=== PATIENT | female | born 1940 | race Caucasian/White ===

== ENCOUNTER → 2017-12-24 12:14 | Outpatient (CLI) | payer MEDICARE, SELFPAY | PROVIDERS: PCP Family Medicine; Visit Provider Orthopaedic Surgery Orthopaedic Surgery of the Spine | DX: Z01.818 Encounter for other preprocedural examination (principal) | CPT/HCPCS: 93005 ==

== ENCOUNTER 2018-01-05 06:31 | Inpatient (IN) | payer MEDICARE, SELFPAY ==
[2017-12-15 09:44] VITALS: BMI 20.1
[2018-01-05] VITALS (15 sets, daily range): BP systolic 108–156; BP diastolic 48–91; PULSE 13–106; RESP 7–94; TEMP 36.2–36.8; O2SAT 92–100; BMI 20.5
--- NOTE | 2018-01-05 | DI.RAD.S_ITS ---
PROCEDURE: XR LUMBAR SPINE 2-3V INDICATIONS: L3-4, L5-S1 TLIF TECHNIQUE: 2 views of the lumbar spine were acquired. COMPARISON: [facility], CT, L-SPINE WITHOUT CONTRAST, 01/04/2015, 13:42. [facility], CT, CT CHEST ABDOMEN PELVIS WITHOUT CONTRAST, 03/03/2017, 12:58. [facility], CR, L-SPINE 2-3 VIEWS, 09/06/2014, 13:51. FINDINGS: Intraoperative fluoroscopy was provided for the referring service and demonstrates posterior spinal fusion of the L3, L4, L5, and S1 by transpedicular screws, stabilizing rods, and intervertebral body spacer devices. IMPRESSION: Intraoperative fluoroscopy demonstrating posterior lumbosacral spinal fusion; please refer to the operative report for further details. Dictated by: Tyrel Cantu M.D. on 01/05/2018 at 12:25 Approved by: Tyrel Cantu M.D. on 01/05/2018 at 12:29
[2018-01-05] MEDS: LACTATED RINGERS 1,000 ML 42 ML IV (07:40)
--- NOTE | 2018-01-05 07:56 | PM.PREOP ---
Pre-operative Note Interval Note Pre-op Check: Yes History & Physical Reviewed by Physician, Yes Exam Performed and Yes History & Physical exam performed today by Physician Changes: No
[2018-01-05] MEDS: MIDAZOLAM 2 MG/2 ML VIAL IV (07:57)
--- NOTE | 2018-01-05 07:59 | SUR.PREOP ---
Dr. Reese declined glucose check
[2018-01-05] MEDS: CEFAZOLIN 1 GM/50 ML FROZ.PIGGY IV (08:00)
--- NOTE | 2018-01-05 08:45 | SUR.OPER ---
Prone on spine table, head in foam head support, padded chest and pelvic supports, gel pad at knees, lower legs supported by pillows; nipples, genitalia and toes free of pressure, arms secured on foam padded arm boards at <90 degrees abduction. Tape over blanket at thigh secured to table.
[2018-01-05] MEDS: BUPIVACAINE 0.25% W/ EPI VIAL 50 ML INJ (09:47)
[2018-01-05] MEDS: BUPIVACAINE LIPOSOME 266 MG/20 ML VIAL INJ (09:50)
[2018-01-05] MEDS: ACETAMINOPHEN IV 1,000 MG/100 ML VIAL 400 MG IV (11:00)
--- NOTE | 2018-01-05 11:44 | P.OP_ITS ---
Operative Date/Time/Diagnoses Date of procedure: 01/05/18 Time of procedure: 08:19 Pre-op diagnosis: 1. 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 L3-4, L4-5, l5-S1 spinal stenosis. 3. L3-4, L4-5, L5-S1 spondylosis with radiculopathy Post-op diagnosis: same Procedure & Clinicians Procedure: 1. L3-4, L5-S1 Postero-lateral and posterior interbody fusion 2. L3-4, L5-S1 interbody cage placement. 3. L3-4, L5-S1 decompressive laminectomy with bilateral facetecomies 4. L4-5 posterolateral fusion 5. L4-5 posterior non-segmental instrumentation removal 6. L4-5 hemilaminectomy with exploration of fusion 7. L3-4, L5-S1 Posterior segmental instrumentation 8. [place] of bone marrow from iliac crest 9. Utilization of microsurgical technique and operating microscope Same procedure as scheduled: Yes Indications: Patient has been having chronic back pain and worsening lumbar radiculopathy. Patient had history of L4-5 fusion. Patient was doing well for 6 months before start to have worsening back pain. Her x-ray showed worsening spondylolisthesis and possible loss of fixation. Patient failed multiple conservative management with worsening pain weakness and numbness in her lower extremity. Patient has been having difficulty performing activity of daily living. After discussing risks benefits of treatment options, patient elected proceed with surgery. Surgeon: Danyell Reese Non Profit Financial Controller: Sophie Pfeiffer Click Yes if Unassisted: No Anesthesia Type: General Operative Notes Closure Type: primary Specimen(s): none sent Implants & Drains: Globus revolve screws and Rise cages Applied: catheter Estimated Blood Loss (mL): 100 Blood products transfused: none Procedure in detail: Patient was seen in the preoperative area. Risks and benefits of the surgery was discussed with the patient. Informed consent was obtained from the patient and placed in the chart. Surgical site was marked. Patient was taken to the operative room. General anesthesia was administered. Prophylactic antibiotic was given to the patient less than 30 min before the incision was made. Patient was placed into a prone position on the Brendon table. Patient's back was then prepped and draped in the sterile fashion. Time- out was performed at this time. Using patient's previous scar incision was made over the L3-S1 interval on the left side. Fascia was incised in line with skin incision. Patient's previously placed hardware over the L4-5 level was identified by dissecting down to the level the hardware using a Bovie and a Frey. The locking caps which was removed using globus screwdriver. The locking epi was then removed from the tulips of the pedicle screws using a Micki. The pedicle screws were then removed using the screwdriver. The screws were found to have poor purchase. The Globus and MARS retractors was then placed into the wound and docked onto the L3 and L5 lamina using C-arm guidance. Using microsurgical technique and operating microscope a laminectomy facetectomy was performed by removing the L3 and L5 lamina and the L3-4 L5-S1 facet. The disc space at L3-4 to L5-S1 level was identified next. And a total diskectomy was performed at L3-4 L5-S1 level. The endplates were decorticated using a rasp and shaver. The total diskectomy and decortication was performed at L3-4 L5-S1 level in order to to accomplish a L3-4 L5-S1 fusion. The local bone from the laminectomy and facetectomy was saved for local bone grafting. After the total diskectomy and decortication was completed, Globus viacell bone graft material was combined with local bone that was harvested earlier. At this time, a separate skin is incision was made over the iliac crest. A Jamshidi needle was inserted into the iliac crest through a separate skin incision. 5 cc of bone marrow aspiration was obtained through the separate skin incision using a Jamshidi needle from the iliac crest. The bone marrow aspiration was combined with local bone and the via cell bone grafting material. The bone grafting material was placed into the L3- 4, L5-S1 interbody space along with a expandable cage. The cage was expanded to its maximum height using the torque limiting screwdriver. At this time a mirror image incision was made on the right side. The fascia was incised in line with the skin incision. Patient's previously placed hardware on the right side was then removed in the same fashion as it was on the right side. The hardware was also found to have good purchase. The fusion mass on the left side was exposed by performing a right-sided hemilaminectomy at L4-5 level. The hemilaminectomy was performed using the Kerrison rongeur to undercut the lamina as well removing additional epidural scar tissue for purpose of decompressing the epidural space. The fusion mass was explored and was found have visible motion indicating pseudoarthrosis. Globus MARS retractor was inserted and docked onto the L3-4 L4-5 L5-S1 posterolateral gutter. Using the power drill, posterior-lateral decortication was performed at L3-4 L4-5 L5-S1 level until bleeding cortical bone was identified. The remaining bone grafting material was placed into the L3-4 L4-5 L5-S1 posterior lateral gutter he order to accomplish posterolateral fusion at the L3-4 L4-5 L5-S1 level. Using the double C-arm technique, pedicle screws were placed into the L3, L4 L5 and S1 pedicles bilaterally. This was done by placing the Jamshidi needle into the pedicles, then placing the guidewires over the Jamshidi needle, and finally placing the cannulated screws over the guidewires bilaterally. After the pedicle screws were placed, 2 titanium rods was locked into the heads of the pedicle screws using locking caps and torque limiting screwdriver. After all the hardware was placed, and confirmed with AP and lateral C-arm imaging, the wound was then irrigated with sterile normal saline and packed with Ray-Hector gauze for 3 min to accomplish hemostasis. After the gauze was removed the deep fascia was closed with #1 Vicryl suture. The subcutaneous layer was closed with 2-0 Vicryl. The skin was closed with skin anais. Patient tolerated the procedure well. There were no complications. Complications: none Condition: stable Disposition: PACU Plan for aftercare: Admit to inpatient hospital
[2018-01-05] MEDS: HYDROMORPHONE 2 MG INJ 0.5 MG IV ×3 (12:13→12:39)
[2018-01-05] MEDS: ONDANSETRON 4 MG/2 ML INJ IV ×2 (12:16→18:03)
[2018-01-05] MEDS: METOCLOPRAMIDE 10 MG/2 ML INJ IV (12:30)
--- NOTE | 2018-01-05 12:36 | SUR.PHASEI ---
Report called to SONIA Howell
--- NOTE | 2018-01-05 13:11 | SUR.PHASEI ---
Pt tansferred to the floor. Report to SONIA Wilcox. Josy checked with RN. Rodriguez secured. IV saline locked. Pt on her rt side. VS stable. Mild weakness to lt leg. Bbelongings bag x2 and cane to pt's room. Pt's spouse notified regarding transfer.
[2018-01-05] MEDS: SODIUM CHLORIDE 0.9% 1,000 ML 100 ML IV ×2 (13:45→23:03)
[2018-01-05] MEDS: OXYCODONE IR 5 MG TABLET 10 MG PO ×3 (13:45→19:51)
--- NOTE | 2018-01-05 15:00 | CM.DANOTE ---
DCP: Case received and reviewed EMR. Met with patient, and introduced self and role of discharge planning. Provided name on board, and number to contact. Patient is a 77 year old female who was admitted to the hospitalist team early this morning. PCP: Dr. Stearns. Payer confirmed is Medicare/[employer] Patient came in early this morning for surgery, L4-5 fusion, has history of pseudoarthritis. Lives at home in [place] with her . Has a daughter that lives on [address] as well. Has been independent, before having surgery. Uses a cane at home, but has several stairs. Discussed senior living after discharge, and patient is requesting this. Gave her Medicare Choice list to review, patient is leaning toward [facility]. P: DCP to continue to plan and assess, arrange [facility] when closer to discharge. Angela Cabrera RN/Molding Utility Worker
--- NOTE | 2018-01-05 15:09 | PT.IPTN ---
Current Diagnoses Other spondylosis with radiculopathy, lumbar region (01/05/18) Spinal stenosis, lumbar region without neurogenic claudication (01/05/18) Arthrodesis status (01/05/18) Surgery Performed Operation Date: 01/05/18 07:45 Actual Procedures p L3-4,L5-S1 TLIF; L4-5 HWR w/Exploration Fusion, L3-4,L4-5,L5-S1 PSF w/Instru.(Not Applicable) - Danyell Reese MD Physical Therapy Treatment Note M3 PT-IP Subjective Start: 01/05/18 15:11 Freq: NEEDED Status: Active Protocol: Document 01/05/18 15:09 MDD (Rec: 01/05/18 15:14 MDD [id number]) Subjective Physical Therapy Visit Type Type Patient Refusal Notes PT attempted to see pt at the above time. Pt requested to wait for tomorrow. In addtion , paper script for chairback lumbar brace was found in her chart. No mention of wear schedule, donning/doffing instructions provided in EHR. Spoke to a PA at [facility] who is sending a message to Dr. Reese for clarification.
[2018-01-05] MEDS: GABAPENTIN 100 MG CAPSULE 200 MG PO ×2 (17:08→20:46)
[2018-01-05] MEDS: HYDROMORPHONE 1 MG INJ 0.5 MG IV (17:55)
[2018-01-05] MEDS: hydrOXYzine pamoate 25 MG CAPSULE PO (18:14)
--- NOTE | 2018-01-05 18:45 | PC.NURSE ---
Pt in bed awake and tremulous. Denies h/o tremors or feeling chilled. Rates incisional pain 7-8/10 s/p oxycodone administration. Pt admits to nausea. Pt was repositioned onto left side with ice to back. 02 2l nc sats 96% per continuous monitor. Pt admits to h/o sleep apnea without cpap. Spouse is present @ pt's bedside. Administered 0.5 mg iv dilaudid and zofran. Pt states having difficulty relaxing and discussed action of vistaril with pt. Pt desires this and med was given. Reassured pt will monitor carefully as pt expressed concern re use of iv dilaudid. Pt admits to baseline numbness RLE. Equally warm and pink extremities. Foot pumps BL removed until pt's pain is managed.
[2018-01-05] MEDS: ACETAMINOPHEN 325 MG TABLET 650 MG PO (19:51)
[2018-01-05] MEDS: DOCUSATE 100 MG CAPSULE PO (20:48)
[2018-01-05] MEDS: SENNOSIDES 8.6 MG TABLET 17.2 MG PO (20:48)
[2018-01-05] MEDS: diphenhydrAMINE 50 MG/ML VIAL 25 MG IV (20:55)
[2018-01-05] MEDS: HYDROMORPHONE 0.5 MG INJ IV (20:57)
[2018-01-06] MEDS: CEFAZOLIN 1 GM/50 ML FROZ.PIGGY IV (00:58)
[2018-01-06 01:00] VITALS: BP 113/64; PULSE 69; RESP 16; TEMP 36.6; O2SAT 100
[2018-01-06] MEDS: OXYCODONE IR 5 MG TABLET 10 MG PO ×7 (01:05→22:31)
[2018-01-06] MEDS: hydrOXYzine pamoate 25 MG CAPSULE PO ×3 (01:06→20:04)
[2018-01-06] MEDS: ALBUTEROL HFA 60 PUFF/8 GM INH INH (01:22)
[2018-01-06] MEDS: HYDROMORPHONE 0.5 MG INJ IV ×3 (01:45→16:56)
[2018-01-06 03:20] VITALS: BP 104/48; PULSE 100; RESP 16; TEMP 36.5; O2SAT 100
[2018-01-06] MEDS: diphenhydrAMINE 50 MG/ML VIAL 25 MG IV ×2 (03:20→22:31)
[2018-01-06 05:48] LABS: Hematocrit 27.5 % (36-46); Hemoglobin 9.2 g/dL (12.0-16.0)
[2018-01-06] MEDS: LEVOTHYROXINE 75 MCG TABLET 37.5 MCG PO (05:58)
[2018-01-06 08:00] VITALS: BP 116/58; PULSE 72; RESP 16; TEMP 37.6; O2SAT 100
--- NOTE | 2018-01-06 08:51 | PM.PNPO.1 ---
Subjective Date Patient Seen: 01/06/18 Time Patient Seen: 08:51 Interval history: Patient is laying in bed comfortably. Patient is well developed and in no acute distress. Patient denies any fever, chills or chest pain. Patient reports pain to be 4/10 and tolerable. She reports that PT came by yesterday however she declined as she was not in the best mood; she is doing much better today. Patient expressed that upon discharge she would like to go to rehab due to her not being able to assist at home. Exam Vital Signs (past 8 hours): - 01/06/18 01:00 01/06/18 03:20 Temperature 97.9 F 97.7 F Pulse Rate 69 100 H Respiratory Rate 16 16 Blood Pressure 113/64 104/48 L Pulse Oximetry 100 100 Oxygen Delivery Method Nasal Cannula Oxygen Flow Rate 2 Narrative Exam Narrative: Patient is AOx3. There is slight tenderness to palpation of the lumbar spine. Lumbar dressing clean, dry and intact. No swelling noted. Sensory intact to light touch. Muscle strength 5/5 throughout. Objective Labs Result Diagrams: 01/06/18 05:22 Labs: Laboratory Results - last 24 hr 01/06/18 05:22 Hgb 9.2 L Hct 27.5 L Assessment & Plan Post-op Postoperative Procedures Operation Date: 01/05/18 07:45 Actual Procedures Side Surgeon p L3-4,L5-S1 TLIF; L4-5 HWR w/Exploration Fusion, L3-4,L4-5,L5-S1 PSF w/Instru. Not Applicable Danyell Reese MD Weight bearing as tolerated mobilize with PT. Limit twisting, bending and lifting. Likely need SNF. Postoperative day: 1 Postoperative status: doing well Postoperative plan: routine post-op care Time Spent With Patient less than 15 minutes Quality VTE Deep Vein Thrombosis/Pulmonary Embolism Present on Admission: No
[2018-01-06] MEDS: GABAPENTIN 100 MG CAPSULE 200 MG PO ×4 (09:16→20:40)
[2018-01-06] MEDS: DOCUSATE 100 MG CAPSULE PO ×2 (09:19→20:05)
[2018-01-06] MEDS: ACETAMINOPHEN 325 MG TABLET 650 MG PO (10:55)
--- NOTE | 2018-01-06 11:38 | PT.IIE ---
Current Diagnoses Other spondylosis with radiculopathy, lumbar region (01/05/18) Spinal stenosis, lumbar region without neurogenic claudication (01/05/18) Arthrodesis status (01/05/18) Surgery Performed Operation Date: 01/05/18 07:45 Actual Procedures p L3-4,L5-S1 TLIF; L4-5 HWR w/Exploration Fusion, L3-4,L4-5,L5-S1 PSF w/Instru.(Not Applicable) - Danyell Reese MD Surgical History (Last Updated 12/15/17 @ 10:20 by Rosa Pacheco RN) History of arthroplasty of right knee (Acute) History of bladder surgery (Acute) History of lumbar fusion (Acute) History of lumpectomy of left breast (Acute) History of total hysterectomy with bilateral salpingo-oophorectomy (BSO) (Acute) Hx of appendectomy (Acute) Hx of arthroscopy of right knee (Acute) Status post Mohs surgery for squamous cell carcinoma of skin (Acute) Medical History (Last Updated 12/15/17 @ 10:17 by Rosa Pacheco RN) Anxiety (Acute) Asthma (Acute) Breast cancer (Acute) C. difficile enteritis (Acute) Chronic constipation (Acute) Cystocele (Acute) Depression (Acute) Femur fracture, right (Acute) HTN (hypertension) (Acute) Hyperlipidemia (Acute) Hypothyroidism (Acute) Incontinence (Acute) Insomnia (Acute) Macular degeneration (Acute) Osteoarthritis (Acute) Osteopenia (Acute) Sleep apnea (Acute) Physical Therapy Inpatient Evaluation/Re-Eval M1 PT/OT-IP Prior Functional Status Start: 01/05/18 15:11 Freq: NEEDED Status: Active Protocol: Document 01/06/18 11:38 MDD (Rec: 01/06/18 13:04 MDD [id number]) Medical Review Prior Functional Status Medical History Reviewed Yes Communication normal Mobility and Gait independent without AD in the house. Uses a SPC occasionally when in a new environment or unsteady surface. Uses SPC for stairs at home. Activities of Daily Living and IADL's independent Social History Household Members spouse Living Arrangements House Number of Floors (Floors) Two Floors Number of Stairs To Enter/Railing? House is two floors, but she does not need to access the second floor. Does have a flight of stairs down from where they park the car (about 14 steps) with R railing on the way down and another 3 steps with no railings to enter the house. Home Environment Standard Height Toilet Home Equipment Front Wheel Walker Straight Cane Grab Bars Near Toilet Employment Status Retired Additional Social History Comment Lives with her on [address] [facility] [address] [facility]. Has a daughter that resides nearby that may be ill. Pt tears up when speaking about her. Plans to borrow a commode from the [facility] for use over the toilet and in the shower. M2 PT-IP Current Condition Start: 01/05/18 15:11 Freq: NEEDED Status: Active Protocol: Document 01/06/18 11:38 MDD (Rec: 01/06/18 13:04 MDD [id number]) Physical Therapy Current Condition Current Condition Evaluation Date 01/06/18 Treatment Diagnosis s/p lumbar fusion Onset Date 01/05/18 Precautions Lumbar Precautions Log Roll No Twisting Limit Bending Lifting Restriction of 10 lbs Gait Belt above Incisional Area Brace Chair back lumbar brace dispensed today. Have not yet received Other Precautions monaco catheter Weight Bearing Status Weight Bearing Status Weight Bear as Tolerated M3 PT-IP Subjective Start: 01/05/18 15:11 Freq: NEEDED Status: Active Protocol: Document 01/06/18 11:38 MDD (Rec: 01/06/18 13:49 MDD [id number]) Subjective Physical Therapy Visit Type Type Initial Evaluation Visit Start Time 10:35 Visit Stop Time 11:38 Total Visit Minutes 63 Notes BP at rest 144/70 mmHg, sitting EOB 158/75 mmHg, after transfer to recliner 147/69 mmHg Number of DIRECTOR FAMILY Visits 0 Physical Therapy Visit Comments Patient Comments Pt is in a lot of pain, but feels that if she gets up and moves a bit she may feel better Short Term Goals Transfer to recliner chair Therapy Pain Assessment Pain When Pain Assessed During Mobility Pain Present Pain Present Pain Reported Location Back Intensity 8 Scale Used Numeric (1 - 10) Description Burning Sharp Pain Management Techniques Timing of Activity with Medications M4 PT-IP Mobility and Gait Start: 01/05/18 15:11 Freq: NEEDED Status: Active Protocol: Document 01/06/18 11:38 MDD (Rec: 01/06/18 13:49 MDD [id number]) PT-Bed Mobility Assessment Rolling Type of Rolling Log Rolling Roll to Left Level of Assist Minimal Assistance Supine to Sit Supine to Sit Minimal Assistance Scooting Scooting to Edge of Bed Minimal Assistance PT-Transfer Assessment Sit to and From Stand Sit to and from Stand Contact Guard Assistance Equipment Transfer Assistive Device Gait Belt Front Wheeled Walker Orthotic/Prosthetic Devices or Brace: Yes Transfers Transfer Destination Chair Transfer Technique Stand Step Pivot Transfer Ability Level of Assist Contact Guard Assistance Comments Mobility Comments Pt very guarded and slow with movements. Pt very shaky in sitting EOB and with transfer so did not perform additional gait training. M5 PT-IP Objective Assessments Start: 01/05/18 15:11 Freq: NEEDED Status: Active Protocol: Document 01/06/18 11:38 MDD (Rec: 01/06/18 13:49 [facility] [id number]) Orientation Orientation/Cognition Level of Alertness Alert Orientation Name Age Birthday Month Date Year Day of Week Place Situation Language Function Ability No Deficits Noted Safety Awareness Understands Safety Issues Memory Description No Deficits Noted Gross Range of Motion Lower Extremity ROM Assessment Within Functional Limits Strength Lower Extremity Strength Assessment Within Functional Limits Sensation Assessment Sensation Gross Sensation Right LE Impaired Comments Sensation Comments L4,5 dermatomes R mildly impaired to light touch M6 PT-IP Treatment Start: 01/05/18 15:11 Freq: NEEDED Status: Active Protocol: Document 01/06/18 11:38 MDD (Rec: 01/06/18 13:49 [facility] [id number]) Physical Therapy Treatment Education Education Provided Precautions Weight Bearing Status Post-Op Packet Safety Brace Education Donning Patient M7 PT-IP Assessment and Plan Start: 01/05/18 15:11 Freq: NEEDED Status: Active Protocol: Document 01/06/18 11:38 MDD (Rec: 01/06/18 13:49 [facility] [id number]) PT Summary Assessment and Plan Potential Rehabilitation Potential Good Status of Condition at Evaluation Stable Summary Impairments Pain ROM Bed Mobility Transfers Gait Activity Tolerance Progress Towards Goals Progressing Toward Goals Assessment Summary Pt demonstrates good ability to perform log roll and sit to supine with cueing and min A. She was very shaky throughout session, reporting it was due to anxiety for the first time out of bed. Pt has many stairs to enter her home and may benefit from a short stay at a rehab facility upon d/c. Goals Bed Mobility Goal Independent Transfer Goal Independent Gait Goal Independent Front Wheel Walker Gait Distance 100 feet Other Goals Ascend/descend 3 steps with no handrail using single point cane Days to Meet Goals 3 Frequency of Treatment Frequency Of Treatment Twice a Day Treatment Plan Physical Therapy Treatment Plan Bed Mobility Training Transfer Training Gait Training Therapeutic Exercise Post Op Education Discharge Planning Other Recommendations and Next Treatment Continue with gait training Focus progression, bed mobility Recommendations To Nursing Amount of Assist Needed 1 Person Assist Discharge Recommendations PT Discharge Recommendations SNF Rehab Equipment Needed for Home Before Pt's working on Discharge getting a bedside commode
[2018-01-06 12:00] VITALS: BP 111/57; PULSE 71; RESP 18; TEMP 37.8; O2SAT 95
--- NOTE | 2018-01-06 12:01 | CM.DPC ---
DCP Cont: Met w/pt and her today. Reviewed DC options. Pt explains she has been at [facility] a few times and she felt it was very loud, she could not sleep. Other than this concern, pt would like to DC to [facility]. Notified Mago re: above and requested a private rm on pt's behalf. If no private rm, pt would be okay with a roommate that is A+O and quiet. Following closely, will f/u on [facility] room options Wednesday. PASSR completed for expected DC Wednesday. ARNEL Rascon
[2018-01-06 13:05] VITALS: BMI 20.7
--- NOTE | 2018-01-06 14:31 | PC.NURSE ---
Pt give q3h percolone with pain tolerated. Pt reports she feels best when she is standing up. Wearing a brace around her waist. PT is waiting to hear more specifics about how often she should wear the brace - whether in bed or not. Pt alert and oriented.
--- NOTE | 2018-01-06 14:40 | PT.IPTN ---
Current Diagnoses Other spondylosis with radiculopathy, lumbar region (01/05/18) Spinal stenosis, lumbar region without neurogenic claudication (01/05/18) Arthrodesis status (01/05/18) Surgery Performed Operation Date: 01/05/18 07:45 Actual Procedures p L3-4,L5-S1 TLIF; L4-5 HWR w/Exploration Fusion, L3-4,L4-5,L5-S1 PSF w/Instru.(Not Applicable) - Danyell Reese MD Physical Therapy Treatment Note M2 PT-IP Current Condition Start: 01/05/18 15:11 Freq: NEEDED Status: Active Protocol: Document 01/06/18 11:38 MDD (Rec: 01/06/18 13:04 MDD [id number]) Physical Therapy Current Condition Current Condition Evaluation Date 01/06/18 Treatment Diagnosis s/p lumbar fusion Onset Date 01/05/18 Precautions Lumbar Precautions Log Roll No Twisting Limit Bending Lifting Restriction of 10 lbs Gait Belt above Incisional Area Brace Chair back lumbar brace dispensed today. Have not yet received Other Precautions monaco catheter Weight Bearing Status Weight Bearing Status Weight Bear as Tolerated M3 PT-IP Subjective Start: 01/05/18 15:11 Freq: NEEDED Status: Active Protocol: Document 01/06/18 13:56 MDD (Rec: 01/06/18 15:43 MDD [email or web address]) Subjective Physical Therapy Visit Type Type Treatment Note Visit Start Time 13:56 Visit Stop Time 14:40 Total Visit Minutes 44 Notes [facility] orthopedics called and clarified orders for brace. Pt is to wear brace only when out of bed. Nursing notified. Number of INSPECTION CLERK Visits 0 Physical Therapy Visit Comments Patient Comments Pt is motivated to get up and move around, feels she has been sitting too long. Therapy Pain Assessment Pain When Pain Assessed At Rest Pain Present Pain Present Pain Reported Location Back Intensity 4 Scale Used Numeric (1 - 10) Description Burning Pain Management Techniques Timing of Activity with Medications M4 PT-IP Mobility and Gait Start: 01/05/18 15:11 Freq: NEEDED Status: Active Protocol: Document 01/06/18 11:38 MDD (Rec: 01/06/18 13:49 MDD [id number]) PT-Bed Mobility Assessment Rolling Type of Rolling Log Rolling Roll to Left Level of Assist Minimal Assistance Supine to Sit Supine to Sit Minimal Assistance Scooting Scooting to Edge of Bed Minimal Assistance PT-Transfer Assessment Sit to and From Stand Sit to and from Stand Contact Guard Assistance Equipment Transfer Assistive Device Gait Belt Front Wheeled Walker Orthotic/Prosthetic Devices or Brace: Yes Transfers Transfer Destination Chair Transfer Technique Stand Step Pivot Transfer Ability Level of Assist Contact Guard Assistance Comments Mobility Comments Pt very guarded and slow with movements. Pt very shaky in sitting EOB and with transfer so did not perform additional gait training. M5 PT-IP Objective Assessments Start: 01/05/18 15:11 Freq: NEEDED Status: Active Protocol: Document 01/06/18 11:38 MDD (Rec: 01/06/18 13:49 MDD [id number]) Orientation Orientation/Cognition Level of Alertness Alert Orientation Name Age Birthday Month Date Year Day of Week Place Situation Language Function Ability No Deficits Noted Safety Awareness Understands Safety Issues Memory Description No Deficits Noted Gross Range of Motion Lower Extremity ROM Assessment Within Functional Limits Strength Lower Extremity Strength Assessment Within Functional Limits Sensation Assessment Sensation Gross Sensation Right LE Impaired Comments Sensation Comments L4,5 dermatomes R mildly impaired to light touch M6 PT-IP Treatment Start: 01/05/18 15:11 Freq: NEEDED Status: Active Protocol: Document 01/06/18 13:56 MDD (Rec: 01/06/18 15:43 MDD [email or web address]) Physical Therapy Treatment Education Education Provided Precautions Safety Other Treatments Other Treatment Performed Practice scooting to edge of chair. Pt ambulated 3 loops in the room with CGA using FWW (50 feet) and an additional loop in the hallway (212 feet ). Cues for scapular retraction and posture. Continued education on precautions with turning. Pt reports less pain with ambulating today. Practiced sit to supine with min A at lower extremities. Bed mobility for repositioning in bed with bridge. M7 PT-IP Assessment and Plan Start: 01/05/18 15:11 Freq: NEEDED Status: Active Protocol: Document 01/06/18 13:56 MDD (Rec: 01/06/18 15:43 MDD [email or web address]) PT Summary Assessment and Plan Potential Rehabilitation Potential Excellent Status of Condition at Evaluation Stable Summary Impairments Pain Bed Mobility Transfers Gait Activity Tolerance Progress Towards Goals Progressing Toward Goals Assessment Summary Pt demonstrating much improved mobility this afternoon. She appeared less shaky and was able to ambulate with SBA the entire loop of the hallway. She will continue to require skilled therapy services to maximize function while in the hospital. Goals Bed Mobility Goal Independent Transfer Goal Independent Gait Goal Independent Front Wheel Walker Gait Distance 100 feet Other Goals Ascend/descend 3 steps with no handrail using single point cane Days to Meet Goals 3 Frequency of Treatment Frequency Of Treatment Twice a Day Treatment Plan Physical Therapy Treatment Plan Bed Mobility Training Transfer Training Gait Training Therapeutic Exercise Post Op Education Discharge Planning Other Recommendations and Next Treatment Continue with gait training Focus progression, bed mobility Recommendations To Nursing Amount of Assist Needed 1 Person Assist Discharge Recommendations PT Discharge Recommendations SNF Rehab Equipment Needed for Home Before Pt's working on Discharge getting a bedside commode
[2018-01-06 15:24] VITALS: BP 107/50; PULSE 68; RESP 18; TEMP 37.1; O2SAT 95
--- NOTE | 2018-01-06 18:05 | PC.NURSE ---
This RN has checked over documentation by orientee nurse and agrees with her assessments. patient is resting in bed at this time, call light in reach, ba active. will continue to monitor.
[2018-01-06 19:31] VITALS: BP 109/55; PULSE 76; RESP 18; TEMP 37.4; O2SAT 100
[2018-01-06] MEDS: ONDANSETRON 4 MG/2 ML INJ IV (19:51)
[2018-01-06] MEDS: SENNOSIDES 8.6 MG TABLET 17.2 MG PO (20:40)
[2018-01-06] MEDS: SODIUM CHLORIDE 0.9% FLUSH 10 ML IV (20:42)
[2018-01-07] VITALS (11 sets, daily range): BP systolic 101–133; BP diastolic 56–68; PULSE 67–87; RESP 14–18; TEMP 36.3–38.3; O2SAT 92–100
--- NOTE | 2018-01-07 01:05 | PC.NURSE ---
Addendum entered by Estrellita Murillo R.N. 01/07/18 05:53: Catheter d'cd as per MD order. Instructed in sx/prevention of UTI. States she is always incontinent of urine so pull-up put on. Original Note: Addendum entered by Estrellita Murillo R.N. 01/07/18 05:24: Patient noted to desat down to 84% for brief period of time; repositioned head and sat back up to 98%. Temp now down to 98.2 and pain is 3/10. Original Note: Addendum entered by Estrellita Murillo R.N. 01/07/18 04:41: Medicated with Oxycodone for 6/10 back pain. Also repositioned and ice pack applied to back. SCD's off for next hour as per protocol. Original Note: Addendum entered by Estrellita Murillo R.N. 01/07/18 04:24: Temp 101 both temporal and po so medicated with Tylenol and extra blanket removed from bed. Patient states she has slept well tonight. Continues on pulse oximetry monitoring and has not been noted to desat at all this shift. Original Note: Patient is alert and oriented but very soft spoken. Breath sounds CTA with RA sat of 93% when asleep and now 99% after being repositioned. HRR. Denies nausea. BT present and states she has been passing flatus. Indwelling catheter is patent; discussed plan to remove in morning and patient agreeable. Assisted to reposition q2h. Dressing to back is CDI. Does state pain is currently 4/10 and is due for pain medication at 0130 and states it is tolerable at this point; ice pack applied for additional comfort. Pain is in back and radiates into right buttock and down leg. CMS is intact. Does have Raynaud's. Upper body tremoring noted as reported by evening RN. Wearing bilateral footie SCD's. Fall risk score is high and bed alarm is activated.
[2018-01-07] MEDS: OXYCODONE IR 5 MG TABLET 10 MG PO ×7 (01:35→20:52)
[2018-01-07] MEDS: ACETAMINOPHEN 325 MG TABLET 650 MG PO (04:17)
[2018-01-07] MEDS: LEVOTHYROXINE 75 MCG TABLET 37.5 MCG PO (05:40)
--- NOTE | 2018-01-07 08:17 | PM.PNPO.1 ---
Subjective Date Patient Seen: 01/07/18 Time Patient Seen: 08:17 Interval history: Pt is s/p L3-S1 TLIF by Dr. Reese. PD 2. States pain better today. Still some numbness on right side from low back to front of salter. Plan is to go to SNF for further therapy/rehab. Pt has been up walking but has not attempted any stairs yet. She has 17 steps to get into her house in [facility]. Pt's feels is not able to assist in taking care of her. After his back surgery, he fell on the steps at their home and broke his hip. Needs one more hospital stay until able to d/c to SNF. Exam Vital Signs (past 8 hours): - 01/07/18 00:45 01/07/18 04:17 01/07/18 04:19 Temperature 98.9 F 101 F H 101 F H Pulse Rate 84 84 Respiratory Rate 16 14 Blood Pressure 133/68 H 117/58 L Pulse Oximetry 97 95 01/07/18 05:15 Temperature 98.2 F Pulse Rate Respiratory Rate Blood Pressure Pulse Oximetry Oxygen Delivery Method Room Air Oxygen Flow Rate 0 Narrative Exam Narrative: Pt in chair. Back brace on. A&O x3. Having breakfast. Back dressing CDI. 5/5 BLE. Paxton calves soft and nontender. Numbness on right hip to front of salter. Objective Labs Result Diagrams: 01/06/18 05:22 Assessment & Plan Post-op (1) Postoperative anemia: Problem details: Vt C and Iron ordered. Current Visit: Yes Status: Acute Postoperative Procedures Operation Date: 01/05/18 07:45 Actual Procedures Side Surgeon p L3-4,L5-S1 TLIF; L4-5 HWR w/Exploration Fusion, L3-4,L4-5,L5-S1 PSF w/Instru. Not Applicable Danyell Reese MD PD 2. Continue pain med as needed. Continue DVT prophylaxis with SCDs. Back brace when out of bed. Continue PT. Plan for D/C to SNF tomorrow if medically stable. Time Spent With Patient less than 15 minutes Quality VTE Deep Vein Thrombosis/Pulmonary Embolism Present on Admission: No
[2018-01-07] MEDS: GABAPENTIN 100 MG CAPSULE 200 MG PO ×4 (10:02→20:53)
[2018-01-07] MEDS: ASCORBIC ACID 500 MG TABLET PO (10:02)
[2018-01-07] MEDS: FERROUS SULFATE 325 MG TABLET PO (10:02)
[2018-01-07] MEDS: DOCUSATE 100 MG CAPSULE PO ×2 (10:02→20:53)
--- NOTE | 2018-01-07 12:12 | OT.IP.EVAL ---
Current Diagnoses Anemia, unspecified (01/05/18) Other spondylosis with radiculopathy, lumbar region (01/05/18) Spinal stenosis, lumbar region without neurogenic claudication (01/05/18) Arthrodesis status (01/05/18) Surgery Performed Operation Date: 01/05/18 07:45 Actual Procedures p L3-4,L5-S1 TLIF; L4-5 HWR w/Exploration Fusion, L3-4,L4-5,L5-S1 PSF w/Instru.(Not Applicable) - Danyell Reese MD Past Medical History (Last Updated 01/07/18 @ 08:24 by Delaney Greer PA-C) Postoperative anemia (Acute) Anxiety (Acute) Asthma (Acute) Breast cancer (Acute) C. difficile enteritis (Acute) Chronic constipation (Acute) Cystocele (Acute) Depression (Acute) Femur fracture, right (Acute) HTN (hypertension) (Acute) Hyperlipidemia (Acute) Hypothyroidism (Acute) Incontinence (Acute) Insomnia (Acute) Macular degeneration (Acute) Osteoarthritis (Acute) Osteopenia (Acute) Sleep apnea (Acute) Surgical History (Last Updated 12/15/17 @ 10:20 by Rosa Pacheco RN) History of arthroplasty of right knee (Acute) History of bladder surgery (Acute) History of lumbar fusion (Acute) History of lumpectomy of left breast (Acute) History of total hysterectomy with bilateral salpingo-oophorectomy (BSO) (Acute) Hx of appendectomy (Acute) Hx of arthroscopy of right knee (Acute) Status post Mohs surgery for squamous cell carcinoma of skin (Acute) Occupational Therapy Inpatient Evaluation/Re-Eval M1 PT/OT-IP Prior Functional Status Start: 01/05/18 15:11 Freq: NEEDED Status: Active Protocol: Document 01/06/18 11:38 MDD (Rec: 01/06/18 13:04 MDD [id number]) Medical Review Prior Functional Status Medical History Reviewed Yes Communication normal Mobility and Gait independent without AD in the house. Uses a SPC occasionally when in a new environment or unsteady surface. Uses SPC for stairs at home. Activities of Daily Living and IADL's independent Social History Household Members spouse Living Arrangements House Number of Floors (Floors) Two Floors Number of Stairs To Enter/Railing? House is two floors, but she does not need to access the second floor. Does have a flight of stairs down from where they park the car (about 14 steps) with R railing on the way down and another 3 steps with no railings to enter the house. Home Environment Standard Height Toilet Home Equipment Front Wheel Walker Straight Cane Grab Bars Near Toilet Employment Status Retired Additional Social History Comment Lives with her on [facility]. Has a daughter that resides nearby that may be ill. Pt tears up when speaking about her. Plans to borrow a commode from the [facility] for use over the toilet and in the shower. M1 PT/OT-IP Prior Functional Status Start: 01/07/18 11:50 Freq: NEEDED Status: Active Protocol: Document 01/07/18 09:00 [facility] (Rec: 01/07/18 12:12 [facility] [id number]) Medical Review Prior Functional Status Medical History Reviewed Yes Communication normal Mobility and Gait independent without AD in the house. Uses a SPC occasionally when in a new environment or unsteady surface. Uses SPC for stairs at home. Activities of Daily Living and IADL's independent Social History Household Members spouse Living Arrangements House Number of Floors (Floors) Two Floors Number of Stairs To Enter/Railing? House is two floors, but she does not need to access the second floor. Does have a flight of stairs down from where they park the car (about 14 steps) with R railing on the way down and another 3 steps with no railings to enter the house. Home Environment Standard Height Toilet Home Equipment Front Wheel Walker Straight Cane Grab Bars Near Toilet Employment Status Retired Additional Social History Comment Lives with her on [facility]. Has a daughter that resides nearby that may be ill. Pt tears up when speaking about her. Plans to borrow a commode from the [facility] for use over the toilet and in the shower. M2 OT-IP Current Condition Start: 01/07/18 11:50 Freq: Status: Active Protocol: Document 01/07/18 09:00 [facility] (Rec: 01/07/18 12:12 [facility] [id number]) Occupational Therapy Current Condition Current Condition Evaluation Date 01/07/18 Treatment Diagnosis L3-S1 fusion with revision Post Operative Precautions Lumbar Precautions Log Roll No Twisting Limit Bending Lifting Restriction of 10 lbs Gait Belt above Incisional Area Other Precautions monaco catheter Weight Bearing Status Weight Bearing Status Weight Bear as Tolerated M3 OT- IP Subjective and Pain Start: 01/07/18 11:50 Freq: Status: Active Protocol: Document 01/07/18 09:00 [facility] (Rec: 01/07/18 12:12 [facility] [email or web address]) OT- Subjective Occupational Therapy Visit Type Type Initial Evaluation Visit Start Time 09:00 Visit Stop Time 09:35 Total Visit Minutes 35 Occupational Therapy Visit Comments Patient Comments Pt requesting to get up and use the bathroom. OT Pain Assessment Pain When Pain Assessed At Rest Pain Present Pain Present Denied Pain M4 OT- IP ADL's Start: 01/07/18 11:50 Freq: Status: Active Protocol: Document 01/07/18 09:00 [facility] (Rec: 01/07/18 12:12 [facility] [email or web address]) OT ADL-Dressing General Eval Upper Body Dressing Ability Moderate Assistance Lower Body Dressing Ability Maximum Assistance Areas Needing Assistance Underpants/Brief Socks Assistive Devices Dressing Assistive Devices Home Care Liaison Sock Aid Comments OT Dressing Comments Able to educate pt on use of oracle consultant/sock aid to stephanie/doff brief. Pt needing assist for repositioning brace on. OT ADL-Toileting General Evaluation Toileting Ability Contact Guard Assistance Areas Needing Assistance Manage Clothing Devices Toileting Assistive Devices Grab Bars Comments OT Toileting Comments Pt needing assist for clothing while pt able to do own pericare needs. M6 OT- IP Functional Cognition Start: 01/07/18 11:50 Freq: Status: Active Protocol: Document 01/07/18 09:00 [facility] (Rec: 01/07/18 12:12 [facility] [email or web address]) Cognitive Factors Limiting Selfcare Function Cognitive Ability Level of Alertness Alert Patient Orientation Name Place Situation Attention Span Ability Capable of Focused Attention Capable of Sustained Attention Ability to Follow Commands Able to Follow One Step Commands Memory Description Short Term Impaired Safety Awareness Decreased Recall of Precautions Decreased Ability to Apply Precautions Problem Solving Ability Needs Assist to Identify Solutions Cognitive Comments Cognitive Assessment Comments Pt not able to recall back precautions 1/3, and after education 2/3. Pt needing vc to incorporate back precautions during ADL needs. OT- Vision and Hearing OT- Hearing Assessment OT- Hearing Assessment WFL OT- Vision Assessment Vision History Low Vision Visual Acuity Glasses All The Time Vision Assessment Comments Pt states has low vision. M7 OT- IP Mobility and Balance Start: 01/07/18 11:50 Freq: Status: Active Protocol: Document 01/07/18 09:00 [facility] (Rec: 01/07/18 12:12 [facility] [email or web address]) OT-Transfer Assessment Sit to and From Stand Sit to and from Stand Contact Guard Assistance Transfers Transfer Ability Contact Guard Assistance Technique Transfer Destination Chair Toilet Transfer Technique Stand Step Pivot Devices Transfer Assistive Devices Gait Belt Front Wheeled Walker OT- Balance Assessment Sitting Balance and Reactions Static Sitting Balance Ability Normal Dynamic Sitting Balance Ability Normal Standing Balance and Reactions Static Standing Balance Ability Fair M8 OT- IP Objective Assessments Start: 01/07/18 11:50 Freq: Status: Active Protocol: Document 01/07/18 09:00 [facility] (Rec: 01/07/18 12:12 [facility] [email or web address]) OT Strength Upper Extremity Strength Assessment Within Functional Limits OT-Muscle Tone Assessment Muscle Tone WNL Yes M9 OT- IP Assessment and Plan Start: 01/07/18 11:50 Freq: Status: Active Protocol: Document 01/07/18 09:00 [facility] (Rec: 01/07/18 12:12 [facility] [email or web address]) OT Summary Assessment and Plan Potential Rehabilitation Potential Good Analytic Complexity at Evaluation Low Summary OT Impairments Pain Balance Coordination Functional Cognition Functional Mobility Grooming Dressing Toileting Bathing Toilet Transfers Shower Transfers Progress Towards Goals Slow Progress due to Cognition Goals Grooming Goal Independent Dressing Goal Standby Assistance Toileting Goal Standby Assistance Bathing Goal Minimal Assistance Toilet Transfer Goal Standby Assistance Shower Transfer Goal Contact Guard Assistance Patient/Caregiver Education Goal Demonstrate Post-Op Precautions Caregiver Independent Assisting Patient Days to Meet Goals 5 Frequency of Treatment Frequency Of Treatment Once a Day Treatment Plan OT Treatment Plan ADL Training Functional Cognition Training Functional Mobility Patient/Family Education Discharge Planning Other Treatment Recommendations and Next Showering and AED for dressing Treatment Focus . Discharge Recommendations OT Discharge Recommendations SNF Rehab Home Equipment Needs shower chair,BSC
--- NOTE | 2018-01-07 14:40 | PT.IPTN ---
Current Diagnoses Anemia, unspecified (01/05/18) Other spondylosis with radiculopathy, lumbar region (01/05/18) Spinal stenosis, lumbar region without neurogenic claudication (01/05/18) Arthrodesis status (01/05/18) Surgery Performed Operation Date: 01/05/18 07:45 Actual Procedures p L3-4,L5-S1 TLIF; L4-5 HWR w/Exploration Fusion, L3-4,L4-5,L5-S1 PSF w/Instru.(Not Applicable) - Danyell Reese MD Physical Therapy Treatment Note M2 PT-IP Current Condition Start: 01/05/18 15:11 Freq: NEEDED Status: Active Protocol: Document 01/06/18 11:38 MDD (Rec: 01/06/18 13:04 MDD [id number]) Physical Therapy Current Condition Current Condition Evaluation Date 01/06/18 Treatment Diagnosis s/p lumbar fusion Onset Date 01/05/18 Precautions Lumbar Precautions Log Roll No Twisting Limit Bending Lifting Restriction of 10 lbs Gait Belt above Incisional Area Brace Chair back lumbar brace dispensed today. Have not yet received Other Precautions monaco catheter Weight Bearing Status Weight Bearing Status Weight Bear as Tolerated M3 PT-IP Subjective Start: 01/05/18 15:11 Freq: NEEDED Status: Active Protocol: Document 01/07/18 14:40 MDD (Rec: 01/07/18 14:49 MDD [id number]) Subjective Physical Therapy Visit Type Type Treatment Note Visit Start Time 14:00 Visit Stop Time 14:40 Total Visit Minutes 40 Number of JUNIOR MARKETING ASSOCIATE Visits 0 Physical Therapy Visit Comments Patient Comments Pt reports she just received a pain pill and is ready to work with therapy. Therapy Pain Assessment Pain When Pain Assessed At Rest Pain Present Pain Present Pain Reported Location Back Intensity 4 Scale Used Numeric (1 - 10) Description Aching Pain Management Techniques Timing of Activity with Medications M4 PT-IP Mobility and Gait Start: 01/05/18 15:11 Freq: NEEDED Status: Active Protocol: Document 01/06/18 11:38 MDD (Rec: 01/06/18 13:49 MDD [id number]) PT-Bed Mobility Assessment Rolling Type of Rolling Log Rolling Roll to Left Level of Assist Minimal Assistance Supine to Sit Supine to Sit Minimal Assistance Scooting Scooting to Edge of Bed Minimal Assistance PT-Transfer Assessment Sit to and From Stand Sit to and from Stand Contact Guard Assistance Equipment Transfer Assistive Device Gait Belt Front Wheeled Walker Orthotic/Prosthetic Devices or Brace: Yes Transfers Transfer Destination Chair Transfer Technique Stand Step Pivot Transfer Ability Level of Assist Contact Guard Assistance Comments Mobility Comments Pt very guarded and slow with movements. Pt very shaky in sitting EOB and with transfer so did not perform additional gait training. M5 PT-IP Objective Assessments Start: 01/05/18 15:11 Freq: NEEDED Status: Active Protocol: Document 01/06/18 11:38 MDD (Rec: 01/06/18 13:49 MDD [id number]) Orientation Orientation/Cognition Level of Alertness Alert Orientation Name Age Birthday Month Date Year Day of Week Place Situation Language Function Ability No Deficits Noted Safety Awareness Understands Safety Issues Memory Description No Deficits Noted Gross Range of Motion Lower Extremity ROM Assessment Within Functional Limits Strength Lower Extremity Strength Assessment Within Functional Limits Sensation Assessment Sensation Gross Sensation Right LE Impaired Comments Sensation Comments L4,5 dermatomes R mildly impaired to light touch M6 PT-IP Treatment Start: 01/05/18 15:11 Freq: NEEDED Status: Active Protocol: Document 01/07/18 14:40 MDD (Rec: 01/07/18 14:49 [facility] [id number]) Physical Therapy Treatment Education Education Provided Precautions Safety Other Treatments Other Treatment Performed Bed mobility: review log rolling, pt able to perform roll to L and supine <> sit with SBA and use of bedrails. Ambulated to/from BR for toileting and sink. Standing balance at sink while handwashing - pt able to balance without UE support for up to one minute today. Gait training x 220 feet w/ FWW and SBA, continued need for cues to avoid shrugging shoulders and maintain normal breathing. Stair training on curb step using FWW: 2 step ups/down on curb step, up with R and down with L (arthritic knee) with CGA and VC's. M7 PT-IP Assessment and Plan Start: 01/05/18 15:11 Freq: NEEDED Status: Active Protocol: Document 01/07/18 14:40 MDD (Rec: 01/07/18 14:49 [facility] [id number]) PT Summary Assessment and Plan Potential Rehabilitation Potential Excellent Status of Condition at Evaluation Stable Summary Impairments Pain Strength Gait Activity Tolerance Progress Towards Goals Progressing Toward Goals Assessment Summary Pt reports slight increase in pain to 5/10 at end of session today. Demonstrates improved bed mobility, still requires handrails for independence. Gait endurance and activity tolerance is improving and she was able to ascend/descend 2 curb steps. Will benefit from continued rehab in a [facility]p facility to allow her to safely navigate her 17 steps to get into her home. Goals Bed Mobility Goal Independent Transfer Goal Independent Gait Goal Independent Front Wheel Walker Gait Distance 100 feet Other Goals Ascend/descend 3 steps with no handrail using single point cane Days to Meet Goals 3 Frequency of Treatment Frequency Of Treatment Twice a Day Treatment Plan Physical Therapy Treatment Plan Bed Mobility Training Transfer Training Gait Training Therapeutic Exercise Post Op Education Discharge Planning Other Recommendations and Next Treatment Continue with gait training Focus progression, bed mobility Recommendations To Nursing Amount of Assist Needed 1 Person Assist Discharge Recommendations PT Discharge Recommendations SNF Rehab Equipment Needed for Home Before Pt's working on Discharge getting a bedside commode
--- NOTE | 2018-01-07 16:03 | CM.DPC ---
DCP Cont: Mago from [facility] met w/pt today. Mago attempting to secure a private rm for pt. If none available, Mago trying to secure the best roommate available for pt per pt's request for quiet, during the night especially. According to SONIA Funes, pt teary today. Shantel was attempting to adjust pt's abd brace and felt pt's breast was hard as a rock and chaffed. Shantel applied some barrier cream and dressing and discussed this finding w/pt. Pt explained to RN that spouse has dementia and is self involved, not very capable of caring for pt and incapable of insight into pt's needs. Spouse able to drive still and care for himself independently. Pt has h/o breast cancer and had scheduled an appt to f/u re current lumps but since she missed one ferry over on the day of her appt, they could not get her in. SONIA Funes has assisted pt w/scheduling follow appts today because, per RN, pt seems emotionally paralyzed, very tearful, emotionally labile. This MILK BOTTLER intended to support pt at bedside today but was unable d/t caseload demands. It would be helpful if someone could address above concerns w/pt before her DC if there is someone available. DCP: [facility] via w/c when medically cleared, likely Wednesday. ARNEL Rascon
--- NOTE | 2018-01-07 18:24 | RT ---
Spoke with pt. today and CANDE Baltazar who is over seeing the pt. while she is in the hospital. We discussed the possiblity of the pt. still having obstructive sleep apnea. We are going to set the pt. up with an overnight pulse oximeter to see if there are desaturation events that may require the pt. to follow up with a sleep study. If the pt. is positive for multiple desaturations please have the pt. follow up with the sleep center or have her speak to the Respiratory Therapy dept prior to discharge so that we may assist her with a home sleep study. If you have any questions please contact Ayad or Francisca in the RT dept.
[2018-01-07] MEDS: SENNOSIDES 8.6 MG TABLET 17.2 MG PO (20:52)
[2018-01-07] MEDS: SODIUM CHLORIDE 0.9% FLUSH 10 ML IV (20:53)
[2018-01-08] VITALS (14 sets, daily range): BP systolic 77–125; BP diastolic 41–70; PULSE 61–86; RESP 14–19; TEMP 36.7–37.6; O2SAT 94–98
[2018-01-08] MEDS: OXYCODONE IR 5 MG TABLET 10 MG PO ×5 (01:20→23:34)
--- NOTE | 2018-01-08 01:33 | PC.NURSE ---
Addendum entered by Estrellita Murillo R.N. 01/08/18 06:31: Awake and currently states pain is tolerable at 3/10. Expecting to DC to [facility] later today. Original Note: Addendum entered by Estrellita Murillo R.N. 01/08/18 04:43: Up to bathroom and voided 125cc + incontinent during transfer to [facility]. States pain is now at 7/10 so medicated with Oxycodone. Original Note: Addendum entered by Estrellita Murillo R.N. 01/08/18 01:39: Correction to previous documentation. Dressing is to left breast Original Note: Patient is alert and oriented but very soft spoken. Slightly febrile at 99.7. Breath sounds with inspiratory crackles in right mid/lower lobes. RA sat 96% but had 2 episodes within a few minutes of each where the oximeter was alarming; when checked sat was down to 83% but rebounded quickly. HRR. Denies nausea. BT present and abdomen is soft; has not had BM since 01/04 and requests to wait until morning to take MOM. Wearing pull up as states she floods upon standing due to failed bladder sling surgery. Denies any dysuria since catheter removed yesterday morning. Has dressing to right breast; states she has non healing lesion from hx of lumpectomy but denies drainage. Dressing to back is CDI. Pain currently 6/10 and increases to 8/10 with movement; repositioned, medicated with Oxycodone and ice applied. CMS intact. Fall risk score is high and bed alarm is activated.
[2018-01-08] MEDS: LEVOTHYROXINE 75 MCG TABLET 37.5 MCG PO (06:26)
[2018-01-08] MEDS: MAGNESIUM HYDROXIDE 30 ML UDC PO (06:48)
--- NOTE | 2018-01-08 07:48 | P.DS_ITS ---
History of Present Illness Date Patient Seen: 01/08/18 Time Patient Seen: 07:43 Chief complaint: L3-4 L5-S1 TLIF L4-5 fusion l3-s1 psf codes/notes Narrative: Patient is seen bedside status post TLIF postop day 3. She well her pain is well controlled and she is ready to be discharged to a SNF. She will follow up in the office in 2 weeks time. 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 Spinal stenosis of lumbar region multiple levels. Hospital Course: Patient was admitted to the hospital status post L3-4 L5-S1 TLIF with L4-5 HW are with exploration of fusion L3-S1 PSF with instrumentation on 01/05/[address] Reese. Patient tolerated procedure well with no major complications and was transferred to the acute care floor. She had some mild anemia while she was in the hospital which we prescribed ferrous sulfate for otherwise her hospital stay has been uneventful. She was seen by Physical therapy who recommended discharge to a short-term nursing facility. Patient was stable and ready for discharge on 01/08/18 Status at Discharge Cognitive/behavioral status at discharge: Alert and oriented x3 Functional status at discharge: uses cane/walker Overall status at discharge: patient is progressing back to baseline Time Spent with Patient Less than 30 minutes Exam Vital Signs (past 8 hours): - 01/08/18 01:05 01/08/18 04:10 Temperature 99.7 F H 99.6 F Pulse Rate 86 82 Respiratory Rate 17 18 Blood Pressure 125/57 H 105/59 L Pulse Oximetry 96 94 Oxygen Delivery Method Room Air Oxygen Flow Rate 0 Narrative Exam Narrative: Patient is well-developed well-nourished in no acute distress. Patient alert oriented x3. Exam patient has full range of motion of the lower extremity she is nontender to palpation over her lumbar spine and surgical dressing is clean dry and intact. Calves are soft and compressible. She is neurovascularly intact in bilateral lower extremities. Objective Labs Result Diagrams: 01/06/18 05:22 Discharge Plan Discharge Plan Patient Disposition: SNF Transfer to: [facility] I certify the postop hospital assisted care is medically necessary on a continuing basis for any conditions for which he/ she received care during this hospitalization.: Yes The receiving facility has agreed to accept transfer and provide medical treatment.: Yes Discharge Med Rec/Prescriptions Prescriptions: New acetaminophen 325 mg Tablet 650 mg PO Q6HR PRN (Reason: Pain, Mild (1-3)) Qty: 0 RF: 0 ferrous sulfate 325 mg (65 mg iron) Tablet 325 mg PO DAILY Qty: 0 RF: 0 docusate sodium 100 mg Capsule 100 mg PO BID Qty: 0 RF: 0 hydroxyzine pamoate 25 mg Capsule 25 mg PO Q4HR PRN (Reason: Nausea And Vomiting) Qty: 0 RF: 0 Continue methocarbamol [Robaxin] 500 mg Tablet 500 mg PO BID PRN (Reason: Pain) RF: 0 gabapentin 100 mg Capsule 2 cap PO QID RF: 0 carboxymethylcellulose sodium [Refresh Liquigel] 1 % Drops, Liquid Gel 1 drp EYE-BOTH BID RF: 0 levothyroxine 75 mcg Capsule 37.5 mcg PO DAILY RF: 0 mirabegron [Myrbetriq] 25 mg Tablet Extended Release 24 Hr 25 mg PO QAM RF: 0 conjugated estrogens [Premarin] 0.625 MG/GM cream 0.625 mg VG DIRECTED RF: 0 albuterol sulfate 90 mcg/actuation Hfa Aerosol Inhaler 2 puff INHALATION Q4-6H PRN (Reason: Dyspnea) RF: 0 tramadol 50 mg Tablet 50 mg PO TID PRN (Reason: Pain (Scale Score 1-3)) Qty: 15 RF: 0 Follow up/Referrals: [facility] [Provider Group] - 01/19/18 11:00 am (Follow up with Marline Tavarez PA-C in the [address] office) Discharge Health Status Precautions: [place] Provider Discharge Instructions Diet: Diet as Tolerated Activity: WBAT, use walker to ambulate, no bending/twisting, lifting greater than 5 lbs, wear brace when out of bed Cold/Heat Therapy: Apply ice to operative area 20 minutes at a time as needed for pain/swelling. Skin/Wound/Dressing Care Report to your healthcare provider any signs of infection, such as:: chills, fever, night sweats, increased pain and unusual drainage Dressing: Keep dressing clean, dry, and intact. Special Rehabilitation Services Reason for rehabilitation: Post-operative therapy Rehab type: Physical therapy Visit Report/Discharge Packet Instructions: DI for Transforaminal Lumbar Interbody Fusion Discharge Data Primary Care Provider: Luiz Stearns Attending Provider: Danyell Reese Admit Date/Time: 01/05/18 06:31 Quality VTE Deep Vein Thrombosis/Pulmonary Embolism Present on Admission: No
[2018-01-08] MEDS: SODIUM CHLORIDE 0.9% FLUSH 10 ML IV ×4 (09:06→23:37)
[2018-01-08] MEDS: ONDANSETRON 4 MG/2 ML INJ IV (09:06)
[2018-01-08] MEDS: GABAPENTIN 100 MG CAPSULE 200 MG PO ×4 (09:27→20:11)
[2018-01-08] MEDS: FERROUS SULFATE 325 MG TABLET PO (09:27)
[2018-01-08] MEDS: ASCORBIC ACID 500 MG TABLET PO (09:27)
[2018-01-08] MEDS: DOCUSATE 100 MG CAPSULE PO ×2 (09:27→20:11)
--- NOTE | 2018-01-08 10:28 | CM.DPC ---
Addendum entered by Eva Rubin LPN 01/08/18 12:54: Notified by SONIA Mcguire that pt now is having ongoing difficulties with low BP. She has discussed same with Dr. Vázquez/[facility] and the d/c for today is cancelled. [facility] is update. P: remains: [facility] when stable for same...will check in again tomorrow. Original Note: Addendum entered by Eva Rubin LPN 01/08/18 10:34: all orders and PASRR were faxed with assist of [employer] Original Note: DCP: continued: case received and d/c to snf orders noted. EMR reviewed. Contacted [facility] who confirmed they could accept pt today. Met then with pt. She noted that she felt a bit anxious and nauseous after a dose of MOM early this morning. She had not yet had a BM. Conferred with SONIA Mcguire and decision make that it would be best to keep pt until afternoon to allow this to stabilize. Pt was updated and agrees best. [facility] now set for 1330 via w/c. [facility] says that a pvt room may be available on Wednesday, pt is on the list for this and in meantime a compatible quiet roommate has been assigned to her. Pt is updated and expresses her appreciation for same.
--- NOTE | 2018-01-08 10:50 | PT.IPTN ---
Current Diagnoses Anemia, unspecified (01/05/18) Other spondylosis with radiculopathy, lumbar region (01/05/18) Spinal stenosis, lumbar region without neurogenic claudication (01/05/18) Arthrodesis status (01/05/18) Surgery Performed Operation Date: 01/05/18 07:45 Actual Procedures p L3-4,L5-S1 TLIF; L4-5 HWR w/Exploration Fusion, L3-4,L4-5,L5-S1 PSF w/Instru.(Not Applicable) - Danyell Reese MD Physical Therapy Treatment Note M2 PT-IP Current Condition Start: 01/05/18 15:11 Freq: NEEDED Status: Active Protocol: Document 01/06/18 11:38 MDD (Rec: 01/06/18 13:04 MDD [id number]) Physical Therapy Current Condition Current Condition Evaluation Date 01/06/18 Treatment Diagnosis s/p lumbar fusion Onset Date 01/05/18 Precautions Lumbar Precautions Log Roll No Twisting Limit Bending Lifting Restriction of 10 lbs Gait Belt above Incisional Area Brace Chair back lumbar brace dispensed today. Have not yet received Other Precautions monaco catheter Weight Bearing Status Weight Bearing Status Weight Bear as Tolerated M3 PT-IP Subjective Start: 01/05/18 15:11 Freq: NEEDED Status: Active Protocol: Document 01/08/18 10:50 GGD (Rec: 01/08/18 12:27 GGD [id number]) Subjective Physical Therapy Visit Type Type Treatment Note Visit Start Time 10:40 Visit Stop Time 10:50 Total Visit Minutes 30 Number of AFFILIATE MARKETING MANAGER Visits 1 Physical Therapy Visit Comments Patient Comments Pt states she would like to walk. Therapy Pain Assessment Pain When Pain Assessed At Rest Pain Present Pain Present Pain Reported Location Back Intensity 3 Scale Used Numeric (1 - 10) Pain Management Techniques Re-positioning Timing of Activity with Medications M4 PT-IP Mobility and Gait Start: 01/05/18 15:11 Freq: NEEDED Status: Active Protocol: Document 01/08/18 10:50 GGD (Rec: 01/08/18 12:27 GGD [id number]) PT-Bed Mobility Assessment Rolling Type of Rolling Log Rolling Roll to Right Level of Assist Contact Guard Assistance Supine to Sit Supine to Sit Contact Guard Assistance 1 Person Assistance Bedrails Scooting Scooting to Edge of Bed Standby Assistance PT-Transfer Assessment Sit to and From Stand Sit to and from Stand Contact Guard Assistance Use of Upper Extremities Equipment Transfer Assistive Device Gait Belt Front Wheeled Walker Orthotic/Prosthetic Devices or Brace: Yes Transfers Transfer Destination Chair Gait Assessment Gait Gait Assistance Required: Contact Guard Assist Distance (Feet) (feet) 500 Able to Maintain Weight Bearing Status Yes During Gait Assistive Devices Assistive Device Gait Belt Front Wheeled Walker Orthotic/Prosthetic Devices or Brace: Yes Gait Deviations General Gait Pattern Flexed Trunk Factors Limiting Gait Function Factors Limiting Gait Function Decreased Strength Pain M5 PT-IP Objective Assessments Start: 01/05/18 15:11 Freq: NEEDED Status: Active Protocol: Document 01/06/18 11:38 MDD (Rec: 01/06/18 13:49 MDD [id number]) Orientation Orientation/Cognition Level of Alertness Alert Orientation Name Age Birthday Month Date Year Day of Week Place Situation Language Function Ability No Deficits Noted Safety Awareness Understands Safety Issues Memory Description No Deficits Noted Gross Range of Motion Lower Extremity ROM Assessment Within Functional Limits Strength Lower Extremity Strength Assessment Within Functional Limits Sensation Assessment Sensation Gross Sensation Right LE Impaired Comments Sensation Comments L4,5 dermatomes R mildly impaired to light touch M6 PT-IP Treatment Start: 01/05/18 15:11 Freq: NEEDED Status: Active Protocol: Document 01/08/18 10:50 GGD (Rec: 01/08/18 12:27 GGD [id number]) Physical Therapy Treatment Education Education Provided Precautions Safety M7 PT-IP Assessment and Plan Start: 01/05/18 15:11 Freq: NEEDED Status: Active Protocol: Document 01/08/18 10:50 GGD (Rec: 01/08/18 12:27 GGD [id number]) PT Summary Assessment and Plan Summary Assessment Summary Pt improving slowly with mobility. She need cues for posture with gait and full log roll. She needed min a for donning brace. Treatment Plan Other Recommendations and Next Treatment Continue with gait training Focus progression, bed mobility Recommendations To Nursing Amount of Assist Needed 1 Person Assist Discharge Recommendations PT Discharge Recommendations SNF Rehab
--- NOTE | 2018-01-08 11:42 | PC.NURSE ---
Addendum entered by Shayla Jimenez R.N. 01/08/18 14:04: BP: Checked patient's BP after helping her back to bed. BP 77/41, HR 71. Patient without dizziness or lightheadedness all along but states she just feels off. Communicated this to Dr Khan and received order to initiate 500 ml NS bolus and cancel discharge with re-evaluation tomorrow. Bolus started approx 1300, BP now up to 99/49. Given Tylenol for her back pain (08/07). She knows she can request Oxycodone at any time. Original Note: Blood pressure: BUSINESS AGENT reported patient's BP was 78/46. Patient denies dizziness or lightheadedness with ambulation. States she feels maybe a little confused and is not used to taking narcotics. Walked in [place] with OT earlier this morning without complaints. This chief writer spoke with Dr Khan (ortho MD occupational therapy director) and informed of the same. She had me re-check BP (82/44) and HR (77) and said that she was still okay with patient d/c to SNF this afternoon as long as systolic BP >80, HR<100 and patient does not have dizziness, lightheadeness or SOB with ambulation. Discussed this with patient and she seemed agreeable. This chief writer suggested possibly trying 5 mg Oxycodone next time and adding in some Tylenol (to help reduce any side effects from narcotics). Patient was medicated with IV Zofran this morning for complaints of nausea. Nausea resolved, she has been able to take PO's and has not had any emesis. Sitting up in chair now working on lunch. Able to make needs known and calls appropriately. Light in reach, alarm on.
[2018-01-08] MEDS: SODIUM CHLORIDE 0.9% 500 ML 250 ML IV (12:56)
[2018-01-08] MEDS: ACETAMINOPHEN 325 MG TABLET 650 MG PO ×2 (13:01→20:11)
[2018-01-08 17:22] LABS: Hemoglobin 9.9 g/dL (12.0-16.0)
[2018-01-08] MEDS: LACTATED RINGERS 1,000 ML 75 ML IV (18:37)
--- NOTE | 2018-01-08 18:57 | PC.NURSE ---
Addendum entered by Maria Eugenia Treadwell R.N. 01/08/18 20:02: patient bp is now 108/59. patient states she feels better, is sitting in the chair with brace on at this time after spending some time in bed resting. call light is in reach. Original Note: patient states she feels dizzy and a little nauseous while sitting up in chair during shift assessment. bp was 86/44, pulse 61. H&H was ordered stat per Dr. Khan, results were 9.9 and 29.0, which is several points up from the last time it was taken. Dr. Khan also ordered LR at 75 to infuse continuously. saturation is 97% on ra. patient has not had a bowel movement since (she states) the , gave patient a mix of prune juice, butter and jovita karlos with dinner. if no results by HS, will offer appropriate ordered bowel medication. patient resting in bed without brace at this time, call light in reach, ba active. will continue to monitor.
[2018-01-08] MEDS: SENNOSIDES 8.6 MG TABLET 17.2 MG PO (20:11)
[2018-01-08] MEDS: diphenhydrAMINE 50 MG/ML VIAL 25 MG IV (23:34)
[2018-01-09 03:15] VITALS: BP 131/69; PULSE 74; RESP 18; TEMP 36.9; O2SAT 99
[2018-01-09] MEDS: OXYCODONE IR 5 MG TABLET 10 MG PO (03:20)
[2018-01-09] MEDS: ACETAMINOPHEN 325 MG TABLET 650 MG PO ×2 (03:20→09:12)
--- NOTE | 2018-01-09 04:09 | PC.NURSE ---
Assumed care of pt from outgoing shift at 2300 8-11. Pt awake at this time, getting ready for bed with TELEVISION PRODUCER help. Pt complains of pain, given pain med per MAR. Pt reports feels uneasy in tummy. Pt encouraged and assisted with lying on her left side, ice pack applied. bed alarm on. side rails upx3. belongings and call light within reach. will continue to monitor pt for sfaety. 0300- Pt awake had large bm. given pain med per MAR. belongings and call light within reach. will continue to monitor.
[2018-01-09] MEDS: LACTATED RINGERS 1,000 ML 75 ML IV (06:12)
[2018-01-09] MEDS: LEVOTHYROXINE 75 MCG TABLET 37.5 MCG PO (06:12)
[2018-01-09 08:00] VITALS: BP 100/49; PULSE 66; RESP 20; TEMP 37; O2SAT 96
[2018-01-09] MEDS: GABAPENTIN 100 MG CAPSULE 200 MG PO ×2 (09:12→12:06)
[2018-01-09] MEDS: ASCORBIC ACID 500 MG TABLET PO (09:12)
[2018-01-09] MEDS: DOCUSATE 100 MG CAPSULE PO (09:12)
[2018-01-09] MEDS: FERROUS SULFATE 325 MG TABLET PO (09:12)
[2018-01-09 09:52] VITALS: PULSE 64; RESP 16; O2SAT 95
--- NOTE | 2018-01-09 11:00 | CM.DPC ---
DCP: continued: Dr. Vázquez is here now and has ok'd pt for d/c to [facility]. DC Summary with addendum is added to snf packed as well as the updated Medication list. [place]/[facility] confirms 1330 time and [facility] staff will be here with a w/c for transport. Pt notes she feels much better today than she did yesterday.
--- NOTE | 2018-01-09 12:09 | PC.NURSE ---
Pt has showered and had her back dressing changed. Resting now and visiting her family. Pt IV has been removed. Pt states pain is 2-3/10 and states she is comfortable. Back brace is on and checked by P.T. Pt was able to walk in the halls with FWW and Clara corona.
--- NOTE | 2018-01-09 12:17 | PT.IPTN ---
Current Diagnoses Anemia, unspecified (01/05/18) Other spondylosis with radiculopathy, lumbar region (01/05/18) Spinal stenosis, lumbar region without neurogenic claudication (01/05/18) Arthrodesis status (01/05/18) Surgery Performed Operation Date: 01/05/18 07:45 Actual Procedures p L3-4,L5-S1 TLIF; L4-5 HWR w/Exploration Fusion, L3-4,L4-5,L5-S1 PSF w/Instru.(Not Applicable) - Danyell eRese MD Physical Therapy Treatment Note M2 PT-IP Current Condition Start: 01/05/18 15:11 Freq: NEEDED Status: Active Protocol: Document 01/06/18 11:38 MDD (Rec: 01/06/18 13:04 MDD [id number]) Physical Therapy Current Condition Current Condition Evaluation Date 01/06/18 Treatment Diagnosis s/p lumbar fusion Onset Date 01/05/18 Precautions Lumbar Precautions Log Roll No Twisting Limit Bending Lifting Restriction of 10 lbs Gait Belt above Incisional Area Brace Chair back lumbar brace dispensed today. Have not yet received Other Precautions monaco catheter Weight Bearing Status Weight Bearing Status Weight Bear as Tolerated M3 PT-IP Subjective Start: 01/05/18 15:11 Freq: NEEDED Status: Active Protocol: Document 01/09/18 11:30 CLB (Rec: 01/09/18 12:16 CLB [id number]) Subjective Physical Therapy Visit Type Type Treatment Note Visit Start Time 11:30 Visit Stop Time 11:45 Total Visit Minutes 15 Number of MATERIAL SPREADER Visits 2 Physical Therapy Visit Comments Patient Comments Pt states she would like to walk. Therapy Pain Assessment Pain When Pain Assessed At Rest Pain Present Pain Present Pain Reported Location Back Intensity 3 Scale Used Numeric (1 - 10) Pain Management Techniques Re-positioning Timing of Activity with Medications M4 PT-IP Mobility and Gait Start: 01/05/18 15:11 Freq: NEEDED Status: Active Protocol: Document 01/09/18 11:30 CLB (Rec: 01/09/18 12:16 CLB [id number]) PT-Transfer Assessment Sit to and From Stand Sit to and from Stand Contact Guard Assistance Use of Upper Extremities Equipment Transfer Assistive Device Gait Belt Front Wheeled Walker Orthotic/Prosthetic Devices or Brace: Yes Transfers Transfer Destination Chair Gait Assessment Gait Gait Assistance Required: Contact Guard Assist Distance (Feet) (feet) 250 Able to Maintain Weight Bearing Status Yes During Gait Assistive Devices Assistive Device Gait Belt Front Wheeled Walker Orthotic/Prosthetic Devices or Brace: Yes Factors Limiting Gait Function Factors Limiting Gait Function Decreased Strength Pain Comments Gait Comments Pt ambulated ~250ft CGA with FWW. Pt able to maintain good posture ambulating with slow step-through gait pattern. M5 PT-IP Objective Assessments Start: 01/05/18 15:11 Freq: NEEDED Status: Active Protocol: Document 01/06/18 11:38 MDD (Rec: 01/06/18 13:49 MDD [id number]) Orientation Orientation/Cognition Level of Alertness Alert Orientation Name Age Birthday Month Date Year Day of Week Place Situation Language Function Ability No Deficits Noted Safety Awareness Understands Safety Issues Memory Description No Deficits Noted Gross Range of Motion Lower Extremity ROM Assessment Within Functional Limits Strength Lower Extremity Strength Assessment Within Functional Limits Sensation Assessment Sensation Gross Sensation Right LE Impaired Comments Sensation Comments L4,5 dermatomes R mildly impaired to light touch M6 PT-IP Treatment Start: 01/05/18 15:11 Freq: NEEDED Status: Active Protocol: Document 01/08/18 10:50 GGD (Rec: 01/08/18 12:27 GGD [id number]) Physical Therapy Treatment Education Education Provided Precautions Safety M7 PT-IP Assessment and Plan Start: 01/05/18 15:11 Freq: NEEDED Status: Active Protocol: Document 01/09/18 11:30 CLB (Rec: 01/09/18 12:16 CLB [id number]) PT Summary Assessment and Plan Potential Rehabilitation Potential Excellent Status of Condition at Evaluation Stable Summary Impairments Pain Strength Gait Activity Tolerance Progress Towards Goals Progressing Toward Goals Assessment Summary Pt ambulating safely w/FWW/CGA , pt has improved posture. Pt seems able to d/c when medically stable. Goals Bed Mobility Goal Independent Transfer Goal Independent Gait Goal Independent Front Wheel Walker Gait Distance 100 feet Other Goals Ascend/descend 3 steps with no handrail using single point cane Days to Meet Goals 3 Treatment Plan Other Recommendations and Next Treatment Pt to d/c to [facility] this Focus afternoon at 1330. Recommendations To Nursing Amount of Assist Needed 1 Person Assist Discharge Recommendations PT Discharge Recommendations SNF Rehab
--- NOTE | 2018-01-09 12:26 | PC.NURSE ---
Called report to Rizwana SCOTT at [facility]. Gave full report. No further questions.
== END 2018-01-09 13:54 | DRG 454 ==
PROVIDERS: Orthopaedic Surgery Foot and Ankle Surgery; Admitting Provider Orthopaedic Surgery Orthopaedic Surgery of the Spine; Family Provider Family Medicine; PCP Family Medicine; Visit Provider Orthopaedic Surgery Orthopaedic Surgery of the Spine
PROC: 0SG00AJ Fusion of Lumbar Vertebral Joint with Interbody Fusion Device, Posterior Approach, Anterior Column, Open Approach (ICD-10-PCS; principal; 2018-01-05 07:45)
DX: T84.498A Other mechanical complication of other internal orthopedic devices, implants and grafts, initial encounter (principal); M96.0 Pseudarthrosis after fusion or arthrodesis; M47.26 Other spondylosis with radiculopathy, lumbar region; M48.061 Spinal stenosis, lumbar region without neurogenic claudication; G47.33 Obstructive sleep apnea (adult) (pediatric); I10 Essential (primary) hypertension; J45.909 Unspecified asthma, uncomplicated; E03.9 Hypothyroidism, unspecified; E78.5 Hyperlipidemia, unspecified; F32.9 Major depressive disorder, single episode, unspecified; Z87.891 Personal history of nicotine dependence; M48.07 Spinal stenosis, lumbosacral region; M47.27 Other spondylosis with radiculopathy, lumbosacral region; I95.9 Hypotension, unspecified; D64.9 Anemia, unspecified
CPT/HCPCS: 36415; 72100; 76001; 85014; 85018; 94760; 94762; 97116; 97161; 97165; 97530; 97535; C1776; C9290; J0131; J0330; J1100; J1170; J1200; J2250; J2405; J2704; J2765; J3010

== ENCOUNTER → 2018-02-16 12:08 | Outpatient (CLI) | payer MEDICARE, SELFPAY ==
[2018-01-05 13:23] VITALS: BMI 20.5
[2018-01-07 10:33] VITALS: BMI 20.5
--- NOTE | 2018-02-16 | DI.US.S_ITS ---
ULTRASOUND OF LEFT BREAST: 02/16/2018 CLINICAL: Patient returns for additional imaging over a suspected mass in the left breast. Comparison is made to exams dated: 02/16/2018 mammogram - [facility], 02/10/2017 mammogram, and 11/13/2015 mammogram - [facility]. Real-time and Doppler ultrasound of the left breast were performed. Pagan scale images of the real-time examination were reviewed. Targeted ultrasound was performed of the medial left breast in the region of the patient's reported palpable abnormality. There is dense fatty tissue with some suggestion of edema and scarring without a focal mass identified. IMPRESSION: BENIGN 1) Dense tissue and scarring of the medial left breast appear to correlate with the patient's palpable abnormality in this patient with left breast postsurgical changes. Recommend clinical follow-up for further evaluation and management of the patient's reported symptoms. A breast MRI can be considered if there is continued clinical concern. 2) There is no convincing sonographic evidence of malignancy in the imaged left breast. Return to annual screening mammography is recommended. This exam was interpreted at Station ID: [id number]. Electronically Signed By: Tyrel Cantu M.D. ecl/:02/17/2018 04:17:05 letter sent: Clinical Evaluation Ultrasound BI-RADS: 2 Benign
--- NOTE | 2018-02-16 | DI.MG.S_ITS ---
BILATERAL DIGITAL DIAGNOSTIC MAMMOGRAM 3D/2D POST LUMPECTOMY: 02/16/2018 CLINICAL: Left Breast Lump. Comparison is made to exams dated: 02/10/2017 mammogram, 11/13/2015 mammogram - [facility], and 11/05/2014 mammogram - [facility]. There are scattered fibroglandular elements in both breasts. There is a triangular marker overlying the skin of the medial left breast at the site of the patient's reported palpable abnormality. There are postsurgical changes of the left breast with the left breast being markedly decreased in size from prior comparison exams. There are surgical clips in the posterior inferior left breast with assdociated hazy increased dense tissue in the region suggestive of scarring with overlying linear scar marker. This increased dense tissue underlies the triangular marker. There is no convincing mammographically identified mass underlying the triangular marker. There are additional circular mole markers overlying the left breast. There are vascular calcifications of the right breast. No other significant masses, calcifications, or other findings are seen in either breast. IMPRESSION: INCOMPLETE: NEEDS ADDITIONAL IMAGING EVALUATION Dense tissue and scarring of the medial left breast at the site of the patient's reported focal palpable abnormality. Targeted diagnostic ultrasound recommended for further evaluation, which will be performed immediately following this exam. This exam was interpreted at Station ID: [id number]. NOTE: For mammograms, a report in lay terms will be sent to the patient. Approximately 15% of breast malignancies will not be visualized mammographically. In the management of a palpable breast mass, a negative mammogram must not discourage biopsy of a clinically suspicious lesion. Electronically Signed By: Tyrle Cantu M.D. ecl/:02/17/2018 04:13:22 letter sent: Additional Imaging Needed ACR BI-RADS Category 0: Incomplete [id number]
== END ==
PROVIDERS: Family Provider Family Medicine; PCP Family Medicine; Visit Provider Physician Assistant
DX: R92.2 Inconclusive mammogram (principal); L90.5 Scar conditions and fibrosis of skin
CPT/HCPCS: 76642; 77066; G0279

== ENCOUNTER → 2019-03-07 09:54 | Outpatient (CLI) | payer MEDICARE, SELFPAY ==
[2018-09-27 10:26] VITALS: BMI 20.5
[2019-03-07 10:31] LABS: Add Manual Diff / Slide Review NO; Basophils Absolute Auto 100 /uL (0-100); Basophils Percent Auto 0.7 % (0-2); Eosinophils Absolute Auto 0 /uL (0-450); Eosinophils Percent Auto 0.5 % (2-4); Hematocrit 38.7 % (36-46); Hemoglobin 13.1 g/dL (12.0-16.0); Lymphocytes Absolute Auto 1200 /uL (1100-4500); Lymphocytes Percent Auto 15.4 % (25-40); Mean Corpuscular HGB Conc 33.9 % (30-36); Mean Corpuscular Hemoglobin 34.9 PG (26-34); Mean Corpuscular Volume 102.8 fL (80-100); Monocytes Absolute Auto 700 /uL (0-900); Monocytes Percent Auto 9.2 % (3-14); Neutrophils Absolute Auto 5700 /uL (1500-7000); Neutrophils Percent Auto 74.2 % (50-75); Platelet Count 338 X10^3/uL (150-400); Red Blood Cell Count 3.76 X10^6/uL (4.0-5.2); Red Cell Distribution Width 12.4 % (11.6-14.8); White Blood Cell Count 7.7 X10^3/uL (4.5-11.0)
[2019-03-07 10:46] LABS: Erythrocyte Sedimentation Rate 24 MM/HR (0-20)
[2019-03-07 10:53] LABS: Alanine Aminotransferase 30 IU/L (9-52); Albumin Globulin Ratio 1.4 (1.0-2.8); Alkaline Phosphatase 89 U/L (38-126); Aspartate Aminotransferase 34 IU/L (14-36); Bilirubin Total 0.3 mg/dL (0.2-1.3); Blood Urea Nitrogen 16 mg/dL (7-17); Calcium 9.7 mg/dL (8.4-10.2); Carbon Dioxide 32 mmol/L (22-32); Chloride 94 mmol/L (98-107); Estimated Glomerular Filt Rate > 60.0 mL/min (>60); Globulin 2.8 g/dL (1.7-4.1); Glucose 102 mg/dL (80-110); HEMOLYSIS < 15 (0-50); Potassium 4.5 mmol/L (3.4-5.1); Sodium 134 mmol/L (137-145); Total Protein 6.8 g/dL (6.3-8.2)
[2019-03-07 11:04] LABS: C-Reactive Protein Quant < 0.5 mg/dL (<1.0)
[2019-03-07 11:31] LABS: Hepatitis B Surface Antigen NEGATIVE s/c (NEGATIVE)
[2019-03-07 11:43] LABS: Hep C Virus Ab w/Reflex Quant NEGATIVE s/c (NEGATIVE)
[2019-03-10 13:37] LABS: Mitogen-NIL 0.04 IU/mL; NIL 0.01 IU/mL; QuantiFERON TB INDETERMINATE (Negative); TB1-NIL < 0.01 IU/mL; TB2-NIL < 0.01 IU/mL
[2019-03-10 18:52] LABS: Hepatitis A Antibody Total Nonreactive (Nonreactive); Hepatitis B Surf AB Imm QUANT 35 mIU/mL (> 9)
== END ==
PROVIDERS: PCP Family Medicine; Visit Provider Internal Medicine Gastroenterology
DX: R19.7 Diarrhea, unspecified (principal)
CPT/HCPCS: 36415; 80053; 85025; 85651; 86140; 86317; 86480; 86708; 86803; 87340

== ENCOUNTER 2019-03-14 14:48 | Inpatient (IN) | payer MEDICARE, SELFPAY ==
[2018-09-27 10:26] VITALS: BMI 20.5
[2019-03-09 10:03] VITALS: BMI 18.2
[2019-03-13] VITALS (13 sets, daily range): BP systolic 94–123; BP diastolic 44–91; PULSE 61–93; RESP 12–18; TEMP 36.2–37.1; O2SAT 93–100; BMI 17.9
--- NOTE | 2019-03-13 | DI.RAD.S_ITS ---
PROCEDURE: XR KNEE LT 1TO2V INDICATIONS: POST OPERATIVE LEFT KNEE TECHNIQUE: 2 view(s) of the knee acquired. COMPARISON: None. FINDINGS: Bones: Patient is status post knee joint arthroplasty. Hardware components are in expected positions. Visualized bony structures are intact. Soft tissues: Overlying postoperative changes are noted. IMPRESSION: Normal postoperative alignment, expected postsurgical change. Dictated by: Anthony Bowen M.D. on 03/14/2019 at 8:31 Approved by: Anthony Bowen M.D. on 03/14/2019 at 8:31
[2019-03-13] MEDS: ACETAMINOPHEN 325 MG TABLET 975 MG PO (13:49)
[2019-03-13] MEDS: MELOXICAM 7.5 MG TABLET 15 MG PO (13:50)
[2019-03-13] MEDS: LACTATED RINGERS 1,000 ML 42 ML IV (13:51)
--- NOTE | 2019-03-13 14:42 | P.OP.PRE_ITS ---
Pre-operative Note Interval Note History & Physical reviewed/Exam performed by Physician: Yes Changes to H&P: Yes H&P completed within 30 days and has changed as indicated here:: A stress dose of steroids was recommended for this surgery by her supervisor counseling and guidance.
[2019-03-13] MEDS: CEFAZOLIN 1 GM VIAL IV (15:40)
--- NOTE | 2019-03-13 16:08 | SUR.OPER ---
Supine on padded OR bed. Pillow under head, arms secured on padded armboards <90 degree abduction. Safety belt across torso. Non-operative leg secured with tape over blanket over lower leg. Operative leg secured in DeMayo/Arash positioner.
[2019-03-13] MEDS: BUPIVACAINE 0.25% W/ EPI 30 ML VIAL 60 ML INJ (16:17)
[2019-03-13] MEDS: BUPIVACAINE LIPOSOME 266 MG/20 ML VIAL INJ (16:17)
[2019-03-13] MEDS: MORPHINE 4 MG/ML INJ INJ (16:18)
[2019-03-13] MEDS: TRANEXAMIC ACID 1,000 MG VIAL 1000 MG INJ ×2 (16:19→16:57)
--- NOTE | 2019-03-13 17:23 | P.OP_ITS ---
Operative Date/Time/Diagnoses Date of procedure: 03/13/19 Time of procedure: 17:10 Pre-op diagnosis: Left knee osteoarthritis Post-op diagnosis: same Procedure & Clinicians Procedure: Left total knee replacement Same procedure as scheduled: Yes Indications: The patient has had progressively worsening left knee pain with radiographic changes consistent with arthritis. Non-operative management has failed and the patient has requested total knee replacement. The risks, benefits and alternatives to surgery were discussed with the patient prior to proceeding. Risks discussed included, but were not limited to, failure to relieve pain, stiffness, infection, nerve damage, deep venous thrombosis, pulmonary embolism, stroke, coma, heart attack, permanent paralysis and , as well as the potential need for eventual revision of the prosthetic. Surgeon: Jay Jay Linton Artificial Insemination Technician: Mechelle Dyer Click Yes if Unassisted: No Anesthesia Type: General, Spinal and Local Operative Notes Findings: Severe tricompartmental arthritic change with valgus deformity and significant pseudo laxity of the lateral collateral ligament. Closure Type: primary Specimen(s): none sent Prosthetic devices, grafts, tissues, transplants, or devices: Implants used in this procedure were manufactured by the [employer] and [id number] and included the BCS II Journey total knee replacement with a size 4 left cobalt chromium femoral component, a size 3 left non porous tibial base plate, a 12 mm cross-linked polyethylene tibial insert and a 32 mm oval Bre II patella. Applied: implant(s) Estimated Blood Loss (mL): 25 Blood products transfused: none Tourniquet time (min): 51 Procedure in detail: The patient was seen in the pre-operative area, where the left knee was identified as the operative site and this was marked with my initials. The patient received pre-operative antibiotics, and was taken to the operating room and placed on the operative table in the supine position. After satisfactory anesthesia, a multimedia developer out was performed. The left leg was encircled with a tourniquet about the proximal thigh, and the leg was prepared from the toes to the tourniquet with ChloroPrep in the usual fashion and draped through sterile drapes. The leg was elevated and exsanguinated with Eschmark bandage and the tourniquet inflated to 250 mmHg pressure. The knee was approached through an approximately 18 cm incision centered over the patella and carried into the knee through a medial parapatellar arthrotomy. The anterior osteophytes and soft tissues were removed. The rotational landmarks of Shelly's line and the transepicondylar axis were marked on the femur with electrocautery, and intramedullary guide holes for the femur and tibia were created. The distal femoral cut was made in 6 degrees of valgus using the intramedullary guide at the primary cut setting. The proximal tibial cut was then made using the intramedullary guide, taking 7 mm of bone off the less involved medial side. The extension gap was checked and the rotation of the femoral component confirmed with the gap balancing blocks. Given the significant pseudo laxity of the ligaments, despite making a 7 mm cut a 12 mm insert was necessary. The anterior, posterior and chamfer cuts were then made. The posterior osteophytes and soft tissues were then removed. The posterior capsule was injected with part of a mixture of 45 ml 0.25% Marcaine mixed with 20 ml Exparel and 4 mg of morphine for post-operative pain control. The remainder of this mixture was injected into the capsule and subcutaneous tissues during cement curing. The tibia was prepared with the rotation set by an extra medullary guide. Trial tibial and femoral components were then placed and the intercondylar notch cut through the femoral trial. Range of motion was 0-140 degrees, with good stability throughout the range. The patella was then cut to accommodate the patellar prosthetic. There was no need for a lateral release. The trials were then removed, and the femoral hole plugged with a bone plug. The bone was prepared with pulsatile lavage, and dried with a sponge. Cement was navjot lied and the final prosthetics placed. Excess cement was removed during and after cement curing. After confirming there was no extruded cement posteriorly, the final tibial insert was placed. The knee was copiously irrigated and the tourniquet deflated. Hemostasis was obtained. The capsule was closed with interrupted # 2 polyester sutures. The subcutaneous layer was closed with 3-0 Vicryl, and the skin with a running 3-0 V-Lock suture and SteriStrips. An Aquacel Ag dressing was applied and the patient was taken to recovery having tolerated the procedure well. Complications: none Post-operative Condition: stable Disposition: PACU Plan for aftercare: The patient will be maintained on a standard total knee replacement protocol with weight bearing as tolerated. The patient will receive aspirin and sequential compression devices for DVT prophylaxis. The patient will be discharged either home or to a long-term facility likely in about 3 days. She is quite debilitated and discharge home is questionable unless she makes excellent progress with physical therapy.
--- NOTE | 2019-03-13 18:17 | SUR.PHASEI ---
pt was transferred to room 222. report was given to Emily SCOTT. dressing was dry upon arrival and vital signs stable. pt denied any pain upon arrival.
[2019-03-13] MEDS: LACTATED RINGERS 1,000 ML 125 ML IV (18:40)
[2019-03-13] MEDS: GABAPENTIN 100 MG CAPSULE 200 MG PO (21:08)
[2019-03-13] MEDS: COLESTIPOL 1 GM TABLET PO (21:08)
[2019-03-13] MEDS: ASPIRIN EC 81 MG TABLET PO (21:10)
[2019-03-14] MEDS: OXYCODONE/ACETAMINOPHEN 5/325 TABLET 1 TAB PO (01:10)
[2019-03-14] MEDS: LACTATED RINGERS 1,000 ML 125 ML IV (02:51)
[2019-03-14] MEDS: ONDANSETRON 4 MG/2 ML INJ IV (04:14)
[2019-03-14 04:15] VITALS: BP 124/64; PULSE 57; RESP 18; TEMP 36.3; O2SAT 96
[2019-03-14] MEDS: LEVOTHYROXINE 125 MCG TABLET PO (05:59)
[2019-03-14] MEDS: ACETAMINOPHEN 325 MG TABLET 650 MG PO (06:02)
[2019-03-14 07:19] LABS: Hematocrit 30.8 % (36-46); Hemoglobin 10.6 g/dL (12.0-16.0)
--- NOTE | 2019-03-14 07:25 | PM.PNPO.1 ---
Subjective Subjective Date Patient Seen: 03/14/19 Time Patient Seen: 07:26 Interval history: The patient reports satisfactory pain control with respect to her left knee. She is having right shoulder pain which is chronic. She complains of insomnia last night and ongoing problems with her GI tract for which she is requesting both Imodium and simethicone. Exam Vital Signs (past 8 hours): - 03/13/19 23:30 03/14/19 04:15 Temperature 97.2 F L 97.3 F L Pulse Rate 61 57 L Respiratory Rate 18 18 Blood Pressure 115/56 L 124/64 Pulse Oximetry 93 96 Oxygen Delivery Method Room Air,CPAP Oxygen Flow Rate 0 Narrative Exam Narrative: Left knee wound is dressed with no drainage on the bandage. Calf is soft. Light touch and motion are intact in the left lower extremity. She can actively raise her leg from the mattress. Objective Labs Result Diagrams: 03/14/19 06:45 Labs: Laboratory Results - last 24 hr 03/14/19 06:45 Hgb 10.6 L Hct 30.8 L Assessment & Plan Post-op Postoperative Procedures: Procedures Operation Date: 03/13/19 15:15 Actual Procedures Side Surgeon p Total Knee Arthroplasty Left Jay Jay Linton MD Postoperative day: 1 Postoperative status: doing well, anemia and other (Ongoing issues with GI tract which were present preoperatively.) Postoperative status narrative: The patient is medically stable. She has an ongoing issue with her GI tract with chronic diarrhea. She has a mild post hemorrhagic anemia. Postoperative plan: routine post-op care, ambulate and advance diet Postoperative plan narrative: I will give her Immodium and simethicone as requested. We will also prescribe low-dose Ambien as needed for insomnia. She will initiate physical therapy today. Given her frail medical condition in general it is likely she will require 3 days postoperatively prior to discharge home or to a penitentiary facility. Time Spent With Patient Time with patient: less than 15 minutes
[2019-03-14 08:00] VITALS: BP 103/60; PULSE 60; RESP 15; TEMP 36.3; O2SAT 94
[2019-03-14] MEDS: BUDESONIDE 3 MG CAP 9 MG PO (08:47)
[2019-03-14] MEDS: ASPIRIN EC 81 MG TABLET PO ×2 (08:47→20:08)
[2019-03-14] MEDS: OXYCODONE IR 5 MG TABLET PO ×3 (08:47→20:09)
[2019-03-14] MEDS: COLESTIPOL 1 GM TABLET PO ×2 (08:48→20:08)
[2019-03-14] MEDS: GABAPENTIN 100 MG CAPSULE 200 MG PO ×4 (08:48→20:10)
[2019-03-14] MEDS: FLUoxetine 10 MG CAPSULE PO (08:58)
[2019-03-14] MEDS: MELOXICAM 7.5 MG TABLET 15 MG PO (08:59)
[2019-03-14] MEDS: ONDANSETRON 4 MG ODT PO (10:28)
--- NOTE | 2019-03-14 11:07 | PT.IIE ---
Current Diagnoses Unilateral primary osteoarthritis, left knee (03/13/19) Surgery Performed Operation Date: 03/13/19 15:15 Actual Procedures p Total Knee Arthroplasty(Left) - Jay Jay Linton MD Surgical History (Last Updated 03/09/19 @ 10:42 by Rosa Pacheco RN) History of arthroplasty of right knee (Acute) History of bladder surgery (Acute) History of lumbar fusion (Acute) History of lumpectomy of left breast (Acute) History of total hysterectomy with bilateral salpingo-oophorectomy (BSO) (Acute) Hx of appendectomy (Acute) Hx of arthroscopy of right knee (Acute) S/P lumbar fusion (Acute 01/05/18) Status post Mohs surgery for squamous cell carcinoma of skin (Acute) Medical History (Last Updated 03/09/19 @ 10:43 by Rosa Pacheco RN) Anxiety (Acute) Asthma (Acute) Breast cancer (Acute) C. difficile enteritis (Acute) Chronic constipation (Acute) Chronic diarrhea (Acute) Cystocele (Acute) Depression (Acute) Femur fracture, right (Acute) HTN (hypertension) (Acute) Hyperlipidemia (Acute) Hypothyroidism (Acute) Incontinence (Acute) Insomnia (Acute) Macular degeneration (Acute) Osteoarthritis (Acute) Osteopenia (Acute) Postoperative anemia (Acute) Right shoulder pain (Acute) Sleep apnea (Acute) Physical Therapy Inpatient Evaluation/Re-Eval M1 PT/OT-IP Prior Functional Status Start: 03/14/19 12:35 Freq: NEEDED Status: Active Protocol: Document 03/14/19 11:07 AB (Rec: 03/14/19 12:50 AB [id number]) Medical Review Prior Functional Status Medical History Reviewed Yes Communication able to make needs known Mobility and Gait pt stated that she is independent with all mobilities using a hurrycane for outdoor mobility; occasionally uses a hurrycane inside the house and at times without AD, uses a FWW for ambulation at night to go to the toilet. Social History Household Members spouse Living Arrangements House Number of Floors (Floors) Two Floors Number of Stairs To Enter/Railing? pt stays on main level of the house has 17 steps wtih L rail ascending Home Environment Standard Height Toilet,Walk in Shower Home Equipment Front Wheel Walker,Straight Cane,Bedside Commode,Shower Seat without Backrest,Grab Bars In Shower Employment Status Retired Additional Social History Comment pt puts bedside commode on top of the toilet pt stated that she has a very high bed: pt leans against it and pushes herself up by using her LE away form side rail/ frame of the bed. M2 PT-IP Current Condition Start: 03/14/19 12:35 Freq: NEEDED Status: Active Protocol: Document 03/14/19 11:07 AB (Rec: 03/14/19 12:50 AB [id number]) Physical Therapy Current Condition Current Condition Evaluation Date 03/14/19 Treatment Diagnosis s/p L TKA; difficulty in walking Onset Date 03/13/19 Weight Bearing Status Weight Bearing Status Weight Bear as Tolerated M3 PT-IP Subjective Start: 03/14/19 12:35 Freq: NEEDED Status: Active Protocol: Document 03/14/19 11:07 AB (Rec: 03/14/19 12:50 AB [id number]) Subjective Physical Therapy Visit Type Type Initial Evaluation Visit Start Time 11:07 Visit Stop Time 11:40 Total Visit Minutes 33 Number of PHYSICS PROFESSOR Visits 0 Physical Therapy Visit Comments Patient Comments pt agreeable to do PT Therapy Pain Assessment Pain When Pain Assessed At Rest Pain Present Pain Present Pain Reported Location Left Knee Intensity 3 Scale Used Numeric (1 - 10) Pain Management Techniques Apply Cold,Re-positioning, Timing of Activity with Medications M4 PT-IP Mobility and Gait Start: 03/14/19 12:35 Freq: NEEDED Status: Active Protocol: Document 03/14/19 11:07 AB (Rec: 03/14/19 12:50 AB [id number]) PT-Bed Mobility Assessment Supine to Sit Supine to Sit Standby Assistance Sit to Supine Sit to Supine Standby Assistance Scooting Scooting to Edge of Bed Standby Assistance Scooting Up and Down in Bed Standby Assistance PT-Transfer Assessment Sit to and From Stand Sit to and from Stand Contact Guard Assistance,1 Person Assistance,Use of Upper Extremities Equipment Transfer Assistive Device Gait Belt,Front Wheeled Walker Orthotic/Prosthetic Devices or Brace: No Transfers Transfer Destination Bed,Chair Transfer Technique Stand Step Pivot Transfer Ability Level of Assist Contact Guard Assistance,1 Person Assistance,Use of Upper Extremities Gait Assessment Gait Gait Assistance Required: Contact Guard Assist Distance (Feet) 50 Able to Maintain Weight Bearing Status Yes During Gait Assistive Devices Assistive Device Gait Belt,Front Wheeled Walker Orthotic/Prosthetic Devices or Brace: No Gait Deviations General Gait Pattern Antalgic Factors Limiting Gait Function Factors Limiting Gait Function Decreased Activity Tolerance, Decreased Strength,Difficulty Following Directions,Limited Range of Motion,Pain,Poor Balance,Poor Safety Awareness PT-Balance Assessment Sitting Balance and Reactions Static Sitting Balance Ability Good Dynamic Sitting Balance Ability Good Standing Balance and Reactions Static Standing Balance Ability Fair Dynamic Standing Balance Ability Fair Device Used FWW M5 PT-IP Objective Assessments Start: 03/14/19 12:35 Freq: NEEDED Status: Active Protocol: Document 03/14/19 11:07 AB (Rec: 03/14/19 12:50 AB [id number]) Orientation Orientation/Cognition Level of Alertness Alert Orientation Name,Age,Situation Language Function Ability Expressive Aphasia Safety Awareness Understands Safety Issues Memory Description No Deficits Noted Gross Range of Motion Lower Extremity ROM Assessment Within Functional Limits Impairments R knee flexion: ~ 100 deg R knee extension: -5 deg Strength Lower Extremity Strength Assessment Right Impaired Hip 4-/5 Knee 3+/5 Coordination Assessment Gross Coordination Gross Coordination WNL Sensation Assessment Sensation Gross Sensation WNL Muscle Tone Muscle Tone WNL Yes M6 PT-IP Treatment Start: 03/14/19 12:35 Freq: NEEDED Status: Active Protocol: Document 03/14/19 11:07 AB (Rec: 03/14/19 12:50 AB [id number]) Physical Therapy Treatment Exercises Exercises Quad Sets,Heel Slides Education Education Provided Precautions,Weight Bearing Status,Post-Op Packet,Safety M7 PT-IP Assessment and Plan Start: 03/14/19 12:35 Freq: NEEDED Status: Active Protocol: Document 03/14/19 11:07 AB (Rec: 03/14/19 12:50 AB [id number]) PT Summary Assessment and Plan Potential Rehabilitation Potential Good Status of Condition at Evaluation Stable Summary Impairments Pain,ROM,Strength,Balance,Bed Mobility,Transfers,Gait, Activity Tolerance Assessment Summary pt requiring CGA with mobility . pt stated that her spouse will not be able to assist her and she plans to go to SNF for rehab. D/C plan depending on progress but at this time needs to be more independent to be able to safely go home since spouse will not be able to assist pt. pt also has 17 steps to get into the house and at thist hector will be be safety to do stairs. will continue to assess progress. Goals Bed Mobility Goal Independent Transfer Goal Independent,Front Wheeled Walker Gait Goal Independent,Front Wheel Walker Gait Distance 250 Other Goals up/down 17 steps using L rail ascending. Days to Meet Goals 5 Frequency of Treatment Frequency Of Treatment Twice a Day Treatment Plan Physical Therapy Treatment Plan Bed Mobility Training,Transfer Training,Gait Training, Therapeutic Exercise,Balance Retraining,Post Op Education, Discharge Planning,Hot or Cold Pack,Neuromuscular Re-ed, Coordination Retraining,Manual Therapy Other Recommendations and Next Treatment ambulation, stair climbing Focus Recommendations To Nursing Amount of Assist Needed 1 Person Assist Discharge Recommendations PT Discharge Recommendations SNF Rehab
--- NOTE | 2019-03-14 11:31 | PC.NURSE ---
Assess- Pt is A&Ox3. Dressing to l.knee cdi with aquacel in place. Pt up ambulating with physical therapy and tolerating well. She does have shakes that are not new for her. Pt already had a shower with the help of the metallurgy laboratory technician. She will be going to a care center for rehab when released.
[2019-03-14 12:00] VITALS: BP 106/60; PULSE 57; RESP 16; TEMP 36.8; O2SAT 93
[2019-03-14] MEDS: SIMETHICONE 80 MG TABLET PO (14:57)
--- NOTE | 2019-03-14 15:40 | PT.IPTN ---
Current Diagnoses Unilateral primary osteoarthritis, left knee (03/13/19) Surgery Performed Operation Date: 03/13/19 15:15 Actual Procedures p Total Knee Arthroplasty(Left) - Jay Jay Linton MD Physical Therapy Treatment Note M2 PT-IP Current Condition Start: 03/14/19 12:35 Freq: NEEDED Status: Active Protocol: Document 03/14/19 11:07 AB (Rec: 03/14/19 12:50 AB [id number]) Physical Therapy Current Condition Current Condition Evaluation Date 03/14/19 Treatment Diagnosis s/p L TKA; difficulty in walking Onset Date 03/13/19 Weight Bearing Status Weight Bearing Status Weight Bear as Tolerated M3 PT-IP Subjective Start: 03/14/19 12:35 Freq: NEEDED Status: Active Protocol: Document 03/14/19 15:40 AB (Rec: 03/14/19 17:55 AB [id number]) Subjective Physical Therapy Visit Type Type Treatment Note Visit Start Time 15:40 Visit Stop Time 16:10 Total Visit Minutes 30 Number of SPANISH PROFESSOR Visits 0 Physical Therapy Visit Comments Patient Comments pt agreeable to do PT Therapy Pain Assessment Pain When Pain Assessed At Rest Pain Present Pain Present Pain Reported Location Left Knee Intensity 1 Scale Used Numeric (1 - 10) Pain Management Techniques Apply Cold,Re-positioning, Timing of Activity with Medications M4 PT-IP Mobility and Gait Start: 03/14/19 12:35 Freq: NEEDED Status: Active Protocol: Document 03/14/19 15:40 AB (Rec: 03/14/19 17:55 AB [id number]) PT-Bed Mobility Assessment Supine to Sit Supine to Sit Standby Assistance PT-Transfer Assessment Sit to and From Stand Sit to and from Stand Contact Guard Assistance Equipment Transfer Assistive Device Gait Belt,Front Wheeled Walker Orthotic/Prosthetic Devices or Brace: No Transfers Transfer Destination Chair Transfer Technique pt ambulated using FWW Transfer Ability Level of Assist Contact Guard Assistance,1 Person Assistance,Use of Upper Extremities Gait Assessment Gait Gait Assistance Required: Contact Guard Assist Distance (Feet) 150 Able to Maintain Weight Bearing Status Yes During Gait Assistive Devices Assistive Device Gait Belt,Front Wheeled Walker Orthotic/Prosthetic Devices or Brace: No Gait Deviations General Gait Pattern Antalgic,Decreased Stride Length,Decreased Feet Clearance Factors Limiting Gait Function Factors Limiting Gait Function Decreased Strength,Pain,Poor Balance M5 PT-IP Objective Assessments Start: 03/14/19 12:35 Freq: NEEDED Status: Active Protocol: Document 03/14/19 11:07 AB (Rec: 03/14/19 12:50 AB [id number]) Orientation Orientation/Cognition Level of Alertness Alert Orientation Name,Age,Situation Language Function Ability Expressive Aphasia Safety Awareness Understands Safety Issues Memory Description No Deficits Noted Gross Range of Motion Lower Extremity ROM Assessment Within Functional Limits Impairments R knee flexion: ~ 100 deg R knee extension: -5 deg Strength Lower Extremity Strength Assessment Right Impaired Hip 4-/5 Knee 3+/5 Coordination Assessment Gross Coordination Gross Coordination WNL Sensation Assessment Sensation Gross Sensation WNL Muscle Tone Muscle Tone WNL Yes M6 PT-IP Treatment Start: 03/14/19 12:35 Freq: NEEDED Status: Active Protocol: Document 03/14/19 15:40 AB (Rec: 03/14/19 17:55 AB [id number]) Physical Therapy Treatment Education Education Provided Safety M7 PT-IP Assessment and Plan Start: 03/14/19 12:35 Freq: NEEDED Status: Active Protocol: Document 03/14/19 15:40 AB (Rec: 03/14/19 17:55 AB [id number]) PT Summary Assessment and Plan Potential Rehabilitation Potential Good Summary Impairments Pain,ROM,Strength,Balance,Bed Mobility,Transfers,Gait, Activity Tolerance Progress Towards Goals Progressing Toward Goals Assessment Summary pt requiring CGA with mobility using FWW but tends to have increase weight bearing using BUE on FWW and presents with unsteady antalgic gait. pt has 17 steps to get into her house and will have to complete stair climbing with pt. pt stated that her spouse will not be able to assist her and she is worried about the stairs. pt also lives in [facility] and is worried about [place] ferry [place] get to her appointments. Goals Bed Mobility Goal Independent Transfer Goal Independent,Front Wheeled Walker Gait Goal Independent,Front Wheel Walker Gait Distance 250 Other Goals up/down 17 steps using L rail ascending. Days to Meet Goals 5 Frequency of Treatment Frequency Of Treatment Twice a Day Treatment Plan Physical Therapy Treatment Plan Bed Mobility Training,Transfer Training,Gait Training, Therapeutic Exercise,Balance Retraining,Post Op Education, Discharge Planning,Hot or Cold Pack,Neuromuscular Re-ed, Coordination Retraining,Manual Therapy Other Recommendations and Next Treatment ambulation, stair climbing Focus Recommendations To Nursing Amount of Assist Needed 1 Person Assist Discharge Recommendations PT Discharge Recommendations SNF Rehab
[2019-03-14 16:00] VITALS: BP 120/58; PULSE 59; RESP 16; TEMP 36.4; O2SAT 94
--- NOTE | 2019-03-14 16:41 | CM.DANOTE ---
Discharge Planning/Care Management DCP: Case received, EMR reviewed. Met now with pt. Introduced self and role.] Pt is a 78 year old female who admitted yesterday for a planned L TKA. Surgeon: Dr. Linton Payer: Medicare and [employer]. Pt confirms that the plan as discussed with Dr. Linton if for rehab at a SNF setting. SNF choice list: discussed: decision: [facility]: referral to [facility]: in review with acceptance anticipated. Admission status: SDC with a change to INPT status: 03/14: confirmed by UR RN Adryan. P: [facility], pending acceptance: 03/17 or >. PASRR: not started. DCP team to keep pt updated. CM Discharge Assessment Start: 03/14/19 16:38 Freq: Status: Active Protocol: Document 03/14/19 16:38 ITV (Rec: 03/14/19 16:39 ITV [id number]) Discharge Planning Assessment Advance Directives? Yes: Healthcare Directive/ Supplement & DPOA Advance Directives on File No History Provided By Patient,Medical Record Prior Living Arrangements House Household Members spouse Is patient alert and oriented? Yes Patient/Family Preference Penitentiary Facility Discharge Plan Penitentiary Facility If patient plan is SNF: Has PASSR been No completed? 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, lives on [facility] alcohol intake current alcohol intake frequency 0-2 drinks per day Smoking Status Former smoker Tobacco type cigarettes how long ago did patient quit smoking Quit 1975 x 15 years - 7.5 pk- year history Substance Use Type does not use Pain Present Pain Reported Musculoskeletal Symptoms Abnormal Gait,Back Pain, Difficulty Walking,Joint Pain, Limited Range of Motion, Radiating Pain into Limb History of Falling (Recent or History of Yes ) Patient is completely paralyzed or No completely immobile Prosthesis or Orthotic Device Cane,Front Wheel Walker Mental Status Oriented to own ability Is patient on oxygen? No Does patient have RECINOS/SOB No: Asthma controlled per pt Hx Sleep Apnea Yes CPAP/BIPAP use prescribed and used routinely Will Bring CPAP/BIPAP DOS Yes Currently Taking a Beta Ubaldo No Can You Climb a Flight of Stairs Without No SOB Hx Chest Pain No Hx SOB No Hx Syncope or Dizziness No Anti-Coagulant Therapy No Has a Mapper No Cardiac Testing No Hx Pacemaker/ICD No Pacemaker Rep Required? No Diet Type At Home Regular dysphagia No Bladder Pattern Frequency,Incontinent,Urgency Urinary Catheter Present No Hx Urinary Self Catheterization No Comment Recent UTI 01/31/19, abx treatment completed Diabetes No HgbA1C 5.0 Date 02/01/19 Patient No Lactating No Hx Drug Resistant Organism Yes: C-Diff 2016 Presence of External or Internal Medical Yes: Back hardware; Rt thigh, Devices Rt knee, CPAP Have you traveled outside the [facility] in the last 30 days? Marital Status Lives With spouse Number of Floors (Floors) Two Floors Does the Patient Have Assistance After No: has physical Surgery limitations Patient Discharge Plan Description Penitentiary Facility/Rehab Feels Safe in Current Environment Yes Been Physically Hurt or Threatened By a No Person in Current Environment Do you have thoughts of harming yourself None or others? Are you currently considering suicide? No Do you have a plan to hurt yourself or No Plan others? Do You Have Any Spiritual Beliefs That No May Affect Your HC Choices? Do You Have Any Cultural Practices That No May Affect Your HC Choices? Comment Amado Who Can We Speak to About Patient's Care Family, friends Identifying Code for Release of Patient Declines to issue Information Health Care Proxy/Next of Kin Kvng () Health Care Proxy Emergency Contact Name Kvng (), Luiz (son), Catherine (daughter), Crystal ( daughter) Emergency Contact Phone Number Kvng:[phone], Luiz:[phone], Catherine & Crystal: [phone] Advance Directives? 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
[2019-03-14 19:54] VITALS: BP 104/52; PULSE 70; RESP 16; TEMP 36.9; O2SAT 93
[2019-03-14] MEDS: ZOLPIDEM 5 MG TABLET PO (20:08)
[2019-03-14] MEDS: POLYVINYL ALCOHOL DROPS 1 DROPS EYE-BOTH (20:10)
[2019-03-14 21:00] VITALS: BP 112/55; RESP 16; TEMP 36.7; O2SAT 94
[2019-03-15] VITALS (7 sets, daily range): BP systolic 106–148; BP diastolic 57–79; PULSE 68–78; RESP 12–18; TEMP 36.6–37.1; O2SAT 93–96
[2019-03-15] MEDS: OXYCODONE IR 5 MG TABLET PO ×6 (01:16→22:10)
[2019-03-15] MEDS: LEVOTHYROXINE 125 MCG TABLET PO (05:24)
--- NOTE | 2019-03-15 05:59 | PC.NURSE ---
Pt states pain and 3/10 at rest and up to 5/10 when OOB to L knee. Medicated with Percolone 5 mg x2. States she achieves good pain control with this. Dressing D,I to left knee. CMS+. Pt states taking saltine crackers with anagesia has helped mitigate nausea and declines antiemetics.
--- NOTE | 2019-03-15 07:08 | P.PN_ITS ---
Subjective Subjective Date Patient Seen: 03/15/19 Time Patient Seen: 07:08 Interval history: The patient reports she has excellent pain control. Her knee is hurting less than it did preoperatively at this point. Exam Vital Signs (past 8 hours): - 03/15/19 01:10 03/15/19 05:00 Temperature 98.1 F 98.5 F Pulse Rate 69 70 Respiratory Rate 18 12 Blood Pressure 141/64 H 106/57 L Pulse Oximetry 95 93 Oxygen Delivery Method Room Air Oxygen Flow Rate 0 Narrative Exam Narrative: Left knee wound is dressed with no drainage on the bandage. Calf is soft. Light touch and motion are intact in the left lower extremity. Objective Labs Result Diagrams: 03/14/19 06:45 Labs: Laboratory Results - last 24 hr 03/14/19 06:45 Hgb 10.6 L Hct 30.8 L Assessment & Plan Post-op Postoperative Procedures: Procedures Operation Date: 03/13/19 15:15 Actual Procedures Side Surgeon p Total Knee Arthroplasty Left Jay Jay Linton MD Postoperative day: 2 Postoperative status: doing well and anemia Postoperative status narrative: The patient is stable postoperative day 2 after total knee replacement on the left. 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 She is making reasonable progress with physical therapy but has a very challenging home environment was 17 stairs to get into the house and a who is not going to be able to help her a great deal with mobility. Postoperative plan: routine post-op care and ambulate Postoperative plan narrative: We will continue physical therapy today. Given the challenging home environment our plan is for her to go to a group home facility for a period of time for rehabilitation prior to returning home. That transfer will occur tomorrow. Time Spent With Patient Time with patient: less than 15 minutes
[2019-03-15] MEDS: ACETAMINOPHEN 325 MG TABLET 650 MG PO ×2 (08:02→22:10)
[2019-03-15] MEDS: ASPIRIN EC 81 MG TABLET PO ×2 (08:02→21:29)
[2019-03-15] MEDS: MELOXICAM 7.5 MG TABLET 15 MG PO (08:02)
[2019-03-15] MEDS: FLUoxetine 10 MG CAPSULE PO (08:03)
[2019-03-15] MEDS: COLESTIPOL 1 GM TABLET PO ×2 (08:03→21:30)
[2019-03-15] MEDS: GABAPENTIN 100 MG CAPSULE 200 MG PO ×4 (08:03→21:29)
[2019-03-15] MEDS: BUDESONIDE 3 MG CAP 9 MG PO (08:03)
[2019-03-15] MEDS: POLYVINYL ALCOHOL DROPS 1 DROPS EYE-BOTH ×2 (08:04→21:30)
--- NOTE | 2019-03-15 09:13 | PT.IPTN ---
Current Diagnoses Unilateral primary osteoarthritis, left knee (03/13/19) Surgery Performed Operation Date: 03/13/19 15:15 Actual Procedures p Total Knee Arthroplasty(Left) - Jay Jay Linton MD Physical Therapy Treatment Note M2 PT-IP Current Condition Start: 03/14/19 12:35 Freq: NEEDED Status: Active Protocol: Document 03/14/19 11:07 AB (Rec: 03/14/19 12:50 AB [id number]) Physical Therapy Current Condition Current Condition Evaluation Date 03/14/19 Treatment Diagnosis s/p L TKA; difficulty in walking Onset Date 03/13/19 Weight Bearing Status Weight Bearing Status Weight Bear as Tolerated M3 PT-IP Subjective Start: 03/14/19 12:35 Freq: NEEDED Status: Active Protocol: Document 03/15/19 09:13 AB (Rec: 03/15/19 12:32 AB [id number]) Subjective Physical Therapy Visit Type Type Treatment Note Visit Start Time 09:13 Visit Stop Time 09:50 Total Visit Minutes 37 Number of FAMILY PSYCHOLOGIST Visits 0 Physical Therapy Visit Comments Patient Comments pt agreeable to do PT Therapy Pain Assessment Pain When Pain Assessed At Rest Pain Present Pain Present Pain Reported Location Left Knee Scale Used minimal pain per pt Pain Management Techniques Re-positioning,Timing of Activity with Medications M4 PT-IP Mobility and Gait Start: 03/14/19 12:35 Freq: NEEDED Status: Active Protocol: Document 03/15/19 09:13 AB (Rec: 03/15/19 12:32 AB [id number]) PT-Transfer Assessment Sit to and From Stand Sit to and from Stand Contact Guard Assistance,1 Person Assistance,Use of Upper Extremities Equipment Transfer Assistive Device Gait Belt,Front Wheeled Walker Orthotic/Prosthetic Devices or Brace: No Transfers Transfer Destination Toilet Transfer Technique pt ambulated using FWW Transfer Ability Level of Assist Contact Guard Assistance,1 Person Assistance,Use of Upper Extremities Gait Assessment Gait Gait Assistance Required: Contact Guard Assist Distance (Feet) 150 Able to Maintain Weight Bearing Status Yes During Gait Assistive Devices Assistive Device Gait Belt,Front Wheeled Walker Orthotic/Prosthetic Devices or Brace: No Gait Deviations General Gait Pattern Antalgic,Decreased Stride Length,Decreased Feet Clearance Factors Limiting Gait Function Factors Limiting Gait Function Decreased Activity Tolerance, Decreased Strength,Limited Range of Motion,Pain,Poor Balance Stair Climbing Assessment Evaluation Level of Assist On Stairs Minimal Assistance,Moderate Assistance,1 Person Assistance Devices Stair Climbing Assistive Devices Left Railing,Right Railing Technique/Endurance Stair Climbing Direction Ascend and Descend Stair Climbing Technique Step to Step Number of Steps Climbed 3 Stair Climbing Set # Repetitions (reps) 1 Comments Stair Climbing Comments completed up/down 3 steps using bilateral rails requiring min A for ascending but requires mod A for descending. pt has difficulty lifting LLE up the step and cued for techniques. M5 PT-IP Objective Assessments Start: 03/14/19 12:35 Freq: NEEDED Status: Active Protocol: Document 03/14/19 11:07 AB (Rec: 03/14/19 12:50 AB [id number]) Orientation Orientation/Cognition Level of Alertness Alert Orientation Name,Age,Situation Language Function Ability Expressive Aphasia Safety Awareness Understands Safety Issues Memory Description No Deficits Noted Gross Range of Motion Lower Extremity ROM Assessment Within Functional Limits Impairments R knee flexion: ~ 100 deg R knee extension: -5 deg Strength Lower Extremity Strength Assessment Right Impaired Hip 4-/5 Knee 3+/5 Coordination Assessment Gross Coordination Gross Coordination WNL Sensation Assessment Sensation Gross Sensation WNL Muscle Tone Muscle Tone WNL Yes M6 PT-IP Treatment Start: 03/14/19 12:35 Freq: NEEDED Status: Active Protocol: Document 03/15/19 09:13 AB (Rec: 03/15/19 12:32 AB [id number]) Physical Therapy Treatment Exercises Exercises Ankle Pumps,Gluteal Sets,Quad Sets,Heel Slides Education Education Provided Safety M7 PT-IP Assessment and Plan Start: 03/14/19 12:35 Freq: NEEDED Status: Active Protocol: Document 03/15/19 09:13 AB (Rec: 03/15/19 12:32 [id number]) PT Summary Assessment and Plan Potential Rehabilitation Potential Good Summary Impairments Pain,ROM,Strength,Balance,Bed Mobility,Transfers,Gait, Activity Tolerance Progress Towards Goals Progressing Toward Goals Assessment Summary pt progressing well with PT. requires min to mod A with stair climbing and pt has 17 steps to get into the house. spouse will not be able to assist pt much. pt will require SNF rehab to improve strength and mobility independence prior to d/c home . Goals Bed Mobility Goal Independent Transfer Goal Independent,Front Wheeled Walker Gait Goal Independent,Front Wheel Walker Gait Distance 250 Other Goals up/down 17 steps using L rail ascending. Days to Meet Goals 5 Frequency of Treatment Frequency Of Treatment Twice a Day Treatment Plan Physical Therapy Treatment Plan Bed Mobility Training,Transfer Training,Gait Training, Therapeutic Exercise,Balance Retraining,Post Op Education, Discharge Planning,Hot or Cold Pack,Neuromuscular Re-ed, Coordination Retraining,Manual Therapy Other Recommendations and Next Treatment ambulation, stair climbing Focus Recommendations To Nursing Amount of Assist Needed 1 Person Assist Discharge Recommendations PT Discharge Recommendations SNF Rehab
--- NOTE | 2019-03-15 10:20 | PC.NURSE ---
Pt given 5mg of percolone this morning and has ambulated with PT. She is resting in bed and denies discomfort.
--- NOTE | 2019-03-15 14:45 | PT.IPTN ---
Current Diagnoses Unilateral primary osteoarthritis, left knee (03/13/19) Surgery Performed Operation Date: 03/13/19 15:15 Actual Procedures p Total Knee Arthroplasty(Left) - Jay Jay Linton MD Physical Therapy Treatment Note M2 PT-IP Current Condition Start: 03/14/19 12:35 Freq: NEEDED Status: Active Protocol: Document 03/14/19 11:07 AB (Rec: 03/14/19 12:50 AB [id number]) Physical Therapy Current Condition Current Condition Evaluation Date 03/14/19 Treatment Diagnosis s/p L TKA; difficulty in walking Onset Date 03/13/19 Weight Bearing Status Weight Bearing Status Weight Bear as Tolerated M3 PT-IP Subjective Start: 03/14/19 12:35 Freq: NEEDED Status: Active Protocol: Document 03/15/19 14:45 AB (Rec: 03/15/19 16:37 AB [id number]) Subjective Physical Therapy Visit Type Type Treatment Note Visit Start Time 14:45 Visit Stop Time 15:07 Total Visit Minutes 22 Number of LATEX THREAD MACHINE OPERATOR Visits 0 Physical Therapy Visit Comments Patient Comments pt agreeable to do PT Therapy Pain Assessment Pain When Pain Assessed At Rest Pain Present Pain Present Pain Reported Location Left Knee Intensity 4 Scale Used Numeric (1 - 10) Pain Management Techniques Apply Cold,Re-positioning, Timing of Activity with Medications M4 PT-IP Mobility and Gait Start: 03/14/19 12:35 Freq: NEEDED Status: Active Protocol: Document 03/15/19 14:45 AB (Rec: 03/15/19 16:37 AB [id number]) PT-Bed Mobility Assessment Supine to Sit Supine to Sit Standby Assistance PT-Transfer Assessment Sit to and From Stand Sit to and from Stand Contact Guard Assistance,1 Person Assistance,Use of Upper Extremities Equipment Transfer Assistive Device Gait Belt,Front Wheeled Walker Orthotic/Prosthetic Devices or Brace: No Transfers Transfer Destination Toilet Transfer Technique pt ambulated to the toilet Transfer Ability Level of Assist Contact Guard Assistance,1 Person Assistance,Use of Upper Extremities Comments Mobility Comments pt completed LE exercises in bed. agreed to go for a walk and requested to use the toilet after ambulation. pt completed sit to stand from the commode using grab bar CGA and was able to maintain standing CGA to min A while completing hygiene care. has to be assisted with brief management. pt ambulated towards the sink using FWW CGA and was able to maintain standing CGA to min A while completing handwashing. pt wants to sit up on the chair and ambulated to the chair using FWW CGA. positioned pt on chair. ice pack provided. call light and table placed within reach. Gait Assessment Gait Gait Assistance Required: Contact Guard Assist Distance (Feet) 175 Able to Maintain Weight Bearing Status Yes During Gait Assistive Devices Assistive Device Gait Belt,Front Wheeled Walker Orthotic/Prosthetic Devices or Brace: No Gait Deviations General Gait Pattern Antalgic,Decreased Stride Length,Decreased Feet Clearance Factors Limiting Gait Function Factors Limiting Gait Function Decreased Strength,Limited Range of Motion,Pain,Poor Balance Comments Gait Comments pt continues to have an antalgic gait and heavy UE support on FWW during ambulation. M5 PT-IP Objective Assessments Start: 03/14/19 12:35 Freq: NEEDED Status: Active Protocol: Document 03/14/19 11:07 AB (Rec: 03/14/19 12:50 AB [id number]) Orientation Orientation/Cognition Level of Alertness Alert Orientation Name,Age,Situation Language Function Ability Expressive Aphasia Safety Awareness Understands Safety Issues Memory Description No Deficits Noted Gross Range of Motion Lower Extremity ROM Assessment Within Functional Limits Impairments R knee flexion: ~ 100 deg R knee extension: -5 deg Strength Lower Extremity Strength Assessment Right Impaired Hip 4-/5 Knee 3+/5 Coordination Assessment Gross Coordination Gross Coordination WNL Sensation Assessment Sensation Gross Sensation WNL Muscle Tone Muscle Tone WNL Yes M6 PT-IP Treatment Start: 03/14/19 12:35 Freq: NEEDED Status: Active Protocol: Document 03/15/19 14:45 AB (Rec: 03/15/19 16:37 AB [id number]) Physical Therapy Treatment Exercises Exercises Quad Sets,Heel Slides Education Education Provided Safety M7 PT-IP Assessment and Plan Start: 03/14/19 12:35 Freq: NEEDED Status: Active Protocol: Document 03/15/19 14:45 AB (Rec: 03/15/19 16:37 AB [id number]) PT Summary Assessment and Plan Potential Rehabilitation Potential Good Summary Impairments Pain,ROM,Strength,Balance, Coordination,Sensation,Tone, Cognition,Bed Mobility, Transfers,Gait,Activity Tolerance Progress Towards Goals Progressing Toward Goals Assessment Summary pt progressing with ambulation distance but continues to have unsteady gait and with heavy UE use on FWW for support. pt will benefit from SNF rehab to improve strength and mobility independence prior to d/c home. Goals Bed Mobility Goal Independent Transfer Goal Independent,Front Wheeled Walker Gait Goal Independent,Front Wheel Walker Gait Distance 250 Other Goals up/down 17 steps using L rail ascending. Days to Meet Goals 5 Frequency of Treatment Frequency Of Treatment Twice a Day Treatment Plan Physical Therapy Treatment Plan Bed Mobility Training,Transfer Training,Gait Training, Therapeutic Exercise,Balance Retraining,Post Op Education, Discharge Planning,Hot or Cold Pack,Neuromuscular Re-ed, Coordination Retraining,Manual Therapy Other Recommendations and Next Treatment ambulation, stair climbing Focus Recommendations To Nursing Amount of Assist Needed 1 Person Assist Discharge Recommendations PT Discharge Recommendations SNF Rehab
--- NOTE | 2019-03-15 15:39 | CM.DPC ---
DCP Cont: Spoke to Susie at [facility]. Stated that they did review patient and can accept her. She would be eligible by Wednesday. Susie is requesting if patient has Premarin cream unopened, and can bring, due to the expense. She otherwise stated that they can accept. Went and updated patient in her room. She mentioned that she has been at [facility] before. P: DCP to continue to follow. Plan is for [facility], she will be eligible on 03/17. Angela Cabrera RN/Appraisal Specialist
[2019-03-15] MEDS: OXYCODONE IR 5 MG TABLET 10 MG PO (17:30)
[2019-03-15] MEDS: ZOLPIDEM 5 MG TABLET PO (21:32)
[2019-03-16] VITALS (7 sets, daily range): BP systolic 113–145; BP diastolic 55–81; PULSE 64–78; RESP 16–18; TEMP 36.4–36.8; O2SAT 92–99
[2019-03-16] MEDS: OXYCODONE IR 5 MG TABLET PO ×3 (04:26→13:13)
[2019-03-16] MEDS: LEVOTHYROXINE 125 MCG TABLET PO (07:46)
[2019-03-16] MEDS: MELOXICAM 7.5 MG TABLET 15 MG PO (07:46)
--- NOTE | 2019-03-16 09:25 | PT.IPTN ---
Current Diagnoses Unilateral primary osteoarthritis, left knee (03/13/19) Surgery Performed Operation Date: 03/13/19 15:15 Actual Procedures p Total Knee Arthroplasty(Left) - Jay Jay Linton MD Physical Therapy Treatment Note M2 PT-IP Current Condition Start: 03/14/19 12:35 Freq: NEEDED Status: Active Protocol: Document 03/14/19 11:07 AB (Rec: 03/14/19 12:50 AB [id number]) Physical Therapy Current Condition Current Condition Evaluation Date 03/14/19 Treatment Diagnosis s/p L TKA; difficulty in walking Onset Date 03/13/19 Weight Bearing Status Weight Bearing Status Weight Bear as Tolerated M3 PT-IP Subjective Start: 03/14/19 12:35 Freq: NEEDED Status: Active Protocol: Document 03/16/19 09:29 SP (Rec: 03/16/19 09:43 SP [id number]) Subjective Physical Therapy Visit Type Type Treatment Note Visit Start Time 08:47 Visit Stop Time 09:27 Total Visit Minutes 40 Number of INSTRUCTIONAL DESIGNER Visits 1 Physical Therapy Visit Comments Patient Comments Pt agreeable to PT. Therapy Pain Assessment Pain When Pain Assessed At Rest Pain Present Pain Present Pain Reported Location Left Knee Intensity 3 Scale Used Numeric (1 - 10) Pain Management Techniques Re-positioning,Timing of Activity with Medications M4 PT-IP Mobility and Gait Start: 03/14/19 12:35 Freq: NEEDED Status: Active Protocol: Document 03/16/19 09:29 SP (Rec: 03/16/19 09:43 SP [id number]) PT-Bed Mobility Assessment Sit to Supine Sit to Supine Standby Assistance Scooting Scooting to Edge of Bed Standby Assistance Scooting Up and Down in Bed Standby Assistance PT-Transfer Assessment Sit to and From Stand Sit to and from Stand Contact Guard Assistance,Use of Upper Extremities Equipment Transfer Assistive Device Gait Belt,Front Wheeled Walker Orthotic/Prosthetic Devices or Brace: No Transfers Transfer Destination Bed,Chair,Toilet Transfer Ability Level of Assist Contact Guard Assistance,Use of Upper Extremities Gait Assessment Gait Gait Assistance Required: Standby Assistance Distance (Feet) 514 Able to Maintain Weight Bearing Status Yes During Gait Assistive Devices Assistive Device Gait Belt,Front Wheeled Walker Orthotic/Prosthetic Devices or Brace: No Gait Deviations General Gait Pattern Antalgic,Decreased Stride Length,Decreased Feet Clearance Factors Limiting Gait Function Factors Limiting Gait Function Decreased Strength,Limited Range of Motion,Pain,Poor Balance Comments Gait Comments pt continues to have an antalgic gait and heavy UE support on FWW during ambulation. Stair Climbing Assessment Evaluation Level of Assist On Stairs Contact Guard Assistance, Minimal Assistance,1 Person Assistance Devices Stair Climbing Assistive Devices Left Railing Technique/Endurance Stair Climbing Direction Ascend and Descend Stair Climbing Technique Step to Step Number of Steps Climbed 3 Stair Climbing Set # Repetitions (reps) 3 Comments Stair Climbing Comments completed up/down 3 steps using L HR with CGA ascending, Min A descending with good sequencing, no cues needed. M5 PT-IP Objective Assessments Start: 03/14/19 12:35 Freq: NEEDED Status: Active Protocol: Document 03/14/19 11:07 AB (Rec: 03/14/19 12:50 AB [id number]) Orientation Orientation/Cognition Level of Alertness Alert Orientation Name,Age,Situation Language Function Ability Expressive Aphasia Safety Awareness Understands Safety Issues Memory Description No Deficits Noted Gross Range of Motion Lower Extremity ROM Assessment Within Functional Limits Impairments R knee flexion: ~ 100 deg R knee extension: -5 deg Strength Lower Extremity Strength Assessment Right Impaired Hip 4-/5 Knee 3+/5 Coordination Assessment Gross Coordination Gross Coordination WNL Sensation Assessment Sensation Gross Sensation WNL Muscle Tone Muscle Tone WNL Yes M6 PT-IP Treatment Start: 03/14/19 12:35 Freq: NEEDED Status: Active Protocol: Document 03/15/19 14:45 AB (Rec: 03/15/19 16:37 AB [id number]) Physical Therapy Treatment Exercises Exercises Quad Sets,Heel Slides Education Education Provided Safety M7 PT-IP Assessment and Plan Start: 03/14/19 12:35 Freq: NEEDED Status: Active Protocol: Document 03/16/19 09:29 SP (Rec: 03/16/19 09:43 SP [id number]) PT Summary Assessment and Plan Potential Rehabilitation Potential Good Summary Impairments Pain,ROM,Strength,Balance,Tone ,Transfers,Gait,Activity Tolerance Progress Towards Goals Progressing Toward Goals Assessment Summary pt progressing with ambulation distance but continues to have unsteady gait and with heavy UE use on FWW for support, step to gait in room, step over step hallway lengths. Good safety hand placement throughtout. pt will benefit from SNF rehab to improve strength and mobility independence prior to d/c home . No increase in pain end of tx, call light next to pt in bed end of tx. Goals Bed Mobility Goal Independent Transfer Goal Independent,Front Wheeled Walker Gait Goal Independent,Front Wheel Walker Gait Distance 250 Other Goals up/down 17 steps using L rail ascending. Days to Meet Goals 5 Frequency of Treatment Frequency Of Treatment Twice a Day Treatment Plan Physical Therapy Treatment Plan Bed Mobility Training,Transfer Training,Gait Training, Therapeutic Exercise,Balance Retraining,Post Op Education, Discharge Planning,Hot or Cold Pack,Neuromuscular Re-ed, Coordination Retraining,Manual Therapy Other Recommendations and Next Treatment ambulation, stair climbing Focus Recommendations To Nursing Amount of Assist Needed 1 Person Assist Discharge Recommendations PT Discharge Recommendations SNF Rehab
--- NOTE | 2019-03-16 09:48 | P.DS_ITS ---
History of Present Illness History of Present Illness Date Patient Seen: 03/16/19 Time Patient Seen: 09:48 Chief complaint: [id number] Narrative: The patient has had progressively worsening left knee pain with radiographic changes consistent with arthritis. Non-operative management has failed and the patient has requested total knee replacement. The risks, benefits and alternatives to surgery were discussed with the patient prior to proceeding. Risks discussed included, but were not limited to, failure to relieve pain, stiffness, infection, nerve damage, deep venous thrombosis, pulmonary embolism, stroke, coma, heart attack, permanent paralysis and , as well as the potential need for eventual revision of the prosthetic. Discharge Providers Provider Date of admission: 03/13/19 13:12 Discharge Date: 03/16/19 Primary care physician: Luiz Stearns MD Consults: 03/13/19 18:23 Consult to Discharge Planning Routine Comment: Consult to Physical Therapy Evaluate & Treat Comment: Physician Instructions: postop TKA protocol Consult to Respiratory Therapy Evaluate & Treat Comment: Physician Instructions: Evaluate and treat Discharge provider: Roya Salinas PA-C Summary Hospital Course Discharge Diagnosis: s/p L TKA Spinal stenosis Sleep apnea with CPAP Osteopenia new line osteoarthritis Neck pain Hypothyroid Hypertension Hyperlipidemia History of Enteritis Depression Breast cancer Asthma Arthritis Hospital Course: Catalina was admitted for L TKA with Dr. Linton. 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 She has a very challenging home environment was 17 stairs to get into the house and a who is not going to be able to help her a great deal with mobility. On postop day 3. She was ready to discharge to [facility]. Her pain was well controlled with oxycodone. ASA for VTE prophylaxis. Exam Vital Signs (past 8 hours): - 03/16/19 06:00 03/16/19 07:55 Temperature 97.8 F 97.5 F L Pulse Rate 65 69 Respiratory Rate 16 16 Blood Pressure 113/62 145/81 H Pulse Oximetry 92 97 Oxygen Delivery Method CPAP Oxygen Flow Rate 0 Narrative Exam Narrative: Patient lying in bed in NAD. She is alert and oriented X3. Dressing on left knee is CDI. Calves are soft, compressible, nontender bilaterally. Pulses are symmetrical. She is able to actively dorsiflex and plantar flex. Her pain was well-controlled last night. No complaints this morning. Objective Labs Result Diagrams: 03/14/19 06:45 Discharge Plan Discharge Plan Patient Disposition: SNF Transfer to: [facility] Under care of provider: Facility MD Consult as needed: Dental, Hearing, Mental health, Podiatry and Vision Discharge Med Rec/Prescriptions Prescriptions: New aspirin 81 mg Tablet,Delayed Release (Dr/Ec) 81 mg PO BID Qty: 60 RF: 0 meloxicam [Mobic] 7.5 mg Tablet 15 mg PO 0800 Qty: 30 RF: 0 zolpidem 5 mg Tablet 5 mg PO BEDTIME PRN (Reason: Insomnia) Qty: 20 RF: 0 oxycodone 5 mg Tablet 5 mg PO Q4-6H PRN (Reason: Pain, Severe (7-10)) Qty: 40 RF: 0 Continued gabapentin 100 mg Capsule 2 cap PO QID RF: 0 Refresh Liquigel 1 % Drops, Liquid Gel 1 drp EYE-BOTH BID RF: 0 Myrbetriq 25 mg Tablet Extended Release 24 Hr 25 mg PO QAM RF: 0 Premarin 0.625 MG/GM cream 0.625 mg VG DIRECTED RF: 0 albuterol sulfate 90 mcg/actuation Hfa Aerosol Inhaler 2 puff INHALATION Q4-6H PRN (Reason: Dyspnea) RF: 0 acetaminophen 325 mg Tablet 650 mg PO Q6HR PRN (Reason: Pain, Mild (1-3)) Qty: 0 RF: 0 ondansetron 4 mg tablet,disintegrating 4 mg PO Q8H PRN (Reason: Nausea) Qty: 6 RF: 1 levothyroxine 125 mcg Tablet 125 mcg PO DAILY RF: 0 estradiol 0.01 % (0.1 mg/gram) Cream 1 g VAGINAL 2XW RF: 0 fluoxetine 10 mg Capsule 10 mg PO DAILY RF: 0 budesonide 3 mg Capsule,Delayed,Extend.Release 9 mg PO QAM RF: 0 colestipol 1 gram Tablet 1 g PO BID RF: 0 Discontinued oxycodone 5 mg capsule 5 mg PO Q3HR PRN (Reason: Pain, Severe (7-10)) Qty: 30 RF: 0 Follow up/Referrals: Jay Jay Linton MD [Physician] - Luiz Stearns MD [Primary Care Provider] - Discharge Health Status Brief summary of current health status: Patient recovering from left total knee arthroplasty. Multidrug resistant organism: No MDRO Provider Discharge Instructions Diet: Diet as Tolerated Liquid consistency: Normal/Thin Food texture: Regular Cold/Heat Therapy: as needed Skin/Wound/Dressing Care Report to your healthcare provider any signs of infection, such as:: chills, fever and increased pain Dressing: Leave in place until appointment Special Rehabilitation Services Reason for rehabilitation: Post-operative therapy Rehab type: Physical therapy Visit Report/Discharge Packet Instructions: DI for Knee Replacement Discharge Data Primary Care Provider: Luiz Stearns
[2019-03-16] MEDS: COLESTIPOL 1 GM TABLET PO ×2 (09:52→21:06)
[2019-03-16] MEDS: ASPIRIN EC 81 MG TABLET PO ×2 (09:52→21:05)
[2019-03-16] MEDS: BUDESONIDE 3 MG CAP 9 MG PO (09:52)
[2019-03-16] MEDS: FLUoxetine 10 MG CAPSULE PO (09:53)
[2019-03-16] MEDS: GABAPENTIN 100 MG CAPSULE 200 MG PO ×4 (09:53→21:06)
[2019-03-16] MEDS: POLYVINYL ALCOHOL DROPS 1 DROPS EYE-BOTH ×2 (09:54→21:05)
[2019-03-16] MEDS: ACETAMINOPHEN 325 MG TABLET 650 MG PO ×2 (09:55→17:07)
--- NOTE | 2019-03-16 10:09 | CM.DPC ---
Addendum entered by Angela Cabrera R.N. 03/16/19 15:09: Confirmed with Susie at [facility] that they can accept tomorrow. Went ahead and completed PASSR. Susie is requesting patient's family to try to get her estrogen cream to bring to the facility, due to cost. Checked in with nurse, Constantine, who stated that patient is not getting here. Spoke to patient, and she stated that her would bring cream over and other meds that they may need. Original Note: DCP Cont: Spoke with PA, orthopedics,Silvia Salinas, she had written for patient to be discharged today, but she did not become inpatient until 03/14, so she would not qualify until tomorrow. Updated Silvia, and she will DC discharge for today, and resume discharge for tomorrow. P: DCP to continue to follow, she will be eligible for discharge tomorrow. Angela Cabrera RN/Featheredger And Reducer Machine
[2019-03-16] MEDS: ONDANSETRON 4 MG ODT PO (13:33)
--- NOTE | 2019-03-16 16:05 | PT.IPTN ---
Current Diagnoses Unilateral primary osteoarthritis, left knee (03/13/19) Surgery Performed Operation Date: 03/13/19 15:15 Actual Procedures p Total Knee Arthroplasty(Left) - Jay Jay Linton MD Physical Therapy Treatment Note M2 PT-IP Current Condition Start: 03/14/19 12:35 Freq: NEEDED Status: Active Protocol: Document 03/14/19 11:07 AB (Rec: 03/14/19 12:50 AB [id number]) Physical Therapy Current Condition Current Condition Evaluation Date 03/14/19 Treatment Diagnosis s/p L TKA; difficulty in walking Onset Date 03/13/19 Weight Bearing Status Weight Bearing Status Weight Bear as Tolerated M3 PT-IP Subjective Start: 03/14/19 12:35 Freq: NEEDED Status: Active Protocol: Document 03/16/19 16:05 SP (Rec: 03/16/19 16:21 SP [id number]) Subjective Physical Therapy Visit Type Type Treatment Note Visit Start Time 15:28 Visit Stop Time 16:05 Total Visit Minutes 37 Number of TILE TRIMMER Visits 2 Physical Therapy Visit Comments Patient Comments Pt agreeable to work with PT. Patient Goals go for a walk. Therapy Pain Assessment Pain When Pain Assessed At Rest Pain Present Pain Present Pain Reported Location Left Knee Intensity 5 Scale Used Numeric (1 - 10) Pain Management Techniques Re-positioning,Timing of Activity with Medications M4 PT-IP Mobility and Gait Start: 03/14/19 12:35 Freq: NEEDED Status: Active Protocol: Document 03/16/19 16:05 SP (Rec: 03/16/19 16:21 SP [id number]) PT-Bed Mobility Assessment Rolling Type of Rolling Roll to Right Supine to Sit Supine to Sit Standby Assistance Scooting Scooting to Edge of Bed Standby Assistance Scooting Up and Down in Bed Standby Assistance PT-Transfer Assessment Sit to and From Stand Sit to and from Stand Standby Assistance,Use of Upper Extremities Equipment Transfer Assistive Device Gait Belt,Front Wheeled Walker Orthotic/Prosthetic Devices or Brace: No Transfers Transfer Destination Bed Transfer Ability Level of Assist Standby Assistance,Use of Upper Extremities Comments Mobility Comments pt completed LE exercises in bed. agreed to go for a walk. completed sit to stand from the bed and was able to maintain standing SBA. Pt wants to sit up on the EOB, while sitting in side chair, demonstrates good sitting balance. Call light place next. Pt stated will call the aid soon to assist her to the bathroom, wants to visit with her first. Gait Assessment Gait Gait Assistance Required: Standby Assistance Distance (Feet) 450 Able to Maintain Weight Bearing Status Yes During Gait Assistive Devices Assistive Device Gait Belt,Front Wheeled Walker Orthotic/Prosthetic Devices or Brace: No Gait Deviations General Gait Pattern Antalgic,Decreased Stride Length,Decreased Feet Clearance Factors Limiting Gait Function Factors Limiting Gait Function Decreased Strength,Limited Range of Motion,Pain,Poor Balance Comments Gait Comments pt continues to have an antalgic gait and heavy UE support on FWW during ambulation. Cued for decreased pressure of BUE on FWW. M5 PT-IP Objective Assessments Start: 03/14/19 12:35 Freq: NEEDED Status: Active Protocol: Document 03/14/19 11:07 AB (Rec: 03/14/19 12:50 AB [id number]) Orientation Orientation/Cognition Level of Alertness Alert Orientation Name,Age,Situation Language Function Ability Expressive Aphasia Safety Awareness Understands Safety Issues Memory Description No Deficits Noted Gross Range of Motion Lower Extremity ROM Assessment Within Functional Limits Impairments R knee flexion: ~ 100 deg R knee extension: -5 deg Strength Lower Extremity Strength Assessment Right Impaired Hip 4-/5 Knee 3+/5 Coordination Assessment Gross Coordination Gross Coordination WNL Sensation Assessment Sensation Gross Sensation WNL Muscle Tone Muscle Tone WNL Yes M6 PT-IP Treatment Start: 03/14/19 12:35 Freq: NEEDED Status: Active Protocol: Document 03/16/19 16:05 SP (Rec: 03/16/19 16:21 SP [id number]) Physical Therapy Treatment Exercises Exercises Ankle Pumps,Quad Sets,Heel Slides,Seated Knee Flexion/ Extension Knee ROM Measurement approx 95deg Education Education Provided Safety Other Treatments Other Treatment Performed Pt reported no increase in pain during exercises, feels good to move, compliant with HEP between tx's. M7 PT-IP Assessment and Plan Start: 03/14/19 12:35 Freq: NEEDED Status: Active Protocol: Document 03/16/19 16:05 SP (Rec: 03/16/19 16:21 SP [id number]) PT Summary Assessment and Plan Potential Rehabilitation Potential Good Summary Impairments Pain,ROM,Strength,Balance,Tone ,Transfers,Gait,Activity Tolerance Progress Towards Goals Progressing Toward Goals Assessment Summary pt progressing with ambulation distance but continues to have unsteady gait and with heavy UE use on FWW for support, step to gait in room, step over step hallway lengths. Good safety hand placement throughtout. pt will benefit from SNF rehab to improve strength and mobility independence prior to d/c home . decrease in pain 08/07 end of tx after walking. call light next to pt in bed end of tx. Goals Bed Mobility Goal Independent Transfer Goal Independent,Front Wheeled Walker Gait Goal Independent,Front Wheel Walker Gait Distance 250 Other Goals up/down 17 steps using L rail ascending. Days to Meet Goals 6 Frequency of Treatment Frequency Of Treatment Twice a Day Treatment Plan Physical Therapy Treatment Plan Bed Mobility Training,Transfer Training,Gait Training, Therapeutic Exercise,Balance Retraining,Post Op Education, Discharge Planning,Hot or Cold Pack,Neuromuscular Re-ed, Coordination Retraining,Manual Therapy Other Recommendations and Next Treatment ambulation, stair climbing Focus Recommendations To Nursing Amount of Assist Needed 1 Person Assist Discharge Recommendations PT Discharge Recommendations SNF Rehab
[2019-03-16] MEDS: ZOLPIDEM 5 MG TABLET PO (21:05)
[2019-03-16] MEDS: SENNOSIDES 8.6 MG TABLET PO (21:09)
[2019-03-17 00:30] VITALS: BP 146/74; PULSE 68; RESP 16; TEMP 36.4; O2SAT 95
[2019-03-17] MEDS: SODIUM CHLORIDE 0.9% FLUSH 10 ML IV (00:40)
[2019-03-17 03:30] VITALS: BP 136/80; PULSE 76; RESP 16; TEMP 36.2; O2SAT 94
[2019-03-17] MEDS: LEVOTHYROXINE 125 MCG TABLET PO (06:14)
[2019-03-17] MEDS: ACETAMINOPHEN 325 MG TABLET 650 MG PO (06:42)
--- NOTE | 2019-03-17 06:46 | PC.NURSE ---
POD 3 s/p TKR left side. Pt appeared to rest comfortably overnight, denied pain at left knee until up to ambu to BR. Requested tylenol at 0600 for pain at 4/10. Left knee dressing CDI.Left knee positioned with pillow for comfort. PIV at right hand, flushes easily, no blood return. IV due to be changed today. Pt may discharge to [facility] today. Pt lives on [address]. Barrier to return to home is pt has 17 steps into house per PT note. Wears CPAP at night . PRN ambien given at HS. Need to clarify pt appt with Dr Linton at his office today. Pt with vision impairment due to macular degeneration, wears glasses. Bed alarm on for high fall risk.
[2019-03-17 07:55] VITALS: BP 140/77; PULSE 73; RESP 17; TEMP 36.6; O2SAT 97
--- NOTE | 2019-03-17 08:14 | CM.DPC ---
Addendum entered by Eva Rubin LPN 03/17/19 10:22: Bowels have now successfully moved per SONIA Howell. [facility] is updated and van will pickle sorter pt at 1300. She is updated and confirms her readiness to go today. Addendum entered by Eva Rubin LPN 03/17/19 08:47: Orders are now faxed to [facility]. SONIA Howell plans to discuss pt with rounding orthopedics still and will call report to [facility]. October has called back. She will wait for final ok from [facility] for time, understanding that this dept will be off floor for a quarterly meeting 11-after 1300. Original Note: DCP: continued: Pt is expected to d/c to [facility] today. SONIA Howell notes no BM x 4 days but says nursing staff has been working with her on this. She has had prune juice today, no suppository. Encouraged Lynda to discuss this with ortho team. A d/c summary from yesterday is noted but the orders to the SNF setting are not finalized. Have left a vm now for October/[facility] requesting tentative w/c van transport at 1330, pending final orders. PASRR: reviewed, faxed to [facility], copy to [facility] to scan. original will be placed into snf packet. Will check in with pt and follow prn.
[2019-03-17] MEDS: COLESTIPOL 1 GM TABLET PO (08:29)
[2019-03-17] MEDS: OXYCODONE IR 5 MG TABLET PO (08:29)
[2019-03-17] MEDS: ASPIRIN EC 81 MG TABLET PO (08:29)
[2019-03-17] MEDS: FLUoxetine 10 MG CAPSULE PO (08:29)
[2019-03-17] MEDS: POLYVINYL ALCOHOL DROPS 1 DROPS EYE-BOTH (08:29)
[2019-03-17] MEDS: BUDESONIDE 3 MG CAP 9 MG PO (08:30)
[2019-03-17] MEDS: GABAPENTIN 100 MG CAPSULE 200 MG PO (08:30)
[2019-03-17] MEDS: MELOXICAM 7.5 MG TABLET 15 MG PO (08:32)
[2019-03-17] MEDS: DOCUSATE 100 MG CAPSULE PO (08:32)
[2019-03-17] MEDS: ONDANSETRON 4 MG ODT PO (09:05)
--- NOTE | 2019-03-17 09:28 | PM.DS.1 ---
History of Present Illness History of Present Illness Date Patient Seen: 03/17/19 Time Patient Seen: 09:28 Chief complaint: [id number] Narrative: History and physical are contained in the chart previously completed note. Please refer to that note for this information. Discharge Providers Provider Date of admission: 03/13/19 13:12 Discharge Date: 03/17/19 Primary care physician: Luiz Stearns MD Consults: 03/13/19 18:23 Consult to Discharge Planning Routine Comment: Consult to Physical Therapy Evaluate & Treat Comment: Physician Instructions: postop TKA protocol Consult to Respiratory Therapy Evaluate & Treat Comment: Physician Instructions: Evaluate and treat Discharge provider: Jay Jay Linton MD Summary Hospital Course Discharge Diagnosis: 1. Left knee osteoarthritis 2. Post hemorrhagic anemia Hospital Course: The patient was admitted to the hospital and taken directly to the operating room on March 13, 2019. She underwent a left total knee replacement without difficulty. She made slow progress with physical therapy. The patient has a very challenging home situation with the spouse who is not going to be able to give her much assistance and large number of stairs so discharge home was not safe. She has been maintained in the hospital and continued therapy but is now ready for a intermediate facility. She did have some constipation last night but this resolved with laxatives. Status at Discharge Cognitive/behavioral status at discharge: at baseline, oriented Functional status at discharge: uses cane/walker Overall status at discharge: patient is progressing back to baseline Time Spent with Patient Time spent: Less than 30 minutes Exam Vital Signs (past 8 hours): - 03/17/19 03:30 03/17/19 07:55 Temperature 97.1 F L 97.8 F Pulse Rate 76 73 Respiratory Rate 16 17 Blood Pressure 136/80 140/77 Pulse Oximetry 94 97 Oxygen Delivery Method CPAP Oxygen Flow Rate 0 Narrative Exam Narrative: Left knee wound is dressed with no drainage on the bandage. Calf is soft. Light touch and motion are intact in the left lower extremity. Objective Labs Result Diagrams: 03/14/19 06:45 Discharge Plan Discharge Plan Patient Disposition: SNF Transfer to: [facility] Under care of provider: Facility MD Consult as needed: Dental, Hearing, Mental health, Podiatry and Vision Discharge Med Rec/Prescriptions Prescriptions: New aspirin 81 mg Tablet,Delayed Release (Dr/Ec) 81 mg PO BID Qty: 60 RF: 0 meloxicam [Mobic] 7.5 mg Tablet 15 mg PO 0800 Qty: 30 RF: 0 zolpidem 5 mg Tablet 5 mg PO BEDTIME PRN (Reason: Insomnia) Qty: 20 RF: 0 oxycodone 5 mg Tablet 5 mg PO Q4-6H PRN (Reason: Pain, Severe (7-10)) Qty: 40 RF: 0 Continued gabapentin 100 mg Capsule 2 cap PO QID RF: 0 Refresh Liquigel 1 % Drops, Liquid Gel 1 drp EYE-BOTH BID RF: 0 Myrbetriq 25 mg Tablet Extended Release 24 Hr 25 mg PO QAM RF: 0 Premarin 0.625 MG/GM cream 0.625 mg VG DIRECTED RF: 0 albuterol sulfate 90 mcg/actuation Hfa Aerosol Inhaler 2 puff INHALATION Q4-6H PRN (Reason: Dyspnea) RF: 0 acetaminophen 325 mg Tablet 650 mg PO Q6HR PRN (Reason: Pain, Mild (1-3)) Qty: 0 RF: 0 ondansetron 4 mg tablet,disintegrating 4 mg PO Q8H PRN (Reason: Nausea) Qty: 6 RF: 1 levothyroxine 125 mcg Tablet 125 mcg PO DAILY RF: 0 estradiol 0.01 % (0.1 mg/gram) Cream 1 g VAGINAL 2XW RF: 0 fluoxetine 10 mg Capsule 10 mg PO DAILY RF: 0 budesonide 3 mg Capsule,Delayed,Extend.Release 9 mg PO QAM RF: 0 colestipol 1 gram Tablet 1 g PO BID RF: 0 Discontinued oxycodone 5 mg capsule 5 mg PO Q3HR PRN (Reason: Pain, Severe (7-10)) Qty: 30 RF: 0 Follow up/Referrals: Jay Jay Linton MD [Physician] - 2 Weeks Luiz Stearns MD [Primary Care Provider] - Discharge Health Status Brief summary of current health status: Patient recovering from left total knee arthroplasty. Multidrug resistant organism: No MDRO Provider Discharge Instructions Diet: Diet as Tolerated Liquid consistency: Normal/Thin Food texture: Regular Cold/Heat Therapy: as needed Skin/Wound/Dressing Care Report to your healthcare provider any signs of infection, such as:: chills, fever and increased pain Dressing: Leave in place until appointment [facility] Reason for rehabilitation: Post-operative therapy Rehab type: Physical therapy Visit Report/Discharge Packet Instructions: DI for Knee Replacement Stand Alone Forms: Surgery Discharge Discharge Data Primary Care Provider: Luiz Stearns
[2019-03-17 10:05] VITALS: O2SAT 94
--- NOTE | 2019-03-17 11:23 | PM.CHAP ---
Nice visit. Pt. discouraged re delayed miove back to [place]. Prayer and encouragement.
--- NOTE | 2019-03-17 11:40 | PT.IPTN ---
Current Diagnoses Unilateral primary osteoarthritis, left knee (03/14/19) Surgery Performed Operation Date: 03/13/19 15:15 Actual Procedures p Total Knee Arthroplasty(Left) - Jay Jay Linton MD Physical Therapy Treatment Note M2 PT-IP Current Condition Start: 03/14/19 12:35 Freq: NEEDED Status: Discharge Protocol: Document 03/14/19 11:07 AB (Rec: 03/14/19 12:50 AB [id number]) Physical Therapy Current Condition Current Condition Evaluation Date 03/14/19 Treatment Diagnosis s/p L TKA; difficulty in walking Onset Date 03/13/19 Weight Bearing Status Weight Bearing Status Weight Bear as Tolerated M3 PT-IP Subjective Start: 03/14/19 12:35 Freq: NEEDED Status: Discharge Protocol: Document 03/17/19 11:40 GGD (Rec: 03/17/19 15:13 GGD [email or web address]) Subjective Physical Therapy Visit Type Type Treatment Note Visit Start Time 10:05 Visit Stop Time 10:41 Total Visit Minutes 39 Number of SPRINKLER FITTER APPRENTICE Visits 3 Physical Therapy Visit Comments Patient Comments Pt willing to work with therapy. Therapy Pain Assessment Pain When Pain Assessed At Rest Pain Present Pain Present Pain Reported Location Left Knee Intensity 3 Scale Used Numeric (1 - 10) Pain Management Techniques Re-positioning,Timing of Activity with Medications M4 PT-IP Mobility and Gait Start: 03/14/19 12:35 Freq: NEEDED Status: Discharge Protocol: Document 03/17/19 11:40 GGD (Rec: 03/17/19 15:13 GGD [id number]) PT-Transfer Assessment Sit to and From Stand Sit to and from Stand Standby Assistance,Use of Upper Extremities Equipment Transfer Assistive Device Gait Belt,Front Wheeled Walker Orthotic/Prosthetic Devices or Brace: No Transfers Transfer Destination Chair,Toilet Transfer Ability Level of Assist Standby Assistance,Use of Upper Extremities Gait Assessment Gait Gait Assistance Required: Standby Assistance Distance (Feet) 500 Able to Maintain Weight Bearing Status Yes During Gait Assistive Devices Assistive Device Gait Belt,Front Wheeled Walker Orthotic/Prosthetic Devices or Brace: No Gait Deviations General Gait Pattern Antalgic,Decreased Stride Length,Decreased Feet Clearance Factors Limiting Gait Function Factors Limiting Gait Function Decreased Strength,Limited Range of Motion,Pain,Poor Balance Stair Climbing Assessment Evaluation Level of Assist On Stairs Standby Assistance Devices Stair Climbing Assistive Devices Left Railing Technique/Endurance Stair Climbing Direction Ascend and Descend Stair Climbing Technique Step to Step Number of Steps Climbed 3 Stair Climbing Set # Repetitions (reps) 1 M5 PT-IP Objective Assessments Start: 03/14/19 12:35 Freq: NEEDED Status: Discharge Protocol: Document 03/14/19 11:07 AB (Rec: 03/14/19 12:50 AB [id number]) Orientation Orientation/Cognition Level of Alertness Alert Orientation Name,Age,Situation Language Function Ability Expressive Aphasia Safety Awareness Understands Safety Issues Memory Description No Deficits Noted Gross Range of Motion Lower Extremity ROM Assessment Within Functional Limits Impairments R knee flexion: ~ 100 deg R knee extension: -5 deg Strength Lower Extremity Strength Assessment Right Impaired Hip 4-/5 Knee 3+/5 Coordination Assessment Gross Coordination Gross Coordination WNL Sensation Assessment Sensation Gross Sensation WNL Muscle Tone Muscle Tone WNL Yes M6 PT-IP Treatment Start: 03/14/19 12:35 Freq: NEEDED Status: Discharge Protocol: Document 03/17/19 11:40 GGD (Rec: 03/17/19 15:13 GGD [email or web address]) Physical Therapy Treatment Exercises Exercises Ankle Pumps,Quad Sets,Heel Slides,Seated Knee Flexion/ Extension Education Education Provided Safety M7 PT-IP Assessment and Plan Start: 03/14/19 12:35 Freq: NEEDED Status: Discharge Protocol: Document 03/17/19 11:40 GGD (Rec: 03/17/19 15:13 GGD [email or web address]) PT Summary Assessment and Plan Summary Assessment Summary Pt able to progress mobility. She needed less assist with stair mobility. Pt needing less UE support on FWW with gait. Frequency of Treatment Frequency Of Treatment Twice a Day Treatment Plan Physical Therapy Treatment Plan Bed Mobility Training,Transfer Training,Gait Training, Therapeutic Exercise,Balance Retraining,Post Op Education, Discharge Planning,Hot or Cold Pack,Neuromuscular Re-ed, Coordination Retraining,Manual Therapy Recommendations To Nursing Amount of Assist Needed 1 Person Assist Discharge Recommendations PT Discharge Recommendations SNF Rehab
[2019-03-17 12:00] VITALS: BP 145/73; PULSE 72; RESP 16; TEMP 36.6; O2SAT 95
== END 2019-03-17 13:26 | DRG 470 ==
LOC: AC 03-17 10:46 → OR 03-17 13:37 → AC 03-17 13:38 → OR 03-17 13:39
PROVIDERS: Admitting Provider Orthopaedic Surgery; PCP Family Medicine; Visit Provider Orthopaedic Surgery
PROC: 0SRD0JZ Replacement of Left Knee Joint with Synthetic Substitute, Open Approach (ICD-10-PCS; CPT 27447; principal; 2019-03-13 15:15)
DX: M17.12 Unilateral primary osteoarthritis, left knee (principal); E03.9 Hypothyroidism, unspecified; I10 Essential (primary) hypertension; E78.5 Hyperlipidemia, unspecified; F32.9 Major depressive disorder, single episode, unspecified; J45.909 Unspecified asthma, uncomplicated; Z87.891 Personal history of nicotine dependence; G47.33 Obstructive sleep apnea (adult) (pediatric)
CPT/HCPCS: 36415; 73560; 85014; 85018; 94760; 94762; 97110; 97116; 97161; 97530; C1776; C9290; J0690; J2250; J2270; J2405; J2704; J3010

== ENCOUNTER → 2019-03-15 10:29 | Outpatient (ROUT) | payer MEDICARE, SELFPAY ==
[2019-03-13 13:20] VITALS: BMI 17.9
[2019-03-18 13:27] LABS: Mitogen-NIL 0.21 IU/mL; NIL 0.03 IU/mL; QuantiFERON TB INDETERMINATE (Negative); TB1-NIL < 0.01 IU/mL; TB2-NIL < 0.01 IU/mL
== END ==
PROVIDERS: PCP Family Medicine; Visit Provider Internal Medicine Gastroenterology
DX: Z01.89 Encounter for other specified special examinations (principal); R19.7 Diarrhea, unspecified
CPT/HCPCS: 36415; 86480

== ENCOUNTER → 2019-07-12 08:55 | Outpatient (CLI) | payer MEDICARE, SELFPAY ==
[2019-03-13 13:20] VITALS: BMI 17.9
--- NOTE | 2019-07-12 | DI.MG.S_ITS ---
BILATERAL DIGITAL SCREENING MAMMOGRAM 3D/2D WITH CAD POST LUMPECTOMY: 07/12/2019 CLINICAL: Routine screening. Personal history of left breast cancer. Comparison is made to exams dated: 02/16/2018 mammogram - [facility], 02/10/2017 mammogram, 11/13/2015 mammogram - [facility], 11/05/2014 mammogram - [facility], and 09/26/2013 mammogram - [facility]. There are scattered fibroglandular elements in both breasts. Current study was also evaluated with a Computer Aided Detection (CAD) system. There is a coarse dystrophic punctate calcification in the left breast at 8 o'clock posterior depth. This is increased in number and correlates with lumpectomy site. Skin calcifications in the medial and inferior left breast. No other significant masses, calcifications, or other findings are seen in either breast. IMPRESSION: INCOMPLETE: NEEDS ADDITIONAL IMAGING EVALUATION The coarse dystrophic punctate calcification in the left breast most likely is fat necrosis at the previous lumpectomy site and is indeterminate. Additional views with possible ultrasound are recommended. This exam was interpreted at Station ID: [id number]. NOTE: For mammograms, a report in lay terms will be sent to the patient. Approximately 15% of breast malignancies will not be visualized mammographically. In the management of a palpable breast mass, a negative mammogram must not discourage biopsy of a clinically suspicious lesion. Electronically Signed By: Shaheen Merritt M.D. [facility] [place]/:07/13/2019 10:39:54 letter sent: Additional Imaging Needed ACR BI-RADS Category 0: Incomplete [id number]
== END ==
PROVIDERS: PCP Family Medicine; Referring Provider Family Medicine; Visit Provider Family Medicine
DX: Z12.31 Encounter for screening mammogram for malignant neoplasm of breast (principal); Z85.3 Personal history of malignant neoplasm of breast
CPT/HCPCS: 77063; 77067

== ENCOUNTER → 2019-08-02 12:11 | Outpatient (CLI) | payer MEDICARE, SELFPAY ==
[2019-03-13 13:20] VITALS: BMI 17.9
--- NOTE | 2019-08-02 | DI.MG.S_ITS ---
UNILATERAL LEFT DIGITAL DIAGNOSTIC MAMMOGRAM 3D/2D WITH ADDITIONAL VIEWS: 08/02/2019 CLINICAL: Additional evaluation requested from prior study. Comparison is made to exams dated: 07/12/2019 mammogram, 02/16/2018 mammogram - , and 02/10/2017 mammogram - [facility]. There are scattered fibroglandular elements in left breast. There are grouped fine punctate calcifications in the left breast at 7 o'clock posterior depth. These are increased in number and correlates with site of previous surgery. Additional imaging today localizes these calcifications near the skin surface. No other significant masses or calcifications are seen in the breast. IMPRESSION: PROBABLY BENIGN The grouped fine punctate calcifications in the left breast appear to localize to the skin. These are probably benign. A follow-up left mammogram in 6 months is recommended to demonstrate stability. If they remain stable and again localize to the skin, patient can return to screening schedule at that time. This exam was interpreted at Station ID: [id number]. NOTE: For mammograms, a report in lay terms will be sent to the patient. Approximately 15% of breast malignancies will not be visualized mammographically. In the management of a palpable breast mass, a negative mammogram must not discourage biopsy of a clinically suspicious lesion. Electronically Signed By: Ayad Jenkins M.D. at/:08/02/2019 13:48:33 letter sent: Followup Recommended ACR BI-RADS Category 3: Probably benign [id number]
== END ==
PROVIDERS: PCP Family Medicine; Referring Provider Family Medicine; Visit Provider Family Medicine
DX: R92.8 Other abnormal and inconclusive findings on diagnostic imaging of breast (principal); R92.1 Mammographic calcification found on diagnostic imaging of breast
CPT/HCPCS: 77065; G0279

== ENCOUNTER → 2020-02-21 13:26 | Outpatient (CLI) | payer MEDICARE, SELFPAY ==
[2019-03-13 13:20] VITALS: BMI 17.9
--- NOTE | 2020-02-21 | DI.MG.S_ITS ---
UNILATERAL LEFT DIGITAL DIAGNOSTIC MAMMOGRAM 3D/2D SHORT-TERM FOLLOW-UP: 02/21/2020 CLINICAL: Short term follow up. Comparison is made to exams dated: 08/02/2019 mammogram, 07/12/2019 mammogram, and 02/16/2018 mammogram - Loc[facility]. There are scattered fibroglandular elements in left breast. There are stable grouped coarse punctate calcifications in the left breast at 8 o'clock posterior depth. This correlates with area of prior surgery. No other significant masses or calcifications are seen in the breast. IMPRESSION: BENIGN There is no mammographic evidence of malignancy. Return to annual mammogram screening schedule is recommended. Next bilateral screening mammogram will be due in approximately 6 months. Findings and recommendations were conveyed to the patient during today's visit. This exam was interpreted at Station ID: [id number]. NOTE: For mammograms, a report in lay terms will be sent to the patient. Approximately 15% of breast malignancies will not be visualized mammographically. In the management of a palpable breast mass, a negative mammogram must not discourage biopsy of a clinically suspicious lesion. Electronically Signed By: Ayad Jenkins M.D. aty/:02/21/2020 14:44:14 letter sent: Normal Exam ACR BI-RADS Category 2: Benign Finding(s) 3342F
== END ==
PROVIDERS: PCP Family Medicine; Referring Provider Family Medicine; Visit Provider Family Medicine
DX: R92.8 Other abnormal and inconclusive findings on diagnostic imaging of breast (principal)
CPT/HCPCS: 77065; G0279

== ENCOUNTER 2020-04-08 11:34 | Inpatient (IN) | payer MEDICARE, SELFPAY ==
[2019-03-13 13:20] VITALS: BMI 17.9
[2020-03-20 15:29] VITALS: BMI 17.9
[2020-04-01 09:55] VITALS: BMI 26.9
[2020-04-08] VITALS (16 sets, daily range): BP systolic 118–159; BP diastolic 63–85; PULSE 75–92; RESP 15–20; TEMP 36.2–36.8; O2SAT 87–98; BMI 26.9
--- NOTE | 2020-04-08 07:19 | DI.RAD.S_ITS ---
PROCEDURE: XR SHOULDER RT 1V INDICATIONS: post op films TECHNIQUE: 1 views of the shoulder were acquired. COMPARISON: None. FINDINGS: Right shoulder reversed arthroplasty projects in the expected location. Right AC joint osteotomy. Visualized portions of the lungs are clear. Left breast clips. IMPRESSION: Expected single-view appearance of reverse right shoulder total arthroplasty. Dictated by: Shaheen Merritt M.D. on 04/08/2020 at 16:30 Approved by: Shaheen Merritt M.D. on 04/08/2020 at 16:33
[2020-04-08] MEDS: MELOXICAM 7.5 MG TABLET 15 MG PO (12:05)
[2020-04-08] MEDS: PREGABALIN 75 MG CAPSULE PO (12:05)
[2020-04-08] MEDS: ACETAMINOPHEN 325 MG TABLET 975 MG PO ×2 (12:05→21:08)
--- NOTE | 2020-04-08 12:06 | PM.PREOP ---
Pre-operative Note COVID-19 COVID-19 status: Negative Result date/Date tested (Pos, Neg/Pending): 04/05/20 Interval Note History & Physical reviewed/Exam performed by Physician: Yes Changes to H&P: No
[2020-04-08] MEDS: LACTATED RINGERS 1,000 ML 42 ML IV (12:34)
[2020-04-08] MEDS: fentaNYL 100 MCG/2 ML INJ 50 MCG IV (12:56)
[2020-04-08] MEDS: MIDAZOLAM 2 MG/2 ML VIAL IV (12:56)
[2020-04-08] MEDS: CEFAZOLIN 2 GM/100 ML FROZ.PIGGY IV (13:15)
--- NOTE | 2020-04-08 13:19 | SUR.PREOP ---
Block start time [1250] . Monitoring initiated and maintained throughout procedure. Oxygen and medications given per anesthesiologist instructions. Patient remained stable throughout procedure, no adverse reactions noted. Block end time [1315].
--- NOTE | 2020-04-08 13:19 | SUR.PREOP ---
1315 Pt left for OR in stable condition.
--- NOTE | 2020-04-08 13:50 | SUR.OPER ---
Beach chair with Schlein shoulder positioner. Lower body on padded OR bed. Head in foam padded head cradle, secured with straps. Non-operative arm secured <90 degrees abduction. Pillow under knees. Safety belt at thigh. Cloth tape over blanket over lower legs.
[2020-04-08] MEDS: TRANEXAMIC ACID 1,000 MG VIAL 1000 MG INJ ×2 (13:55→14:48)
[2020-04-08] MEDS: BUPIVACAINE 0.5% W/ EPI (PF) 30 ML VIAL INJ (13:56)
--- NOTE | 2020-04-08 15:21 | PM.OP.1 ---
Operative Date/Time/Diagnoses Date of procedure: 04/08/20 Time of procedure: 15:21 Pre-op diagnosis: Right rotator cuff arthropathy Post-op diagnosis: same Procedure & Clinicians Procedure: Right reverse total shoulder Same procedure as scheduled: Yes Indications: The patient is had chronic right shoulder pain unresponsive to nonoperative therapies. Radiographic studies have revealed changes consistent with a massive rotator cuff tear and arthritis. They have elected to proceed with reverse total shoulder replacement after discussion of the risks benefits and alternatives. Risks discussed included but were not limited to: Failure to improve, instability, infection, nerve damage, deep venous thrombosis, pulmonary embolism, stroke, coma, myocardial infarction and . Surgeon: Jay Jay Linton Baker Head: Dmitri Dickinson Click Yes if Unassisted: No Anesthesia Type: General, Peripheral nerve block and Local Operative Notes Findings: Severe rotator cuff arthropathy with anterior superior escape and superior erosion of the glenoid Closure Type: primary Specimen(s): none sent Prosthetic devices, grafts, tissues, transplants, or devices: Implants used during this procedure were manufactured by the [employer] and included a [employer] total shoulder system with a 24 mm 10 degree full augmented base plate with a modular 30 mm central post. In addition there was 14.5 x 36 mm nonlocking screw and 2 5.5 mm locking screws measuring 28 mm and 16 mm. There was a 36+4 lateralized glenosphere with retaining screw and a small 36+ 3 humeral insert with a 36 neutral cup and a 135 degree size 5 stem. Applied: implant(s) Estimated Blood Loss (mL): 200 Blood products transfused: none Procedure in detail: The patient was seen in the preoperative area where they identified the right shoulder as the operative site and this was marked with my initials. They received preoperative antibiotics and underwent the induction of an interscalene block. They were taken to the operating room and placed on the operating room table in a supine position with the underwent the induction of a general anesthetic. There were then repositioned in the ?beach chair? position using a dedicated positioner. All pressure points were well padded. The knees were slightly bent to prevent tension on the sciatic nerves. The right arm was prepared from the fingertips to the base of the neck with ChloraPrep in the usual fashion and draped through sterile drapes. An approximately 15 cm incision was created starting at the clavicle just above the coracoid and going to the deltoid insertion. The deltopectoral interval was used to access the shoulder taking the vein to the medial side. The vein was protected throughout the case. The upper 1 cm of the pectoralis major was released. The biceps tendon was ruptured. The subscapularis was badly torn and the small amount of residual tendon was released. This was heavily scarred on the exterior surface of the subscapularis and it was not possible to palpate the axillary nerve. The shoulder was dislocated and a proximal humeral osteotomy performed. A proximal humeral protector was then placed. Retractors were placed access the glenoid. The soft tissues were removed circumferentially around the glenoid, with great care taken to avoid the axillary nerve. The guide was used to drill the guide hole in the center of the inferior glenoid. The 10 degree augment trial was placed and confirmed that a 10 degree was appropriate with the maximum augmentation in the approximately 1 o'clock position. The angled reamer was then used. The hole for the central peg was drilled over the guide pin which was then removed. The glenoid base plate was assembled and tamped into position. The screw hole at the 5 o'clock position was filled with a nonlocking screw to provide some compression. The peripheral locking screws were then placed in the 8:00 and 11:00 o'clock. positions. The hole at the 2 o'clock position did not have satisfactory bone stock and was not filled with a screw. A trial glenoid head was applied, followed by the final prosthetic. The glenoid head was impacted into position and checked for rotational and axial stability before placing the setscrew. The proximal humeral protector was removed. A 6 mm cylindrical Reamer head had strong cortical bite initially so we began broaching with a 5 mm broach. This filled the metaphysis and had excellent rotational stability. The guide for the proximal metaphyseal reamer was then applied and the metaphysis was reamed appropriately. The trial metaphyseal portion of the body was then applied to the broach. Trial reductions were performed and the size of the humeral insert was optimized. Stability was checked in maximal internal and external rotation and range of motion was checked to allow access to the top of the head, internal rotation to an excess of 70? in the ?scarecrow position? and the ability to reach the groin. The appropriate final prosthetic components were then opened. There was no impingement in maximal internal or external rotation either at the side or in abduction. There was no impingement between the greater tuberosity and the acromion. The humeral prosthetic was then impacted into position. The humeral cup was placed. The joint was relocated and irrigated. A deep drain was placed. The deltopectoral interval was reapproximated with 0 Vicryl. Subcutaneous layer was closed with interrupted 3-0 Vicryl and skin with a running 3 0 V lock suture. Subcutaneous tissues were then infiltrated with 0.5% Marcaine for postoperative pain control. An Aquacel Ag dressing was applied and the patient's arm was placed in a sling. The patient was then transferred to the recovery room in good condition having tolerated the procedure well. Complications: none Post-operative Condition: stable Disposition: PACU Plan for aftercare: The patient will be maintained in the hospital overnight. They will be discharged tomorrow provided they are medically stable and safe for the home environment. They will do pendulums and remain in the sling for the 1st 6 weeks and then will be progressed as tolerated with a light range of motion and strengthening program.
[2020-04-08] MEDS: LACTATED RINGERS 1,000 ML 125 ML IV (16:30)
--- NOTE | 2020-04-08 16:46 | SUR.PHASEI ---
transferred to room 213. Pt belongings bag, cane, and CPAP machine with pt. Received in room by SONIA Edmonds. Bedside handoff done.
[2020-04-08] MEDS: DOCUSATE 100 MG CAPSULE PO (21:08)
[2020-04-08] MEDS: ASPIRIN EC 81 MG TABLET PO (21:09)
[2020-04-08] MEDS: GABAPENTIN 100 MG CAPSULE PO (21:09)
[2020-04-08] MEDS: diphenhydrAMINE 25 MG TABLET 50 MG PO (21:09)
[2020-04-08] MEDS: BUSPIRONE 15 MG TABLET 7.5 MG PO (21:13)
--- NOTE | 2020-04-08 22:30 | PC.NURSE ---
Pt had relatively uneventful evening. Right shoulder in sling, Pt. states she can feel & can move fingers. DFsg remains CDI. IVF infusing into the RFA w/o incidence. Med at HS w/tylenol for discomfort, Resting quietly @ this time. Call light w/in reach, bed alarm on for pt safety. Continue w/plan of care.
[2020-04-08] MEDS: OXYCODONE IR 10 MG TABLET PO (23:40)
[2020-04-09] MEDS: LACTATED RINGERS 1,000 ML 125 ML IV (00:54)
--- NOTE | 2020-04-09 02:28 | PC.NURSE ---
Addendum entered by Estrellita Murillo R.N. 04/09/20 06:14: Patient tried on RA but when asleep drops down to 89-90% so oxygen back on at 0.5L/min Original Note: Patient seen at 2343 and assessed. Is alert and oriented. Breath sounds CTA; on oxygen at 1L/min per NC with sat of 95%. HRR. BP elevated at 144/71. Denies nausea. BT present and is passing flatus. Reports chronic urinary frequency/urgency but denies dysuria. Is able to move self in bed. Assisted out of bed with cane and 1 assist. Aquacel dressing to right upper extremity is CDI; hemovac is intact and compressed. Right arm is in sling. CMS is intact. Complained of 6/10 pain and requested/medicated with 10mg of Oxycodone and ice applied. Wearing bilateral calf SCD's. Fall risk score is moderate and bed alarm is activated.
[2020-04-09] MEDS: OXYCODONE IR 5 MG TABLET PO ×2 (04:18→09:09)
[2020-04-09 04:30] VITALS: BP 138/69; PULSE 69; RESP 18; TEMP 36.8; O2SAT 97
[2020-04-09 05:50] LABS: Hematocrit 31.7 % (36-46); Hemoglobin 10.6 g/dL (12.0-16.0); Mean Corpuscular HGB Conc 33.6 % (30-36); Mean Corpuscular Hemoglobin 32.1 PG (26-34); Mean Corpuscular Volume 95.4 fL (80-100); Platelet Count 210 X10^3/uL (150-400); Red Blood Cell Count 3.32 X10^6/uL (4.0-5.2); Red Cell Distribution Width 12.6 % (11.6-14.8); White Blood Cell Count 7.9 X10^3/uL (4.5-11.0)
--- NOTE | 2020-04-09 07:41 | PM.DS.1 ---
History of Present Illness History of Present Illness Date Patient Seen: 04/09/20 Time Patient Seen: 07:41 Chief complaint: INPT Narrative: The history and physical on this patient is contained in the chart previously completed note. Please refer to that note for this information. Discharge Providers Provider Date of admission: 04/08/20 11:34 Discharge Date: 04/09/20 Primary care physician: Luiz Stearns MD Consults: 04/08/20 16:48 Consult to Discharge Planning Routine Comment: Consult to Physical Therapy Evaluate & Treat Comment: Physician Instructions: Evaluate and Treat Consult to Respiratory Therapy Evaluate & Treat Comment: Physician Instructions: Evaluate and treat Discharge provider: Jay Jay Linton MD Summary Hospital Course Discharge Diagnosis: 1. Right shoulder rotator cuff tear arthropathy 2. Post hemorrhagic anemia Hospital Course: The patient was admitted the hospital and taken directly to the operating room on April 08, 2020. She underwent a right reverse total shoulder replacement with no complications. On postoperative day 1 she was comfortable and ready for discharge. Status at Discharge Cognitive/behavioral status at discharge: oriented Functional status at discharge: uses cane/walker Overall status at discharge: patient is progressing back to baseline Time Spent with Patient Time spent: Less than 30 minutes Exam Vital Signs (past 8 hours): - 04/09/20 04:30 Temperature 98.2 F Pulse Rate 69 Respiratory Rate 18 Blood Pressure 138/69 Pulse Oximetry 97 Oxygen Delivery Method Nasal Cannula Oxygen Flow Rate 1 Narrative Exam Narrative: Right shoulder wound is dressed with no drainage on the bandage. Light touch is intact in the radial, ulnar, median, muscular cutaneous and axillary nerve distribution. She can extend her thumb, abduct her thumb, abduct her fingers and can fire her biceps and deltoid. Objective Labs Result Diagrams: 04/09/20 05:30 Labs: Laboratory Results - last 24 hr 04/09/20 05:30 WBC 7.9 RBC 3.32 L Hgb 10.6 L Hct 31.7 L MCV 95.4 MCH 32.1 MCHC 33.6 RDW 12.6 Plt Count 210 Discharge Assessment & Plan Assessment and Plan Assessment: Stable postoperative day 1 status post right reverse total shoulder with the anticipated post hemorrhagic anemia. She appears to be stable and ready for discharge today. Pain control is satisfactory. Plan of Treatment: Discharge today with follow-up in my office in 10-14 days. She will be restricted to the use of a sling except for pendulum exercises and for light use in front of the body. Prescriptions have been written for oxycodone and she has been instructed to use Tylenol for pain relief and aspirin 81 mg p.o. b.i.d. for DVT prophylaxis. Discharge Plan Discharge Plan Patient Disposition: Home Discharge orders & Medications Prescriptions: New acetaminophen 325 mg Tablet 975 mg PO TID 30 Days Qty: 270 RF: 0 aspirin 81 mg Tablet,Delayed Release (Dr/Ec) 81 mg PO BID Qty: 84 RF: 0 oxycodone 5 mg Tablet 5 mg PO Q4H PRN (Reason: Pain, Moderate (4-6)) Qty: 40 RF: 0 Continued gabapentin 100 mg Capsule 100 cap PO TID RF: 0 Refresh Liquigel 1 % Drops, Liquid Gel 1 drp EYE-BOTH BID RF: 0 ondansetron 4 mg tablet,disintegrating 4 mg PO Q8H PRN (Reason: Nausea) Qty: 6 RF: 1 levothyroxine 125 mcg Tablet 112 mcg PO DAILY RF: 0 colestipol 1 gram Tablet 1 g PO BID PRN (Reason: Diarrhea) RF: 0 diphenhydramine HCl [Benadryl] 25 mg Capsule 50 mg PO BEDTIME RF: 0 buspirone 7.5 mg Tablet 7.5 mg PO BID RF: 0 Discontinued oxycodone 5 mg Tablet 5 mg PO Q4-6H PRN (Reason: Pain, Severe (7-10)) Qty: 40 RF: 0 acetaminophen 325 mg tablet 1,000 mg PO TID RF: 0 Follow up/Referrals: Jay Jay Linton MD [Physician] - 2 Weeks Luiz Stearns MD [Primary Care Provider] - Discharge Health Status Multidrug resistant organism: No MDRO Diet/Activity/Treatments Diet: Diet as Tolerated and Regular Activity: You may use your right arm in front of her body below shoulder level. Lift no more than about 1 lb with her right arm. Cold/Heat Therapy: Apply ice for 15 minutes every hour as needed to the right shoulder for pain. Other treatments: Please continue to wear the sling except for hygiene and when using the arm for therapy exercise, eating, reading or computer. Skin/Wound/Dressing Care Report to your healthcare provider any signs of infection, such as:: chills, fever, night sweats, increased pain, unusual drainage and unusual redness Dressing: You may shower with the dressing in place. Please leave the dressing in place until follow-up. If the central strip of the dressing becomes saturated with water or blood, please call the office to have it evaluated. Visit Report/Discharge Packet Instructions: DI for Heart Failure, How to Prevent Falls, DI for Prescription Opioid Use, DI for Shoulder Replacement, Stool Softeners, Oxycodone Stand Alone Forms: Surgery Discharge Visit Report Forms: Congestive Heart Failure, Patient Portal/API, Stroke Signs & Symptoms Discharge Data Primary Care Provider: Luiz Stearns
[2020-04-09] MEDS: BUSPIRONE 15 MG TABLET 7.5 MG PO (09:03)
[2020-04-09] MEDS: LEVOTHYROXINE 125 MCG TABLET 112 MCG PO (09:07)
[2020-04-09] MEDS: ASPIRIN EC 81 MG TABLET PO (09:09)
[2020-04-09] MEDS: ACETAMINOPHEN 325 MG TABLET 975 MG PO (09:10)
[2020-04-09] MEDS: GABAPENTIN 100 MG CAPSULE PO (09:11)
[2020-04-09] MEDS: DOCUSATE 100 MG CAPSULE PO (09:11)
[2020-04-09 09:48] VITALS: BP 138/70; PULSE 69; RESP 18; TEMP 36.3; O2SAT 93
--- NOTE | 2020-04-09 10:10 | PT.IIE ---
Current Diagnoses Other specific arthropathies, not elsewhere classified, right shoulder (04/08/20) Surgery Performed Operation Date: 04/08/20 12:45 Actual Procedures p Total Shoulder Arthroplasty - Reverse(Right) - Jay Jay Linton MD Surgical History (Last Updated 04/01/20 @ 10:00 by Rosa Pacheco RN) History of arthroplasty of left knee (Acute 03/13/19) History of arthroplasty of right knee (Acute) History of bladder surgery (Acute) History of lumbar fusion (Acute) History of lumpectomy of left breast (Acute) History of total hysterectomy with bilateral salpingo-oophorectomy (BSO) (Acute) Hx of appendectomy (Acute) Hx of arthroscopy of right knee (Acute) S/P lumbar fusion (Acute 01/05/18) Status post Mohs surgery for squamous cell carcinoma of skin (Acute) Medical History (Last Updated 03/09/19 @ 10:43 by Rosa Pacheco RN) Anxiety (Acute) Asthma (Acute) Breast cancer (Acute) C. difficile enteritis (Acute) Chronic constipation (Acute) Chronic diarrhea (Acute) Cystocele (Acute) Depression (Acute) Femur fracture, right (Acute) HTN (hypertension) (Acute) Hyperlipidemia (Acute) Hypothyroidism (Acute) Incontinence (Acute) Insomnia (Acute) Macular degeneration (Acute) Osteoarthritis (Acute) Osteopenia (Acute) Postoperative anemia (Acute) Right shoulder pain (Acute) Sleep apnea (Acute) Physical Therapy Inpatient Evaluation/Re-Eval M1 PT/OT-IP Prior Functional Status Start: 04/09/20 08:41 Freq: NEEDED Status: Discharge Protocol: Document 04/09/20 10:10 AW (Rec: 04/09/20 12:12 AW [id number]) Medical Review Prior Functional Status Medical History Reviewed Yes Communication WNL. Pt is an effective verbal communicator. Mobility and Gait Pt uses a hurrycane for all community mobility and ~50% of the time in the home. Pt has had both knees replaced. She is right-handed. Her left shoulder is also severely impaired with limited ROM. Activities of Daily Living and IADL's Pt reports difficulty with ADL 's but she has remained independent. Prior Functional Level (Other details) Pt denies falls history in the past one year. Social History Household Members spouse Living Arrangements House Number of Floors (Floors) Two Floors Number of Stairs To Enter/Railing? 17 SAMIR[address] with left rail ascending. Entrance is to the upper level where pt can stay without need to go to the basement. Home Environment Standard Height Toilet,Walk in Shower Home Equipment Front Wheel Walker,Straight Cane,Bedside Commode,Raised Toilet Seat w/Armrests,Shower Seat without Backrest,Hand Held Shower,Long Handled Shoe Horn,Candy Vendor,Grab Bars Near Toilet Employment Status Retired Additional Social History Comment Pt lives with her spouse, Kvng, who works from home as an caster investment casting. He will be able and available to assist as needed at discharge. M2 PT-IP Current Condition Start: 04/09/20 08:41 Freq: NEEDED Status: Discharge Protocol: Document 04/09/20 10:10 AW (Rec: 04/09/20 12:12 AW [id number]) Physical Therapy Current Condition Current Condition Evaluation Date 04/09/20 Treatment Diagnosis R reverse TSA; decreased independence with ADL's; difficulty in walking Onset Date 04/08/20 Precautions Shoulder Precautions Sling,PROM,Internal Rotation to Body,No External Rotation, No Abduction,Pendulums Brace soft sling on at all times with exceptions only for showering and AROM elbow and hand M3 PT-IP Subjective Start: 04/09/20 08:41 Freq: NEEDED Status: Discharge Protocol: Document 04/09/20 10:10 AW (Rec: 04/09/20 12:12 AW [id number]) Subjective Physical Therapy Visit Type Type Initial Evaluation Visit Start Time 09:29 Visit Stop Time 10:08 Total Visit Minutes 39 Notes Pt's spouse was present throughout evaluation and participated in caregiver training Number of WIRE TAPER Visits 0 Physical Therapy Visit Comments Patient Comments Pt is willing to participate with PT Therapy Pain Assessment Pain When Pain Assessed At Rest Pain Present Pain Present Pain Reported Location r shoulder Intensity 5 Scale Used Numeric (0 - 10) Pain Management Techniques Apply Cold,Timing of Activity with Medications M4 PT-IP Mobility and Gait Start: 04/09/20 08:41 Freq: NEEDED Status: Discharge Protocol: Document 04/09/20 10:10 AW (Rec: 04/09/20 12:12 AW [id number]) PT-Bed Mobility Assessment Supine to Sit Supine to Sit Standby Assistance Sit to Supine Sit to Supine Contact Guard Assistance Scooting Scooting to Edge of Bed Standby Assistance PT-Transfer Assessment Sit to and From Stand Sit to and from Stand Contact Guard Assistance,Use of Upper Extremities Equipment Transfer Assistive Device Gait Belt,Tripod Cane/Hurry Cane Orthotic/Prosthetic Devices or Brace: Yes Transfers Transfer Destination Bed,Chair Transfer Technique pt amb with hurrycane Transfer Ability Level of Assist Contact Guard Assistance,Use of Upper Extremities Comments Mobility Comments Pt was sitting up in the chair as PT and SPT arrived. Sitting balance was good during strength assessment. Pt stood from the chair CGA with hurrycane and ambulated to the sink CGA. PT educated pt and her spouse on proper fit and adjustments of the sling with both verbalizing understanding. Pt then donned her face mask and [facility] After stair training, pt ambulated back to the room with hurrycane CGA. She sat on the edge of the bed as PT retrieved a stool from the office for bed mobility practice. Pt has a tall bed and has considered using a stool to assist her getting in and out. With stool toward the middle of the bedside, pt approached the stool while facing away from the bed. She stepped up with her right foot and sat easily on EOB. She then completed sit <> supine with CGA needed to control transition to supine. Otherwise, bed mobility was completed with only SBA. Pt then walked around the bed and transferred to the chair. She was left with call light and all needs in reach. Her had just left to take items to the car. Gait Assessment Gait Gait Assistance Required: Standby Assistance,Contact Guard Assist Distance (Feet) 150 Able to Maintain Weight Bearing Status Yes During Gait Assistive Devices Assistive Device Gait Belt,Tripod Cane/Hurry Cane Orthotic/Prosthetic Devices or Brace: Yes Gait Deviations General Gait Pattern Antalgic,Decreased Stride Length,Decreased Feet Clearance,Lateral Trunk Lean Factors Limiting Gait Function Factors Limiting Gait Function Decreased Activity Tolerance, Decreased Strength,Pain,Poor Balance Comments Gait Comments Pt ambulated with hurrycane SBA to CGA with increased distance. She demonstrated left lateral lean in ipsilateral stance. She typically holds the cane in her left hand, so no adjustment was required due to inability to use the right hand. PT educated pt on safety and need to use hurrycane at all times during recovery. Pt and her spouse agreed. Stair Climbing Assessment Evaluation Level of Assist On Stairs Contact Guard Assistance Devices Stair Climbing Assistive Devices Tripod Cane/Hurry Cane,Left Railing Technique/Endurance Stair Climbing Direction Ascend and Descend Stair Climbing Technique Step to Step Number of Steps Climbed 13 Query Text: Stair Climbing Set # Repetitions (reps) 1 Comments Stair Climbing Comments Pt descended the [facility] [place] stairs with hurrycane held in the left hand as she leaned on the right hand rail. PT provided CGA from the front and educated pt's spouse on same. Pt then ascended 13 steps using the left rail CGA. Pt's spouse was able to provide appropriate and safe assist during ascent. PT-Balance Assessment Sitting Balance and Reactions Static Sitting Balance Ability Good Dynamic Sitting Balance Ability Good Standing Balance and Reactions Static Standing Balance Ability Good Dynamic Standing Balance Ability Fair Device Used hurrycane M5 PT-IP Objective Assessments Start: 04/09/20 08:41 Freq: NEEDED Status: Discharge Protocol: Document 04/09/20 10:10 AW (Rec: 04/09/20 12:12 AW [id number]) Orientation Orientation/Cognition Level of Alertness Alert Orientation Name,Day of Week,Place, Situation Language Function Ability No Deficits Noted Safety Awareness Understands Safety Issues Memory Description No Deficits Noted Gross Range of Motion Upper Extremity ROM Assessment Bilaterally Impaired Impairments LUE forward flexion limited to ~40 degrees Lower Extremity ROM Assessment Within Functional Limits Strength Upper Extremity Strength Assessment Bilaterally Impaired Lower Extremity Strength Assessment Bilaterally Impaired Comments Strength Comments BLE grossly 4/5 Sensation Assessment Sensation Gross Sensation WNL M6 PT-IP Treatment Start: 04/09/20 08:41 Freq: NEEDED Status: Discharge Protocol: Document 04/09/20 10:10 AW (Rec: 04/09/20 12:12 AW [id number]) Physical Therapy Treatment Exercises Exercises Shoulder Pendulums,Elbow Flexion/Extension,Wrist ROM, Hand ROM Education Education Provided Precautions,Weight Bearing Status,Post-Op Packet,Safety Brace Education [place],Patient, Caregiver Other Treatments Other Treatment Performed Provided education on post op precautions, ADL management, proper fit of soft sling. Pt's spouse participated in training for gait belt use, sling fitting, and stair management. M7 PT-IP Assessment and Plan Start: 11/10/20 08:41 Freq: NEEDED Status: Discharge Protocol: Document 04/09/20 10:10 AW (Rec: 04/09/20 12:12 AW [id number]) PT Summary Assessment and Plan Potential Rehabilitation Potential Good Status of Condition at Evaluation Stable Summary Impairments Pain,ROM,Strength,Balance,Bed Mobility,Transfers,Gait, Activity Tolerance Assessment Summary Catalina Bess is an 79 yo woman with limited and painful range of motion in bilateral shoulders who was seen for PT evaluation on POD1 following right reverse total shoulder arthroplasty. She has remained independent with ADL though with some difficulty. She typically mobilizes with hurrycane ~50% of the time for household mobility and 100% of the time for stairs and community ambulation. On evaluation, pt requried SBA to CGA for all mobilities. She demonstrated understanding of proper fit for her sling and of her post op precautions. PT recommended using hurrycane at all times during recovery; pt and her spouse agreed. Catalina Bess is safe to discharge home with spouse assist. Frequency of Treatment Frequency Of Treatment Discharge Recommendations To Nursing Amount of Assist Needed Standby Assistance Discharge Recommendations PT Discharge Recommendations Home with Assistance Transportation Needs at Discharge Private Vehicle
--- NOTE | 2020-04-09 10:30 | PC.NURSE ---
Day shift: Pt left unit in at approx 1030. On her way back home to [place]. Medicated for pain per JUL. Pt has MD script. Pt has all personal belongings. Paperwork signed and all questions answered. Taken to car driven by her spouse in . Tolerated PT/OT well. Hill remains CDI. D/c'd Ac-vac site CDI as well.
== END 2020-04-09 10:41 | disposition home or self-care (01) | DRG 483 ==
PROVIDERS: Admitting Provider Orthopaedic Surgery; PCP Family Medicine; Referring Provider Orthopaedic Surgery; Visit Provider Orthopaedic Surgery
PROC: 0RRJ00Z Replacement of Right Shoulder Joint with Reverse Ball and Socket Synthetic Substitute, Open Approach (ICD-10-PCS; CPT 23472; principal; 2020-04-08 12:45)
DX: M12.811 Other specific arthropathies, not elsewhere classified, right shoulder (principal); G47.33 Obstructive sleep apnea (adult) (pediatric); E03.9 Hypothyroidism, unspecified; F32.9 Major depressive disorder, single episode, unspecified; Z87.891 Personal history of nicotine dependence; J45.909 Unspecified asthma, uncomplicated; F41.9 Anxiety disorder, unspecified
CPT/HCPCS: 36415; 64450; 73020; 85027; 94762; 97161; 97530; C1776; J0330; J0690; J1100; J2250; J2405; J2704; J3010

== ENCOUNTER → 2020-10-01 11:57 | Outpatient (CLI) | payer MEDICARE, SELFPAY ==
[2020-08-26 11:13] VITALS: BMI 26.9
== END ==
PROVIDERS: PCP Family Medicine; Visit Provider Physician Assistant
DX: R35.0 Frequency of micturition (principal)
CPT/HCPCS: 87077; 87086; 87186

== ENCOUNTER → 2020-10-14 10:57 | Outpatient (CLI) | payer MEDICARE, SELFPAY ==
[2020-10-14 08:53] VITALS: BMI 26.9
== END ==
PROVIDERS: PCP Family Medicine; Visit Provider Physician Assistant
DX: N39.0 Urinary tract infection, site not specified (principal)
CPT/HCPCS: 87077; 87086

== ENCOUNTER → 2020-11-04 08:52 | Outpatient (CLI) | payer MEDICARE, SELFPAY ==
[2020-10-14 08:53] VITALS: BMI 26.9
== END ==
PROVIDERS: PCP Family Medicine; Visit Provider Physician Assistant
DX: R35.0 Frequency of micturition (principal)
CPT/HCPCS: 87077; 87086; 87186

== ENCOUNTER → 2020-11-15 12:46 | Outpatient (CLI) | payer MEDICARE, SELFPAY ==
[2020-10-14 08:53] VITALS: BMI 26.9
--- NOTE | 2020-11-15 12:48 | DI.US.S_ITS ---
PROCEDURE: US ABDOMEN LIMITED INDICATIONS: PELVIC MASS ?HERNIA TECHNIQUE: Real-time focused scanning was performed of the abdomen, with image documentation. COMPARISON: None. FINDINGS: At the site of clinical concern, there is a left groin fat containing hernia, which is reducible. This is considered to be a direct inguinal hernia. The hernia neck measures up to 8 mm. IMPRESSION: Apparent fat containing hernia seen at the area of clinical concern of the left groin. If it would be helpful for clinical management decision making, please consider a dedicated CT of the pelvis with at least IV contrast for further evaluation. Dictated by: Yuval Bhat M.D. on 11/15/2020 at 12:56 Approved by: Yuval Bhat M.D. on 11/15/2020 at 12:57
== END ==
PROVIDERS: PCP Family Medicine; Referring Provider Physician Assistant; Visit Provider Physician Assistant
DX: R19.00 Intra-abdominal and pelvic swelling, mass and lump, unspecified site (principal)
CPT/HCPCS: 76705

== ENCOUNTER → 2020-11-22 09:37 | Outpatient (CLI) | payer MEDICARE, SELFPAY ==
[2020-10-14 08:53] VITALS: BMI 26.9
== END ==
PROVIDERS: PCP Family Medicine; Visit Provider Obstetrics & Gynecology
DX: R30.0 Dysuria (principal); R30.9 Painful micturition, unspecified
CPT/HCPCS: 87086

== ENCOUNTER → 2020-11-22 10:16 | Outpatient (CLI) | payer MEDICARE, SELFPAY ==
[2020-10-14 08:53] VITALS: BMI 26.9
--- NOTE | 2020-11-22 | DI.MG.S_ITS ---
BILATERAL DIGITAL SCREENING MAMMOGRAM 3D/2D WITH CAD: 11/22/2020 CLINICAL: Routine screening. Personal history of left breast cancer. Comparison is made to exams dated: 02/21/2020 mammogram, 08/02/2019 mammogram, 07/12/2019 mammogram, 02/16/2018 mammogram - [facility], and 02/10/2017 mammogram - [facility]. There are scattered fibroglandular elements in both breasts. Current study was also evaluated with a Computer Aided Detection (CAD) system. There are benign post operative findings and biopsy clip in the left breast. No significant masses, calcifications, or other findings are seen in either breast. There has been no significant interval change. IMPRESSION: BENIGN There is no mammographic evidence of malignancy. A 1 year screening mammogram is recommended. This exam was interpreted at Station ID: [id number]. NOTE: For mammograms, a report in lay terms will be sent to the patient. Approximately 15% of breast malignancies will not be visualized mammographically. In the management of a palpable breast mass, a negative mammogram must not discourage biopsy of a clinically suspicious lesion. Electronically Signed By: Milton skelton/lissa:11/22/2020 10:55:41 letter sent: Normal Exam ACR BI-RADS Category 2: Benign Finding(s) 3342F
== END ==
PROVIDERS: PCP Physician Assistant; Referring Provider Physician Assistant; Visit Provider Physician Assistant
DX: Z12.31 Encounter for screening mammogram for malignant neoplasm of breast (principal); Z85.3 Personal history of malignant neoplasm of breast
CPT/HCPCS: 77063; 77067

== ENCOUNTER → 2020-12-11 09:43 | Outpatient (CLI) | payer MEDICARE, SELFPAY ==
[2020-10-14 08:53] VITALS: BMI 26.9
[2020-12-11 19:13] LABS: Add Manual Diff / Slide Review NO; Basophils Absolute Auto 0 /uL (0-100); Basophils Percent Auto 0.7 % (0-2); Eosinophils Absolute Auto 0 /uL (0-450); Eosinophils Percent Auto 0.6 % (2-4); Hematocrit 38.1 % (36-46); Hemoglobin 12.5 g/dL (12.0-16.0); Lymphocytes Absolute Auto 1300 /uL (1100-4500); Lymphocytes Percent Auto 20.9 % (25-40); Mean Corpuscular HGB Conc 32.9 % (30-36); Mean Corpuscular Volume 94.2 fL (80-100); Monocytes Absolute Auto 800 /uL (0-900); Monocytes Percent Auto 13.1 % (3-14); Neutrophils Absolute Auto 4000 /uL (1500-7000); Neutrophils Percent Auto 64.7 % (50-75); Platelet Count 250 X10^3/uL (150-400); Red Blood Cell Count 4.04 X10^6/uL (4.0-5.2); Red Cell Distribution Width 13.8 % (11.6-14.8); White Blood Cell Count 6.2 X10^3/uL (4.5-11.0)
[2020-12-11 19:17] LABS: HEMOLYSIS < 15 (0-50); Iron 80 ug/dL (37-170)
[2020-12-11 19:22] LABS: BUN Creatinine Ratio 26.6 (6-22); Blood Urea Nitrogen 21 mg/dL (7-17); C-Reactive Protein Quant < 0.5 mg/dL (<1.0); Calcium 10.1 mg/dL (8.4-10.2); Carbon Dioxide 24 mmol/L (22-32); Chloride 102 mmol/L (98-107); Estimated Glomerular Filt Rate > 60.0 mL/min (>60); Glucose 105 mg/dL (80-110); HEMOLYSIS < 15 (0-50); Potassium 4.8 mmol/L (3.4-5.1); Sodium 136 mmol/L (137-145)
[2020-12-11 19:29] LABS: Percent Iron Saturation 22 % (15-50); Total Iron Binding Capacity 370 ug/dL (265-497); Transferrin 274 mg/dL (206-381)
[2020-12-11 20:07] LABS: Vitamin B12 > 1000 pg/mL (239-931)
[2020-12-14 16:54] LABS: H. Pylori Antigen Stool Negative (Negative)
== END ==
PROVIDERS: PCP Physician Assistant; Visit Provider Specialist
DX: N95.2 Postmenopausal atrophic vaginitis; K50.911 Crohn's disease, unspecified, with rectal bleeding; K50.919 Crohn's disease, unspecified, with unspecified complications
CPT/HCPCS: 80048; 82607; 83540; 83550; 85025; 86140; 87338

== ENCOUNTER → 2020-12-25 11:33 | Outpatient (CLI) | payer MEDICARE, SELFPAY ==
[2020-10-14 08:53] VITALS: BMI 26.9
[2020-12-25 20:13] LABS: COVID19 - ORCAS (NP or Nasal) Negative (Negative)
== END ==
PROVIDERS: PCP Physician Assistant; Visit Provider Family Medicine
DX: Z01.812 Encounter for preprocedural laboratory examination (principal); Z20.822 Contact with and (suspected) exposure to COVID-19
CPT/HCPCS: U0003

== ENCOUNTER → 2021-03-03 08:33 | Outpatient (CLI) | payer MEDICARE, SELFPAY ==
[2020-10-14 08:53] VITALS: BMI 26.9
[2021-03-03 20:24] LABS: Hematocrit 35.3 % (36-46); Hemoglobin 11.6 g/dL (12.0-16.0); Mean Corpuscular HGB Conc 32.7 % (30-36); Mean Corpuscular Hemoglobin 30.4 PG (26-34); Mean Corpuscular Volume 93.1 fL (80-100); Platelet Count 186 X10^3/uL (150-400); Red Cell Distribution Width 15.9 % (11.6-14.8); White Blood Cell Count 5.7 X10^3/uL (4.5-11.0)
[2021-03-03 20:33] LABS: Alanine Aminotransferase 11 IU/L (<35); Albumin 2.6 g/dL (3.5-5.0); Alkaline Phosphatase 72 U/L (38-126); Aspartate Aminotransferase 23 IU/L (14-36); BUN Creatinine Ratio 21.7 (6-22); Bilirubin Total 0.2 mg/dL (0.2-1.3); Blood Urea Nitrogen 13 mg/dL (7-17); Calcium 6.8 mg/dL (8.4-10.2); Carbon Dioxide 21 mmol/L (22-32); Cholesterol 133 mg/dL (140-199); Estimated Glomerular Filt Rate > 60.0 mL/min (>60); Globulin 2.6 g/dL (1.7-4.1); Glucose 71 mg/dL (80-110); HDL Cholesterol 49 mg/dL (40-60); HEMOLYSIS < 15 (0-50); LDL Cholesterol Calculated 74 mg/dL (<100); Potassium 3.7 mmol/L (3.4-5.1); Total Protein 5.2 g/dL (6.3-8.2); Triglycerides 51 mg/dL (35-150)
[2021-03-03 21:03] LABS: TSH w/ Reflex to FT4 0.04 uIU/mL (0.47-4.68)
[2021-03-03 21:10] LABS: Chloride 73 mmol/L (98-107); Sodium 101 mmol/L (137-145)
[2021-03-03 22:25] LABS: Neutrophils Absolute Manual 3363 /uL (3000-5900); RBC Morphology Normal Morphology; Total Cells Counted 100
== END ==
PROVIDERS: PCP Physician Assistant; Visit Provider Physician Assistant
DX: D64.9 Anemia, unspecified (principal); E78.00 Pure hypercholesterolemia, unspecified; I10 Essential (primary) hypertension; K52.9 Noninfective gastroenteritis and colitis, unspecified
CPT/HCPCS: 80053; 80061; 84439; 84443; 85025

== ENCOUNTER → 2021-03-04 11:49 | Outpatient (ROUT) | payer MEDICARE, SELFPAY ==
[2020-10-14 08:53] VITALS: BMI 26.9
[2021-03-04 12:30] LABS: Alanine Aminotransferase 18 IU/L (<35); Albumin 4.8 g/dL (3.5-5.0); Albumin Globulin Ratio 1.5 (1.0-2.8); Alkaline Phosphatase 103 U/L (38-126); Aspartate Aminotransferase 34 IU/L (14-36); BUN Creatinine Ratio 23.1 (6-22); Bilirubin Total 0.3 mg/dL (0.2-1.3); Blood Urea Nitrogen 18 mg/dL (7-17); Calcium 10.2 mg/dL (8.4-10.2); Carbon Dioxide 26 mmol/L (22-32); Chloride 97 mmol/L (98-107); Estimated Glomerular Filt Rate > 60.0 mL/min (>60); Globulin 3.1 g/dL (1.7-4.1); Glucose 112 mg/dL (80-110); HEMOLYSIS < 15 (0-50); Potassium 4.5 mmol/L (3.4-5.1); Sodium 135 mmol/L (137-145); Total Protein 7.9 g/dL (6.3-8.2)
== END ==
PROVIDERS: PCP Physician Assistant; Visit Provider Physician Assistant
DX: I10 Essential (primary) hypertension (principal)
CPT/HCPCS: 36415; 80053

== ENCOUNTER → 2021-03-19 11:55 | Outpatient (CLI) | payer MEDICARE, SELFPAY ==
[2020-10-14 08:53] VITALS: BMI 26.9
[2021-03-19 19:31] LABS: TSH w/ Reflex to FT4 0.08 uIU/mL (0.47-4.68)
[2021-03-20 07:25] LABS: Free T4, Direct Thyroxine 2.01 ng/dL (0.78-2.19)
== END ==
PROVIDERS: PCP Physician Assistant; Visit Provider Physician Assistant
DX: D64.9 Anemia, unspecified (principal); E03.9 Hypothyroidism, unspecified; E78.00 Pure hypercholesterolemia, unspecified; E87.8 Other disorders of electrolyte and fluid balance, not elsewhere classified; I10 Essential (primary) hypertension
CPT/HCPCS: 84439; 84443

== ENCOUNTER → 2021-04-08 09:44 | Outpatient (CLI) | payer MEDICARE, SELFPAY ==
[2021-03-20 16:33] VITALS: BMI 26.9
[2021-04-09 16:17] LABS: C difficie Toxins A and B, EIA Negative (Negative)
== END ==
PROVIDERS: PCP Physician Assistant; Visit Provider Family Medicine
DX: R19.7 Diarrhea, unspecified (principal)
CPT/HCPCS: 87045; 87046; 87177; 87324; 87899

== ENCOUNTER → 2021-05-22 11:15 | Outpatient (CLI) | payer MEDICARE, SELFPAY ==
[2021-03-20 16:33] VITALS: BMI 26.9
[2021-05-22 19:24] LABS: C-Reactive Protein Quant < 0.5 mg/dL (<1.0)
[2021-05-22 19:53] LABS: TSH w/ Reflex to FT4 1.95 uIU/mL (0.47-4.68)
[2021-05-22 20:11] LABS: Vitamin B12 383 pg/mL (239-931)
[2021-05-24 18:12] LABS: Deamidated Gliadin Ab IgA 12 units (0-19); Deamidated Gliadin Ab IgG 3 units (0-19); Immunoglobulin A,Qn 420 mg/dL (64-422); t-Transglutaminase IgA 3 U/mL (0-3)
[2021-05-26 12:40] LABS: Calprotectin, Stool 95 ug/g (0-120)
== END ==
PROVIDERS: Specialist; PCP Physician Assistant; Referring Provider Physician Assistant; Visit Provider Physician Assistant
DX: E03.9 Hypothyroidism, unspecified (principal); R63.4 Abnormal weight loss; K52.9 Noninfective gastroenteritis and colitis, unspecified
CPT/HCPCS: 82607; 82784; 83516; 83993; 84443; 86140

== ENCOUNTER → 2021-07-14 08:10 | Outpatient (CLI) | payer MEDICARE, SELFPAY ==
[2021-03-20 16:33] VITALS: BMI 26.9
[2021-07-14 19:33] LABS: Add Manual Diff / Slide Review NO; Basophils Absolute Auto 0 /uL (0-100); Basophils Percent Auto 0.7 % (0-2); Eosinophils Absolute Auto 100 /uL (0-450); Eosinophils Percent Auto 1.6 % (2-4); Hematocrit 34.1 % (36-46); Hemoglobin 11.3 g/dL (12.0-16.0); Lymphocytes Absolute Auto 1900 /uL (1100-4500); Lymphocytes Percent Auto 30.3 % (25-40); Mean Corpuscular HGB Conc 33.2 % (30-36); Mean Corpuscular Hemoglobin 32.6 PG (26-34); Mean Corpuscular Volume 98.1 fL (80-100); Monocytes Absolute Auto 900 /uL (0-900); Monocytes Percent Auto 15.3 % (3-14); Neutrophils Absolute Auto 3200 /uL (1500-7000); Neutrophils Percent Auto 52.1 % (50-75); Platelet Count 268 X10^3/uL (150-400); Red Blood Cell Count 3.48 X10^6/uL (4.0-5.2); White Blood Cell Count 6.2 X10^3/uL (4.5-11.0)
[2021-07-14 19:40] LABS: Alanine Aminotransferase 16 IU/L (<35); Albumin 4.8 g/dL (3.5-5.0); Albumin Globulin Ratio 1.5 (1.0-2.8); Alkaline Phosphatase 113 U/L (38-126); Aspartate Aminotransferase 30 IU/L (14-36); BUN Creatinine Ratio 30.6 (6-22); Bilirubin Total 0.3 mg/dL (0.2-1.3); Blood Urea Nitrogen 34 mg/dL (7-17); Calcium 9.7 mg/dL (8.4-10.2); Carbon Dioxide 25 mmol/L (22-32); Chloride 100 mmol/L (98-107); Cholesterol 227 mg/dL (140-199); Estimated Glomerular Filt Rate 47.2 mL/min (>60); Globulin 3.1 g/dL (1.7-4.1); Glucose 101 mg/dL (80-110); HDL Cholesterol 79 mg/dL (40-60); Magnesium 2.1 mg/dL (1.6-2.3); Potassium 5.1 mmol/L (3.4-5.1); Sodium 133 mmol/L (137-145); Total Protein 7.9 g/dL (6.3-8.2); Triglycerides 67 mg/dL (35-150)
[2021-07-14 19:41] LABS: HEMOLYSIS < 15 (0-50); LDL Cholesterol Calculated 135 mg/dL (<100)
[2021-07-14 20:05] LABS: TSH w/ Reflex to FT4 0.79 uIU/mL (0.47-4.68)
[2021-07-14 20:25] LABS: Vitamin B12 558 pg/mL (239-931)
[2021-07-16 10:50] LABS: Fecal Immunochemical Test Negative (Negative)
== END ==
PROVIDERS: PCP Physician Assistant; Visit Provider Physician Assistant
DX: E78.00 Pure hypercholesterolemia, unspecified (principal); D64.9 Anemia, unspecified; I10 Essential (primary) hypertension; E03.9 Hypothyroidism, unspecified; E87.8 Other disorders of electrolyte and fluid balance, not elsewhere classified; E53.8 Deficiency of other specified B group vitamins
CPT/HCPCS: 80053; 80061; 82274; 82607; 83735; 84443; 85025

== ENCOUNTER → 2021-08-18 08:13 | Outpatient (CLI) | payer MEDICARE, SELFPAY ==
[2021-07-21 11:14] VITALS: BMI 26.9
[2021-08-18 19:33] LABS: COVID19 - ORCAS (NP or Nasal) Negative (Negative)
== END ==
PROVIDERS: PCP Physician Assistant; Visit Provider Physician Assistant
DX: Z01.812 Encounter for preprocedural laboratory examination (principal); Z20.822 Contact with and (suspected) exposure to COVID-19
CPT/HCPCS: C9803; U0003

== ENCOUNTER 2021-08-19 10:41 | Day surgery (SDC) | payer MEDICARE, SELFPAY ==
[2021-07-21 11:14] VITALS: BMI 26.9
[2021-08-14 08:15] VITALS: BMI 24.7
[2021-08-19] VITALS (8 sets, daily range): BP systolic 102–151; BP diastolic 48–78; PULSE 71–88; RESP 12–18; TEMP 36.1–36.4; O2SAT 94–100; BMI 24.7
[2021-08-19] MEDS: LACTATED RINGERS 1,000 ML 84 ML IV (12:28)
--- NOTE | 2021-08-19 12:47 | PM.HP.1 ---
History of Present Illness History of Present Illness Date Patient Seen: 08/19/21 Time Patient Seen: 12:47 Chief complaint: SDC Narrative: 80-year-old woman with a symptomatic left inguinal hernia that is reducible. See the office note from March for details. Patient History Medical History (Updated 08/14/21 @ 09:55 by Rosa Pacheco RN) Actinic keratosis (~2017) Allergies Anemia (~1960) Anxiety (~1979) Asthma Atrophic vulvovaginitis Breast cancer (~2010) C. difficile enteritis Chicken pox (~1946) Chronic back pain (~1989) Chronic constipation Chronic diarrhea Colon polyps (~2017) Cystocele Depression (~1979) Diverticulosis Endometriosis (~1959) Fecal incontinence Femur fracture, right Fibroids (~1977) Foot pain GERD (gastroesophageal reflux disease) Hearing loss Heavy menstrual period History of urinary incontinence (~1999) HTN (hypertension) Hyperlipidemia Hypothyroidism (~1962) Incontinence Infertility Insomnia Irregular menstrual cycle Irritable bowel syndrome (~1979) Macular degeneration Measles (~1943) Osteoarthritis Osteopenia Osteoporosis Ovarian cyst Positive PPD (~1980) Postoperative anemia Psoriasis (~2010) Recurrent UTI Right shoulder pain Rubella (~1943) Scoliosis Shoulder pain Sleep apnea (~1989) Tuberculosis Surgical History (Updated 08/14/21 @ 10:11 by Rosa Pacheco RN) History of arthroplasty of left knee (03/13/19) History of arthroplasty of right knee History of bladder surgery History of cataract removal with insertion of prosthetic lens History of lumbar fusion History of lumpectomy of left breast (2000) History of reverse total replacement of right shoulder joint (04/08/20) History of total hysterectomy with bilateral salpingo-oophorectomy (BSO) (~1977) Hx of appendectomy Hx of arthroscopy of right knee Hx of foot surgery (~1988) S/P lumbar fusion (01/05/18) Status post Mohs surgery for squamous cell carcinoma of skin Family & Social History Social History: household members spouse Tobacco & Substance use: Tobacco type cigarettes Smoking Status Former smoker alcohol intake current alcohol intake frequency a few times a week Substance Use Type does not use Meds Home Medications and Allergies Home Medications Medication Instructions Recorded Confirmed Type estradiol See Rx Instructions VAGINAL 3XW 01/22/21 08/14/21 Rx #42.5 g loperamide 1 mg/7.5 mL oral liquid 2 mg PO Q2-4H PRN 02/25/21 08/19/21 History (Imodium A-D) loperamide-simethicone 2 mg-125 mg 1 tab PO Q3H PRN 02/25/21 08/19/21 History tablet ondansetron HCl 4 mg tablet 4 mg PO Q8H 02/25/21 08/19/21 History (Zofran) diclofenac sodium 1 % topical gel 2 g TOPICAL QID #100 g 06/11/21 07/21/21 Rx (Voltaren Arthritis Pain) cyanocobalamin (vitamin B-12) 1,000 mcg IM Q3W #10 ml 07/02/21 08/19/21 Rx 1,000 mcg/mL injection solution safety needles 25 gauge x 1 (BD #50 ea 07/02/21 07/21/21 Rx Eclipse) syringe with needle 3 mL 25 gauge #50 ea 07/02/21 07/21/21 Rx x 1 lisinopril 30 mg tablet 30 mg PO DAILY #90 tab 07/21/21 08/14/21 Rx buspirone 7.5 mg tablet 7.5 mg PO .COMPLEX #270 tab MDD 08/03/21 08/19/21 Rx 22.5mg levothyroxine 75 mcg tablet See Rx Instructions .ROUTE 08/06/21 08/14/21 Rx .COMPLEX #90 tablet acetaminophen 500 mg tablet 1,000 mg PO TID 08/14/21 08/19/21 History famotidine 20 mg tablet (Pepcid) 20 mg PO BID 08/14/21 08/19/21 History melatonin 10 mg tablet 10 mg PO BEDTIME 08/14/21 08/19/21 History Allergies Allergy/AdvReac Type Severity Reaction Status Date / Time iodine [IODINE] Allergy Intermediate RASH Verified 08/19/21 12:04 adhesive [ADHESIVE] Allergy Mild TAPE, RASH Verified 08/19/21 12:04 nickel Allergy Mild Rash Verified 08/19/21 12:04 Exam Vital Signs (past 8 hours): - 08/19/21 12:31 Temperature 97.6 F Pulse Rate 82 Respiratory Rate 14 Blood Pressure 151/69 H Pulse Oximetry 100 Oxygen Delivery Method Room Air Narrative Exam Narrative: Reducible left inguinal hernia Assessment & Plan Assessment and plan (1) Left inguinal hernia: Status: Acute Plan We will proceed with a left inguinal hernia repair with mesh. COVID-19 COVID-19 status: Negative Result date/Date tested (Pos, Neg/Pending): 08/18/21 Time Spent With Patient Critical Care time: I spent a total of [] minutes of critical care time on this patient's care today; this time is exclusive of procedural time.
[2021-08-19] MEDS: CEFAZOLIN 2 GM/20 ML SYRINGE IV (13:10)
--- NOTE | 2021-08-19 13:18 | SUR.OPER ---
Supine on padded OR bed, head on pillow, arms secured on padded arm boards at <90 degrees abduction, legs uncrossed, safety belt at thigh, tape over blanket over lower legs.
[2021-08-19] MEDS: LIDOCAINE 1% W/EPI 20 ML INJ (13:37)
[2021-08-19] MEDS: BUPIVACAINE 0.5% (PF) VIAL 30 ML INJ (13:39)
--- NOTE | 2021-08-19 14:25 | PM.OP.1 ---
Operative Date/Time/Diagnoses Date of procedure: 08/19/21 Time of procedure: 14:25 Pre-op diagnosis: Left inguinal hernia Post-op diagnosis: same Procedure & Clinicians Procedure: Open left inguinal hernia repair with mesh Same procedure as scheduled: Yes Surgeon: Tomas Cancino Anesthesia Type: General Operative Notes Findings: Small direct defect containing fatty tissue Procedure in detail: Preoperative antibiotic was administered. The patient was brought to the operating room and placed on the table in supine position general anesthesia was induced. The left groin was prepped and draped in the normal fashion and a time-out was performed. Roughly 10 mL of local anesthetic were injected into the skin and subcutaneous adipose tissue over the left groin. A 6 cm incision was made over the left inguinal canal. Dissection was carried down through the subcutaneous adipose tissue. We exposed the external oblique aponeurosis in the direction of the fibers. Additional local was injected deep to the aponeurosis. A 15 blade scalpel was used to [place] the external oblique aponeurosis. Metzenbaum scissors were used to carefully open the aponeurosis in the direction of the fibers taking care not to injure the underlying ilioinguinal nerve which was well seen and protected. We completely exposed the inguinal canal and divided the distal round ligament as it traversed into the mons pubis. The round ligament was isolated. We found that there was a direct defect containing fatty tissue which was roughly a 1 cm in diameter. We completely freed the attachments of the hernia sac to the fascial defect and reduced the hernia into the preperitoneal space. We closed this defect with about 3 interrupted 3-0 Vicryl sutures. We then fashioned a piece of polypropylene mesh to fit the inguinal canal floor. The mesh was secured with multiple interrupted 3-0 Prolene sutures to the pubic tubercle and shelving edge of the inguinal ligament as well as to the conjoint tendon medially. We cut a slit in the mesh and overlapped the tails to recreate an internal ring around the proximal round ligament. We injected some more local into the fatty tissue in the inguinal canal and cord. Finally, we closed the external oblique fascia with a running 3-0 Vicryl suture. Skin was closed with interrupted 3-0 Vicryl dermal sutures and a running 4 Monocryl subcuticular stitch. EBL 5 mL The patient was awakened and brought to recovery room. Post-operative Condition: stable Disposition: PACU
== END 2021-08-19 15:30 | disposition home or self-care (01) ==
PROVIDERS: PCP Physician Assistant; Referring Provider Surgery; Visit Provider Surgery
PROC: (CPT 49505; principal; 2021-08-19 12:45)
DX: K40.90 Unilateral inguinal hernia, without obstruction or gangrene, not specified as recurrent (principal); F41.9 Anxiety disorder, unspecified; K21.9 Gastro-esophageal reflux disease without esophagitis; I10 Essential (primary) hypertension; E78.5 Hyperlipidemia, unspecified; G47.33 Obstructive sleep apnea (adult) (pediatric)
CPT/HCPCS: 49505; J0690; J1100; J2250; J2405; J2704; J3010

== ENCOUNTER → 2021-12-10 12:05 | Outpatient (CLI) | payer MEDICARE, SELFPAY ==
[2021-07-21 11:14] VITALS: BMI 26.9
--- NOTE | 2021-12-10 | DI.MG.S_ITS ---
BILATERAL DIGITAL SCREENING MAMMOGRAM 3D/2D WITH CAD POST LUMPECTOMY: 12/10/2021 CLINICAL: Routine screening. Personal history of left breast cancer. Comparison is made to exams dated: 02/21/2020 mammogram, 08/02/2019 mammogram, 07/12/2019 mammogram, and 02/16/2018 mammogram - [facility]. There are scattered fibroglandular elements in both breasts. Current study was also evaluated with a Computer Aided Detection (CAD) system. There are benign vascular calcifications in both breasts. There also are benign post operative findings and biopsy clip in the left breast. No significant masses, calcifications, or other findings are seen in either breast. There has been no significant interval change. IMPRESSION: BENIGN There is no mammographic evidence of malignancy. A 1 year screening mammogram is recommended. This exam was interpreted at Station ID: [id number]. NOTE: For mammograms, a report in lay terms will be sent to the patient. Approximately 15% of breast malignancies will not be visualized mammographically. In the management of a palpable breast mass, a negative mammogram must not discourage biopsy of a clinically suspicious lesion. Electronically Signed By: Hector Roberts acr/penrad:12/10/2021 13:11:06 letter sent: Normal Exam ACR BI-RADS Category 2: Benign Finding(s) 3342F
== END ==
PROVIDERS: PCP Physician Assistant; Referring Provider Physician Assistant; Visit Provider Physician Assistant
DX: Z12.31 Encounter for screening mammogram for malignant neoplasm of breast (principal); Z85.3 Personal history of malignant neoplasm of breast
CPT/HCPCS: 77063; 77067

== ENCOUNTER → 2022-01-27 12:59 | Outpatient (CLI) | payer MEDICARE, SELFPAY ==
[2021-07-21 11:14] VITALS: BMI 26.9
--- NOTE | 2022-01-27 | DI.US.S_ITS ---
LIMITED ULTRASOUND OF LEFT BREAST: 01/27/2022 CLINICAL: Palpable left breast lump and focal pain. Comparison is made to exams dated: 12/10/2021 mammogram, 08/02/2019 mammogram, 02/16/2018 ultrasound, 11/22/2020 mammogram, and 05/15/2016 ultrasound - [facility]. Color flow and real-time ultrasound of the left breast lower inner quadrant were performed. Pagan scale images of the real-time examination were reviewed. There are irregular post operative findings in the left breast at 8 o'clock posterior depth, suggestive of scarring. This abnormality is not significantly changed and correlates with mammography findings. There are related macrocalcifications. There is associated edema and skin thickening. Color flow imaging demonstrates that there is no increase in vascularity. IMPRESSION: BENIGN There has been no significant sonographic change to the treated tissue in the medial lower left breast since 2018. The irregular post-surgical scar in the left breast is benign. Future imaging is recommended as follows: 12/11/2022 screening mammogram. Findings and recommendations were conveyed to the patient at time of exam. This exam was interpreted at Station ID: [id number]. Electronically Signed By: Leeanna gtz/:01/27/2022 14:45:10 letter sent: Normal Exam Ultrasound BI-RADS: 2 Benign
== END ==
PROVIDERS: PCP Physician Assistant; Referring Provider Physician Assistant; Visit Provider Physician Assistant
DX: N63.24 Unspecified lump in the left breast, lower inner quadrant; N64.4 Mastodynia; L90.5 Scar conditions and fibrosis of skin
CPT/HCPCS: 76642

== ENCOUNTER → 2022-06-25 14:02 | Outpatient (CLI) | payer MEDICARE, SELFPAY ==
[2021-07-21 11:14] VITALS: BMI 26.9
== END ==
PROVIDERS: PCP Physician Assistant; Visit Provider Family Medicine
DX: R35.0 Frequency of micturition (principal)
CPT/HCPCS: 87086

== ENCOUNTER → 2022-07-07 13:22 | Outpatient (CLI) | payer MEDICARE, SELFPAY ==
[2021-07-21 11:14] VITALS: BMI 26.9
[2022-07-07 19:29] LABS: Add Manual Diff / Slide Review NO; Basophils Absolute Auto 100 /uL (0-100); Eosinophils Absolute Auto 100 /uL (0-450); Eosinophils Percent Auto 1.4 % (2-4); Hematocrit 37.7 % (36-46); Hemoglobin 12.4 g/dL (12.0-16.0); Lymphocytes Absolute Auto 1400 /uL (1100-4500); Lymphocytes Percent Auto 23.6 % (25-40); Mean Corpuscular HGB Conc 32.8 % (30-36); Mean Corpuscular Hemoglobin 31.4 PG (26-34); Mean Corpuscular Volume 95.9 fL (80-100); Monocytes Absolute Auto 900 /uL (0-900); Monocytes Percent Auto 14.2 % (3-14); Neutrophils Absolute Auto 3700 /uL (1500-7000); Neutrophils Percent Auto 59.8 % (50-75); Platelet Count 264 X10^3/uL (150-400); Red Blood Cell Count 3.93 X10^6/uL (4.0-5.2); Red Cell Distribution Width 14.4 % (11.6-14.8); White Blood Cell Count 6.1 X10^3/uL (4.5-11.0)
[2022-07-07 19:34] LABS: Alanine Aminotransferase 15 IU/L (<35); Albumin 4.9 g/dL (3.5-5.0); Albumin Globulin Ratio 1.5 (1.0-2.8); Alkaline Phosphatase 102 U/L (38-126); Aspartate Aminotransferase 27 IU/L (14-36); Bilirubin Total 0.5 mg/dL (0.2-1.3); Blood Urea Nitrogen 26 mg/dL (7-17); Calcium 9.2 mg/dL (8.4-10.2); Carbon Dioxide 23 mmol/L (22-32); Chloride 102 mmol/L (98-107); Estimated Glomerular Filt Rate 46 mL/min (>60); Globulin 3.2 g/dL (1.7-4.1); Glucose 102 mg/dL (80-110); HEMOLYSIS < 15 (0-50); Potassium 4.9 mmol/L (3.4-5.1); Sodium 139 mmol/L (137-145); Total Protein 8.1 g/dL (6.3-8.2)
[2022-07-07 19:56] LABS: Thyroid Stimulating Hormone 2.69 uIU/mL (0.47-4.68)
== END ==
PROVIDERS: PCP Physician Assistant; Visit Provider Family Medicine
DX: E03.8 Other specified hypothyroidism (principal); D64.9 Anemia, unspecified; I10 Essential (primary) hypertension
CPT/HCPCS: 80053; 84443; 85025

== ENCOUNTER → 2022-11-09 09:28 | Outpatient (CLI) | payer MEDICARE, SELFPAY ==
[2021-07-21 11:14] VITALS: BMI 26.9
[2022-11-09 19:54] LABS: Blood Urea Nitrogen 25 mg/dL (7-17); Calcium 8.9 mg/dL (8.4-10.2); Carbon Dioxide 25 mmol/L (22-32); Chloride 100 mmol/L (98-107); Cholesterol 228 mg/dL (140-199); Glucose 92 mg/dL (80-110); HDL Cholesterol 58 mg/dL (40-60); HEMOLYSIS < 15 (0-50); LDL Cholesterol Calculated 156 mg/dL (<100); Potassium 5.1 mmol/L (3.4-5.1); Triglycerides 69 mg/dL (35-150)
[2022-11-09 20:09] LABS: Estimated Glomerular Filt Rate 59 mL/min (>60); Sodium 134 mmol/L (137-145)
== END ==
PROVIDERS: PCP Physician Assistant; Visit Provider Family Medicine
DX: E78.00 Pure hypercholesterolemia, unspecified (principal); R94.4 Abnormal results of kidney function studies
CPT/HCPCS: 80048; 80061

== ENCOUNTER → 2022-12-26 08:59 | Outpatient (CLI) | payer MEDICARE, SELFPAY ==
[2022-12-25 16:28] VITALS: BMI 26.9
--- NOTE | 2022-12-26 09:01 | DI.MRI.S_ITS ---
PROCEDURE: MR CERVICAL SPINE WO CON INDICATIONS: c5 compression age indeterminate TECHNIQUE: Noncontrast sagittal T1 spin echo and T2 fast spin echo, sagittal STIR, foraminal oblique sagittal T2 fast spin echo, and axial gradient echo or T2 fast spin echo through the cervical spine. COMPARISON: [facility] ([place]), CR, XR CERVICAL SPINE 2V OR 3V, 12/25/2022, 15:03. 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 Posterior elements of C3 are diminutive, and facet joints are not well depicted by MRI. Associated degrade 2 anterior spondylolisthesis of C3 on C4. 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 Posterior elements are not well depicted by MRI. Associated lower cervical spine straightening and exaggerated kyphosis in the upper cervical spine as well as moderate central stenosis and flattening the ventral surface of the cord Degenerative disc space narrowing present at C5-6 and C6-7 IMPRESSION: 1. No acute findings. No fracture or traumatic malalignment. 2. Multilevel congenital segmentation anomalies as above. Approved by: Torey Lion M.D. on 12/26/2022 at 10:51
== END ==
PROVIDERS: PCP Family Medicine; Referring Provider Physician Assistant Medical; Visit Provider Physician Assistant Medical
DX: S12.490A Other displaced fracture of fifth cervical vertebra, initial encounter for closed fracture (principal)
CPT/HCPCS: 72141

== ENCOUNTER → 2023-01-05 10:59 | Outpatient (CLI) | payer MEDICARE, SELFPAY ==
[2022-12-25 16:28] VITALS: BMI 26.9
--- NOTE | 2023-01-05 | DI.MG.S_ITS ---
BILATERAL DIGITAL SCREENING MAMMOGRAM 3D/2D WITH CAD POST LUMPECTOMY: 01/05/2023 CLINICAL: Routine screening. Personal history of left breast cancer. Comparison is made to exams dated: 12/10/2021 mammogram, 11/22/2020 mammogram, 07/12/2019 mammogram - [facility], and 11/13/2015 mammogram - [facility]. There are scattered areas of fibroglandular density in both breasts (category b / 25%-50% glandular tissue). Current study was also evaluated with a Computer Aided Detection (CAD) system. There are benign calcifications in both breasts. There also are benign vascular calcifications in both breasts. Additionally, there are benign post operative findings and biopsy clip in the left breast. No significant masses, calcifications, or other findings are seen in either breast. There has been no significant interval change. IMPRESSION: BENIGN There is no mammographic evidence of malignancy. A 1 year screening mammogram is recommended. This exam was interpreted at Station ID: [id number]. NOTE: For mammograms, a report in lay terms will be sent to the patient. Approximately 15% of breast malignancies will not be visualized mammographically. In the management of a palpable breast mass, a negative mammogram must not discourage biopsy of a clinically suspicious lesion. Electronically Signed By: Shaheen jones/lissa:01/05/2023 21:11:33 letter sent: Normal Exam ACR BI-RADS Category 2: Benign Finding(s) 3342F
== END ==
PROVIDERS: PCP Family Medicine; Referring Provider Family Medicine; Visit Provider Family Medicine
DX: Z12.31 Encounter for screening mammogram for malignant neoplasm of breast (principal); Z85.3 Personal history of malignant neoplasm of breast
CPT/HCPCS: 77063; 77067

== ENCOUNTER → 2023-01-19 12:11 | Outpatient (CLI) | payer MEDICARE, SELFPAY ==
[2022-12-25 16:28] VITALS: BMI 26.9
--- NOTE | 2023-01-19 12:13 | DI.RAD.S_ITS ---
PROCEDURE: XR CERVICAL SPINE 4V OR 5V INDICATIONS: Neck pain, vertebral anomaly TECHNIQUE: 5 views of the cervical spine were acquired. COMPARISON: [facility] ([place]), CR, XR CERVICAL SPINE 2V OR 3V, 12/25/2022, 15:03. FINDINGS: Bones: No fractures or dislocations to the C7 level. No suspicious bony lesions. Limited range of motion. Stable 5 mm of anterolisthesis of C3 on C4. 2 mm of retrolisthesis of C2 on C3 with extension, which reduces with neutral positioning. Multilevel disc space narrowing and endplate osteophyte formation, as well as facet hypertrophy. Soft tissues: Prevertebral soft tissues are normal in thickness. IMPRESSION: 1. Mild instability at C2-C3 as above. 2. Stable spondylolisthesis at C3-C4. 3. Multilevel degenerative disc and facet disease. 4. No acute fracture. No osseous lesion. If symptoms and/or clinical suspicion for pathology persist, further assessment with repeat, or advanced imaging (e.g., CT, MRI, or bone scan) may be helpful for further assessment. Dictated by: Long Colón M.D. on 01/19/2023 at 14:57 Approved by: Long Colón M.D. on 01/19/2023 at 15:42
== END ==
PROVIDERS: PCP Family Medicine; Referring Provider Family Medicine; Visit Provider Family Medicine
DX: M53.2X2 Spinal instabilities, cervical region (principal); Q76.49 Other congenital malformations of spine, not associated with scoliosis; M47.812 Spondylosis without myelopathy or radiculopathy, cervical region; M50.30 Other cervical disc degeneration, unspecified cervical region; R93.7 Abnormal findings on diagnostic imaging of other parts of musculoskeletal system; R26.89 Other abnormalities of gait and mobility; M79.18 Myalgia, other site
CPT/HCPCS: 72050; 99214

== ENCOUNTER → 2023-04-01 12:34 | Outpatient (CLI) | payer MEDICARE, SELFPAY ==
[2023-01-19 14:00] VITALS: BMI 26.9
--- NOTE | 2023-04-01 12:36 | DI.MRI.S_ITS ---
PROCEDURE: MR LUMBAR SPINE WO CON INDICATIONS: Lumbar radiculopathy s/p L3-S1 fusion TECHNIQUE: Noncontrast sagittal T1 spin echo and T2 fast echo, sagittal STIR, and T2 fast spin echo through the lumbar spine. In cases with scoliosis, additional coronal T2 fast spin echo may be performed. COMPARISON: [facility], CT, L-SPINE WITHOUT CONTRAST, 01/04/2015, 13:42. [facility], MR, L-SPINE WITHOUT CONTRAST, 02/14/2013, 13:23. [facility] ([place]), CR, XR LUMBAR SPINE 2-3V, 04/06/2022, 11:00. FINDINGS: Image quality: Diagnostic, with note made of motion artifact. There is artifact associated with the metallic hardware. Alignment and Curvature: Mild levoconvex lumbar scoliotic curvature is noted. There is extension weighted lumbar lordosis. There is moderate retrolisthesis at L1-L2, with mild retrolisthesis at L2-L3. Mild grade 1 anterolisthesis is seen at L3-L4. Grade 1/2 anterolisthesis is seen at L4-L5, without associated pars defects. Minimal anterolisthesis is seen at L5-S1. Bone Marrow: Marrow is of normal overall signal. No acute vertebral body compression fractures. Spinal Cord: Conus medullaris terminates at the T12-L1 level. Visualized cord demonstrates normal signal and size. Paraspinous Soft Tissues: No paravertebral masses. Extensive postoperative hardware can be seen, with bilateral pedicle screws at L3, L4, L5, and S1. There are vertical fixation rods. Disc spacers are seen at L3-L4, L4-L5, and L5-S1. There has been removal of portions of the posterior elements. T12-L1: At least moderate loss of disc height and disc signal can be seen. Reactive marrow endplate changes are seen which are hypointense on T1-weighted imaging and hyperintense on T2 weighted imaging, which is most consistent with edema (Modic type I changes). At least moderate disc bulge is seen. At least moderate facet hypertrophy is seen. Associated hypertrophy of the ligamentum flavum can be seen. Moderate bilateral neural foraminal narrowing is seen. Moderate central canal narrowing is seen. L1-L2: At least moderate loss of disc height and disc signal can be seen. Mild to moderate disc bulge is seen. Mild facet joint hypertrophy is seen. Moderate bilateral neural foraminal narrowing is seen. Moderate central canal narrowing is seen. L2-L3: The disc height is well-preserved. Loss of disc signal is seen at this level. Mild to moderate disc bulge is seen, which is eccentric to the left side. There is a superimposed central disc protrusion. Moderate facet joint hypertrophy is seen. There is at least moderate bilateral neural foraminal narrowing seen. Moderate central canal narrowing is seen. L3-L4: Postoperative change is seen at this level. Mild generalized disc bulge is seen. There is moderate to severe bilateral neural foraminal narrowing seen, with an associated a degree of compression seen upon the exiting nerve roots. No significant central canal narrowing is seen. L4-L5: Moderate to severe loss of disc height and disc signal can be seen. At least moderate disc bulge is seen. Moderate to prominent facet hypertrophy is seen. Moderate to severe bilateral neural foraminal narrowing can be seen, right worse than left. There is a degree of compression seen upon the exiting nerve roots. Moderate to severe central canal narrowing is seen, as on series 7, image 25. L5-S1: The disc height is relatively well preserved. The disc height is well-preserved. Loss of disc signal is seen at this level. Mild generalized disc bulge is seen. Mild facet joint hypertrophy is seen. Mild bilateral neural foraminal narrowing is seen. Mild central canal narrowing is seen. IMPRESSION: Extensive multilevel degenerative changes are seen, which are progressed over time. L3 through S1 postoperative hardware. Dictated by: Yuval Bhat M.D. on 04/01/2023 at 12:44 Approved by: Yuval Bhat M.D. on 04/01/2023 at 12:52
== END ==
PROVIDERS: PCP Family Medicine; Referring Provider Anesthesiology; Visit Provider Anesthesiology
DX: M96.1 Postlaminectomy syndrome, not elsewhere classified (principal); M47.26 Other spondylosis with radiculopathy, lumbar region; M54.50 Low back pain, unspecified; Z98.1 Arthrodesis status; M47.27 Other spondylosis with radiculopathy, lumbosacral region
CPT/HCPCS: 72148

== ENCOUNTER → 2023-04-19 12:03 | Outpatient (CLI) | payer MEDICARE, SELFPAY ==
[2023-01-19 14:00] VITALS: BMI 26.9
[2023-04-19 19:09] LABS: Add Manual Diff / Slide Review NO; Basophils Absolute Auto 100 /uL (0-100); Basophils Percent Auto 1.2 % (0-2); Eosinophils Absolute Auto 100 /uL (0-450); Eosinophils Percent Auto 2.5 % (2-4); Hematocrit 37.1 % (36-46); Hemoglobin 12.5 g/dL (12.0-16.0); Lymphocytes Absolute Auto 1000 /uL (1100-4500); Lymphocytes Percent Auto 19.1 % (25-40); Mean Corpuscular HGB Conc 33.8 % (30-36); Mean Corpuscular Hemoglobin 30.8 PG (26-34); Mean Corpuscular Volume 91.2 fL (80-100); Monocytes Absolute Auto 1000 /uL (0-900); Monocytes Percent Auto 17.8 % (3-14); Neutrophils Absolute Auto 3200 /uL (1500-7000); Neutrophils Percent Auto 59.4 % (50-75); Platelet Count 207 X10^3/uL (150-400); Red Blood Cell Count 4.07 X10^6/uL (4.0-5.2); Red Cell Distribution Width 14.6 % (11.6-14.8); White Blood Cell Count 5.5 X10^3/uL (4.5-11.0)
[2023-04-19 19:44] LABS: Alanine Aminotransferase 13 IU/L (<35); Albumin 4.4 g/dL (3.5-5.0); Albumin Globulin Ratio 1.4 (1.0-2.8); Alkaline Phosphatase 75 U/L (38-126); Aspartate Aminotransferase 27 IU/L (14-36); BUN Creatinine Ratio 20.2 (6-22); Bilirubin Total 0.5 mg/dL (0.2-1.3); Blood Urea Nitrogen 18 mg/dL (7-17); Calcium 9.6 mg/dL (8.4-10.2); Carbon Dioxide 25 mmol/L (22-32); Chloride 98 mmol/L (98-107); Estimated Glomerular Filt Rate > 60 mL/min (>60); Globulin 3.2 g/dL (1.7-4.1); Glucose 87 mg/dL (80-110); HEMOLYSIS < 15 (0-50); Potassium 4.9 mmol/L (3.4-5.1); Sodium 132 mmol/L (137-145); Total Protein 7.6 g/dL (6.3-8.2)
[2023-04-19 19:56] LABS: LDL Cholesterol Direct 145 mg/dL (<100)
[2023-04-19 20:33] LABS: Vitamin B12 589 pg/mL (239-931)
== END ==
PROVIDERS: PCP Family Medicine; Visit Provider Family Medicine
DX: I10 Essential (primary) hypertension (principal); R94.4 Abnormal results of kidney function studies; M54.16 Radiculopathy, lumbar region; E53.8 Deficiency of other specified B group vitamins
CPT/HCPCS: 80053; 82607; 83721; 85025

== ENCOUNTER → 2023-05-14 11:19 | Outpatient (CLI) | payer MEDICARE, SELFPAY ==
[2023-01-19 14:00] VITALS: BMI 26.9
[2023-05-14 19:15] LABS: Sodium Urine Random 67 mmol/L (30-90)
[2023-05-14 19:26] LABS: BUN Creatinine Ratio 23.8 (6-22); Blood Urea Nitrogen 24 mg/dL (7-17); Calcium 9.9 mg/dL (8.4-10.2); Carbon Dioxide 26 mmol/L (22-32); Chloride 97 mmol/L (98-107); Estimated Glomerular Filt Rate 55 mL/min (>60); Glucose 83 mg/dL (80-110); HEMOLYSIS < 15 (0-50); Sodium 135 mmol/L (137-145)
[2023-05-18 12:35] LABS: Alpha-1-Globulin 0.2 g/dL (0.0-0.4); Alpha-2-Globulin 0.9 g/dL (0.4-1.0); Gamma Globulin 1.1 g/dL (0.4-1.8); Globulin Total 3.3 g/dL (2.2-3.9); Protein, Total 7.3 g/dL (6.0-8.5)
[2023-05-20 16:07] LABS: Osmolality Urine 403 mOsmol/kg (.)
== END ==
PROVIDERS: PCP Family Medicine; Visit Provider Family Medicine
DX: E87.1 Hypo-osmolality and hyponatremia (principal)
CPT/HCPCS: 80048; 83935; 84155; 84165; 84300

== ENCOUNTER → 2023-05-27 12:43 | Outpatient (CLI) | payer MEDICARE, SELFPAY ==
[2023-01-19 14:00] VITALS: BMI 26.9
--- NOTE | 2023-05-27 13:03 | DI.DEXA.S_ITS ---
Bone Density Report Name: KAREN AGUIRRE Age: 82 Sex: Female Ethnicity: White Date of : 1940 Indication: osteopenia; prior fracture; Referring Provider: MELVI WRIGHT Study: Bone densitometry was performed. Exam Date: May 27, 2023 Accession number: [id number] Bone Density: Region BMD T-score Z-score Classification Femoral Neck (Left) 0.552 -2.7 -0.2 Osteoporosis Total Hip (Left) 0.568 -3.1 -0.8 Osteoporosis Total Forearm (Left) 0.411 -3.1 0.3 Osteoporosis 1/3 Forearm (Left) 0.486 -3.5 0.1 Osteoporosis UD Forearm (Left) 0.349 -1.6 0.9 Osteopenia World Health Organization criteria for BMD impression classify patients as: Normal (T-score at or above -1.0), Osteopenia (T-score between -1.0 and -2.5), or Osteoporosis (T-score at or below -2.5). 10-year Fracture Risk: FRAX not reported because: Some T-score for Spine Total or Hip Total or Femoral Neck at or below -2.5 Prior hip or vertebral fracture Previous Exams: -- Region Exam Age BMD T-score BMD Change BMD Change Date g/cm2 vs Baseline vs Previous -- Total Hip(Left) 05/27/2023 82 0.568 -3.1 -0.274 (-32.6%)# -0.219 (-27.8%)# 07/03/2014 73 0.787 -1.3 -0.055 (-6.6%)* -0.055 (-6.6%)* 03/18/2011 70 0.842 -0.8 -- *Denotes significance at 95% confidence level, LSC for Total Hip = 0.027 g/cm2 # Denotes dissimilar scan types or analysis methods Impression: The patient has established osteoporosis, based on the Left Total Hip T-score and the existence of a prior fracture. The patient has risk factors, including: previous fracture. No significant bone loss was observed. Discussion: HIGH RISK OF FRACTURE. BONE DENSITY IS UNDESIRABLY LOW AT ONE OR MORE SKELETAL SITES, CONSISTENT WITH POSTMENOPAUSAL OSTEOPOROSIS. This patient's lowest T-score, in a patient who has previously fractured, meets the World Health Organization's (WHO) criteria for severe osteoporosis. In untreated patients, the risk of osteoporotic fracture increases approximately two-fold for each 1.0 SD decrease in T-score. Low bone density is not the only risk factor for fracture; also consider factors such as patient's age, frailty or poor health, risk of falling, risk of injury, previous osteoporotic fracture, family history of osteoporosis, cigarette smoking, low body weight, etc. Not everyone with low bone mineral density has osteoporosis; osteomalacia and other metabolic bone disorders should also be considered. Patients who have osteoporosis should be evaluated for specific diseases and conditions (secondary causes) that may cause or contribute to bone loss. The [place] [employer]ocrinologists (AACE) and National Osteoporosis Foundation (NOF) recommend pharmacologic intervention for all postmenopausal women with a previous hip or vertebral fracture and a T-score in this range. The patient should follow a healthful lifestyle (good nutrition with adequate calcium and vitamin D, and appropriate weight-bearing exercise). Follow-Up: Consider a repeat BMD and Vertebral Fracture Assessment (VFA) exam in 2 years or sooner if medically necessary, to reassess this patient's status. Reported by: AWAIS MCKENZIE M.D. on 05/27/2023 1:14:00 PM.
== END ==
PROVIDERS: PCP Family Medicine; Referring Provider Family Medicine; Visit Provider Family Medicine
DX: Z78.0 Asymptomatic menopausal state (principal); M81.0 Age-related osteoporosis without current pathological fracture; K63.9 Disease of intestine, unspecified; Z87.311 Personal history of (healed) other pathological fracture; Z92.23 Personal history of estrogen therapy; Z90.710 Acquired absence of both cervix and uterus; Z92.29 Personal history of other drug therapy
CPT/HCPCS: 77080; 77081

== ENCOUNTER 2023-06-09 11:50 | Outpatient (CLI) | payer MEDICARE, SELFPAY ==
[2023-01-19 14:00] VITALS: BMI 26.9
[2023-06-09 12:50] VITALS: BP 168/76; PULSE 61; RESP 20; TEMP 36.3; O2SAT 97
--- NOTE | 2023-06-09 13:00 | DI.RAD.S_ITS ---
PROCEDURE: PAIN L INTERLAMINAR/CAUDAL INJ INDICATIONS: RADICULOPATHY COMPARISON: None. FINDINGS: Fluoroscopic spot filming was performed to verify placement of spinal needles at the lower sacrum/upper coccyx level(s), as labeled on the films. Appropriate location(s) of the needle tip(s) was confirmed by injection of iodinated contrast. IMPRESSION: Fluoro guidance was provided intraoperatively for caudal epidural steroid injection performed by ordering physician. Dictated by: León Patel M.D. on 06/09/2023 at 16:53 Approved by: León Patel M.D. on 06/09/2023 at 16:56
[2023-06-09 13:08] VITALS: BP 210/93; PULSE 57; RESP 10; O2SAT 98
[2023-06-09 13:13] VITALS: BP 206/90; PULSE 50; RESP 13; O2SAT 100
[2023-06-09] MEDS: DEXAMETHASONE 10 MG/ML VIAL INJ (13:14)
[2023-06-09] MEDS: iopamidoL 15 ML VIAL 3 ML INJ (13:17)
[2023-06-09 13:18] VITALS: BP 207/90; PULSE 57; RESP 7; O2SAT 100
[2023-06-09 13:25] VITALS: BP 192/94; PULSE 57; RESP 16; O2SAT 95
[2023-06-09 13:32] VITALS: PULSE 62; RESP 16; O2SAT 97
--- NOTE | 2023-06-09 16:31 | P.PCN_ITS ---
Date/Time/Diagnoses Date of procedure: 06/09/23 Time of procedure: 13:00 Procedure Notes Physician: Richie Villavicencio Total Fluoroscopy time (seconds): 14 Total sedation minutes: 0 Procedure in detail & Post-procedure care: Caudal Epidural Steroid Injection Indications: Catalina is presenting for treatment of lumbar radiculopathy with low back and leg pain. Preoperative diagnosis: Lumbar radiculopathy Postoperative diagnosis: Same Focused Examination: Ax3 Mood and affect are normal Vital Signs: VSS Consent: Following review of allergies and potential side effects/complications, including, but not necessarily limited to, infection, allergic reaction, local tissue breakdown, stroke, temporary or permanent nerve injury, paralysis, and possible , the patient indicated that they understood and agreed to proceed.? An informed consent document was signed by the patient, witnessed by a nurse and placed in the patient's chart.? Additionally, other treatment options including medications and physical therapy were reviewed with the patient. All questions were answered. Site was then marked. Anesthesia: Local Position: Prone Monitoring: NIBP, Pulse oximetry, 3 lead EKG Needle used: 25 gauge, 3.5 in spinal needle Contrast: Isovue 300-M 2mL Injectate: Dexamethasone 10 mg with 1% lidocaine 2 mL and normal saline 2 mL Technique: The skin was prepped with chloraprep and then draped in a sterile fashion. Time out was performed as per protocol. Oxygen applied via NC. The entry point for entering/approaching the epidural space by a caudal approach through the sacral hiatus was identified. Skin and subcutaneous structures of t he needle entry site was then infiltrated with 3 mL of lidocaine 1%. Under AP and lateral control, the needle was guided through the sacral hiatus to the S3 level. Contrast was then injected and the spread was consistent with the epidural space. There was no evidence for intravascular or intrathecal uptake. After negative aspiration, the above-mentioned injectate was then slowly administered and the needle withdrawn. The patient expressed no unusual discomfort or paresthesias during needle positioning or injection. Band-Aids applied to injection sites. EBL: less than 1 ml Complications: None Post Procedure: Patient was taken to the recovery and monitored. The patient was provided a Pain Log to continue to record the patient's response to the target- specific procedure prior to the patient's follow-up visit with the referring physician. Patient was stable upon discharge. Detailed post procedure instructions were provided. Patient was asked to call in the event of worsening pain, fever, weakness, numbness or bladder or bowel incontinence.
== END 2023-06-09 13:32 | disposition home or self-care (01) ==
PROVIDERS: PCP Family Medicine; Referring Provider Anesthesiology; Visit Provider Anesthesiology
DX: M54.16 Radiculopathy, lumbar region (principal)
CPT/HCPCS: 62323; 99152; J1100; J2250

== ENCOUNTER 2023-07-28 13:28 | Emergency (ER) | payer MEDICARE, SELFPAY ==
[2023-01-19 14:00] VITALS: BMI 26.9
[2023-07-28 13:39] VITALS: BP 178/84; PULSE 57; RESP 16; TEMP 36.3; O2SAT 96; BMI 30.8
--- NOTE | 2023-07-28 13:47 | DI.RAD.S_ITS ---
PROCEDURE: XR KNEE LT 3V INDICATIONS: fall, L knee L hip pain TECHNIQUE: 3 views of the knee were acquired. COMPARISON: [facility], CR, XR KNEE LT 1TO2V, 03/13/2019, 17:53. FINDINGS: Bones: No fractures or dislocations. No suspicious bony lesions. Knee arthroplasty has been performed. Soft tissues: No joint effusion. No suspicious soft tissue calcifications. IMPRESSION: No acute fracture. No osseous lesion. If symptoms and/or clinical suspicion for pathology persist, further assessment with repeat, or advanced imaging (e.g., CT, MRI, or bone scan) may be helpful for further assessment. Dictated by: Long Colón M.D. on 07/28/2023 at 14:45 Approved by: Long Colón M.D. on 07/28/2023 at 14:46
--- NOTE | 2023-07-28 13:47 | DI.RAD.S_ITS ---
PROCEDURE: XR HIP W PEL IF DONE LT 2V INDICATIONS: fall, L knee L hip pain TECHNIQUE: AP pelvis with lateral view(s) of the left hip(s). COMPARISON: [facility] ([place]), CR, XR HIP W PEL IF DONE RT 2V, 06/29/2023, 9:08. FINDINGS: Bones: No fractures or dislocations. ORIF of the right hip. Lumbosacral fusion hardware. Pelvic ring appears intact. No suspicious bony lesions. Soft tissues: The visualized bowel gas pattern is normal. No suspicious soft tissue calcifications. IMPRESSION: No acute fracture. No osseous lesion. If symptoms and/or clinical suspicion for pathology persist, further assessment with repeat, or advanced imaging (e.g., CT, MRI, or bone scan) may be helpful for further assessment. Dictated by: Long Colón M.D. on 07/28/2023 at 14:45 Approved by: Long Colón M.D. on 07/28/2023 at 14:45
[2023-07-28 15:37] VITALS: BP 183/78; PULSE 61; RESP 18; O2SAT 93
--- NOTE | 2023-07-28 15:53 | ED.FALL ---
HPI - Fall <Melodie Olson PA-C - Last Filed: 07/28/23 15:59> General Chief Complaint: Fall Stated Complaint: fall Time Seen by Provider: 07/28/23 14:52 History of Present Illness HPI Narrative: Patient is an 82-year-old female who was coming to the hospital today for a spinal injection when she fell on her left hip and left knee. She has poor vision and thinks that she did not appreciate a change in the contour of the concrete which caused her to trip. She did not experience any vertigo or palpitations prior to the fall. She did not hit her head and she did not lose consciousness. She does not take any blood thinners. She was brought to the emergency room by a staff member for evaluation. Upon my assessment, she denies any pain. She feels a slight abrasion on her left knee. She normally walks with a cane and has not ambulated since the fall. She has not taken any medication. Related Data Home Medications Medication Instructions Recorded Confirmed ondansetron 8 mg disintegrating 8 mg PO Q8H PRN 08/06/22 07/22/23 tablet Previous Rx's Medication Instructions Recorded CMP Estradiol/Testosterone 5/10 0.5 g topical .qod #90 days 07/09/22 mg/mL Cream famotidine 20 mg tablet (Pepcid) 20 mg PO BID #1 tab 07/09/22 cyanocobalamin (vitamin B-12) See Rx Instructions .Route 07/20/22 1,000 mcg/mL injection solution .COMPLEX #4 mL sertraline 100 mg tablet 100 mg PO DAILY #90 tabs 11/09/22 sertraline 25 mg tablet 25 mg PO DAILY #90 tabs 11/09/22 estradiol 0.01% (0.1 mg/gram) See Rx Instructions .Route 12/09/22 vaginal cream .COMPLEX #42.5 grams safety needles 25 gauge x 1 (BD #50 ea 01/25/23 Eclipse) syringe with needle 3 mL 25 gauge #15 ea 01/28/23 x 1 (BD Luer-Kathryn Syringe) gabapentin 300 mg capsule 300 mg PO TID #270 caps 02/09/23 levothyroxine 75 mcg tablet 75 mcg PO DAILY #90 tabs 06/03/23 lisinopril 30 mg tablet 30 mg PO DAILY take daily for BP, 06/03/23 even if normal #90 tabs lisinopril 40 mg tablet 40 mg PO DAILY for blood pressure. 06/29/23 take every day even if normal #90 tabs baclofen 10 mg tablet 10 mg PO 4XD #30 tabs 07/22/23 Allergies Allergy/AdvReac Type Severity Reaction Status Date / Time iodine [IODINE] Allergy Intermediate RASH Verified 07/22/23 08:35 adhesive [ADHESIVE] Allergy Mild TAPE, RASH Verified 07/22/23 08:35 nickel Allergy Mild Rash Verified 07/22/23 08:35 Review of Systems <Melodie Olsno PA-C - Last Filed: 07/28/23 15:59> Review of Systems ROS Unobtainable: All systems reviewed & are unremarkable except as noted in HPI and below Patient History <Melodie Olson PA-C - Last Filed: 07/28/23 15:59> Medical History Lumbar spinal stenosis Post laminectomy syndrome Lumbar radiculopathy Lumbar spondylosis Low back pain Thoracic back pain Myofascial pain Cervical spondylosis Balance problem History of colon polyps History of breast cancer Acute low back pain Ingrown right big toenail Diverticulosis GERD (gastroesophageal reflux disease) Recurrent UTI Atrophic vulvovaginitis Psoriasis (~2010) Actinic keratosis (~2017) Allergies Shoulder pain Scoliosis Osteoporosis Foot pain Chronic back pain (~1989) Tuberculosis Rubella (~1943) Positive PPD (~1980) Measles (~1943) Chicken pox (~1946) Anemia (~1960) Hearing loss Ovarian cyst Irregular menstrual cycle Infertility Heavy menstrual period Fibroids (~1977) Endometriosis (~1959) History of urinary incontinence (~1999) Fecal incontinence Irritable bowel syndrome (~1979) Colon polyps (~2017) Right shoulder pain Chronic diarrhea Postoperative anemia Sleep apnea (~1989) C. difficile enteritis Macular degeneration Incontinence Depression (~1979) Hypothyroidism (~1962) Asthma HTN (hypertension) Hyperlipidemia Cystocele Osteoarthritis Chronic constipation Insomnia Anxiety (~1979) Femur fracture, right Breast cancer (~2010) Surgical History History of hysterectomy for benign disease Hx of foot surgery (~1988) History of reverse total replacement of right shoulder joint (04/08/20) History of cataract removal with insertion of prosthetic lens History of arthroplasty of left knee (03/13/19) S/P lumbar fusion (01/05/18) Status post Mohs surgery for squamous cell carcinoma of skin History of total hysterectomy with bilateral salpingo-oophorectomy (BSO) (~1977) Hx of appendectomy History of bladder surgery History of arthroplasty of right knee Hx of arthroscopy of right knee History of lumpectomy of left breast (2000) History of lumbar fusion Social History household members: spouse Smoking Status: Former smoker alcohol intake: current Smoking Status: Former smoker alcohol intake frequency: a few times a week Substance Use Type: does not use Exam <Melodie Olson PA-C - Last Filed: 07/28/23 15:59> Narrative Exam Narrative: GENERAL: 82 year old patient appears stated age. Well-developed patient, in no acute distress. NEURO: AOx3. HEAD: Atraumatic. Normocephalic. EYES: Pupils equal round and reactive. Extraocular motions intact. No scleral icterus. No injection or drainage. ENT: Nose without bleeding or purulent drainage. Airway patent. RESPIRATORY: No increased work of breathing EXTREMITIES: No visible abrasions or lacerations over the left hip or left knee. No tenderness to palpation. Patient is able to ambulate a short distance with a cane prior to discharge. SKIN: No rash or erythema of visible areas Initial Vital Signs Initial Vital Signs: Vital Signs Temperature 97.3 F L 07/28/23 13:39 Pulse Rate 57 L 07/28/23 13:39 Respiratory Rate 16 07/28/23 13:39 Blood Pressure 178/84 H 07/28/23 13:39 Pulse Oximetry 96 07/28/23 13:39 Oxygen Delivery Method Room Air 07/28/23 13:39 <Ligia Melgar MD - Last Filed: 08/03/23 04:07> Initial Vital Signs Initial Vital Signs: Vital Signs Temperature 97.3 F L 07/28/23 13:39 Pulse Rate 57 L 07/28/23 13:39 Respiratory Rate 16 07/28/23 13:39 Blood Pressure 178/84 H 07/28/23 13:39 Pulse Oximetry 96 07/28/23 13:39 Oxygen Delivery Method Room Air 07/28/23 13:39 Course <Melodie Olson PA-C - Last Filed: 07/28/23 15:59> Orders Ordered: ED Orders 07/28/23 13:47 XR hip w pel if done LT 2V Stat XR knee LT 3V Stat Vital Signs Vital signs: Vital Signs - 8 hr 07/28/23 13:39 07/28/23 15:37 Temperature 97.3 F L Pulse Rate 57 L 61 Respiratory Rate 16 18 Blood Pressure 178/84 H 183/78 H Pulse Oximetry 96 93 Oxygen Delivery Method Room Air Room Air <Ligia Melgar MD - Last Filed: 08/03/23 04:07> Orders Ordered: ED Orders 07/28/23 13:47 XR hip w pel if done LT 2V Stat XR knee LT 3V Stat Vital Signs Vital signs: Vital Signs - 8 hr 07/28/23 13:39 07/28/23 15:37 Temperature 97.3 F L Pulse Rate 57 L 61 Respiratory Rate 16 18 Blood Pressure 178/84 H 183/78 H Pulse Oximetry 96 93 Oxygen Delivery Method Room Air Room Air MDM - Fall <Melodie Olson PA-C - Last Filed: 07/28/23 15:59> Imaging Data Extremity x-ray #1: Radiologist's Impression: PROCEDURE: XR KNEE LT 3V INDICATIONS: fall, L knee L hip pain TECHNIQUE: 3 views of the knee were acquired. COMPARISON: [facility], , XR KNEE LT 1TO2V, 03/13/2019, 17:53. FINDINGS: Bones: No fractures or dislocations. No suspicious bony lesions. Knee arthroplasty has been performed. Soft tissues: No joint effusion. No suspicious soft tissue calcifications. IMPRESSION: No acute fracture. No osseous lesion. If symptoms and/or clinical suspicion for pathology persist, further assessment with repeat, or advanced imaging (e.g., CT, MRI, or bone scan) may be helpful for further assessment. Dictated by: Long Colón M.D. on 07/28/2023 at 14:45 Approved by: Long Colón M.D. on 07/28/2023 at 14:46 Extremity x-ray #2: Radiologist's Impression: PROCEDURE: XR HIP W PEL IF DONE LT 2V INDICATIONS: fall, L knee L hip pain TECHNIQUE: AP pelvis with lateral view(s) of the left hip(s). COMPARISON: [facility] ([facility]), CR, XR HIP W PEL IF DONE RT 2V, 06/29/2023, 9:08. FINDINGS: Bones: No fractures or dislocations. ORIF of the right hip. Lumbosacral fusion hardware. Pelvic ring appears intact. No suspicious bony lesions. Soft tissues: The visualized bowel gas pattern is normal. No suspicious soft tissue calcifications. IMPRESSION: No acute fracture. No osseous lesion. If symptoms and/or clinical suspicion for pathology persist, further assessment with repeat, or advanced imaging (e.g., CT, MRI, or bone scan) may be helpful for further assessment. Dictated by: Long Colnó M.D. on 07/28/2023 at 14:45 Approved by: Long Colón M.D. on 07/28/2023 at 14:45 [facility] Narrative Medical decision making narrative: Multiple etiologies for patient's symptoms considered including, but not limited to: Fracture dislocation of the left knee or left hip, soft tissue injury/contusion X-rays are negative for fracture or dislocation of the left hip and left knee; left knee hardware appears in normal position per radiologist. Patient not currently having any pain in his able to ambulate a short distance prior to discharge. Instructed ice and Tylenol for pain. She may feel worse tomorrow and the next day before she feels better. Patient understands return precautions and is ready to discharge. Patient's symptoms improved over duration of stay with above-stated therapies. Findings and discharge diagnosis discussed with patient/family followed by verbalization of understanding Return precautions discussed with patient/family whom verbalize understanding of diagnosis and plan Discharge Plan Departure Patient Disposition: Home Clinical Impression: Fall Qualifiers: Encounter type: initial encounter Qualified Code(s): W19.XXXA - Unspecified fall, initial encounter Contusion of knee Qualifiers: Encounter type: initial encounter Laterality: left Qualified Code(s): S80.02XA - Contusion of left knee, initial encounter Contusion of hip, left Qualifiers: Encounter type: initial encounter Qualified Code(s): S70.02XA - Contusion of left hip, initial encounter Instructions: How To Perform RICE (Rest, Ice, Compress, Elevate), How to Prevent Falls Activity Restrictions/Additional Instructions: *You have been diagnosed with left hip and left knee contusion after a fall. There is no fracture or dislocation or damage to the hardware on the x-ray today. I suspect you may be more sore tomorrow and the next day from bruising. You can take Tylenol for pain and apply ice to the areas. Please return for reassessment if your symptoms are improving after 10 days. *What to do: *Please continue to take your regular medications as directed. [ ] New medication prescriptions sent to your pharmacy: [ ] [ ] New medication written as a paper prescription [x] No new medications given *Please follow up with your primary care provider in 2-3 days, call for an appointment. Let them know you were seen in the Emergency Department and that we ask that you be seen in follow up. We will electronically transmit a record of today's note if your PCP is in our system *If you do not have a primary care provider please contact the [facility] Resource line at [phone]. They will ask some questions about your medical history and help get you set up with a doctor in the community. *Return to Emergency Department if you should have any new, worsening or concerning symptoms, such as [fever greater than 101 F, shaking chills, worsening pain, persistent vomiting or other concerning symptoms]. Prescriptions: No Action cyanocobalamin (vitamin B-12) 1,000 mcg/mL solution See Rx Instructions .ROUTE .COMPLEX Qty: 4 2RF Dose Instruction: INJECT 1 ML (1000MCG) INTRAMUSCULARLY EVERY 3 WEEKS (DISCARD 28 DAYS AFTER FIRST USE) Rx Instructions: INJECT 1 ML (1000MCG) INTRAMUSCULARLY EVERY 3 WEEKS (DISCARD 28 DAYS AFTER FIRST USE) estradiol 0.01 % (0.1 mg/gram) cream See Rx Instructions .ROUTE .COMPLEX Qty: 42.5 3RF Dose Instruction: APPLY 0.5 GRAM VAGINALLY 3 TIMES A WEEK; RUB A SMALL DOLLOP OF CREAM INTO SKIN AT THE VAGINAL OPENING EACH NIGHT Rx Instructions: APPLY 0.5 GRAM VAGINALLY 3 TIMES A WEEK; RUB A SMALL DOLLOP OF CREAM INTO SKIN AT THE VAGINAL OPENING EACH NIGHT (DME) BD Eclipse 25 gauge x 1 needle See Rx Instructions .Route Qty: 50 1RF Rx Instructions: Use to inject 1 mL B12 IM every 3 weeks (DME) BD Luer-Kathryn Syringe 3 mL 25 gauge x 1 syringe See Rx Instructions .Route Qty: 15 0RF Rx Instructions: Use to inject B12 lisinopril 30 mg tablet 30 mg PO DAILY Qty: 90 1RF Hold Instructions: increase to 40mg/d levothyroxine 75 mcg tablet 75 mcg PO DAILY Qty: 90 1RF CMP Estradiol/Testosterone 5/10 mg/mL Cream 0.5 g topical .qod Qty: 90 3RF Rx Instructions: Apply 2 clicks (0.5gm) topically 4 times weekly. Silver topi click. famotidine [Pepcid] 20 mg tablet 20 mg PO BID Qty: 1 0RF lisinopril 40 mg tablet 40 mg PO DAILY Qty: 90 1RF Rx Instructions: stop 30mg tablet ondansetron 8 mg tablet,disintegrating 8 mg PO Q8H PRN sertraline 25 mg tablet 25 mg PO DAILY Qty: 90 3RF Rx Instructions: total dose= 125mg (= 25mg tab + 100mg tab) sertraline 100 mg tablet 100 mg PO DAILY Qty: 90 3RF Rx Instructions: NEW DOSE = 125mg/day (100mg tab + 25mg tab) -- please make sure pt has both doses gabapentin 300 mg capsule 300 mg PO TID Qty: 270 3RF Rx Instructions: ok to take BID or TID baclofen 10 mg tablet 10 mg PO 4XD Qty: 30 5RF Referrals: Allison Triana MD [Primary Care Provider] - Stand Alone Forms: Patient Portal/API ED Sign-out <Ligia Melgar MD - Last Filed: 08/03/23 04:07> Cosign ED Attending Cosdanielature Attestation: I was immediately available in the department for consultation throughout this patient's visit. Ligia Melgar MD
== END 2023-07-28 15:39 | disposition home or self-care (01) ==
PROVIDERS: Emergency Provider Physician Assistant; PCP Family Medicine
DX: S80.02XA Contusion of left knee, initial encounter (principal); S70.02XA Contusion of left hip, initial encounter; W01.0XXA Fall on same level from slipping, tripping and stumbling without subsequent striking against object, initial encounter
CPT/HCPCS: 73502; 73562; 99281; 99283

== ENCOUNTER 2023-08-25 12:22 | Outpatient (CLI) | payer MEDICARE, SELFPAY ==
[2023-01-19 14:00] VITALS: BMI 26.9
[2023-08-25] VITALS (8 sets, daily range): BP systolic 148–211; BP diastolic 83–98; PULSE 70–78; RESP 13–20; TEMP 36.2; O2SAT 95–100
--- NOTE | 2023-08-25 13:00 | DI.RAD.S_ITS ---
PROCEDURE: PAIN L/S FACET INJ/BLK 1ST GOGO INDICATIONS: SPONDYLOSIS COMPARISON: None. FINDINGS: Fluoroscopic spot filming was performed to verify placement of spinal needles at the L1 and L2 level(s), as labeled on the films. Appropriate location(s) of the needle tip(s) was confirmed by injection of iodinated contrast. IMPRESSION: Fluoro guidance was provided intraoperatively for bilateral L1 and L2 medial branch block performed by the ordering physician. Dictated by: León Patel M.D. on 08/25/2023 at 16:39 Approved by: León Patel M.D. on 08/25/2023 at 16:39
[2023-08-25] MEDS: MIDAZOLAM 2 MG/2 ML VIAL 0.5 MG IV (13:10)
[2023-08-25] MEDS: iopamidoL 15 ML VIAL 3 ML INJ (13:14)
[2023-08-25] MEDS: BUPIVACAINE 0.5% (PF) 10 ML VIAL 5 ML INJ (13:15)
--- NOTE | 2023-08-25 16:49 | P.PCN_ITS ---
Date/Time/Diagnoses Date of procedure: 08/25/23 Time of procedure: 13:00 Procedure Notes Physician: Richie Villavicencio Total Fluoroscopy time (seconds): 11 Total sedation minutes: 13 Procedure in detail & Post-procedure care: Bilateral L1-2 Lumbar Medial Branch Blocks Indications: Catalina is presenting for treatment of lumbar spondylosis with low back pain. Preoperative diagnosis: Lumbar spondylosis Postoperative diagnosis: Same Pre-procedure History: Patient demonstrates today moderate to severe non- radicular back pain without neurologic deficit aggravated by hyperextension yes Back pain greater than leg pain? yes Patient today has tenderness over the suspected joint(s) yes History of post-traumatic injury? no Hypertrophic arthropathy yes Back pain associated with suspected motion segment instability, hypermobility or pseudoarthrosis no Focused Examination: Ax3 Mood and affect are normal Vital Signs: VSS ASA: 2 Consent: Following review of allergies and potential side effects/complications, including, but not necessarily limited to, infection, allergic reaction, local tissue breakdown, stroke, temporary or permanent nerve injury, paralysis, and possible , the patient indicated that they understood and agreed to proceed.? An informed consent document was signed by the patient, witnessed by a nurse and placed in the patient's chart.? Additionally, other treatment options including medications and physical therapy were reviewed with the patient. All questions were answered. Site was then marked. Anesthesia: After review of previous anesthetic history and IV conscious sedation, the patient was deemed safe to proceed with today's procedure with IV conscious sedation. IV sedation was accomplished with midazolam 0.5 mg administered by the RN after order by Dr. Villavicencio. Sedation was titrated to patient comfort during the course of the procedure. Patient remained responsive to all verbal commands. Position: Prone Monitoring: NIBP, Pulse oximetry, 3 lead EKG Needle used: 22 ga 3.5 inch spinal needle Contrast: Isovue 300M Injectate: 0.5% bupivacaine 1 mL per site Procedure: The patient was brought into the procedure room and positioned into the prone position. Skin was prepped with a Chloraprep solution, allowed to air dry, and then draped in sterile fashion.? The right L1-2 facet joints were visually identified with fluoroscopy. Lidocaine 1% was used to anesthetize the skin over each target destination with a 25ga needle. A 22 ga, 3.5 inch spinal needle was advanced to the location of the medial branch at the junction of the superior articular process and the transverse process at L1,2 using intermittent fluoroscopy in the AP view. Isovue 300M contrast 0.2ml was injected at each level outlining the medial borders for each level in the AP and lateral views. There was no evidence of vascular or intrathecal uptake. The above injectate was slowly injected at each target destination. The left L1-2 facet joints were visually identified with fluoroscopy. Lidocaine 1% was used to anesthetize the skin over each target destination with a 25ga needle. A 22 ga, 3.5 inch spinal needle was advanced to the location of the medial branch at the junction of the superior articular process and the transverse process at L1,2 using intermittent fluoroscopy in the AP view. Isovue 300M contrast 0.2ml was injected at each level outlining the medial borders for each level in the AP and lateral views. There was no evidence of vascular or intrathecal uptake. The above injectate was slowly injected at each target destination. At the end of the procedure the needles were withdrawn and Band- Aids were applied for a dressing. Post Procedure: Patient was taken to the recovery and monitored. The patient was provided a Pain Log to continue to record the patient's response to the target- specific procedure prior to the patient's follow-up visit with the referring physician. Patient was stable upon discharge. Detailed post procedure instructions were provided. Patient was asked to call in the event of worsening pain, fever, weakness, numbness or bladder or bowel incontinence. Based on the medial branches blocked today, if the patient meets insurance criteria for radiofrequency, the treatment should result in the denervation of the bilateral L1-2 facet joint nerves. We would expect to denervate a total of 2 facets during the radiofrequency ablation.
--- NOTE | 2023-08-26 13:55 | PC.NURSE ---
Post-Procedure Call: Spoke with patient at 1235. No questions or concerns. Encouraged to contact the office as needed.
== END 2023-08-25 13:54 | disposition home or self-care (01) ==
PROVIDERS: PCP Family Medicine; Referring Provider Anesthesiology; Visit Provider Anesthesiology
DX: M47.816 Spondylosis without myelopathy or radiculopathy, lumbar region (principal)
CPT/HCPCS: 64493; 99152; J2250

== ENCOUNTER → 2023-09-07 11:37 | Outpatient (CLI) | payer MEDICARE, SELFPAY ==
[2023-01-19 14:00] VITALS: BMI 26.9
--- NOTE | 2023-09-07 11:39 | DI.MRI.S_ITS ---
BREAST MRI OF BOTH BREASTS- POST LUMPECTOMY: 09/07/2023 CLINICAL: History of Breast cancer. TECHNIQUE: The patient was placed prone in a dedicated breast imaging coil. Precontrast axial STIR and 3D FLASH without fat saturation sequences were obtained. Both before and after bolus injection of contrast, sequential 1-minute axial 3D FLASH with fat saturation sequences for 3 time points, with subtraction images and maximum intensity projections (MIP's) generated. Delayed sagittal FLASH images with fat saturation were also obtained. 20 cc ProHance gadolinium based IV contrast was administered without complication. Computer-aided detection, including computer algorithm analysis of MRI image data for lesion detection and characterization, pharmacokinetic analysis, with further physician review for interpretation, was performed. COMPARISON: US, US BREAST LT LIMITED, 01/27/2022, 13:50. [facility], , SCREENING MAMMO BI, 01/05/2023, 11:07. FINDINGS: Image quality: Excellent. There is minimal background parenchymal enhancement. Right breast: No suspicious mass or non masslike enhancement. Left breast: Postsurgical changes along the lower inner posterior left breast at the chest wall include heterogeneously moderately dense tissue with several small irregular hypointense areas, skin thickening, and minimal, benign-appearing homogeneous enhancement. There is no suspicious arterial enhancement. Thickened dense tissue extends to the underlying chest wall where there are a few other circumscribed areas hypointensity. There is no suspicious arterially enhancing area in any of these changes or along the skin surface. No enhancing abnormality of the chest wall. Also in the upper outer mid to posterior depth, there is an ovoid enhancing mass measuring 1.2 by 0.6 cm containing a central biopsy site marker. Elsewhere in the left breast, there is no suspicious mass or non masslike enhancement. There is an exophytic mobile along the lower inner aspect of the left breast anterior depth. Miscellaneous: No axillary or internal mammary chain adenopathy. 1.7 cm thin-walled circumscribed, hypoenhancing left lobe liver lesion. The remainder of the liver, heart, lungs, and chest wall is otherwise normal. IMPRESSION: BENIGN No areas of suspicious enhancement within the treatment bed of the left breast. No MR evidence of recurrent malignancy. Skin thickening, underlying tissue changes, and probable dystrophic calcifications appear benign. There is a benign ovoid left upper outer quadrant mass with a central biopsy clip. No suspicious enhancement or mass in the right breast and no evidence of adenopathy. Recommend return to annual screening schedule as tolerated. Patient would be due for screening mammography in December of 2023. BIRADS two, benign COMMENT: The imaging literature indicates that a negative contrast breast MRI examination has a high sensitivity and a moderate specificity for detecting and excluding invasive carcinomas to a detection threshold of 3-5 mm; nonetheless, appropriate clinical and mammographic follow-up are recommended. MRI is not sensitive for detecting DCIS (ductal carcinoma in situ) and may not detect large invasive neoplasms that show only minimal enhancement such as mucinous carcinoma. If there are suspicious calcifications or clinically worrisome palpable masses, then biopsy should still be considered. Invasive neoplasms can be hidden by co-existent and benign enhancement caused by mastitis, hormone therapy effects, radiation therapy, , and recent biopsy or surgery. False positive examinations can occur in a number of circumstances, including breasts that have recently been subject to invasive procedures and those that contain atypical ductal hyperplasia, hormonally stimulated glandular tissue, fat necrosis, or radial scars. This exam was interpreted at Station ID: [id number] Electronically Signed By: Leeanna gtz/:09/07/2023 22:13:00 Entry: - 09/08/2023 14:28:27 letter sent: Normal Exam ACR BI-RADS Category 2: Benign Finding(s) [id number]
== END ==
PROVIDERS: Family Provider Family Medicine; PCP Family Medicine; Referring Provider Family Medicine; Visit Provider Family Medicine
DX: N63.21 Unspecified lump in the left breast, upper outer quadrant (principal); L98.499 Non-pressure chronic ulcer of skin of other sites with unspecified severity; L57.9 Skin changes due to chronic exposure to nonionizing radiation, unspecified; Z85.3 Personal history of malignant neoplasm of breast; Z65.8 Other specified problems related to psychosocial circumstances; L98.492 Non-pressure chronic ulcer of skin of other sites with fat layer exposed; L59.8 Other specified disorders of the skin and subcutaneous tissue related to radiation; M47.26 Other spondylosis with radiculopathy, lumbar region; M96.1 Postlaminectomy syndrome, not elsewhere classified; G89.29 Other chronic pain; Z87.891 Personal history of nicotine dependence
CPT/HCPCS: 11042; 77049; 99212; 99213; A9579

== ENCOUNTER → 2023-09-07 13:15 | Outpatient (CLI) | payer MEDICARE, SELFPAY ==
[2023-01-19 14:00] VITALS: BMI 26.9
== END ==
PROVIDERS: Family Provider Family Medicine; PCP Family Medicine; Referring Provider Family Medicine; Visit Provider Surgery
DX: L98.492 Non-pressure chronic ulcer of skin of other sites with fat layer exposed (principal); L59.8 Other specified disorders of the skin and subcutaneous tissue related to radiation; M47.26 Other spondylosis with radiculopathy, lumbar region; M96.1 Postlaminectomy syndrome, not elsewhere classified; G89.29 Other chronic pain; Z87.891 Personal history of nicotine dependence
CPT/HCPCS: 11042; 99203; 99212; 99213

== ENCOUNTER → 2023-09-16 10:32 | Outpatient (CLI) | payer MEDICARE, SELFPAY ==
[2023-01-19 14:00] VITALS: BMI 26.9
[2023-09-16 19:06] LABS: Albumin 4.9 g/dL (3.5-5.0); BUN Creatinine Ratio 32.7 (6-22); Blood Urea Nitrogen 37 mg/dL (7-17); Calcium 9.9 mg/dL (8.4-10.2); Carbon Dioxide 21 mmol/L (22-32); Chloride 100 mmol/L (98-107); Estimated Glomerular Filt Rate 48 mL/min (>60); Glucose 85 mg/dL (80-110); HEMOLYSIS < 15 (0-50); Phosphorous 4.1 mg/dL (2.8-4.1); Potassium 4.9 mmol/L (3.4-5.1); Sodium 134 mmol/L (137-145)
[2023-09-16 19:26] LABS: Vitamin D 25 Hydroxy (D3) 54.8 ng/mL (30.0-100.0)
[2023-09-16 19:40] LABS: TSH w/ Reflex to FT4 5.64 uIU/mL (0.47-4.68)
[2023-09-16 20:06] LABS: Free T4, Direct Thyroxine 1.01 ng/dL (0.78-2.19)
[2023-09-18 10:15] LABS: Calcium 9.8 mg/dL (8.7-10.3); Parathyroid Hormone, Intact 33 pg/mL (15-65)
== END ==
PROVIDERS: Family Provider Family Medicine; PCP Family Medicine
DX: M81.8 Other osteoporosis without current pathological fracture (principal); M81.0 Age-related osteoporosis without current pathological fracture
CPT/HCPCS: 80069; 82306; 82310; 83970; 84439; 84443

== ENCOUNTER → 2023-09-17 12:56 | Outpatient (CLI) | payer MEDICARE, SELFPAY ==
[2023-01-19 14:00] VITALS: BMI 26.9
== END ==
LOC: WC 12:58
PROVIDERS: Family Provider Family Medicine; PCP Family Medicine; Referring Provider Family Medicine; Visit Provider Physician Assistant
DX: L98.492 Non-pressure chronic ulcer of skin of other sites with fat layer exposed (principal); L59.8 Other specified disorders of the skin and subcutaneous tissue related to radiation
CPT/HCPCS: 97597; 99212

== ENCOUNTER 2023-10-06 12:19 | Outpatient (CLI) | payer MEDICARE, SELFPAY ==
[2023-01-19 14:00] VITALS: BMI 26.9
--- NOTE | 2023-10-06 13:30 | DI.RAD.S_ITS ---
PROCEDURE: PAIN L/S FACET INJ/BLK 1ST GOGO INDICATIONS: spondylosis COMPARISON: [facility], , PAIN L/S FACET INJ/BLK 1ST GOGO, 08/25/2023, 13:15. FINDINGS: Fluoroscopic spot filming was performed to verify placement of spinal needles at the bilateral L1-L2 level(s), as labeled on the films. Appropriate location(s) of the needle tip(s) was confirmed by injection of iodinated contrast. Lumbar spine hardware. IMPRESSION: Intraoperative guidance provided. Dictated by: Shaheen Merritt M.D. on 10/06/2023 at 14:59 Approved by: Shaheen Merritt M.D. on 10/06/2023 at 15:01
[2023-10-06 13:33] VITALS: BP 161/75; PULSE 65; RESP 10; O2SAT 100
[2023-10-06] MEDS: MIDAZOLAM 2 MG/2 ML VIAL 0.5 MG IV (13:33)
[2023-10-06] MEDS: LIDOCAINE 2% INJ MDV 20ML 5 ML INJ (13:36)
[2023-10-06] MEDS: iopamidoL 15 ML VIAL 3 ML INJ (13:37)
[2023-10-06 13:38] VITALS: BP 148/75; PULSE 66; RESP 16; O2SAT 97
[2023-10-06 13:43] VITALS: BP 152/80; PULSE 68; RESP 12; O2SAT 98
[2023-10-06 13:45] VITALS: BP 151/72; PULSE 66; RESP 12; O2SAT 96
[2023-10-06 13:50] VITALS: BP 147/67; PULSE 70; RESP 15; O2SAT 97
[2023-10-06 13:55] VITALS: BP 129/67; PULSE 75; RESP 20; O2SAT 97
--- NOTE | 2023-10-06 16:49 | P.PCN_ITS ---
Date/Time/Diagnoses Date of procedure: 10/06/23 Time of procedure: 13:30 Procedure Notes Physician: Richie Villavicencio Total Fluoroscopy time (seconds): 13 Total sedation minutes: 10 Procedure in detail & Post-procedure care: Bilateral L1-2 Lumbar Medial Branch Blocks Indications: Catalina is presenting for treatment of lumbar spondylosis with low back pain. Preoperative diagnosis: Lumbar spondylosis Postoperative diagnosis: Same Pre-procedure History: Patient demonstrates today moderate to severe non- radicular back pain without neurologic deficit aggravated by hyperextension yes Back pain greater than leg pain? yes Patient today has tenderness over the suspected joint(s) yes History of post-traumatic injury? no Hypertrophic arthropathy yes Back pain associated with suspected motion segment instability, hypermobility or pseudoarthrosis no Focused Examination: Ax3 Mood and affect are normal Vital Signs: VSS ASA: 2 Consent: Following review of allergies and potential side effects/complications, including, but not necessarily limited to, infection, allergic reaction, local tissue breakdown, stroke, temporary or permanent nerve injury, paralysis, and possible , the patient indicated that they understood and agreed to proceed.? An informed consent document was signed by the patient, witnessed by a nurse and placed in the patient's chart.? Additionally, other treatment options including medications and physical therapy were reviewed with the patient. All questions were answered. Site was then marked. Anesthesia: After review of previous anesthetic history and IV conscious sedation, the patient was deemed safe to proceed with today's procedure with IV conscious sedation. IV sedation was accomplished with midazolam 0.5 mg administered by the RN after order by Dr. Villavicencio. Sedation was titrated to patient comfort during the course of the procedure. Patient remained responsive to all verbal commands. Position: Prone Monitoring: NIBP, Pulse oximetry, 3 lead EKG Needle used: 22 ga 3.5 inch spinal needle Contrast: Isovue 300M Injectate: 2% lidocaine 1 mL per site Procedure: The patient was brought into the procedure room and positioned into the prone position. Skin was prepped with a Chloraprep solution, allowed to air dry, and then draped in sterile fashion.? The right L1-2 facet joints were visually identified with fluoroscopy. Lidocaine 1% was used to anesthetize the skin over each target destination with a 25ga needle. A 22 ga, 3.5 inch spinal needle was advanced to the location of the medial branch at the junction of the superior articular process and the transverse process at right L1, 2 using intermittent fluoroscopy in the AP view. Isovue 300M contrast 0.2ml was injected at each level outlining the medial borders for each level in the AP and lateral views. There was no evidence of vascular or intrathecal uptake. The above injectate was slowly injected at each target destination. The left L1-2 facet joints were visually identified with fluoroscopy. Lidocaine 1% was used to anesthetize the skin over each target destination with a 25ga needle. A 22 ga, 3.5 inch spinal needle was advanced to the location of the medial branch at the junction of the superior articular process and the transverse process at left L1, 2 using intermittent fluoroscopy in the AP view. Isovue 300M contrast 0.2ml was injected at each level outlining the medial borders for each level in the AP and lateral views. There was no evidence of vascular or intrathecal uptake. The above injectate was slowly injected at each target destination. At the end of the procedure the needles were withdrawn and Band-Aids were applied for a dressing. Post Procedure: Patient was taken to the recovery and monitored. The patient was provided a Pain Log to continue to record the patient's response to the target- specific procedure prior to the patient's follow-up visit with the referring physician. Patient was stable upon discharge. Detailed post procedure instructions were provided. Patient was asked to call in the event of worsening pain, fever, weakness, numbness or bladder or bowel incontinence. Based on the medial branches blocked today, if the patient meets insurance criteria for radiofrequency, the treatment should result in the denervation of the bilateral L1-2 facet joint nerves. We would expect to denervate a total of 2 facets during the radiofrequency ablation.
== END 2023-10-06 14:02 | disposition home or self-care (01) ==
LOC: RAD 12:20
PROVIDERS: Family Provider Family Medicine; PCP Family Medicine; Referring Provider Anesthesiology; Visit Provider Anesthesiology
DX: M47.816 Spondylosis without myelopathy or radiculopathy, lumbar region (principal)
CPT/HCPCS: 64493; 99152; J2250

== ENCOUNTER → 2023-10-22 11:38 | Outpatient (CLI) | payer MEDICARE, SELFPAY ==
[2023-01-19 14:00] VITALS: BMI 26.9
== END ==
PROVIDERS: Family Provider Family Medicine; PCP Family Medicine; Referring Provider Family Medicine; Visit Provider Physician Assistant
DX: L98.492 Non-pressure chronic ulcer of skin of other sites with fat layer exposed (principal); L59.8 Other specified disorders of the skin and subcutaneous tissue related to radiation
CPT/HCPCS: 11042; 99213

== ENCOUNTER → 2023-11-18 11:06 | Outpatient (CLI) | payer MEDICARE, SELFPAY ==
[2023-01-19 14:00] VITALS: BMI 26.9
== END ==
PROVIDERS: Family Provider Family Medicine; PCP Family Medicine; Referring Provider Family Medicine; Visit Provider Surgery
DX: L98.492 Non-pressure chronic ulcer of skin of other sites with fat layer exposed (principal); L59.8 Other specified disorders of the skin and subcutaneous tissue related to radiation
CPT/HCPCS: 11104; 87070; 87075; 87205; 99213

== ENCOUNTER 2023-11-30 10:04 | Inpatient (IN) | payer MEDICARE, SELFPAY ==
[2023-01-19 14:00] VITALS: BMI 26.9
[2023-11-30] VITALS (12 sets, daily range): BP systolic 99–157; BP diastolic 50–70; PULSE 64–82; RESP 10–23; TEMP 36.7–37.1; O2SAT 91–96; BMI 31.2
--- NOTE | 2023-11-30 10:20 | DI.RAD.S_ITS ---
PROCEDURE: XR CHEST 1V INDICATIONS: chest pain TECHNIQUE: One view of the chest was acquired. COMPARISON: [facility], CR, CHEST 2 VIEW, 09/26/2014, 16:50. [facility], CR, CHEST 1 VIEW, 03/22/2013, 8:59. FINDINGS: Surgical changes and devices: Right shoulder arthroplasty. Lungs and pleura: Ill-defined left base opacity. No drainable effusions. Low lung volumes Mediastinum: Heart size is normal and unchanged Bones and chest wall: Degenerative changes. IMPRESSION: Low lung volumes on limited single view radiograph limiting evaluation. Ill-defined left base opacity may represent airspace disease or atelectasis. Consider future imaging surveillance to assess for resolution. Dictated by: Warren Galvin M.D. on 11/30/2023 at 10:52 Approved by: Warren Galvin M.D. on 11/30/2023 at 10:53
--- NOTE | 2023-11-30 10:21 | DI.RAD.S_ITS ---
PROCEDURE: XR ANKLE RT MIN 3V INDICATIONS: fall, swelling, brusing TECHNIQUE: 3 views of the ankle were acquired. COMPARISON: None. FINDINGS: Bones: Mildly displaced fractures of the distal lateral malleolus and medial malleolus. Fracture extends to the anterior tibia, likely affecting the plafond and possibly to syndesmotic region. Plantar enthesopathy. Soft tissues: Soft tissue swelling is present. Small dystrophic lower leg calcifications. IMPRESSION: Lateral and medial malleolar fractures. Anterior displaced fracture fragment also seen on lateral view. Combination of these injuries suspicious for multi ligamentous involvement. Consider stress views if clinically indicated. Dictated by: Warren Galvin M.D. on 11/30/2023 at 10:53 Approved by: Warren Galvin M.D. on 11/30/2023 at 10:54
--- NOTE | 2023-11-30 10:22 | DI.RAD.S_ITS ---
PROCEDURE: XR FOOT RT MIN 3V INDICATIONS: fall, bruising TECHNIQUE: 3 views of the foot were acquired. COMPARISON: None. FINDINGS: Bones: Ankle findings are separately dictated. Mild scattered degenerative changes, particularly at the 1st MTP. No acute displaced fracture or dislocation of the foot. Plantar enthesopathy. Soft tissues: No suspicious calcifications. Soft tissue swelling extends from the ankle. IMPRESSION: No acute osseous abnormality in the foot. Mild scattered degenerative changes. If there is high concern for occult injury, consider repeat radiography or cross-sectional imaging. Ankle fracture findings are separately dictated. Dictated by: Warren Galvin M.D. on 11/30/2023 at 10:54 Approved by: Warren Galvin M.D. on 11/30/2023 at 10:55
--- NOTE | 2023-11-30 10:22 | DI.RAD.S_ITS ---
PROCEDURE: XR TIBIA FUBULA RT 2V INDICATIONS: fall, bruising TECHNIQUE: 2 views of the tibia and fibula were acquired. COMPARISON: None. FINDINGS: Bones: Partially seen knee arthroplasty and distal femoral hardware. No displaced fracture of the fibular or tibial shafts. An area of lucency is seen distal to the tibial stem of the knee arthroplasty. Soft tissues: Dystrophic calcifications are seen in the lower leg. IMPRESSION: No acute osseous abnormality of the tibial or fibular shafts. Ankle fracture findings are separately dictated Dictated by: Warren Galvin M.D. on 11/30/2023 at 10:55 Approved by: Warren Galvin M.D. on 11/30/2023 at 10:56
[2023-11-30 10:41] LABS: INR 1.1 (0.9-1.3); Prothrombin Time 12.7 SECONDS (9.4-12.5)
[2023-11-30 10:42] LABS: Add Manual Diff / Slide Review NO; Basophils Absolute Auto 100 /uL (0-100); Basophils Percent Auto 0.7 % (0-2); Eosinophils Absolute Auto 100 /uL (0-450); Eosinophils Percent Auto 0.7 % (2-4); Hematocrit 32.1 % (36-46); Hemoglobin 10.8 g/dL (12.0-16.0); Lymphocytes Absolute Auto 800 /uL (1100-4500); Mean Corpuscular HGB Conc 33.7 % (30-36); Mean Corpuscular Hemoglobin 31.3 PG (26-34); Mean Corpuscular Volume 93.1 fL (80-100); Monocytes Absolute Auto 1500 /uL (0-900); Monocytes Percent Auto 15.7 % (3-14); Neutrophils Absolute Auto 6900 /uL (1500-7000); Neutrophils Percent Auto 73.9 % (50-75); Platelet Count 289 X10^3/uL (150-400); Red Blood Cell Count 3.45 X10^6/uL (4.0-5.2); Red Cell Distribution Width 14.3 % (11.6-14.8); White Blood Cell Count 9.3 X10^3/uL (4.5-11.0)
[2023-11-30 10:44] LABS: PTT Partial Thromboplastin Tim 36 SECONDS (25.1-36.5)
[2023-11-30 10:47] LABS: Alanine Aminotransferase 21 IU/L (<35); Albumin 4.8 g/dL (3.5-5.0); Albumin Globulin Ratio 1.2 (1.0-2.8); Alkaline Phosphatase 81 U/L (38-126); Aspartate Aminotransferase 52 IU/L (14-36); BUN Creatinine Ratio 32.6 (6-22); Bilirubin Total 0.7 mg/dL (0.2-1.3); Blood Urea Nitrogen 46 mg/dL (7-17); Calcium 9.8 mg/dL (8.4-10.2); Carbon Dioxide 19 mmol/L (22-32); Chloride 106 mmol/L (98-107); Creatine Kinase 1122 U/L (30-135); Estimated Glomerular Filt Rate 37 mL/min (>60); Globulin 4.1 g/dL (1.7-4.1); Glucose 112 mg/dL (80-110); HEMOLYSIS < 15 (0-50); Magnesium 2.9 mg/dL (1.6-2.3); Potassium 4.7 mmol/L (3.4-5.1); Sodium 136 mmol/L (137-145); Total Protein 8.9 g/dL (6.3-8.2)
[2023-11-30 10:59] LABS: Troponin I 0.015 ng/mL (0.01-0.034)
--- NOTE | 2023-11-30 11:02 | EKG_ITS ---
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
--- NOTE | 2023-11-30 11:20 | ED_ITS ---
HPI - Fall General Chief Complaint: Fall Stated Complaint: r ankle swelling/deformity Time Seen by Provider: 11/30/23 11:19 Source: patient and EMS Mode of arrival: EMS History of Present Illness HPI Narrative: 82-year-old woman with a history of hypertension, hypothyroidism, depression, breast cancer post radiation with wound under her left breast followed by wound care clinic lives on [facility] presents via air ambulance with complaints of being weak and fatigued for the past few days with a cough and chills. Reportedly slipped while getting out of bed on November 27 injured her ankle. She was able to get back in bed but last night similar incident and has been on the floor all night. The patient denies hitting her head or other specific injuries Related Data Previous Rx's Medication Instructions Recorded famotidine 20 mg tablet (Pepcid) 20 mg PO BID #1 tab 07/09/22 cyanocobalamin (vitamin B-12) See Rx Instructions .Route 07/20/22 1,000 mcg/mL injection solution .COMPLEX #4 mL safety needles 25 gauge x 1 (BD #50 ea 01/25/23 Eclipse) syringe with needle 3 mL 25 gauge #15 ea 01/28/23 x 1 (BD Luer-Kathryn Syringe) gabapentin 300 mg capsule 300 mg PO TID #270 caps 02/09/23 baclofen 10 mg tablet 10 mg PO 4XD #30 tabs 07/22/23 sertraline 25 mg tablet 25 mg PO DAILY #90 tabs 08/25/23 ondansetron HCl 8 mg tablet 8 mg PO DAILY #30 tabs 10/07/23 levothyroxine 88 mcg tablet 88 mcg PO DAILY #90 tabs 10/18/23 amlodipine 2.5 mg tablet 2.5 mg PO .evening for blood 10/26/23 pressure. take every day even if normal. #90 tabs mirtazapine 7.5 mg tablet See Rx Instructions .Route 11/04/23 .COMPLEX for sleep #30 tabs estradiol 0.01% (0.1 mg/gram) 0.5 g vaginal 3XW #42.5 grams 11/15/23 vaginal cream lisinopril 40 mg tablet 40 mg PO DAILY for blood pressure. 11/16/23 take every day even if normal #90 tabs sertraline 100 mg tablet 100 mg PO DAILY #90 tabs 11/16/23 Allergies Allergy/AdvReac Type Severity Reaction Status Date / Time iodine [IODINE] Allergy Intermediate RASH Verified 10/07/23 15:22 adhesive [ADHESIVE] Allergy Mild TAPE, RASH Verified 10/07/23 15:22 nickel Allergy Mild Rash Verified 10/07/23 15:22 Review of Systems Review of Systems Narrative: Pertinent positive and negative findings as per HPI Patient History Medical History Lumbar spinal stenosis Post laminectomy syndrome Lumbar radiculopathy Lumbar spondylosis Low back pain Thoracic back pain Myofascial pain Cervical spondylosis Balance problem History of colon polyps History of breast cancer Acute low back pain Ingrown right big toenail Diverticulosis GERD (gastroesophageal reflux disease) Recurrent UTI Atrophic vulvovaginitis Psoriasis (~2010) Actinic keratosis (~2017) Allergies Shoulder pain Scoliosis Osteoporosis Foot pain Chronic back pain (~1989) Tuberculosis Rubella (~1943) Positive PPD (~1980) Measles (~1943) Chicken pox (~1946) Anemia (~1960) Hearing loss Ovarian cyst Irregular menstrual cycle Infertility Heavy menstrual period Fibroids (~1977) Endometriosis (~1959) History of urinary incontinence (~1999) Fecal incontinence Irritable bowel syndrome (~1979) Colon polyps (~2017) Right shoulder pain Chronic diarrhea Postoperative anemia Sleep apnea (~1989) C. difficile enteritis Macular degeneration Incontinence Depression (~1979) Hypothyroidism (~1962) Asthma HTN (hypertension) Hyperlipidemia Cystocele Osteoarthritis Chronic constipation Insomnia Anxiety (~1979) Femur fracture, right Breast cancer (~2010) Surgical History History of hysterectomy for benign disease Hx of foot surgery (~1988) History of reverse total replacement of right shoulder joint (04/08/20) History of cataract removal with insertion of prosthetic lens History of arthroplasty of left knee (03/13/19) S/P lumbar fusion (01/05/18) Status post Mohs surgery for squamous cell carcinoma of skin History of total hysterectomy with bilateral salpingo-oophorectomy (BSO) (~1977) Hx of appendectomy History of bladder surgery History of arthroplasty of right knee Hx of arthroscopy of right knee History of lumpectomy of left breast (2000) History of lumbar fusion Social History household members: spouse Smoking Status: Former smoker alcohol intake: current Smoking Status: Former smoker alcohol intake frequency: a few times a week Substance Use Type: does not use Exam Initial Vital Signs Initial Vital Signs: Vital Signs Temperature 98.3 F 11/30/23 10:15 Pulse Rate 73 11/30/23 10:15 Respiratory Rate 20 11/30/23 10:15 Blood Pressure 157/69 H 11/30/23 10:15 Pulse Oximetry 96 11/30/23 10:15 Oxygen Delivery Method Room Air 11/30/23 10:15 General frail and chronically ill appearing woman, pale but able to cooperate fully with exam HEENT: Moist mucous membranes, normal sclera with reactive pupil she has no cervical spine tenderness to palpation s, Neck: No JVD, supple Respiratory: Lungs are clear to auscultation, no respiratory distress and full and symmetrical movement appreciated Cardiac: Regular rate and rhythm no murmurs Abdomen: Soft, nontender, good bowel tones, no flank pain, no bruits no obvious bruising or contusion from lying on the floor Skin: Pale but warm and dry, no rashes Neurologic: Globally weak but otherwise Grossly neurologically intact with no obvious asymmetries or abnormalities Extremities: Right ankle with swelling and contusion. She is neurovascularly intact Psych: Cooperative, appropriate insight and affect Course Orders Ordered: ED Orders 11/30/23 10:17 Complete Blood Count AUTO DIFF Stat Comprehensive Metabolic Panel Stat Magnesium Stat PTT Partial Thromboplastin Isac Stat Prothrombin Time INR Stat Troponin & CK Cardiac Panel Stat 11/30/23 10:20 XR chest 1V Stat EKG-12 Lead Stat 11/30/23 10:21 XR ankle RT min 3V Stat 11/30/23 10:22 XR foot RT min 3V Stat XR tibia fibula RT 2V Stat 11/30/23 10:31 Respiratory Panel (Film Array) Stat 11/30/23 12:08 Urine Culture Stat Urine Microscopic Stat 11/30/23 12:11 CT head/brain wo con Stat 11/30/23 12:44 Lactate (Lactic Acid) Stat 11/30/23 12:45 Blood Culture Stat 11/30/23 14:00 CT cervical spine wo con Stat Discontinued Medications Acetaminophen (Acetaminophen 325 Mg Tablet) 325 mg PO NOW ONE Stop: 11/30/23 12:12 Last Admin: 11/30/23 12:26 Dose: 325 mg Documented By: JHONNY Sodium Chloride (Normal Saline 0.9%) 1,000 mls @ 1,000 mls/hr IV BOLUS ONE Stop: 11/30/23 12:20 Last Infusion: 11/30/23 12:16 Dose: Infused Documented By: Admin: 11/30/23 11:22 Dose: 1,000 mls/hr Documented By: Oxycodone/Acetaminophen (Oxycodone/Acetaminophen 5/325 Tablet) 1 tab PO NOW ONE Stop: 11/30/23 12:12 Last Admin: 11/30/23 12:26 Dose: 1 tab Documented By: JHONNY Vital Signs Vital signs: Vital Signs - 8 hr 11/30/23 10:15 11/30/23 12:07 11/30/23 13:05 Temperature 98.3 F 98.1 F Pulse Rate 73 74 Respiratory Rate 20 17 Blood Pressure 157/69 H Pulse Oximetry 96 94 Oxygen Delivery Method Room Air 11/30/23 13:16 11/30/23 13:16 Temperature Pulse Rate 73 Respiratory Rate 13 Blood Pressure 113/57 L Pulse Oximetry 91 Oxygen Delivery Method MDM - Fall Lab Data 11/30/23 10:17 11/30/23 10:17 Labs: Lab Results 11/30/23 11/30/23 11/30/23 Range/Units 10:17 10:31 12:08 WBC 9.3 (4.5-11.0) X10^3/uL RBC 3.45 L (4.0-5.2) X10^6/uL Hgb 10.8 L (12.0-16.0) g/dL Hct 32.1 L (36-46) % MCV 93.1 (80-100) fL MCH 31.3 (26-34) PG MCHC 33.7 (30-36) % RDW 14.3 (11.6-14.8) % Plt Count 289 (150-400) X10^3/uL Neut % (Auto) 73.9 (50-75) % Lymph % (Auto) 9.0 L (25-40) % [place] % (Auto) 15.7 H (3-14) % Eos % (Auto) 0.7 L (2-4) % Baso % (Auto) 0.7 (0-2) % Neut # (Auto) 6900 (4572-4695) /uL Lymph # (Auto) 800 L (8861-2607) /uL [place] # (Auto) 1500 H (0-900) /uL Eos # (Auto) 100 (0-450) /uL Baso # (Auto) 100 (0-100) /uL PT 12.7 H (9.4-12.5) SECONDS INR 1.1 (0.9-1.3) APTT 36 (25.1-36.5) SECONDS Sodium 136 L (137-145) mmol/L Potassium 4.7 (3.4-5.1) mmol/L Chloride 106 (98-107) mmol/L Carbon Dioxide 19 L (22-32) mmol/L BUN 46 H (7-17) mg/dL Creatinine 1.41 H (0.52-1.04) mg/dL Estimated GFR 37 L (>60) mL/min BUN/Creatinine Ratio 32.6 H (6-22) Glucose 112 H (80-110) mg/dL Lactate (0.7-2.1) mmol/L Calcium 9.8 (8.4-10.2) mg/dL Magnesium 2.9 H (1.6-2.3) mg/dL Total Bilirubin 0.7 (0.2-1.3) mg/dL AST 52 H (14-36) IU/L ALT 21 (<35) IU/L Alkaline Phosphatase 81 (38-126) U/L Total Creatine Kinase 1122 H (30-135) U/L Troponin I 0.015 (0.01-0.034) ng/mL Total Protein 8.9 H (6.3-8.2) g/dL Albumin 4.8 (3.5-5.0) g/dL Globulin 4.1 (1.7-4.1) g/dL Albumin/Globulin Ratio 1.2 (1.0-2.8) Urine RBC 1-5/hpf (0-5/HPF) Urine WBC 10-30/hpf H (0-5/HPF) Ur Squamous Epith Cells 1-5 /hpf (0-5/HPF) Urine Bacteria Moderate (10-30) H (None) Ur Culture Indicated? Specimen cultured Vol Urine Centrifuged 10ml (spun) Chlamy pneumoniae PCR Not detected (Not Detect) Adenovirus (PCR) Not detected (Not Detect) B.parapertussis DNA PCR Not detected (Not Detecte) Coronavirus OC43 (PCR) Not detected (Not Detect) Coronavirus HKU1 (PCR) Not detected (Not Detect) Coronavirus 229E (PCR) Not detected (Not Detect) SARS-CoV-2 (PCR) Not detected (Not Detecte) Coronavirus NL63 (PCR) Not detected (Not Detect) Human Metapneumovir PCR Not detected (Not Detect) Influenza Type A (PCR) Not detected (Not Detect) Influenza Type B (PCR) Not detected (Not Detect) M. pneumoniae (PCR) Not detected (Not Detect) Parainfluenza 1 (PCR) Not detected (Not Detect) Parainfluenza 2 (PCR) Not detected (Not Detect) Parainfluenza 3 (PCR) Not detected (Not Detect) Parainfluenza 4 (PCR) Not detected (Not Detect) RSV (PCR) Not detected (Not Detect) Entero/Rhino (PCR) Not detected (Not Detect) 11/30/23 Range/Units 12:44 WBC (4.5-11.0) X10^3/uL RBC (4.0-5.2) X10^6/uL Hgb (12.0-16.0) g/dL Hct (36-46) % MCV (80-100) fL MCH (26-34) PG MCHC (30-36) % RDW (11.6-14.8) % Plt Count (150-400) X10^3/uL Neut % (Auto) (50-75) % Lymph % (Auto) (25-40) % [place]house % (Auto) (3-14) % Eos % (Auto) (2-4) % Baso % (Auto) (0-2) % Neut # (Auto) (2796-8295) /uL Lymph # (Auto) (6881-5056) /uL [place] # (Auto) (0-900) /uL Eos # (Auto) (0-450) /uL Baso # (Auto) (0-100) /uL PT (9.4-12.5) SECONDS INR (0.9-1.3) APTT (25.1-36.5) SECONDS Sodium (137-145) mmol/L Potassium (3.4-5.1) mmol/L Chloride (98-107) mmol/L Carbon Dioxide (22-32) mmol/L BUN (7-17) mg/dL Creatinine (0.52-1.04) mg/dL Estimated GFR (>60) mL/min BUN/Creatinine Ratio (6-22) Glucose (80-110) mg/dL Lactate 0.9 (0.7-2.1) mmol/L Calcium (8.4-10.2) mg/dL Magnesium (1.6-2.3) mg/dL Total Bilirubin (0.2-1.3) mg/dL AST (14-36) IU/L ALT (<35) IU/L Alkaline Phosphatase (38-126) U/L Total Creatine Kinase (30-135) U/L Troponin I (0.01-0.034) ng/mL Total Protein (6.3-8.2) g/dL Albumin (3.5-5.0) g/dL Globulin (1.7-4.1) g/dL Albumin/Globulin Ratio (1.0-2.8) Urine RBC (0-5/HPF) Urine WBC (0-5/HPF) Ur Squamous Epith Cells (0-5/HPF) Urine Bacteria (None) Ur Culture Indicated? Vol Urine Centrifuged Chlamy pneumoniae PCR (Not Detect) Adenovirus (PCR) (Not Detect) B.parapertussis DNA PCR (Not Detecte) Coronavirus OC43 (PCR) (Not Detect) Coronavirus HKU1 (PCR) (Not Detect) Coronavirus 229E (PCR) (Not Detect) SARS-CoV-2 (PCR) (Not Detecte) Coronavirus NL63 (PCR) (Not Detect) Human Metapneumovir PCR (Not Detect) Influenza Type A (PCR) (Not Detect) Influenza Type B (PCR) (Not Detect) M. pneumoniae (PCR) (Not Detect) Parainfluenza 1 (PCR) (Not Detect) Parainfluenza 2 (PCR) (Not Detect) Parainfluenza 3 (PCR) (Not Detect) Parainfluenza 4 (PCR) (Not Detect) RSV (PCR) (Not Detect) Entero/Rhino (PCR) (Not Detect) Urine Dip Bedside Urine Glucose Negative Bedside Urine Bilirubin - Negative Bedside Urine Ketone - Negative Urine Specific [place] 1.015 Bedside Urine Occult Blood ++ Bedside Urine pH 6.0 Bedside Urine Protein + 30 Bedside Urine Urobilinogen - Negative Bedside Urine Nitrite + Positive Bedside Urine Leukocytes ++ 125 Esterase MDM Narrative Medical decision making narrative: CC: Increasing weakness recurrent falls, ankle injury, lying on the floor for at least 12 hours Complicating co-morbidities: Lives independently with her , hypertension, Crohn's disease, post breast cancer with clinic radiation wound under her breast Data collected from: patient Social determinants of health that may influence the patients condition: Lives on [facility] Medical records reviewed: Primary care notes from October 06 are reviewed. Wound care consult on October 21 for the radiation wound and consideration of hyperbaric oxygen reviewed Differential considered: Sepsis, fractures, rhabdomyolysis, stroke, STEMI, acute kidney failure Exam documented above, pertinent findings include: Frail and chronically ill- appearing, shivering versus rigors, lungs are clear, chronic ulcer under her left breast does not appear to be acutely infected, abdomen is nontender, no obvious contusions or abnormalities to the flanks or buttocks. Abdomen is soft. Swelling and ecchymosis to the right ankle were and she is neurovascularly intact Lab Test results independently reviewed as above. Pertinent findings: CBC shows normal white blood cell count, anemia with H and H at 10.8 and 32.1. Comparison is March of 2023 which shows 12.5 and 37.1. Chemistries are notable for a slight bump in creatinine from 1.1-1.4 with a GFR of 37. Potassium is appropriate. Magnesium is elevated Total creatinine kinase is elevated at 1122 Respiratory panel is unremarkable Lactic acid is unremarkable Urinalysis does not suggest infection Independently reviewed EKG: EKG shows sinus rhythm at a rate 75 without any ischemic changes Imaging studies independently reviewed: Chest x-ray shows no acute abnormalities Foot x-ray is unremarkable Proximal tib-fib views are unremarkable Significant ankle fracture with bi- malleolar fractures CT scan of the head done for global weakness and slightly altered mental status shows no acute abnormalities. There is a question of C1 fracture CT scan of the cervical spine shows multiple old injuries, no new abnormalities no need for additional treatment, transfer or further imaging Consultations: Discussion with Radiology, Dr. Guevara. Possibility of C1 burst fracture appreciated on CT scan of the brain done for altered mental status. CT scan of the cervical spine shows chronic changes that likely unrelated to any current issues. Clinical exam shows no tenderness at any of these areas. Discussed with Dr. Gonsales, orthopedics. She will consult and likely anticipate surgical revision within the next 24-48 hours Treatments: Fluids, oral Tylenol and Percocet for fever and pain control Procedure: Posterior short-leg splint placed in the right leg for the by malleolar ankle fracture. Neurovascularly intact pre and post procedure Re-evaluations:155pm patient is re-evaluated. She is feeling much better. Reviewed all of findings including scans. Ankle feels better now that it is immobilized. Discussion: 82-year-old woman with increasing weakness, uncertain etiology no evidence of viral or bacterial infection. No suggestion of acute coronary syndrome. Over the last 2 days she has been weak enough that she has slid off the bed. On Wednesday night, 48 hours ago she injured her right ankle that in fact has a by malleolar fracture currently splinted. With her altered mental status additional imaging of the head was done findings discussed above no acute abnormalities. At this point with her weakness she was on the floor for over 12 hours with mild rhabdomyolysis and acute kidney injury. We will need to be admitted for hydration, further evaluation of her weakness and will ask Dr. Gonsales to consult regarding the right ankle by malleolar fracture. Care is reviewed with Dr. Mcfarlane, admitting hospitalist. Patient will be admitted. Discharge Plan Departure Patient Disposition: Admitted As Inpatient Clinical Impression: Acute kidney injury, Weakness Rhabdomyolysis Qualifiers: Rhabdomyolysis type: traumatic Encounter type: initial encounter Qualified Code(s): T79.6XXA - Traumatic ischemia of muscle, initial encounter Closed right ankle fracture Qualifiers: Encounter type: initial encounter Qualified Code(s): S82.891A - Other fracture of right lower leg, initial encounter for closed fracture
[2023-11-30] MEDS: SODIUM CHLORIDE 0.9% 1,000 ML 1000 ML IV (11:22)
[2023-11-30 11:31] LABS: Adenovirus Not Detected (Not Detect); B. parapertussis Not Detected (Not Detecte); Bordetella pertussis Not Detected (Not Detect); Chlamydophila pneumoniae Not Detected (Not Detect); Coronavirus 229E Not Detected (Not Detect); Coronavirus HKU1 Not Detected (Not Detect); Coronavirus NL 63 Not Detected (Not Detect); Coronavirus OC43 Not Detected (Not Detect); Human Metapneumovirus Not Detected (Not Detect); Human Rhinovirus/Enterovirus Not Detected (Not Detect); Influenza A Not Detected (Not Detect); Influenza B Not Detected (Not Detect); Mycoplasma pneumoniae Not Detected (Not Detect); Parainfluenza Virus 1 Not Detected (Not Detect); Parainfluenza Virus 2 Not Detected (Not Detect); Parainfluenza Virus 3 Not Detected (Not Detect); Parainfluenza Virus 4 Not Detected (Not Detect); Respiratory Syncytial Virus Not Detected (Not Detect); SARS- CoV-2 Not Detected (Not Detecte)
--- NOTE | 2023-11-30 12:11 | DI.CT.S_ITS ---
PROCEDURE: CT HEAD/BRAIN WO CON INDICATIONS: altered mental status TECHNIQUE: Noncontrast 4.5 mm thick angled axial sections acquired from the foramen magnum to the vertex, with coronal and sagittal reformats. For radiation dose reduction, the following was used: automated exposure control, adjustment of mA and/or kV according to patient size. COMPARISON: None. FINDINGS: Image quality: Diagnostic. CSF spaces: Basal cisterns are patent. No extra-axial fluid collections. Ventricles are normal in size and shape. Brain: No midline shift. No intracranial masses or hemorrhage. Pagan-white matter interface is normal. Skull and face: Calvarium and visualized facial bones are intact, without suspicious lesions. Age indeterminate fracture of the posterior arch of C1. Sinuses: Visualized sinuses and mastoids are clear. IMPRESSION: No acute intracranial pathology. Age indeterminate fracture of the posterior arch of C1. No relevant comparisons at time of dictation. Correlate with recent trauma and consider CT of the neck if this is a new diagnosis. Dictated by: Jesus Love M.D. on 11/30/2023 at 12:31 Approved by: Jesus Love M.D. on 11/30/2023 at 12:33
[2023-11-30 12:21] LABS: Bacteria Urine Moderate (10-30); Culture Indicated Urine Specimen Cultured; RBC Urine 1-5/HPF (0-5/HPF); Squamous Epithelial Cell Urine 1-5 /HPF (0-5/HPF); Urine Volume 10mL (spun); WBC Urine 10-30/HPF (0-5/HPF)
[2023-11-30] MEDS: ACETAMINOPHEN 325 MG TABLET PO (12:26)
[2023-11-30] MEDS: OXYCODONE/ACETAMINOPHEN 5/325 TABLET 1 TAB PO (12:26)
[2023-11-30 13:03] LABS: Lactate (Lactic Acid) 0.9 mmol/L (0.7-2.1)
--- NOTE | 2023-11-30 14:00 | DI.CT.S_ITS ---
PROCEDURE: CT CERVICAL SPINE WO CON INDICATIONS: abnormality on head CT TECHNIQUE: Noncontrast 3 mm thick sections acquired from the skull base to the T4 level. Sagittal and coronal reformats were then constructed. For radiation dose reduction, the following was used: automated exposure control, adjustment of mA and/or kV according to patient size. COMPARISON: [facility], CR, XR CERVICAL SPINE 4V OR 5V, 01/19/2023, 12:23. [facility], CT, CT HEAD/BRAIN WO CON, 11/30/2023, 12:19. FINDINGS: Image quality: Excellent. Bones: There is a minimally displaced posterior lamina fracture of C1 as well as and anterior midline arch fracture of C1. No other fractures or dislocations are identified. It is possible that these C1 fractures are chronic. This is suggested by the comparison open mouth film on the previous cervical spine plain films. There is advanced cervical spondylosis. Anterolisthesis of C3 on C4 is a chronic finding, measuring 5 mm. There is a chronic severe compression of C5 with chronic mild anterolisthesis of C4 on C5. There is chronic obliteration of the disc space between C4 and C5. No other potentially acute cervical fractures or dislocations are noted. Soft tissues: Prevertebral soft tissues are normal in thickness. No paravertebral hematomas. No apical pneumothoraces. IMPRESSION: 1. There are anterior and posterior C1 fractures, potentially a Shubham burst fracture. This fracture is of uncertain chronicity, potentially chronic. 2. Advanced cervical spondylosis, with chronic 5 mm anterolisthesis of C3 on C4, chronic severe L5 compression, and anterolisthesis of C4 on C5. Comment: Findings were discussed with Dr. Melgar at the time of study dictation on 11/30/2023 at 1338 hours. Dictated by: Iker Oconnor M.D. on 11/30/2023 at 13:22 Approved by: Iker Oconnor M.D. on 11/30/2023 at 13:38
--- NOTE | 2023-11-30 15:51 | P.HP_ITS ---
History of Present Illness History of Present Illness Date Patient Seen: 11/30/23 Chief complaint: r ankle swelling/deformity Narrative: 82 F with PMH of crohn's HTN, hypothyroid, osteoporosis, breast ca s/p lumpectomy with chemo and radiation who presented with weakness ongoing over the past week. She has felt cough and chills but no fever at home. She denies nausea, vomiting or diarrhea She fell getting out of bed a few days ago, injured her R ankle. She was able to get back in to bed but had a similar incident falling off the bed again and had been on the floor all night. She denies hitting her head or loss of consciousness. Imaging showed a bimalleolar R ankle fracture in the ER but no other acute injuries. She does have a chronic C1 fracture, and currently denies any neck pain. Labs showed elevated CK at 1122, and cr of 1.4 from baseline of around 1.0. ER provider discussed with orthopedics, and plan for operative interventions on patient's R ankle tomorrow. She was admitted to hospitalist service for rhabdomyolysis with HUMBERTO and the setting of falls and R ankle fracture. [facility] Medical History Lumbar spinal stenosis Post laminectomy syndrome Lumbar radiculopathy Lumbar spondylosis Low back pain Thoracic back pain Myofascial pain Cervical spondylosis Balance problem History of colon polyps History of breast cancer Acute low back pain Ingrown right big toenail Diverticulosis GERD (gastroesophageal reflux disease) Recurrent UTI Atrophic vulvovaginitis Psoriasis (~2010) Actinic keratosis (~2017) Allergies Shoulder pain Scoliosis Osteoporosis Foot pain Chronic back pain (~1989) Tuberculosis Rubella (~1943) Positive PPD (~1980) Measles (~194) Chicken pox (~1946) Anemia (~1960) Hearing loss Ovarian cyst Irregular menstrual cycle Infertility Heavy menstrual period Fibroids (~1977) Endometriosis (~1959) History of urinary incontinence (~1999) Fecal incontinence Irritable bowel syndrome (~1979) Colon polyps (~2017) Right shoulder pain Chronic diarrhea Postoperative anemia Sleep apnea (~1989) C. difficile enteritis Macular degeneration Incontinence Depression (~1979) Hypothyroidism (~1962) Asthma HTN (hypertension) Hyperlipidemia Cystocele Osteoarthritis Chronic constipation Insomnia Anxiety (~1979) Femur fracture, right Breast cancer (~2010) Surgical History History of hysterectomy for benign disease Hx of foot surgery (~1988) History of reverse total replacement of right shoulder joint (04/08/20) History of cataract removal with insertion of prosthetic lens History of arthroplasty of left knee (03/13/19) S/P lumbar fusion (01/05/18) Status post Mohs surgery for squamous cell carcinoma of skin History of total hysterectomy with bilateral salpingo-oophorectomy (BSO) (~1977) Hx of appendectomy History of bladder surgery History of arthroplasty of right knee Hx of arthroscopy of right knee History of lumpectomy of left breast (2000) History of lumbar fusion Social History household members: spouse Smoking Status: Former smoker alcohol intake: current Meds Home Medications and Allergies Home Medications Medication Instructions Recorded Confirmed Type famotidine 20 mg tablet (Pepcid) 20 mg PO BID #1 tab 07/09/22 10/07/23 Rx cyanocobalamin (vitamin B-12) See Rx Instructions .Route 07/20/22 10/07/23 Rx 1,000 mcg/mL injection solution .COMPLEX #4 mL safety needles 25 gauge x 1 (BD #50 ea 01/25/23 10/07/23 Rx Eclipse) syringe with needle 3 mL 25 gauge #15 ea 01/28/23 10/07/23 Rx x 1 (BD Luer-Kathryn Syringe) gabapentin 300 mg capsule 300 mg PO TID #270 caps 02/09/23 10/07/23 Rx baclofen 10 mg tablet 10 mg PO 4XD #30 tabs 07/22/23 10/07/23 Rx sertraline 25 mg tablet 25 mg PO DAILY #90 tabs 08/25/23 10/07/23 Rx ondansetron HCl 8 mg tablet 8 mg PO DAILY #30 tabs 10/07/23 10/07/23 Rx levothyroxine 88 mcg tablet 88 mcg PO DAILY #90 tabs 10/18/23 Rx amlodipine 2.5 mg tablet 2.5 mg PO .evening for blood 10/26/23 Rx pressure. take every day even if normal. #90 tabs mirtazapine 7.5 mg tablet See Rx Instructions .Route 11/04/23 Rx .COMPLEX for sleep #30 tabs estradiol 0.01% (0.1 mg/gram) 0.5 g vaginal 3XW #42.5 grams 11/15/23 Rx vaginal cream lisinopril 40 mg tablet 40 mg PO DAILY for blood pressure. 11/16/23 Rx take every day even if normal #90 tabs sertraline 100 mg tablet 100 mg PO DAILY #90 tabs 11/16/23 Rx Allergies Allergy/AdvReac Type Severity Reaction Status Date / Time iodine [IODINE] Allergy Intermediate RASH Verified 10/07/23 15:22 adhesive [ADHESIVE] Allergy Mild TAPE, RASH Verified 10/07/23 15:22 nickel Allergy Mild Rash Verified 10/07/23 15:22 Review of Systems Review of Systems Narrative: All other systems reviewed with the patient and are negative unless otherwise stated. Exam Vital Signs (past 8 hours): - 11/30/23 10:15 11/30/23 12:07 11/30/23 13:05 Temperature 98.3 F 98.1 F Pulse Rate 73 74 Respiratory Rate 20 17 Blood Pressure 157/69 H Pulse Oximetry 96 94 Oxygen Delivery Method Room Air 11/30/23 13:16 11/30/23 13:16 11/30/23 13:30 Temperature Pulse Rate 73 69 Respiratory Rate 13 10 L Blood Pressure 113/57 L Pulse Oximetry 91 92 Oxygen Delivery Method 11/30/23 13:30 11/30/23 14:00 11/30/23 14:00 Temperature Pulse Rate 67 Respiratory Rate 16 Blood Pressure 118/59 L 109/51 L Pulse Oximetry 93 Oxygen Delivery Method 11/30/23 14:30 11/30/23 14:30 11/30/23 15:00 Temperature Pulse Rate 65 64 Respiratory Rate 16 22 Blood Pressure 103/53 L Pulse Oximetry 92 93 Oxygen Delivery Method 11/30/23 15:00 11/30/23 15:00 11/30/23 15:03 Temperature 98.8 F Pulse Rate 68 Respiratory Rate 23 Blood Pressure 99/50 L Pulse Oximetry 94 Oxygen Delivery Method 11/30/23 15:03 11/30/23 15:06 11/30/23 15:06 Temperature Pulse Rate 66 Respiratory Rate 17 Blood Pressure 105/53 L 109/57 L Pulse Oximetry Oxygen Delivery Method Oxygen Delivery Method Room Air Narrative Exam Narrative: General:? Patient is well developed and well nourished, in no distress at this time. HEENT:? Normocephalic, atraumatic, extraocular muscles intact, oral pharynx is clear and mucous membranes are moist. Neck: supple and symmetric, trachea is midline, no cervical adenopathy. Negative for JVD Chest:? Normal AP diameter and contour without kyphoscoliosis, no tachypnea, equal chest rise bilaterally. Lungs:? CTA b/l no wheezing rhonchi or rales. Cardio:?RRR no m/r/g. Abdomen: S NT ND. No CVA tenderness. Musculoskeletal:? Muscle strength and tone are equal within normal limits, no deformity. Extremities: No edema or joint effusions. No cyanosis or clubbing. Skin:? Pale,? Warm to touch,dry and intact without rashes, ulcerations or petechiae.? Neuro:? Alert and orientated x3,? sensation to touch intact in all extremities, no gross deficits noted of cranial nerves. Psych:? Patient has a well-kept appearance, appropriate affect, mental status attitude thought context and judgment are appropriate for age. Objective Labs 11/30/23 10:17 11/30/23 10:17 Labs: Laboratory Results - last 24 hr 11/30/23 11/30/23 11/30/23 10:17 10:31 12:08 WBC 9.3 RBC 3.45 L Hgb 10.8 L Hct 32.1 L MCV 93.1 MCH 31.3 MCHC 33.7 RDW 14.3 Plt Count 289 Neut % (Auto) 73.9 Lymph % (Auto) 9.0 L [place] % (Auto) 15.7 H Eos % (Auto) 0.7 L Baso % (Auto) 0.7 Neut # (Auto) 6900 Lymph # (Auto) 800 L [place] # (Auto) 1500 H Eos # (Auto) 100 Baso # (Auto) 100 PT 12.7 H INR 1.1 APTT 36 Sodium 136 L Potassium 4.7 Chloride 106 Carbon Dioxide 19 L BUN 46 H Creatinine 1.41 H Estimated GFR 37 L BUN/Creatinine Ratio 32.6 H Glucose 112 H Lactate Calcium 9.8 Magnesium 2.9 H Total Bilirubin 0.7 AST 52 H ALT 21 Alkaline Phosphatase 81 Total Creatine Kinase 1122 H Troponin I 0.015 Total Protein 8.9 H Albumin 4.8 Globulin 4.1 Albumin/Globulin Ratio 1.2 Urine RBC 1-5/hpf Urine WBC 10-30/hpf H Ur Squamous Epith Cells 1-5 /hpf Urine Bacteria Moderate (10-30) H Ur Culture Indicated? Specimen cultured Vol Urine Centrifuged 10ml (spun) Chlamy pneumoniae PCR Not detected Adenovirus (PCR) Not detected B.parapertussis DNA PCR Not detected Coronavirus OC43 (PCR) Not detected Coronavirus HKU1 (PCR) Not detected Coronavirus 229E (PCR) Not detected SARS-CoV-2 (PCR) Not detected Coronavirus NL63 (PCR) Not detected Human Metapneumovir PCR Not detected Influenza Type A (PCR) Not detected Influenza Type B (PCR) Not detected M. pneumoniae (PCR) Not detected Parainfluenza 1 (PCR) Not detected Parainfluenza 2 (PCR) Not detected Parainfluenza 3 (PCR) Not detected Parainfluenza 4 (PCR) Not detected RSV (PCR) Not detected Entero/Rhino (PCR) Not detected 11/30/23 12:44 WBC RBC Hgb Hct MCV MCH MCHC RDW Plt Count Neut % (Auto) Lymph % (Auto) [place] % (Auto) Eos % (Auto) Baso % (Auto) Neut # (Auto) Lymph # (Auto) [place] # (Auto) Eos # (Auto) Baso # (Auto) PT INR APTT Sodium Potassium Chloride Carbon Dioxide BUN Creatinine Estimated GFR BUN/Creatinine Ratio Glucose Lactate 0.9 Calcium Magnesium Total Bilirubin AST ALT Alkaline Phosphatase Total Creatine Kinase Troponin I Total Protein Albumin Globulin Albumin/Globulin Ratio Urine RBC Urine WBC Ur Squamous Epith Cells Urine Bacteria Ur Culture Indicated? Vol Urine Centrifuged Chlamy pneumoniae PCR Adenovirus (PCR) B.parapertussis DNA PCR Coronavirus OC43 (PCR) Coronavirus HKU1 (PCR) Coronavirus 229E (PCR) SARS-CoV-2 (PCR) Coronavirus NL63 (PCR) Human Metapneumovir PCR Influenza Type A (PCR) Influenza Type B (PCR) M. pneumoniae (PCR) Parainfluenza 1 (PCR) Parainfluenza 2 (PCR) Parainfluenza 3 (PCR) Parainfluenza 4 (PCR) RSV (PCR) Entero/Rhino (PCR) Assessment & Plan Assessment & Plan narrative: 1. Acute rhabdomyolysis, present on admission - CK 1122, Cr 1.4 on admit. Likely due to fall out of bed and prolonged downtime rather than from traumatic ankle fracture. - continue IV fluids, normal saline - monitor urine output 2. HUMBERTO - continue IV fluids 3. Bimalleolar ankle fracture, pathologic due to known osteoporosis. - OR with orthopedics tomorrow per ER provider whom discussed with orthopedics. - NPO at midnight, continue IV fluids. - patient lives in [facility], has Parkinson's. Usually ambulates with walker at home and cane when going out. 4. HTN, chronic - hold home lisinopril for now with HUMBERTO and soft BP - continue IV fluids 5. hypothyroidism, chronic - recent increase in levothyroxine about 3 months ago, will check TSH with continued weakness. 6. Acute cystitis, present on admission - no real symptoms but given weakness will treat with 3 days of ceftriaxone, follow up urine cultures. 7. Breast cancer s/p radiation with chronic L breast wound - no acute management recommended. 8. Crohn's disease - patient is not on immunomodulating therapy or any specific treatments. Reports no changes in bowel frequency recently. Code: Full, surrogate is patient's daughter DVT: Lovenox daily I have utilized all available immediate resources to obtain, update, or review the patient's current medications. Dispo: patient admitted under inpatient status. Unclear if will be able to discharge home or more likely SNF, will have PT/OT evaluations after operative interventions. Will likely be in the hospital at least 3 days Additional history obtained via discussions with the ER provider. These discussions contributed to the creation of the above assessment and plan. I have reviewed patient's presenting documentation, labs, and imaging personally.
[2023-11-30] MEDS: OXYCODONE IR 5 MG TABLET PO (16:54)
[2023-11-30] MEDS: cefTRIAXone 1,000 MG in SODIUM CHLORIDE 0.9% 100 ML 200 MG IV (16:55)
[2023-11-30] MEDS: SODIUM CHLORIDE 0.9% 1,000 ML 100 ML IV (16:56)
--- NOTE | 2023-11-30 17:39 | P.HP_ITS ---
History of Present Illness History of Present Illness Date Patient Seen: 11/30/23 Time Patient Seen: 17:39 Date of Onset of Symptoms: 11/29/23 Chief complaint: r ankle swelling/deformity Narrative: This is a 82-year-old female who lives on work as with her . She notes some problems with progressive weakness. She kept slipping out of bed and was weak. She then noted progressive problems with right ankle pain. She was unable to ambulate. She was unable to get up and she was home for about a day or more until someone came for a check and referred her to the hospital. She lives with her who has Parkinson's. She eats meals on wheels but her refuses. Her daughter works as a nurse in [place]. [facility] Medical History Lumbar spinal stenosis Post laminectomy syndrome Lumbar radiculopathy Lumbar spondylosis Low back pain Thoracic back pain Myofascial pain Cervical spondylosis Balance problem History of colon polyps History of breast cancer Acute low back pain Ingrown right big toenail Diverticulosis GERD (gastroesophageal reflux disease) Recurrent UTI Atrophic vulvovaginitis Psoriasis (~2010) Actinic keratosis (~2017) Allergies Shoulder pain Scoliosis Osteoporosis Foot pain Chronic back pain (~1989) Tuberculosis Rubella (~1943) Positive PPD (~1980) Measles (~1943) Chicken pox (~1946) Anemia (~1960) Hearing loss Ovarian cyst Irregular menstrual cycle Infertility Heavy menstrual period Fibroids (~1977) Endometriosis (~1959) History of urinary incontinence (~1999) Fecal incontinence Irritable bowel syndrome (~1979) Colon polyps (~2017) Right shoulder pain Chronic diarrhea Postoperative anemia Sleep apnea (~1989) C. difficile enteritis Macular degeneration Incontinence Depression (~1979) Hypothyroidism (~1962) Asthma HTN (hypertension) Hyperlipidemia Cystocele Osteoarthritis Chronic constipation Insomnia Anxiety (~1979) Femur fracture, right Breast cancer (~2010) Surgical History History of hysterectomy for benign disease Hx of foot surgery (~1988) History of reverse total replacement of right shoulder joint (04/08/20) History of cataract removal with insertion of prosthetic lens History of arthroplasty of left knee (03/13/19) S/P lumbar fusion (01/05/18) Status post Mohs surgery for squamous cell carcinoma of skin History of total hysterectomy with bilateral salpingo-oophorectomy (BSO) (~1977) Hx of appendectomy History of bladder surgery History of arthroplasty of right knee Hx of arthroscopy of right knee History of lumpectomy of left breast (2000) History of lumbar fusion Social History household members: spouse Smoking Status: Former smoker alcohol intake: current Meds Home Medications and Allergies Home Medications Medication Instructions Recorded Confirmed Type famotidine 20 mg tablet (Pepcid) 20 mg PO BID #1 tab 07/09/22 10/07/23 Rx cyanocobalamin (vitamin B-12) See Rx Instructions .Route 07/20/22 10/07/23 Rx 1,000 mcg/mL injection solution .COMPLEX #4 mL safety needles 25 gauge x 1 (BD #50 ea 01/25/23 10/07/23 Rx Eclipse) syringe with needle 3 mL 25 gauge #15 ea 01/28/23 10/07/23 Rx x 1 (BD Luer-Kathryn Syringe) gabapentin 300 mg capsule 300 mg PO TID #270 caps 02/09/23 10/07/23 Rx baclofen 10 mg tablet 10 mg PO 4XD #30 tabs 07/22/23 10/07/23 Rx sertraline 25 mg tablet 25 mg PO DAILY #90 tabs 08/25/23 10/07/23 Rx ondansetron HCl 8 mg tablet 8 mg PO DAILY #30 tabs 10/07/23 10/07/23 Rx levothyroxine 88 mcg tablet 88 mcg PO DAILY #90 tabs 10/18/23 Rx amlodipine 2.5 mg tablet 2.5 mg PO .evening for blood 10/26/23 Rx pressure. take every day even if normal. #90 tabs mirtazapine 7.5 mg tablet See Rx Instructions .Route 11/04/23 Rx .COMPLEX for sleep #30 tabs estradiol 0.01% (0.1 mg/gram) 0.5 g vaginal 3XW #42.5 grams 11/15/23 Rx vaginal cream lisinopril 40 mg tablet 40 mg PO DAILY for blood pressure. 11/16/23 Rx take every day even if normal #90 tabs sertraline 100 mg tablet 100 mg PO DAILY #90 tabs 11/16/23 Rx Allergies Allergy/AdvReac Type Severity Reaction Status Date / Time iodine [IODINE] Allergy Intermediate RASH Verified 10/07/23 15:22 adhesive [ADHESIVE] Allergy Mild TAPE, RASH Verified 10/07/23 15:22 nickel Allergy Mild Rash Verified 10/07/23 15:22 Review of Systems Review of Systems Narrative: She was not lightheaded before she fell. She does note that she has a chronic cough. She is wondering if perhaps she had COVID because of her chronic cough but she reportedly was tested and was negative. She has not had new urological symptoms. She does have a history of several falls. Her chief complaint is right ankle pain. Exam Vital Signs (past 8 hours): - 11/30/23 10:15 11/30/23 12:07 11/30/23 13:05 Temperature 98.3 F 98.1 F Pulse Rate 73 74 Respiratory Rate 20 17 Blood Pressure 157/69 H Pulse Oximetry 96 94 Oxygen Delivery Method Room Air Oxygen Flow Rate 11/30/23 13:16 11/30/23 13:16 11/30/23 13:30 Temperature Pulse Rate 73 69 Respiratory Rate 13 10 L Blood Pressure 113/57 L Pulse Oximetry 91 92 Oxygen Delivery Method Oxygen Flow Rate 11/30/23 13:30 11/30/23 14:00 11/30/23 14:00 Temperature Pulse Rate 67 Respiratory Rate 16 Blood Pressure 118/59 L 109/51 L Pulse Oximetry 93 Oxygen Delivery Method Oxygen Flow Rate 11/30/23 14:30 11/30/23 14:30 11/30/23 15:00 Temperature Pulse Rate 65 64 Respiratory Rate 16 22 Blood Pressure 103/53 L Pulse Oximetry 92 93 Oxygen Delivery Method Oxygen Flow Rate 11/30/23 15:00 11/30/23 15:00 11/30/23 15:03 Temperature 98.8 F Pulse Rate 68 Respiratory Rate 23 Blood Pressure 99/50 L Pulse Oximetry 94 Oxygen Delivery Method Oxygen Flow Rate 11/30/23 15:03 11/30/23 15:06 11/30/23 15:06 Temperature Pulse Rate 66 Respiratory Rate 17 Blood Pressure 105/53 L 109/57 L Pulse Oximetry Oxygen Delivery Method Oxygen Flow Rate 11/30/23 15:44 11/30/23 15:44 Temperature 98.0 F Pulse Rate 66 Respiratory Rate 16 Blood Pressure 121/70 Pulse Oximetry 94 95 Oxygen Delivery Method Room Air Oxygen Flow Rate 0 0 Oxygen Delivery Method Room Air Oxygen Flow Rate 0 Narrative Exam Narrative: HEENT is benign, she is resting comfortably in bed lungs are clear cor regular rate and rhythm abdomen is soft and benign, examination of her right lower extremity she has a splint in place she is able to fire her toe flexors and extensors. She has healed scars around her right knee. She does have some capillary refill in the right leg Objective Labs 11/30/23 10:17 11/30/23 10:17 Labs: Laboratory Results - last 24 hr 11/30/23 11/30/23 11/30/23 10:17 10:31 12:08 WBC 9.3 RBC 3.45 L Hgb 10.8 L Hct 32.1 L MCV 93.1 MCH 31.3 MCHC 33.7 RDW 14.3 Plt Count 289 Neut % (Auto) 73.9 Lymph % (Auto) 9.0 L [place] % (Auto) 15.7 H Eos % (Auto) 0.7 L Baso % (Auto) 0.7 Neut # (Auto) 6900 Lymph # (Auto) 800 L [place] # (Auto) 1500 H Eos # (Auto) 100 Baso # (Auto) 100 PT 12.7 H INR 1.1 APTT 36 Sodium 136 L Potassium 4.7 Chloride 106 Carbon Dioxide 19 L BUN 46 H Creatinine 1.41 H Estimated GFR 37 L BUN/Creatinine Ratio 32.6 H Glucose 112 H Lactate Calcium 9.8 Magnesium 2.9 H Total Bilirubin 0.7 AST 52 H ALT 21 Alkaline Phosphatase 81 Total Creatine Kinase 1122 H Troponin I 0.015 Total Protein 8.9 H Albumin 4.8 Globulin 4.1 Albumin/Globulin Ratio 1.2 Urine RBC 1-5/hpf Urine WBC 10-30/hpf H Ur Squamous Epith Cells 1-5 /hpf Urine Bacteria Moderate (10-30) H Ur Culture Indicated? Specimen cultured Vol Urine Centrifuged 10ml (spun) Chlamy pneumoniae PCR Not detected Adenovirus (PCR) Not detected B.parapertussis DNA PCR Not detected Coronavirus OC43 (PCR) Not detected Coronavirus HKU1 (PCR) Not detected Coronavirus 229E (PCR) Not detected SARS-CoV-2 (PCR) Not detected Coronavirus NL63 (PCR) Not detected Human Metapneumovir PCR Not detected Influenza Type A (PCR) Not detected Influenza Type B (PCR) Not detected M. pneumoniae (PCR) Not detected Parainfluenza 1 (PCR) Not detected Parainfluenza 2 (PCR) Not detected Parainfluenza 3 (PCR) Not detected Parainfluenza 4 (PCR) Not detected RSV (PCR) Not detected Entero/Rhino (PCR) Not detected 11/30/23 12:44 WBC RBC Hgb Hct MCV MCH MCHC RDW Plt Count Neut % (Auto) Lymph % (Auto) [place] % (Auto) Eos % (Auto) Baso % (Auto) Neut # (Auto) Lymph # (Auto) [place] # (Auto) Eos # (Auto) Baso # (Auto) PT INR APTT Sodium Potassium Chloride Carbon Dioxide BUN Creatinine Estimated GFR BUN/Creatinine Ratio Glucose Lactate 0.9 Calcium Magnesium Total Bilirubin AST ALT Alkaline Phosphatase Total Creatine Kinase Troponin I Total Protein Albumin Globulin Albumin/Globulin Ratio Urine RBC Urine WBC Ur Squamous Epith Cells Urine Bacteria Ur Culture Indicated? Vol Urine Centrifuged Chlamy pneumoniae PCR Adenovirus (PCR) B.parapertussis DNA PCR Coronavirus OC43 (PCR) Coronavirus HKU1 (PCR) Coronavirus 229E (PCR) SARS-CoV-2 (PCR) Coronavirus NL63 (PCR) Human Metapneumovir PCR Influenza Type A (PCR) Influenza Type B (PCR) M. pneumoniae (PCR) Parainfluenza 1 (PCR) Parainfluenza 2 (PCR) Parainfluenza 3 (PCR) Parainfluenza 4 (PCR) RSV (PCR) Entero/Rhino (PCR) x-rays show a slightly displaced right bimalleolar ankle fracture Assessment & Plan Assessment and plan (1) Closed right ankle fracture: Qualifiers: Encounter type: initial encounter Qualified Code(s): S82.891A - Other fracture of right lower leg, initial encounter for closed fracture Status: Acute (2) Weakness: Status: Acute (3) Acute kidney injury: Status: Acute (4) Rhabdomyolysis: Qualifiers: Encounter type: initial encounter Rhabdomyolysis type: traumatic Qualified Code(s): T79.6XXA - Traumatic ischemia of muscle, initial encounter Status: Acute (5) Osteoporosis: Problem details: with history of femur fracture on bisphosphonate 2012 Qualifiers: Osteoporosis type: age-related Presence of current pathological fracture: without current pathological fracture Qualified Code(s): M81.0 - Age- related osteoporosis without current pathological fracture Status: Acute Plan She was admitted to the medicine service. Clearly she is having substantial problems. She is having problems with weakness. She is currently being hydrated and worked up to rule out treatable causes of weakness. I spoke to Dr. Ponce he said that he felt she would likely be stabilized for surgery tomorrow. She does have some component of rhabdo my lysis and acute on chronic kidney injury. She has a right trimalleolar ankle fracture. The plan is for open reduction internal fixation. I anticipate that she will be able to be partial weight-bearing on the right lower extremity. She needs to be admitted as an inpatient because of her rhabdo, acute right ankle fracture, and substantial weakness. Quality VTE Deep Vein Thrombosis/Pulmonary Embolism Present on Admission: No
[2023-12-01] VITALS (8 sets, daily range): BP systolic 117–142; BP diastolic 66–78; PULSE 76–86; RESP 16–18; TEMP 36.2–37.7; O2SAT 92–95; BMI 31.2
[2023-12-01] MEDS: SODIUM CHLORIDE 0.9% 1,000 ML 100 ML IV ×2 (03:21→13:01)
[2023-12-01 06:28] LABS: Add Manual Diff / Slide Review NO; Basophils Absolute Auto 0 /uL (0-100); Basophils Percent Auto 0.4 % (0-2); Eosinophils Absolute Auto 100 /uL (0-450); Eosinophils Percent Auto 1.5 % (2-4); Hematocrit 27.5 % (36-46); Hemoglobin 9.5 g/dL (12.0-16.0); Lymphocytes Absolute Auto 800 /uL (1100-4500); Lymphocytes Percent Auto 8.8 % (25-40); Mean Corpuscular HGB Conc 34.6 % (30-36); Mean Corpuscular Hemoglobin 32.1 PG (26-34); Mean Corpuscular Volume 92.9 fL (80-100); Monocytes Absolute Auto 1300 /uL (0-900); Monocytes Percent Auto 13.7 % (3-14); Neutrophils Absolute Auto 6900 /uL (1500-7000); Neutrophils Percent Auto 75.6 % (50-75); Platelet Count 284 X10^3/uL (150-400); Red Blood Cell Count 2.96 X10^6/uL (4.0-5.2); Red Cell Distribution Width 13.7 % (11.6-14.8); White Blood Cell Count 9.1 X10^3/uL (4.5-11.0)
[2023-12-01 06:39] LABS: Creatine Kinase 715 U/L (30-135)
[2023-12-01 06:42] LABS: BUN Creatinine Ratio 28.7 (6-22); Blood Urea Nitrogen 27 mg/dL (7-17); Calcium 8.5 mg/dL (8.4-10.2); Carbon Dioxide 20 mmol/L (22-32); Chloride 110 mmol/L (98-107); Estimated Glomerular Filt Rate > 60 mL/min (>60); Glucose 111 mg/dL (80-110); HEMOLYSIS < 15 (0-50); Potassium 4.8 mmol/L (3.4-5.1); Sodium 138 mmol/L (137-145)
--- NOTE | 2023-12-01 07:20 | P.PN_ITS ---
Subjective Subjective Interval history: Narrative: 82 F with PMH of crohn's HTN, hypothyroid, osteoporosis, breast ca s/p lumpectomy with chemo and radiation who presented with weakness ongoing over the past week. She has felt cough and chills but no fever at home. She denies nausea, vomiting or diarrhea She fell getting out of bed a few days ago, injured her R ankle. She was able to get back in to bed but had a similar incident falling off the bed again and had been on the floor all night. She denies hitting her head or loss of consciousness. Imaging showed a bimalleolar R ankle fracture in the ER but no other acute injuries. She does have a chronic C1 fracture, and currently denies any neck pain. S: Minimal right ankle pain. She was scheduled for operative repair today. She denies chest pain, or acute on chronic neck pain. She was when fracture. She lives [facility] with her and uses a walker at night. She will be nonweightbearing post surgery for likely 4-6 weeks and require a rehab stay at [facility]. Exam Vital Signs (past 8 hours): - 12/01/23 00:17 12/01/23 05:30 12/01/23 05:54 Temperature 97.9 F 99.9 F H 98.9 F Pulse Rate 83 86 Respiratory Rate 16 16 Blood Pressure 121/66 117/68 Pulse Oximetry 92 92 Oxygen Delivery Method Room Air Oxygen Flow Rate 0 Narrative Exam Narrative: NAD, alert and oriented. Fluent speech. Lungs are clear, normal rate and effort. Heart is regular, no murmur gallop or rub. Abdomen is soft, non distended. Extremities are free of edema. Right ankle is wrapped, good cap refill movement of toes. Objective Labs 12/01/23 06:00 12/01/23 06:00 Labs: Laboratory Results - last 24 hr 11/30/23 11/30/23 11/30/23 10:17 10:31 12:08 WBC 9.3 RBC 3.45 L Hgb 10.8 L Hct 32.1 L MCV 93.1 MCH 31.3 MCHC 33.7 RDW 14.3 Plt Count 289 Neut % (Auto) 73.9 Lymph % (Auto) 9.0 L [place] % (Auto) 15.7 H Eos % (Auto) 0.7 L Baso % (Auto) 0.7 Neut # (Auto) 6900 Lymph # (Auto) 800 L [place] # (Auto) 1500 H Eos # (Auto) 100 Baso # (Auto) 100 PT 12.7 H INR 1.1 APTT 36 Sodium 136 L Potassium 4.7 Chloride 106 Carbon Dioxide 19 L BUN 46 H Creatinine 1.41 H Estimated GFR 37 L BUN/Creatinine Ratio 32.6 H Glucose 112 H Lactate Calcium 9.8 Magnesium 2.9 H Total Bilirubin 0.7 AST 52 H ALT 21 Alkaline Phosphatase 81 Total Creatine Kinase 1122 H Troponin I 0.015 Total Protein 8.9 H Albumin 4.8 Globulin 4.1 Albumin/Globulin Ratio 1.2 Urine RBC 1-5/hpf Urine WBC 10-30/hpf H Ur Squamous Epith Cells 1-5 /hpf Urine Bacteria Moderate (10-30) H Ur Culture Indicated? Specimen cultured Vol Urine Centrifuged 10ml (spun) Chlamy pneumoniae PCR Not detected Adenovirus (PCR) Not detected B.parapertussis DNA PCR Not detected Coronavirus OC43 (PCR) Not detected Coronavirus HKU1 (PCR) Not detected Coronavirus 229E (PCR) Not detected SARS-CoV-2 (PCR) Not detected Coronavirus NL63 (PCR) Not detected Human Metapneumovir PCR Not detected Influenza Type A (PCR) Not detected Influenza Type B (PCR) Not detected M. pneumoniae (PCR) Not detected Parainfluenza 1 (PCR) Not detected Parainfluenza 2 (PCR) Not detected Parainfluenza 3 (PCR) Not detected Parainfluenza 4 (PCR) Not detected RSV (PCR) Not detected Entero/Rhino (PCR) Not detected 11/30/23 12/01/23 12:44 06:00 WBC 9.1 RBC 2.96 L Hgb 9.5 L Hct 27.5 L MCV 92.9 MCH 32.1 MCHC 34.6 RDW 13.7 Plt Count 284 Neut % (Auto) 75.6 H Lymph % (Auto) 8.8 L [place] % (Auto) 13.7 Eos % (Auto) 1.5 L Baso % (Auto) 0.4 Neut # (Auto) 6900 Lymph # (Auto) 800 L [place] # (Auto) 1300 H Eos # (Auto) 100 Baso # (Auto) 0 PT INR APTT Sodium 138 Potassium 4.8 Chloride 110 H Carbon Dioxide 20 L BUN 27 H Creatinine 0.94 Estimated GFR > 60 BUN/Creatinine Ratio 28.7 H Glucose 111 H Lactate 0.9 Calcium 8.5 Magnesium Total Bilirubin AST ALT Alkaline Phosphatase Total Creatine Kinase 715 H Troponin I Total Protein Albumin Globulin Albumin/Globulin Ratio Urine RBC Urine WBC Ur Squamous Epith Cells Urine Bacteria Ur Culture Indicated? Vol Urine Centrifuged Chlamy pneumoniae PCR Adenovirus (PCR) B.parapertussis DNA PCR Coronavirus OC43 (PCR) Coronavirus HKU1 (PCR) Coronavirus 229E (PCR) SARS-CoV-2 (PCR) Coronavirus NL63 (PCR) Human Metapneumovir PCR Influenza Type A (PCR) Influenza Type B (PCR) M. pneumoniae (PCR) Parainfluenza 1 (PCR) Parainfluenza 2 (PCR) Parainfluenza 3 (PCR) Parainfluenza 4 (PCR) RSV (PCR) Entero/Rhino (PCR) [facility] Medical History Lumbar spinal stenosis Post laminectomy syndrome Lumbar radiculopathy Lumbar spondylosis Low back pain Thoracic back pain Myofascial pain Cervical spondylosis Balance problem History of colon polyps History of breast cancer Acute low back pain Ingrown right big toenail Diverticulosis GERD (gastroesophageal reflux disease) Recurrent UTI Atrophic vulvovaginitis Psoriasis (~2010) Actinic keratosis (~2017) Allergies Shoulder pain Scoliosis Osteoporosis Foot pain Chronic back pain (~1989) Tuberculosis Rubella (~1943) Positive PPD (~1980) Measles (~194) Chicken pox (~1946) Anemia (~1960) Hearing loss Ovarian cyst Irregular menstrual cycle Infertility Heavy menstrual period Fibroids (~1977) Endometriosis (~1959) History of urinary incontinence (~1999) Fecal incontinence Irritable bowel syndrome (~1979) Colon polyps (~2017) Right shoulder pain Chronic diarrhea Postoperative anemia Sleep apnea (~1989) C. difficile enteritis Macular degeneration Incontinence Depression (~1979) Hypothyroidism (~1962) Asthma HTN (hypertension) Hyperlipidemia Cystocele Osteoarthritis Chronic constipation Insomnia Anxiety (~1979) Femur fracture, right Breast cancer (~2010) Surgical History History of hysterectomy for benign disease Hx of foot surgery (~1988) History of reverse total replacement of right shoulder joint (11/09/20) History of cataract removal with insertion of prosthetic lens History of arthroplasty of left knee (03/13/19) S/P lumbar fusion (01/05/18) Status post Mohs surgery for squamous cell carcinoma of skin History of total hysterectomy with bilateral salpingo-oophorectomy (BSO) (~1977) Hx of appendectomy History of bladder surgery History of arthroplasty of right knee Hx of arthroscopy of right knee History of lumpectomy of left breast (2000) History of lumbar fusion Social History household members: spouse Smoking Status: Former smoker alcohol intake: current Assessment & Plan Assessment & Plan narrative: 1. Acute rhabdomyolysis, present on admission and improving. - CK 1122, Cr 1.4 on admit. Likely due to fall out of bed and prolonged downtime rather than from traumatic ankle fracture. - continue IV fluids, normal saline - monitor urine output 2. HUMBERTO, present on admission and resolved. - continue IV fluids 3. Bimalleolar ankle fracture, pathologic due to known osteoporosis. Present on admission and active. - operative repair today per Dr. Gonsales. - patient lives in [facility], has Parkinson's. Usually ambulates with walker at home and cane when going out. 4. HTN, present on admission and active. - hold home lisinopril for now with HUMBERTO and soft BP - continue IV fluids 5. hypothyroidism, present on admission and active. - recent increase in levothyroxine about 3 months ago, will check TSH with continued weakness. 6. Acute cystitis, present on admission and active. - no real symptoms but given weakness will treat with 3 days of ceftriaxone, follow up urine cultures. 7. Breast cancer s/p radiation with chronic L breast wound, present on admission and active. - no acute management recommended. 8. Crohn's disease, present on admission and active. - patient is not on immunomodulating therapy or any specific treatments. Reports no changes in bowel frequency recently. PLAN: She will required senior care facility stay after discharge as she will be nonweightbearing for 6 weeks. She lives on [facility] with her . Quality VTE Deep Vein Thrombosis/Pulmonary Embolism Present on Admission: No
[2023-12-01] MEDS: ONDANSETRON 4 MG/2 ML INJ IV (12:58)
[2023-12-01] MEDS: OXYCODONE IR 5 MG TABLET PO (15:53)
[2023-12-01] MEDS: cefTRIAXone 1,000 MG in SODIUM CHLORIDE 0.9% 100 ML 200 MG IV (15:54)
--- NOTE | 2023-12-01 15:55 | CM.DANOTE ---
Addendum entered by ARNEL Garcia 12/01/23 16:34: Level 1 PASRR completed in anticipation of needing SNF. Will need to be level 2 reviewed- pt will be non weight baring for 6 weeks. Need to send to PASRR coordinator for review. PARTH Original Note: Brief DCP Assessment Note Pt is a 82yo F here after a fall out of bed resulting in a right ankle fracture. Pt is here under INPT status. PCP Allison Triana Payer medicare and aarp ELECTRIC TRIPPER MACHINE OPERATOR reviewed EMR. Pt in addition to ankle fracture, has rhabdo and PMH of breast cancer, the radiation from which resulted in chronic wound under her left breast. Wound care managed by OP wound clinic in [place]. Her and spouse live together on [address]. Pt's spouse has parkinson's and she is the primary caregiver for him. Per RN, pt's dtr lives in [place] and was here to assist with pt's spouse. Per hospitalist, it is likely that pt will require SNF post op due to being non weightbearing for 6 weeks. Pt is scheduled to have surgery on ankle Wednesday at 5pm. ELECTRIC TRIPPER MACHINE OPERATOR attempted to meet with pt in room, sleeping heavily, allowed to rest. CM team will follow for PT/OT evals post op. Pt will qualify for SNF under medicare starting Saturday 12/02. P: DCP pending post op recs/needs, anticipate SNF. PASRR needed. CM team will follow closely. ARNEL Garcia Discharge Planning/Care Management CM Discharge Assessment Start: 12/01/23 15:52 Freq: Status: Active Protocol: Document 12/01/23 15:52 (Rec: 12/01/23 15:55 [id number]) Discharge Planning Assessment Assigned Leasing Representative ARNEL Moore DPOA/Assigned Designee Name Greg spouse Contact Information [phone] Advance Directives? Yes: Healthcare Directive/ Supplement & DPOA Advance Directives on File No History Provided By Patient,Medical Record Prior Living Arrangements House Household Members spouse Independent with ADL's Yes Is patient alert and oriented? Yes DME Already Rented / Owned FWW / Walker Discharge Plan Home Transportation Arrangement home vs SNF Additional Comment Home versus skilled, pending P .T/O.T. If patient plan is SNF: Has PASSR been No completed? Whiteboard Updated in Patient Room with No name and ext. # of Leasing Representative Review Status In Process Please Provide Date Initial DC 12/01/23 Assessment Was Performed Next Review Type Continued Stay Review
--- NOTE | 2023-12-01 16:33 | P.OP_ITS ---
Operative Date/Time/Diagnoses Date of procedure: 12/01/23 Time of procedure: 20:30 Pre-op diagnosis: Right ankle bimalleolar ankle fracture Post-op diagnosis: same Procedure & Clinicians Procedure: Right ankle open reduction internal fixation with fixation of a lateral fibula fracture and patient of a medial malleolus fracture Same procedure as scheduled: Yes Indications: This 82-year-old female who fell several times and was slipping out of bed and was found to have a right ankle fracture. She was admitted after being down for about a day with a kidney injury in addition to a fractured ankle. She was stabilized and is now brought to the operating room for open reduction internal fixation. Surgeon: Carmel Gonsales Click Yes if Unassisted: Yes Anesthesia Type: General Operative Notes Findings: Soft bone, comminuted fracture, stable fixation Closure Type: primary Specimen(s): none sent Prosthetic devices, grafts, tissues, transplants, or devices: Gonsales and nephew 2.7 mm lateral distal fibular 5 hole plate, multiple locking and nonlocking screws, 1 screw on the medial malleolus Estimated Blood Loss (mL): 200 Blood products transfused: none Tourniquet time (min): 64 Procedure in detail: Patient was brought to the operating room. She underwent induction of anesthesia. Her right lower extremity prepped draped standard sterile fashion. A time-out was performed. She was given IV antibiotics. High-thigh tourniquet was applied and elevated to 250 mmHg. An incision was made on the lateral aspect of the ankle dissection was carried out through skin and subcutaneous tissues. Small retractors were placed. The lateral malleolus was meticulously reduced and stabilized with a lateral plate. She had soft bone but a stable fixation was achieved. There was good alignment of the fibula. The reduction and plate placement fixation was checked with fluoroscopy. Attention was then directed to the medial side. Medial skin incision was made dissection was ca rried out through skin and subcutaneous tissues. The medial malleolus malleolus fracture was a small fracture slightly comminuted and quite soft. It was meticulously reduced and fixed with 1 screws and multiple suture. The wound was meticulously irrigated with normal saline. Final mini C-arm x-rays were taken and confirmed reduction. The wound was closed with interrupted Vicryl and skin anais. The wounds were injected with Marcaine. The wounds were dressed sterilely. She was placed in a bulky Plasencia splint. Complications: none Post-operative Condition: stable Disposition: Acute Care Plan for aftercare: Partial weight-bearing on the right lower extremity maximum 100 lbs. Elevation and ice. Rehab if needed in order to make safe transition and continue partial weight-bearing.
[2023-12-01] MEDS: SODIUM CHLORIDE 0.9% FLUSH 10 ML IV (21:22)
--- NOTE | 2023-12-01 22:12 | PM.PREOP ---
Pre-operative Note Interval Note History & Physical reviewed/Exam performed by Physician: Yes Changes to H&P: No
[2023-12-01] MEDS: CEFAZOLIN 2 GM/100 ML PREMIX 100 ML IV (22:55)
[2023-12-01] MEDS: ACETAMINOPHEN IV 1,000 MG/100 ML VIAL 400 MG IV (23:00)
--- NOTE | 2023-12-01 23:07 | SUR.OPER ---
Supine on padded OR bed, head on pillow, arms secured on padded arm boards at <90 degrees abduction, bump under right hip, legs uncrossed, safety belt at thigh, tape over blanket over lower nonoperative leg.
[2023-12-01] MEDS: BUPIVACAINE 0.5% (PF) 30 ML VIAL INJ (23:13)
[2023-12-01] MEDS: LACTATED RINGERS 1,000 ML 42 ML IV (23:33)
[2023-12-02] VITALS (16 sets, daily range): BP systolic 121–149; BP diastolic 53–87; PULSE 60–74; RESP 12–17; TEMP 36.4–37.1; O2SAT 90–100
[2023-12-02] MEDS: LACTATED RINGERS 1,000 ML 100 ML IV ×2 (02:53→03:49)
[2023-12-02] MEDS: diphenhydrAMINE 50 MG/ML VIAL IV (03:49)
[2023-12-02] MEDS: ACETAMINOPHEN 325 MG TABLET 650 MG PO ×3 (03:50→16:41)
[2023-12-02] MEDS: OXYCODONE IR 5 MG TABLET PO ×6 (03:50→22:50)
[2023-12-02] MEDS: CEFAZOLIN 2 GM/100 ML PREMIX 100 ML IV (06:00)
[2023-12-02 06:13] LABS: Add Manual Diff / Slide Review NO; Basophils Absolute Auto 0 /uL (0-100); Basophils Percent Auto 0.6 % (0-2); Eosinophils Absolute Auto 200 /uL (0-450); Eosinophils Percent Auto 1.8 % (2-4); Hematocrit 28.1 % (36-46); Hemoglobin 9.5 g/dL (12.0-16.0); Lymphocytes Absolute Auto 1400 /uL (1100-4500); Mean Corpuscular HGB Conc 33.7 % (30-36); Mean Corpuscular Hemoglobin 31.5 PG (26-34); Mean Corpuscular Volume 93.5 fL (80-100); Monocytes Absolute Auto 1500 /uL (0-900); Monocytes Percent Auto 17.1 % (3-14); Neutrophils Absolute Auto 5600 /uL (1500-7000); Neutrophils Percent Auto 64.5 % (50-75); Platelet Count 257 X10^3/uL (150-400); Red Blood Cell Count 3.01 X10^6/uL (4.0-5.2); Red Cell Distribution Width 13.9 % (11.6-14.8); White Blood Cell Count 8.7 X10^3/uL (4.5-11.0)
[2023-12-02 06:19] LABS: BUN Creatinine Ratio 23.5 (6-22); Blood Urea Nitrogen 19 mg/dL (7-17); Calcium 8.2 mg/dL (8.4-10.2); Carbon Dioxide 20 mmol/L (22-32); Chloride 110 mmol/L (98-107); Estimated Glomerular Filt Rate > 60 mL/min (>60); Glucose 96 mg/dL (80-110); HEMOLYSIS < 15 (0-50); Potassium 4.4 mmol/L (3.4-5.1); Sodium 138 mmol/L (137-145)
[2023-12-02] MEDS: polyethylene glycoL 3350 17 GM POWD.PACK PO (08:45)
--- NOTE | 2023-12-02 10:49 | CM.DPC ---
Addendum entered by ARNEL Hopkins 12/02/23 13:01: ADD: Return call from Jennifer at [facility] and she confirms that they can accept pt and potentially tomorrow if she is stable if in the afternoon vs Sat AM. SW confirmed with PT that pt is safe to transport via w/c and does NOT need stretcher. Pt likely may not be auth'd for the full 6 weeks NWB but to work with PT for a few weeks so she can transfer and then d/c home with assist and HH. Pt and Dtr agreeable. BF Addendum entered by ARNEL Hopkins 12/02/23 10:59: ADD: PHAM faxed [facility] RN station and admissions new referral as unclear who is covering admissions today since its a holiday. Waiting for confirmation they reviewed. BF Original Note: DCP SNF Planning: Per MD and Ortho, pt tolerated surgery well and currently on PO pain meds and [facility] to [facility] and not yet medically stable to d/c today. PT/OT ordered and pending for this morning, likely SNF as pt is NWB for 6 weeks. SW spoke to Dtr/DPOA and pt bedside and they confirm that pt's spouse cannot safely manage pt at home and Dtr lives Wednesday and can come over multiple times a week on [facility] but sometimes ferry is not reliable and Dtr is working so cannot stay with pt and spouse. Pt has hx of SNF at [facility] after prior knee surgery and shoulder surgery a few years ago and preference is [facility] for SNF rehab before home with HH and Dtr/spouse assist. SW updated them that if [facility] cannot accept then next closest will be [facility]. SW called [facility] and left ms requesting review and possible discharge tomorrow 12/02 but hopeful no delays due to the holiday today. PASRR previously completed in anticipation of SNF. Plan: SW to follow for [facility] review to confirm they can accept when stable for discharge.
--- NOTE | 2023-12-02 10:54 | PM.PNPO.1 ---
Subjective Subjective Date Patient Seen: 12/02/23 Time Patient Seen: 10:54 Interval history: Pt sitting up in bed, c/o being sore. Exam Vital Signs (past 8 hours): - 12/02/23 02:58 12/02/23 03:58 12/02/23 08:00 Temperature 97.6 F 98.1 F 97.9 F Pulse Rate 64 61 62 Respiratory Rate 16 16 16 Blood Pressure 139/76 123/81 149/87 H Pulse Oximetry 91 93 99 Oxygen Flow Rate 2 Fraction of Inspired Oxygen 28 SaO2/FiO2 Ratio 357 Oxygen Delivery Method CPAP Oxygen Flow Rate 2 Narrative Exam Narrative: Pt able to wiggle all toes, brisk capillary refill, sensation to touch intact in areas of exposed LE. Dressing CDI. Objective Labs 12/02/23 05:53 12/02/23 05:53 Labs: Laboratory Results - last 24 hr 12/02/23 05:53 WBC 8.7 RBC 3.01 L Hgb 9.5 L Hct 28.1 L MCV 93.5 MCH 31.5 MCHC 33.7 RDW 13.9 Plt Count 257 Neut % (Auto) 64.5 Lymph % (Auto) 16.0 L [place] % (Auto) 17.1 H Eos % (Auto) 1.8 L Baso % (Auto) 0.6 Neut # (Auto) 5600 Lymph # (Auto) 1400 [place] # (Auto) 1500 H Eos # (Auto) 200 Baso # (Auto) 0 Sodium 138 Potassium 4.4 Chloride 110 H Carbon Dioxide 20 L BUN 19 H Creatinine 0.81 Estimated GFR > 60 BUN/Creatinine Ratio 23.5 H Glucose 96 Calcium 8.2 L PFSH Medical History Lumbar spinal stenosis Post laminectomy syndrome Lumbar radiculopathy Lumbar spondylosis Low back pain Thoracic back pain Myofascial pain Cervical spondylosis Balance problem History of colon polyps History of breast cancer Acute low back pain Ingrown right big toenail Diverticulosis GERD (gastroesophageal reflux disease) Recurrent UTI Atrophic vulvovaginitis Psoriasis (~2010) Actinic keratosis (~2017) Allergies Shoulder pain Scoliosis Osteoporosis Foot pain Chronic back pain (~1989) Tuberculosis Rubella (~1943) Positive PPD (~1980) Measles (~1943) Chicken pox (~1946) Anemia (~1960) Hearing loss Ovarian cyst Irregular menstrual cycle Infertility Heavy menstrual period Fibroids (~1977) Endometriosis (~1959) History of urinary incontinence (~1999) Fecal incontinence Irritable bowel syndrome (~1979) Colon polyps (~2017) Right shoulder pain Chronic diarrhea Postoperative anemia Sleep apnea (~1989) C. difficile enteritis Macular degeneration Incontinence Depression (~1979) Hypothyroidism (~1962) Asthma HTN (hypertension) Hyperlipidemia Cystocele Osteoarthritis Chronic constipation Insomnia Anxiety (~1979) Femur fracture, right Breast cancer (~2010) Surgical History History of hysterectomy for benign disease Hx of foot surgery (~1988) History of reverse total replacement of right shoulder joint (04/08/20) History of cataract removal with insertion of prosthetic lens History of arthroplasty of left knee (03/13/19) S/P lumbar fusion (01/05/18) Status post Mohs surgery for squamous cell carcinoma of skin History of total hysterectomy with bilateral salpingo-oophorectomy (BSO) (~1977) Hx of appendectomy History of bladder surgery History of arthroplasty of right knee Hx of arthroscopy of right knee History of lumpectomy of left breast (2000) History of lumbar fusion Social History household members: spouse Smoking Status: Former smoker alcohol intake: current Assessment & Plan Post-op Assessment and plan (1) Closed right ankle fracture: Assessment and Plan narrative: Per op note, plate and screws to distal fibula. Medial malleolus repaired w/ single screw and multiple sutures. PT to evaluate and treat. PWB to 100 pounds. ASA 81mg BID x 6 weeks for VTE prophylaxis. Disposition and pain control per hospitalist service. Pt may need rehab prior to homegoing if she is unable to maintain PWB independently. Postoperative Procedures: Procedures Operation Date: 12/01/23 17:45 Actual Procedure Side Surgeon p Right ORIF Ankle Fracture Right Carmel Gonsales MD Postoperative day: 1 Quality VTE Deep Vein Thrombosis/Pulmonary Embolism Present on Admission: No
--- NOTE | 2023-12-02 12:16 | PM.PN.1 ---
Subjective Subjective Date Patient Seen: 12/02/23 Time Patient Seen: 08:50 Interval history: The patient is postoperative day 1 status post right ankle ORIF. She anticipates [facility] [facility] until able to return home to [facility]. She reports dysuria today. Exam Vital Signs (past 8 hours): - 12/02/23 08:00 Temperature 97.9 F Pulse Rate 62 Respiratory Rate 16 Blood Pressure 149/87 H Pulse Oximetry 99 Oxygen Flow Rate 2 Fraction of Inspired Oxygen 28 SaO2/FiO2 Ratio 357 Oxygen Delivery Method CPAP Oxygen Flow Rate 2 Narrative Exam Narrative: NAD, alert and oriented. Fluent speech. Lungs are clear, normal rate and effort. Heart is regular, no murmur gallop or rub. Abdomen is soft, nontender, non distended. Extremities are without edema. Right ankle is wrapped, good cap refill movement of toes, sensation intact. Objective Labs 12/02/23 05:53 12/02/23 05:53 Labs: Laboratory Results - last 24 hr 12/02/23 05:53 WBC 8.7 RBC 3.01 L Hgb 9.5 L Hct 28.1 L MCV 93.5 MCH 31.5 MCHC 33.7 RDW 13.9 Plt Count 257 Neut % (Auto) 64.5 Lymph % (Auto) 16.0 L [place] % (Auto) 17.1 H Eos % (Auto) 1.8 L Baso % (Auto) 0.6 Neut # (Auto) 5600 Lymph # (Auto) 1400 [place] # (Auto) 1500 H Eos # (Auto) 200 Baso # (Auto) 0 Sodium 138 Potassium 4.4 Chloride 110 H Carbon Dioxide 20 L BUN 19 H Creatinine 0.81 Estimated GFR > 60 BUN/Creatinine Ratio 23.5 H Glucose 96 Calcium 8.2 L PFSH Medical History Lumbar spinal stenosis Post laminectomy syndrome Lumbar radiculopathy Lumbar spondylosis Low back pain Thoracic back pain Myofascial pain Cervical spondylosis Balance problem History of colon polyps History of breast cancer Acute low back pain Ingrown right big toenail Diverticulosis GERD (gastroesophageal reflux disease) Recurrent UTI Atrophic vulvovaginitis Psoriasis (~2010) Actinic keratosis (~2017) Allergies Shoulder pain Scoliosis Osteoporosis Foot pain Chronic back pain (~1989) Tuberculosis Rubella (~194) Positive PPD (~1980) Measles (~194) Chicken pox (~1946) Anemia (~1960) Hearing loss Ovarian cyst Irregular menstrual cycle Infertility Heavy menstrual period Fibroids (~1977) Endometriosis (~1959) History of urinary incontinence (~1999) Fecal incontinence Irritable bowel syndrome (~1979) Colon polyps (~2017) Right shoulder pain Chronic diarrhea Postoperative anemia Sleep apnea (~1989) C. difficile enteritis Macular degeneration Incontinence Depression (~1979) Hypothyroidism (~1962) Asthma HTN (hypertension) Hyperlipidemia Cystocele Osteoarthritis Chronic constipation Insomnia Anxiety (~1979) Femur fracture, right Breast cancer (~2010) Surgical History History of hysterectomy for benign disease Hx of foot surgery (~1988) History of reverse total replacement of right shoulder joint (04/08/20) History of cataract removal with insertion of prosthetic lens History of arthroplasty of left knee (03/13/19) S/P lumbar fusion (01/05/18) Status post Mohs surgery for squamous cell carcinoma of skin History of total hysterectomy with bilateral salpingo-oophorectomy (BSO) (~1977) Hx of appendectomy History of bladder surgery History of arthroplasty of right knee Hx of arthroscopy of right knee History of lumpectomy of left breast (2000) History of lumbar fusion Social History household members: spouse Smoking Status: Former smoker alcohol intake: current Assessment & Plan Assessment & Plan narrative: 1. Acute rhabdomyolysis, present on admission and improving. - CK 1122, Cr 1.4 on admit, down to 715 on 12/01/2023. Likely due to fall out of bed and prolonged downtime rather than from traumatic ankle fracture. - DC IV fluids, encourage oral intake - monitor urine output 2. HUMBERTO, present on admission and resolved. - stop IV fluids 3. Bimalleolar ankle fracture, pathologic due to known osteoporosis. Present on admission and active. - operative repair 12/01/[address] Gonsales. - patient lives in [facility], has Parkinson's. Usually ambulates with walker at home and cane when going out. 4. HTN, present on admission and active. - resume home lisinopril with resolved HUMBERTO and rising BP - stop IV fluids 5. hypothyroidism, present on admission and active. - recent increase in levothyroxine about 3 months ago, will check TSH with continued weakness. 6. Acute cystitis, present on admission and active. - symptomatic with dysuria and weakness will treat with 3 days of ceftriaxone, follow up urine cultures, negative to date. 7. Breast cancer s/p radiation with chronic L breast wound, present on admission and active. - no acute management recommended. No evidence of disease. 8. Crohn's disease, present on admission and active. - patient is not on immunomodulating therapy or any specific treatments. Reports no changes in bowel frequency recently. 9. DVT prophylaxis. Continue aspirin 81 mg b.i.d. x6 weeks per Orthopedics. PLAN: She will required [facility] [facility] facility stay after discharge as she will be nonweightbearing for 6 weeks. She lives on [facility] with her . Stop IVF Resume home lisinopril as well as levothyroxine, sertraline, gabapentin, famotidine, and mirtazapine Check TSH Time-Based Coding :: [TOTAL MINUTES] spent with patient and on the chart (including review of chart, obtaining history, exam, reviewing outside data, placing orders, documenting exam and treatment plan, and counseling patient) on [DATE]. Quality VTE Deep Vein Thrombosis/Pulmonary Embolism Present on Admission: No IH PROFEE Charge codes Subsequent inpatient/observation care: 68555
[2023-12-02] MEDS: lisinopriL 20 MG TABLET 40 MG PO (13:36)
[2023-12-02] MEDS: SERTRALINE 50 MG TABLET 100 MG PO (13:36)
[2023-12-02] MEDS: SERTRALINE 50 MG TABLET 25 MG PO (13:37)
--- NOTE | 2023-12-02 13:40 | PT.IIE ---
Addendum entered and electronically signed by Radha Yanez, PT 12/02/23 13:41: PT direct supervision to student PT Original Note: Current Diagnoses Age-related osteoporosis without current pathological fracture (11/30/23) Acute kidney failure, unspecified (11/30/23) Weakness (11/30/23) Other fracture of right lower leg, initial encounter for closed fracture (11/30/23) Traumatic ischemia of muscle, initial encounter (11/30/23) Surgery Performed Operation Date: 12/01/23 17:45 Actual Procedures p Right ORIF Ankle Fracture(Right) - Carmel Gonsales MD Surgical History (Last Reviewed 12/02/23 @ 12:21 by Raffaele Partida MD) History of arthroplasty of left knee (03/13/19) History of arthroplasty of right knee History of bladder surgery History of cataract removal with insertion of prosthetic lens History of hysterectomy for benign disease History of lumbar fusion History of lumpectomy of left breast (2000) History of reverse total replacement of right shoulder joint (04/08/20) History of total hysterectomy with bilateral salpingo-oophorectomy (BSO) (~1977) Hx of appendectomy Hx of arthroscopy of right knee Hx of foot surgery (~1988) S/P lumbar fusion (01/05/18) Status post Mohs surgery for squamous cell carcinoma of skin Medical History (Last Reviewed 12/02/23 @ 12:21 by Raffaele Partida MD) Actinic keratosis (~2017) Acute low back pain Allergies Anemia (~1960) Anxiety (~1979) Asthma Atrophic vulvovaginitis Balance problem Breast cancer (~2010) C. difficile enteritis Cervical spondylosis Chicken pox (~1946) Chronic back pain (~1989) Chronic constipation Chronic diarrhea Colon polyps (~2017) Cystocele Depression (~1979) Diverticulosis Endometriosis (~1959) Fecal incontinence Femur fracture, right Fibroids (~1977) Foot pain GERD (gastroesophageal reflux disease) Hearing loss Heavy menstrual period History of breast cancer History of colon polyps History of urinary incontinence (~1999) HTN (hypertension) Hyperlipidemia Hypothyroidism (~1962) Incontinence Infertility Ingrown right big toenail Insomnia Irregular menstrual cycle Irritable bowel syndrome (~1979) Low back pain Lumbar radiculopathy Lumbar spinal stenosis Lumbar spondylosis Macular degeneration Measles (~194) Myofascial pain Osteoarthritis Osteoporosis Ovarian cyst Positive 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 Postoperative anemia Psoriasis (~2010) Recurrent UTI Right shoulder pain Rubella (~1944) Scoliosis Shoulder pain Sleep apnea (~1989) Thoracic back pain Tuberculosis Physical Therapy Inpatient Evaluation/Re-Eval M1 PT/OT-IP Prior Functional Status Start: 12/02/23 08:11 Freq: NEEDED Status: Active Protocol: Document 12/02/23 12:54 RANGEL (Rec: 12/02/23 13:38 Alicia [id number]) Medical Review Prior Functional Status Medical History Reviewed Yes Diet/Fluid Consistency Regular Communication WNL Mobility and Gait I with FWW around home at before surgery Social History Household Members spouse Living Arrangements House Number of Floors (Floors) One Floor Number of Stairs To Enter/Railing? 17 SAMIRA w/rail Home Environment Standard Height Toilet,Tub/ Shower Home Equipment Front Wheel Walker,Raised Toilet Seat w/Armrests,Hand Held Shower Employment Status Retired M2 PT-IP Current Condition Start: 12/02/23 08:11 Freq: NEEDED Status: Active Protocol: Document 12/02/23 12:54 RANGEL (Rec: 12/02/23 13:38 Alicia [id number]) Physical Therapy Current Condition Current Condition Evaluation Date 12/02/23 Treatment Diagnosis R ankle ORIF M3 PT-IP Subjective Start: 12/02/23 08:11 Freq: NEEDED Status: Active Protocol: Document 12/02/23 12:54 RANGEL (Rec: 12/02/23 13:38 Alicia [id number]) Subjective Physical Therapy Visit Type Type Initial Evaluation Visit Start Time 10:50 Visit Stop Time 11:30 Notes PT helped nsg with additonl transfer from 12:45-12:55 Number of MEAT CUTTER APPRENTICE Visits 0 Physical Therapy Visit Comments Patient Comments Pt is agreeable to PT Therapy Pain Assessment Pain When Pain Assessed During Mobility Pain Present Pain Present Pain Reported Location Right Ankle Intensity 8 Scale Used Numeric (0 - 10) Description With Movement Pain Behaviors Facial Grimacing,Guarding Pain Management Techniques Distraction,Re-positioning M4 PT-IP Mobility and Gait Start: 12/02/23 08:11 Freq: NEEDED Status: Active Protocol: Document 12/02/23 12:54 RANGEL (Rec: 12/02/23 13:38 RANGEL [id number]) PT-Bed Mobility Assessment Rolling Type of Rolling Roll to Right Level of Assist Moderate Assistance,2 Person Assistance Supine to Sit Supine to Sit Moderate Assistance,2 Person Assistance,Head of Bed Elevated Sit to Supine Sit to Supine Maximum Assistance,2 Person Assistance Scooting Scooting Up and Down in Bed Dependent PT-Transfer Assessment Sit to and From Stand Sit to and from Stand Moderate Assistance,2 Person Assistance,Use of Upper Extremities Equipment Transfer Assistive Device Gait Belt,Front Wheeled Walker Orthotic/Prosthetic Devices or Brace: No Transfers Transfer Destination Bed,Chair Transfer Technique Stand Step Pivot Transfer Ability Level of Assist Moderate Assistance,2 Person Assistance,Use of Upper Extremities Comments Mobility Comments Pt was 2 mod A for rolling and supine to EOB and 2 max A for EOB to supine and total dependance for scooting up and down in bed. Pt was unable to ambulate to use bathroom so bedside cammode was used instead. Pt required 2 mod A for STS and transfering. Pt needed v/c to turn walker and reposition self before sitting . Pt did transfer from bed to commode then commode to chair w/FWW then later did transfer w/PT chair to bed. Pt was dependent for donning/doffing brief and wiping. PT-Balance Assessment Sitting Balance and Reactions Static Sitting Balance Ability Fair Dynamic Sitting Balance Ability Fair Standing Balance and Reactions Static Standing Balance Ability Poor Dynamic Standing Balance Ability Poor Device Used FWW M5 PT-IP Objective Assessments Start: 12/02/23 08:11 Freq: NEEDED Status: Active Protocol: Document 12/02/23 12:54 RANGEL (Rec: 12/02/23 13:38 Alicia [id number]) Orientation Orientation/Cognition Level of Alertness Alert Orientation Name,Age,Birthday,Month,Date, Year,Day of Week,Place, Situation Language Function Ability No Deficits Noted Safety Awareness Understands Safety Issues Memory Description No Deficits Noted Gross Range of Motion Upper Extremity ROM Assessment Within Functional Limits Lower Extremity ROM Assessment Right Impaired Strength Upper Extremity Strength Assessment Within Functional Limits Lower Extremity Strength Assessment Right Impaired Comments Strength Comments Pt is able to move around with WB precuations using R ankle while casted Sensation Assessment Sensation Gross Sensation WNL Light Touch Intact M6 PT-IP Treatment Start: 12/02/23 08:11 Freq: NEEDED Status: Active Protocol: Document 12/02/23 12:54 RANGEL (Rec: 12/02/23 13:38 RANGEL [id number]) Physical Therapy Treatment Education Education Provided Weight Bearing Status,Safety M7 PT-IP Assessment and Plan Start: 12/02/23 08:11 Freq: NEEDED Status: Active Protocol: Document 12/02/23 12:54 RANGEL (Rec: 12/02/23 13:38 RANGEL [id number]) PT Summary Assessment and Plan Potential Rehabilitation Potential Good Status of Condition at Evaluation Evolving Summary Impairments Pain,ROM,Strength,Balance,Bed Mobility,Transfers,Gait, Activity Tolerance Assessment Summary Pt is a 82 y/o F s/p R ankle ORIF surgery. Pt reported to the hospital after she slipped and fell getting out of bed. Pt has a spouse who helped with ADL's around the house and she was able to ambulate with FWW. Pt has 17 steps to get into house with railing on L side. Pt was able to sit EOB with 2 mod A and perform step piviot transfer from EOB to bedside commode and to chair with 2 mod A. Pt was orthostatic and had BP taken on L arm lying in bed before activity: 143/75, 72, seated on commode 118/79, 87. Pt had some lightheadness, but it resolved quickly. Pt has PWB precautions and has a WB limit of 100 lbs, but tended to maintain TTWB. Pt was transfered back to bed with assistance of nsg post treatment session. Pt had issue w/IV, nsg placed clean towel over arm and secured with tape before moving pt back to bed and pt left w/MULTIMEDIA DESIGNER to manage this. Pt is recommended for SNF upon d/c d /t decreased mobility tolerance and requiring significant assistance Goals Bed Mobility Goal Independent Transfer Goal Independent Gait Goal Independent,Four Wheel Walker Gait Distance 50 Other Goals Pt will be able to ascend and descend stairs with AD and using R hand railing to mimic home set-up Days to Meet Goals 5 Frequency of Treatment Frequency Of Treatment Once a Day Treatment Plan Physical Therapy Treatment Plan Bed Mobility Training,Transfer Training,Gait Training, Therapeutic Exercise,Balance Retraining,Post Op Education, Discharge Planning, Neuromuscular Re-ed, Coordination Retraining Other Recommendations and Next Treatment Focus on becoming more I with Focus bed mobility, transfers and standing tolerance with AD. Provide ankle pumps, quad sets , LAQ, heel slides, SLR as exercise when tolerable Weight Bearing Status Weight Bearing Status Partial Weight Bearing Allowed Weight Bearing Amount (enter % 100 lbs or #) (%) Recommendations To Nursing Amount of Assist Needed 2 Person Assist Discharge Recommendations PT Discharge Recommendations SNF Rehab Transportation Needs at Discharge Wheelchair/Cabulance
--- NOTE | 2023-12-02 13:54 | OT.IPNOTE ---
Able to get prior level of care and set-up. Pt is very tired from just having surgery this morning, having just worked with PT, and requested to rest. To check on pt tomorrow for OT eval.
[2023-12-02 14:37] LABS: Thyroid Stimulating Hormone 5.89 uIU/mL (0.47-4.68)
[2023-12-02] MEDS: cefTRIAXone 1,000 MG in SODIUM CHLORIDE 0.9% 100 ML 200 MG IV (15:04)
[2023-12-02] MEDS: SENNOSIDES 8.6 MG TABLET 17.2 MG PO (20:43)
[2023-12-02] MEDS: MIRTAZAPINE 15 MG TABLET 7.5 MG PO (20:43)
[2023-12-02] MEDS: DOCUSATE 100 MG CAPSULE PO (20:43)
[2023-12-02] MEDS: GABAPENTIN 300 MG CAPSULE PO (20:43)
[2023-12-02] MEDS: AMLODIPINE 5 MG TABLET 2.5 MG PO (20:43)
[2023-12-02] MEDS: ASPIRIN EC 81 MG TABLET PO (20:43)
[2023-12-03 00:15] VITALS: BP 145/92; PULSE 66; RESP 17; TEMP 36.8; O2SAT 92
[2023-12-03] MEDS: ACETAMINOPHEN 325 MG TABLET 650 MG PO ×2 (00:28→11:56)
[2023-12-03] MEDS: BACLOFEN 10 MG TABLET PO (00:28)
[2023-12-03 05:49] VITALS: BP 149/91; PULSE 68; RESP 18; TEMP 36.8; O2SAT 93
[2023-12-03] MEDS: LEVOTHYROXINE 88 MCG TABLET PO (06:47)
[2023-12-03] MEDS: OXYCODONE IR 5 MG TABLET PO ×2 (06:47→11:57)
--- NOTE | 2023-12-03 07:51 | PM.PN.1 ---
Subjective Subjective Interval history: Catalina Bess is a pleasant 82-year-old female who is POD #2 s/p right ankle open reduction internal fixation with fixation of a lateral fibula fracture by Dr. Gonsales. This morning she reports she is doing okay overall, still having some moderate-severe pain, unchanged since the day of surgery. Pain is well controlled with oral oxycodone and Tylenol. Denies fever, chills, chest pain, SOB, nausea, vomiting. Complains of dry throat. Denies any sensory loss in the right lower extremity. Exam Vital Signs (past 8 hours): - 12/03/23 00:15 12/03/23 05:49 Temperature 98.2 F 98.2 F Pulse Rate 66 68 Respiratory Rate 17 18 Blood Pressure 145/92 H 149/91 H Pulse Oximetry 92 93 Oxygen Flow Rate 0 0 Fraction of Inspired Oxygen 28 SaO2/FiO2 Ratio 357 Oxygen Delivery Method CPAP Oxygen Flow Rate 0 Narrative Exam Narrative: Lying comfortably in bed during our interview today, no acute distress. SCD in place on left lower extremity. Gross sensation intact throughout the right lower extremity. Wiggles all toes. Brisk capillary refill. Bulky Plasencia splint in place on the right ankle. Calf soft and compressible bilaterally. Resp Effort & Inspection: normal respiratory effort and able to speak in complete sentences Cardio Rate: regular rate Objective Labs 12/02/23 05:53 12/02/23 05:53 Labs: Laboratory Results - last 24 hr 12/02/23 13:49 TSH 5.89 H PFSH Medical History Lumbar spinal stenosis Post laminectomy syndrome Lumbar radiculopathy Lumbar spondylosis Low back pain Thoracic back pain Myofascial pain Cervical spondylosis Balance problem History of colon polyps History of breast cancer Acute low back pain Ingrown right big toenail Diverticulosis GERD (gastroesophageal reflux disease) Recurrent UTI Atrophic vulvovaginitis Psoriasis (~2010) Actinic keratosis (~2017) Allergies Shoulder pain Scoliosis Osteoporosis Foot pain Chronic back pain (~1989) Tuberculosis Rubella (~1943) Positive PPD (~1980) Measles (~194) Chicken pox (~1946) Anemia (~1960) Hearing loss Ovarian cyst Irregular menstrual cycle Infertility Heavy menstrual period Fibroids (~1977) Endometriosis (~1959) History of urinary incontinence (~1999) Fecal incontinence Irritable bowel syndrome (~1979) Colon polyps (~2018) Right shoulder pain Chronic diarrhea Postoperative anemia Sleep apnea (~1989) C. difficile enteritis Macular degeneration Incontinence Depression (~1979) Hypothyroidism (~1962) Asthma HTN (hypertension) Hyperlipidemia Cystocele Osteoarthritis Chronic constipation Insomnia Anxiety (~1979) Femur fracture, right Breast cancer (~2010) Surgical History History of hysterectomy for benign disease Hx of foot surgery (~1988) History of reverse total replacement of right shoulder joint (04/08/20) History of cataract removal with insertion of prosthetic lens History of arthroplasty of left knee (03/13/19) S/P lumbar fusion (01/05/18) Status post Mohs surgery for squamous cell carcinoma of skin History of total hysterectomy with bilateral salpingo-oophorectomy (BSO) (~1977) Hx of appendectomy History of bladder surgery History of arthroplasty of right knee Hx of arthroscopy of right knee History of lumpectomy of left breast (2000) History of lumbar fusion Social History household members: spouse Smoking Status: Former smoker alcohol intake: current Assessment & Plan Assessment & Plan narrative: 1) Plan to discharge to SNF per hospital service, likely today. 2) Continue multimodal pain management. Elevate and ice to help reduce pain and swelling. 3) ASA b.i.d. for DVT prophylaxis for 6 weeks. 4) Continue to work with physical therapy, partial weight-bearing w/ max 100 lbs. 5) Keep dressing intact, clean, dry until 2 week postop appointment. No soaking the incision site in pools or tubs. No topical ointments or creams to the incision site. 6) Follow up at [facility] orthopedics in 2 weeks for a postop appointment and wound check. All patient's questions were answered, they demonstrates understanding and are in agreement with the plan. Call our office if any questions or concerns arise. Time-Based Coding :: [TOTAL MINUTES] spent with patient and on the chart (including review of chart, obtaining history, exam, reviewing outside data, placing orders, documenting exam and treatment plan, and counseling patient) on [DATE]. Quality VTE Deep Vein Thrombosis/Pulmonary Embolism Present on Admission: No
[2023-12-03 08:00] VITALS: BP 128/73; PULSE 73; RESP 16; TEMP 36.6; O2SAT 93
[2023-12-03 08:30] LABS: Add Manual Diff / Slide Review NO; Basophils Absolute Auto 0 /uL (0-100); Basophils Percent Auto 0.4 % (0-2); Eosinophils Absolute Auto 300 /uL (0-450); Eosinophils Percent Auto 3.7 % (2-4); Hematocrit 27.3 % (36-46); Hemoglobin 9.3 g/dL (12.0-16.0); Lymphocytes Absolute Auto 1000 /uL (1100-4500); Lymphocytes Percent Auto 12.2 % (25-40); Mean Corpuscular HGB Conc 34.1 % (30-36); Mean Corpuscular Hemoglobin 31.8 PG (26-34); Mean Corpuscular Volume 93.1 fL (80-100); Monocytes Absolute Auto 1000 /uL (0-900); Monocytes Percent Auto 12.9 % (3-14); Neutrophils Absolute Auto 5600 /uL (1500-7000); Neutrophils Percent Auto 70.8 % (50-75); Platelet Count 292 X10^3/uL (150-400); Red Blood Cell Count 2.94 X10^6/uL (4.0-5.2); Red Cell Distribution Width 13.9 % (11.6-14.8); White Blood Cell Count 7.9 X10^3/uL (4.5-11.0)
[2023-12-03 08:51] LABS: BUN Creatinine Ratio 18.8 (6-22); Blood Urea Nitrogen 15 mg/dL (7-17); Calcium 8.8 mg/dL (8.4-10.2); Carbon Dioxide 25 mmol/L (22-32); Chloride 104 mmol/L (98-107); Estimated Glomerular Filt Rate > 60 mL/min (>60); Glucose 108 mg/dL (80-110); HEMOLYSIS 15 (0-50); Potassium 4.5 mmol/L (3.4-5.1); Sodium 136 mmol/L (137-145)
--- NOTE | 2023-12-03 09:00 | PT.IPTN ---
Current Diagnoses Age-related osteoporosis without current pathological fracture (11/30/23) Acute kidney failure, unspecified (11/30/23) Weakness (11/30/23) Other fracture of right lower leg, initial encounter for closed fracture (11/30/23) Traumatic ischemia of muscle, initial encounter (11/30/23) Surgery Performed Operation Date: 12/01/23 17:45 Actual Procedures p Right ORIF Ankle Fracture(Right) - Carmel Gonsales MD Physical Therapy Treatment Note M2 PT-IP Current Condition Start: 12/02/23 08:11 Freq: NEEDED Status: Active Protocol: Document 12/02/23 12:54 JG (Rec: 12/02/23 13:38 JG [id number]) Physical Therapy Current Condition Current Condition Evaluation Date 12/02/23 Treatment Diagnosis R ankle ORIF M3 PT-IP Subjective Start: 12/02/23 08:11 Freq: NEEDED Status: Active Protocol: Document 12/03/23 10:47 TS (Rec: 12/03/23 10:55 TS [id number]) Subjective Physical Therapy Visit Type Type Treatment Note Visit Start Time 09:00 Visit Stop Time 09:30 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 Therapy Pain Assessment Pain When Pain Assessed During Mobility Pain Present Pain Present Pain Reported M4 PT-IP Mobility and Gait Start: 12/02/23 08:11 Freq: NEEDED Status: Active Protocol: Document 12/03/23 10:47 TS (Rec: 12/03/23 10:55 TS [id number]) PT-Bed Mobility Assessment Supine to Sit Supine to Sit Moderate Assistance,2 Person Assistance,Head of Bed Elevated PT-Transfer Assessment Sit to and From Stand Sit to and from Stand Moderate Assistance,2 Person Assistance,Use of Upper Extremities Equipment Transfer Assistive Device Gait Belt,Front Wheeled Walker Orthotic/Prosthetic Devices or Brace: No Transfers Transfer Destination Bed,Chair Transfer Technique Stand Step Pivot Transfer Ability Level of Assist Moderate Assistance,2 Person Assistance,Use of Upper Extremities Comments Mobility Comments Supine to sit ModA x2 for uprighting trunk and LE assistance to EOB. She performed STS ModA x2 with FWW and TTWB on RLE. Stand pivot to commode ModA x2 with FWW and tactile cues for FWW management. STS from commode ModA x2 with FWW. Stand pivot to chair ModA x2 with max cues for sequencing. Pt was left in chair, all needs met. Gait Assessment Comments Gait Comments Stand pivot x2 PT-Balance Assessment Sitting Balance and Reactions Static Sitting Balance Ability Fair Dynamic Sitting Balance Ability Fair Standing Balance and Reactions Static Standing Balance Ability Poor Dynamic Standing Balance Ability Poor Device Used FWW M5 PT-IP Objective Assessments Start: 12/02/23 08:11 Freq: NEEDED Status: Active Protocol: Document 12/02/23 12:54 JG (Rec: 12/02/23 13:38 JG [id number]) Orientation Orientation/Cognition Level of Alertness Alert Orientation Name,Age,Birthday,Month,Date, Year,Day of Week,Place, Situation Language Function Ability No Deficits Noted Safety Awareness Understands Safety Issues Memory Description No Deficits Noted Gross Range of Motion Upper Extremity ROM Assessment Within Functional Limits Lower Extremity ROM Assessment Right Impaired Strength Upper Extremity Strength Assessment Within Functional Limits Lower Extremity Strength Assessment Right Impaired Comments Strength Comments Pt is able to move around with WB precuations using R ankle while casted Sensation Assessment Sensation Gross Sensation WNL Light Touch Intact M6 PT-IP Treatment Start: 12/02/23 08:11 Freq: NEEDED Status: Active Protocol: Document 12/03/23 10:47 TS (Rec: 12/03/23 10:55 TS [id number]) Physical Therapy Treatment Education Education Provided Weight Bearing Status,Safety M7 PT-IP Assessment and Plan Start: 12/02/23 08:11 Freq: NEEDED Status: Active Protocol: Document 12/03/23 10:47 TS (Rec: 12/03/23 10:55 TS [id number]) PT Summary Assessment and Plan Potential Rehabilitation Potential Good Summary Impairments Pain,ROM,Strength,Balance,Bed Mobility,Transfers,Gait, Activity Tolerance Progress Towards Goals Slow Progress due to Pain,Slow Progress due to Activity Tolerance Assessment Summary Catalina Bess continues to make slow progress with her mobility. She is ModA x2 for bed mobility with HOB elevated . She performed stand pivot x2 with FWW and max cues. She has a shuffle gait and has some wbering on RLE. She follows directions well. PT is recommending SNF. Goals Bed Mobility Goal Independent Transfer Goal Independent Gait Goal Independent,Four Wheel Walker Gait Distance 50 Other Goals Pt will be able to ascend and descend stairs with AD and using R hand railing to mimic home set-up Days to Meet Goals 5 Frequency of Treatment Frequency Of Treatment Once a Day Treatment Plan Physical Therapy Treatment Plan Bed Mobility Training,Transfer Training,Gait Training, Therapeutic Exercise,Balance Retraining,Post Op Education, Discharge Planning, Neuromuscular Re-ed, Coordination Retraining Other Recommendations and Next Treatment Focus on becoming more I with Focus bed mobility, transfers and standing tolerance with AD. Provide ankle pumps, quad sets , LAQ, heel slides, SLR as exercise when tolerable Weight Bearing Status Weight Bearing Status Partial Weight Bearing Allowed Weight Bearing Amount (enter % 100 lbs or #) (%) Recommendations To Nursing Amount of Assist Needed 2 Person Assist Discharge Recommendations PT Discharge Recommendations SNF Rehab Transportation Needs at Discharge Wheelchair/Cabulance
--- NOTE | 2023-12-03 09:43 | OT.IP.EVAL ---
Current Diagnoses Age-related osteoporosis without current pathological fracture (11/30/23) Acute kidney failure, unspecified (11/30/23) Weakness (11/30/23) Other fracture of right lower leg, initial encounter for closed fracture (11/30/23) Traumatic ischemia of muscle, initial encounter (11/30/23) Surgery Performed Operation Date: 12/01/23 17:45 Actual Procedures p Right ORIF Ankle Fracture(Right) - Carmel Gonsales MD Past Medical History (Last Reviewed 12/02/23 @ 12:21 by Raffaele Partida MD) Actinic keratosis (~2017) Acute low back pain Allergies Anemia (~1960) Anxiety (~1979) Asthma Atrophic vulvovaginitis Balance problem Breast cancer (~2010) C. difficile enteritis Cervical spondylosis Chicken pox (~1946) Chronic back pain (~1989) Chronic constipation Chronic diarrhea Colon polyps (~2017) Cystocele Depression (~1979) Diverticulosis Endometriosis (~1959) Fecal incontinence Femur fracture, right Fibroids (~1977) Foot pain GERD (gastroesophageal reflux disease) Hearing loss Heavy menstrual period History of breast cancer History of colon polyps History of urinary incontinence (~1999) HTN (hypertension) Hyperlipidemia Hypothyroidism (~1962) Incontinence Infertility Ingrown right big toenail Insomnia Irregular menstrual cycle Irritable bowel syndrome (~1979) Low back pain Lumbar radiculopathy Lumbar spinal stenosis Lumbar spondylosis Macular degeneration Measles (~194) Myofascial pain Osteoarthritis Osteoporosis Ovarian cyst Positive 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 Postoperative anemia Psoriasis (~2010) Recurrent UTI Right shoulder pain Rubella (~1943) Scoliosis Shoulder pain Sleep apnea (~1989) Thoracic back pain Tuberculosis Surgical History (Last Reviewed 12/02/23 @ 12:21 by Raffaele Partida MD) History of arthroplasty of left knee (03/13/19) History of arthroplasty of right knee History of bladder surgery History of cataract removal with insertion of prosthetic lens History of hysterectomy for benign disease History of lumbar fusion History of lumpectomy of left breast (2000) History of reverse total replacement of right shoulder joint (04/08/20) History of total hysterectomy with bilateral salpingo-oophorectomy (BSO) (~1977) Hx of appendectomy Hx of arthroscopy of right knee Hx of foot surgery (~1988) S/P lumbar fusion (08/08/18) Status post Mohs surgery for squamous cell carcinoma of skin Occupational Therapy Inpatient Evaluation/Re-Eval M1 PT/OT-IP Prior Functional Status Start: 12/02/23 08:11 Freq: NEEDED Status: Active Protocol: Document 12/03/23 12:11 [facility] (Rec: 12/03/23 12:40 [facility] [id number]) Medical Review Prior Functional Status Medical History Reviewed Yes Diet/Fluid Consistency Regular Communication WNL Mobility and Gait I with FWW around home at before surgery Activities of Daily Living and IADL's Pt prior was independent with ADl and IADL needs. Social History Household Members spouse Living Arrangements House Number of Floors (Floors) One Floor Number of Stairs To Enter/Railing? 17 SAMIRA w/rail Home Environment Standard Height Toilet,Tub/ Shower Home Equipment Front Wheel Walker,Raised Toilet Seat w/Armrests,Hand Held Shower Employment Status Retired M2 OT-IP Current Condition Start: 12/03/23 12:11 Freq: Status: Active Protocol: Document 12/03/23 12:11 [facility] (Rec: 12/03/23 12:40 [facility] [id number]) Occupational Therapy Current Condition Current Condition Evaluation Date 12/03/23 Treatment Diagnosis S/P Right ankle ORIF Diagnosis Onset Date 11/30/23 Weight Bearing Status Weight Bearing Status Partial Weight Bearing Allowed Weight Bearing Amount (enter % 100lb weight bearing to RLE or #) (%) M3 OT- IP Subjective and Pain Start: 12/03/23 12:11 Freq: Status: Active Protocol: Document 12/03/23 12:11 [facility] (Rec: 12/03/23 12:40 [facility] [id number]) OT- Subjective Occupational Therapy Visit Type Type Initial Evaluation Visit Start Time 08:45 Visit Stop Time 09:53 Occupational Therapy Visit Comments Patient Comments Pt agreed to get up and try to use the BSC. Patient/Caregiver Goals TO get better. OT Pain Assessment Pain When Pain Assessed During Mobility Pain Present Pain Present Pain Reported Location Right Ankle Intensity 5 Scale Used Numeric (0 - 10) M4 OT- IP ADL's Start: 12/03/23 12:11 Freq: Status: Active Protocol: Document 12/03/23 12:11 [facility] (Rec: 12/03/23 12:40 [facility] [id number]) OT [id number]-Vtoraqm General Evaluation Self-Feeding Ability Independent OT ADL-Grooming General Evaluation Grooming Ability Standby Assistance Comments OT Grooming Comments While seated. OT ADL-Oral Care General Eval Oral Care Ability Independent OT ADL-Dressing General Eval Lower Body Dressing Ability Maximum Assistance Comments OT Dressing Comments Assist for socks and brief. OT ADL-Toileting General Evaluation Toileting Ability Maximum Assistance Areas Needing Assistance Manage Clothing Comments OT Toileting Comments Pt needing assist for all clothing needs. Pt able to scoot forwards and with CGA able to reach from the back to wipe with wet ones. M5 OT- IP IADL's Start: 12/03/23 12:11 Freq: Status: Active Protocol: Document 12/03/23 12:11 [facility] (Rec: 12/03/23 12:40 [facility] [id number]) OT-Instrumental Activities of Daily Living Home Safety Awareness Awareness of Need for Assistance at Home Good Awareness Ability to Problem Solve Emergency Able to Problem Solve Situations Medication Management Medication Management No Deficits Identified Money Management Money Management No Deficits Identified Meal Preparation Meal Preparation Comments Pt will need assist. Cigar Packer Cigar Packer Comments Pt will need assist. M6 OT- IP Functional Cognition Start: 12/03/23 12:11 Freq: Status: Active Protocol: Document 12/03/23 12:11 [facility] (Rec: 12/03/23 12:40 [facility] [id number]) Cognitive Factors Limiting Selfcare Function Cognitive Ability Level of Alertness Alert Patient Orientation Name,Age,Birthday,Month,Date, Year,Day of Week,Place, Situation Attention Span Ability Capable of Focused Attention, Capable of Sustained Attention Ability to Follow Commands Able to Follow One Step Commands Cognitive Comments Cognitive Assessment Comments Pt able to follow commands for ADL and mobility needs. OT- Vision and Hearing OT- Hearing Assessment OT- Hearing Assessment Use of Hearing Aids OT- Vision Assessment Vision History Macular Degeneration Visual Acuity Glasses All The Time M7 OT- IP Mobility and Balance Start: 12/03/23 12:11 Freq: Status: Active Protocol: Document 12/03/23 12:11 [facility] (Rec: 12/03/23 12:40 [facility] [id number]) OT- Bed Mobility Assessment Supine to Sit Supine to Sit Assist Moderate Assistance,2 Person Assistance OT-Transfer Assessment Sit to and From Stand Sit to and from Stand Moderate Assistance,2 Person Assistance Transfers Transfer Ability Moderate Assistance,2 Person Assistance Technique Transfer Destination Bed,Bedside Commode,Chair Transfer Technique Stand Step Pivot Devices Transfer Assistive Devices Gait Belt,Front Wheeled Walker Comments Mobility Comments Pt MODA X2 to get to the edge of the bed. MODA x2 to stand with FWW to transfer to the [facility] and recliner. Pt having difficulty to flower picker her feet and tends to side her foot side to side. Pt needing assist to slide her RLE when coming to sit. OT- Balance Assessment Sitting Balance and Reactions Static Sitting Balance Ability Good Dynamic Sitting Balance Ability Good Standing Balance and Reactions Static Standing Balance Ability Poor Dynamic Standing Balance Ability Poor M8 OT- IP Objective Assessments Start: 12/03/23 12:11 Freq: Status: Active Protocol: Document 12/03/23 12:11 [facility] (Rec: 12/03/23 12:40 [facility] [id number]) OT Gross Range of Motion Upper Extremity Range of Motion Assessment Bilaterally Impaired OT Strength Upper Extremity Strength Assessment Bilaterally Impaired Comments Strength Comments Pt at least 3-/5 , bilateral arthritis in her shoulders. M9 OT- IP Assessment and Plan Start: 12/03/23 12:11 Freq: Status: Active Protocol: Document 12/03/23 12:11 [facility] (Rec: 12/03/23 12:40 [facility] [id number]) OT Summary Assessment and Plan Potential Rehabilitation Potential Good Analytic Complexity at Evaluation Moderate Summary OT Impairments Pain,Range of Motion,Strength, Balance,Functional Mobility, Grooming,Dressing,Toileting, Bathing,Toilet Transfers, Shower Transfers,Activity Tolerance Progress Towards Goals Progressing Toward Goals Assessment Summary Pt low complexity and main barriers are pain, steps, and having difficulty to put weight on her RLE due to pain . Pt able to actively participate with grooming, oral care, and toileting needs . Pt needing two person assist for all ADL and mobility needs. Pt to go to skilled rehab when medically stable. Goals Grooming Goal Independent Dressing Goal Independent,Long Handled Shoe Horn,Information Specialist,Sock Aid Toileting Goal Independent Bathing Goal Minimal Assistance Toilet Transfer Goal Independent Shower Transfer Goal Standby Assistance Days to Meet Goals 30 Frequency of Treatment Frequency Of Treatment Once a Day Treatment Plan OT Treatment Plan ADL Training,Functional Mobility,Patient/Family Education,Discharge Planning Discharge Recommendations OT Discharge Recommendations SNF Rehab Transportation Needs at Discharge Wheelchair/Cabulance
[2023-12-03] MEDS: SERTRALINE 50 MG TABLET 100 MG PO (10:19)
[2023-12-03] MEDS: DOCUSATE 100 MG CAPSULE PO (10:19)
[2023-12-03] MEDS: GABAPENTIN 300 MG CAPSULE PO (10:19)
[2023-12-03] MEDS: FAMOTIDINE 20 MG TABLET PO (10:19)
[2023-12-03] MEDS: ASPIRIN EC 81 MG TABLET PO (10:19)
[2023-12-03 10:20] VITALS: BP 128/73; PULSE 73
[2023-12-03] MEDS: lisinopriL 20 MG TABLET 40 MG PO (10:20)
[2023-12-03] MEDS: SERTRALINE 50 MG TABLET 25 MG PO (10:20)
[2023-12-03] MEDS: polyethylene glycoL 3350 17 GM POWD.PACK PO (10:21)
--- NOTE | 2023-12-03 11:28 | CM.DPNOTE ---
Addendum entered by ARNEL Garcia 12/03/23 12:21: LEGISLATIVE AIDE got signed med list/script from provider. Gave to CC Valeri, kindly agreed to email to Jennifer at and place in chart. no other CM needs at this time. SL Original Note: DCP Note LEGISLATIVE AIDE reviewed EMR. Per hospitalist, medically cleared to dc today. Hospitalist signed PASRR. Per RN, still unsure on WC orders from wound care clinic. LEGISLATIVE AIDE lvm with wound care clinic at approx 0900, closed due to holiday weekend. LEGISLATIVE AIDE gave PASRR to IFEANYI Trammell to send to Jennifer from . IFEANYI Trammell updated LEAF SIZE PICKER. LEGISLATIVE AIDE gave RN report number to nursing staff. Per Jennifer from , able to take pt today transport between [id number]. LEGISLATIVE AIDE met with pt in room. Updated her on plan. In Agreement. No questions at this time. P: anticipate dc today to [facility] between [id number]. Signed med list needed. CM team will continue to follow closely. ARNEL Garcia
--- NOTE | 2023-12-03 12:07 | P.DS_ITS ---
History of Present Illness History of Present Illness Date Patient Seen: 12/03/23 Time Patient Seen: 08:45 Date of Onset of Symptoms: 11/30/23 Chief complaint: r ankle swelling/deformity Narrative: 82 F with PMH of crohn's HTN, hypothyroid, osteoporosis, breast ca s/p lumpectomy with chemo and radiation who presented with weakness ongoing over the past week. She has felt cough and chills but no fever at home. She denies nausea, vomiting or diarrhea She fell getting out of bed a few days ago, injured her R ankle. She was able to get back in to bed but had a similar incident falling off the bed again and had been on the floor all night. She denies hitting her head or loss of consciousness. Imaging showed a bimalleolar R ankle fracture in the ER but no other acute injuries. She does have a chronic C1 fracture, and currently denies any neck pain. Labs showed elevated CK at 1122, and cr of 1.4 from baseline of around 1.0. ER provider discussed with orthopedics, and plan for operative interventions on patient's R ankle tomorrow. She was admitted to hospitalist service for rhabdomyolysis with HUMBERTO and the setting of falls and R ankle fracture. Discharge Providers Provider Date of admission: 11/30/23 14:10 Discharge Date: 12/03/23 Primary care physician: Allison Triana MD Consults: 11/30/23 14:10 Consult to Orthopedic Surgery Stat Comment: Consulting Provider: Carmel Gonsales Reason for consultation: Right bimalleolar fx Has provider been notified: Yes 12/02/23 02:15 Consult to Discharge Planning Routine Comment: Consult to Occupational Therapy Evaluate & Treat Comment: Physician Instructions: Evaluate and treat Consult to Physical Therapy Evaluate & Treat Comment: Physician Instructions: Evaluate and Treat Discharge provider: Raffaele Partida MD Summary Hospital Course Discharge Diagnosis: 1. Acute rhabdomyolysis due to ground level fall 2. Acute kidney injury due to volume depletion and rhabdomyolysis, resolved 3. Bimalleolar ankle fracture, status post ORIF 12/01/2023 4. Acute enterobacter cystitis, treated 5. Hypertension 6. Hypothyroidism 7. Depression 8. History of breast cancer, with chronic left breast wound, present on admission and being treated outpatient 9. Crohn's disease Hospital Course: 1. Acute rhabdomyolysis, present on admission and improving. - CK 1122, Cr 1.4 on admit, down to 715 on 12/01/2023. Likely due to fall out of bed and prolonged downtime rather than from traumatic ankle fracture. - resolved after IV fluids administered and doing well 2. HUMBERTO, present on admission and resolved. -creatinine was 1.4 on admission, and 0.8 at the time of discharge 3. Bimalleolar ankle fracture, pathologic due to known osteoporosis. Present on admission and active. - operative repair 12/01/[address] Gonsales, s/p right ankle open reduction internal fixation with fixation of a lateral fibula fracture and patient of a medial malleolus fracture. - patient lives in [facility], has Parkinson's. Usually ambulates with walker at home and cane when going out. - the patient reported a history of chronic C1 fracture, and currently denied any neck pain during the hospitalization 4. HTN, present on admission and active. - resumed home lisinopril with resolved HUMBERTO and rising BP 5. hypothyroidism, present on admission and active. - recent increase in levothyroxine about 3 months ago, TSH persistently mildly elevated, outpatient follow-up advised 6. Acute cystitis, present on admission and active. - symptomatic with dysuria and weakness treated with 3 days of ceftriaxone, blood cultures negative. 7. Breast cancer s/p radiation with chronic L breast wound, present on admission and active. - no acute management recommended. No evidence of disease. outpatient follow-up advised 8. Crohn's disease, present on admission and active. - patient is not on immunomodulating therapy or any specific treatments. Reports no changes in bowel frequency recently. 9. DVT prophylaxis. Continue aspirin 81 mg b.i.d. x6 weeks per Orthopedics. Status at Discharge Cognitive/behavioral status at discharge: oriented Functional status at discharge: uses cane/walker Overall status at discharge: patient is not back to baseline Time Spent with Patient Time spent: Greater than 30 minutes Exam Vital Signs (past 8 hours): - 12/03/23 05:49 12/03/23 08:00 12/03/23 10:20 Temperature 98.2 F 97.8 F Pulse Rate 68 73 73 Respiratory Rate 18 16 Blood Pressure 149/91 H 128/73 128/73 Pulse Oximetry 93 93 Oxygen Flow Rate 0 Fraction of Inspired Oxygen 28 SaO2/FiO2 Ratio 357 Oxygen Delivery Method CPAP Oxygen Flow Rate 0 Narrative Exam Narrative: NAD, alert and oriented. Fluent speech. Lungs are clear, normal rate and effort. Heart is regular, no murmur gallop or rub. Abdomen is soft, nontender, non distended. Extremities are without edema. Right ankle is wrapped, good cap refill movement of toes, sensation intact. Objective Imaging Chest x-ray 11/30/2023: Radiologist's impression: Low lung volumes on limited single view radiograph limiting evaluation. Ill-defined left base opacity may represent airspace disease or atelectasis. Consider future imaging surveillance to assess for resolution. Right ankle x-ray 11/30/2023: Radiologist's impression: Lateral and medial malleolar fractures. Anterior displaced fracture fragment also seen on lateral view. Combination of these injuries suspicious for multi ligamentous involvement. Consider stress views if clinically indicated. Right foot x-ray 11/30/2023: Radiologist's impression: No acute osseous abnormality in the foot. Mild scattered degenerative changes. If there is high concern for occult injury, consider repeat radiography or cross- sectional imaging. Ankle fracture findings are separately dictated. Right tibia fibula x-rays 11/30/2023: Radiologist's impression: No acute osseous abnormality of the tibial or fibular shafts. Ankle fracture findings are separately dictated Head CT 11/30/2019 for: Radiologist's impression: No acute intracranial pathology. Age indeterminate fracture of the posterior arch of C1. No relevant comparisons at time of dictation. Correlate with recent trauma and consider CT of the neck if this is a new diagnosis. Cervical spine CT 11/30/2023 : Radiologist's impression: 1. There are anterior and posterior C1 fractures, potentially a Shubham burst fracture. This fracture is of uncertain chronicity, potentially chronic. 2. Advanced cervical spondylosis, with chronic 5 mm anterolisthesis of C3 on C4, chronic severe L5 compression, and anterolisthesis of C4 on C5. Labs 12/03/23 08:16 12/03/23 08:16 Labs: Laboratory Results - last 24 hr 12/02/23 12/03/23 13:49 08:16 WBC 7.9 RBC 2.94 L Hgb 9.3 L Hct 27.3 L MCV 93.1 MCH 31.8 MCHC 34.1 RDW 13.9 Plt Count 292 Neut % (Auto) 70.8 Lymph % (Auto) 12.2 L [place] % (Auto) 12.9 Eos % (Auto) 3.7 Baso % (Auto) 0.4 Neut # (Auto) 5600 Lymph # (Auto) 1000 L [place] # (Auto) 1000 H Eos # (Auto) 300 Baso # (Auto) 0 Sodium 136 L Potassium 4.5 Chloride 104 Carbon Dioxide 25 BUN 15 Creatinine 0.80 Estimated GFR > 60 BUN/Creatinine Ratio 18.8 Glucose 108 Calcium 8.8 TSH 5.89 H PFSH Medical History Lumbar spinal stenosis Post laminectomy syndrome Lumbar radiculopathy Lumbar spondylosis Low back pain Thoracic back pain Myofascial pain Cervical spondylosis Balance problem History of colon polyps History of breast cancer Acute low back pain Ingrown right big toenail Diverticulosis GERD (gastroesophageal reflux disease) Recurrent UTI Atrophic vulvovaginitis Psoriasis (~2010) Actinic keratosis (~2017) Allergies Shoulder pain Scoliosis Osteoporosis Foot pain Chronic back pain (~1989) Tuberculosis Rubella (~1943) Positive PPD (~1980) Measles (~1943) Chicken pox (~1946) Anemia (~1960) Hearing loss Ovarian cyst Irregular menstrual cycle Infertility Heavy menstrual period Fibroids (~1977) Endometriosis (~1959) History of urinary incontinence (~1999) Fecal incontinence Irritable bowel syndrome (~1979) Colon polyps (~2017) Right shoulder pain Chronic diarrhea Postoperative anemia Sleep apnea (~1989) C. difficile enteritis Macular degeneration Incontinence Depression (~1979) Hypothyroidism (~1962) Asthma HTN (hypertension) Hyperlipidemia Cystocele Osteoarthritis Chronic constipation Insomnia Anxiety (~1979) Femur fracture, right Breast cancer (~2010) Surgical History History of hysterectomy for benign disease Hx of foot surgery (~1988) History of reverse total replacement of right shoulder joint (04/08/20) History of cataract removal with insertion of prosthetic lens History of arthroplasty of left knee (03/13/19) S/P lumbar fusion (01/05/18) Status post Mohs surgery for squamous cell carcinoma of skin History of total hysterectomy with bilateral salpingo-oophorectomy (BSO) (~1977) Hx of appendectomy History of bladder surgery History of arthroplasty of right knee Hx of arthroscopy of right knee History of lumpectomy of left breast (2000) History of lumbar fusion Social History household members: spouse Smoking Status: Former smoker alcohol intake: current Discharge Plan Discharge Plan Patient Disposition: SNF Transfer to: [facility] Consult as needed: Dental, Hearing, Mental health, Podiatry and Vision Discharge orders & Medications Prescriptions: New acetaminophen 325 mg Tablet 650 mg PO Q6H PRN (Reason: Fever/Mild Pain (1-3)) Qty: 30 0RF docusate sodium 100 mg Capsule 100 mg PO BID Qty: 30 0RF polyethylene glycol 3350 17 gram Powder In Packet 17 g PO DAILY Qty: 30 0RF oxycodone 5 mg Tablet 5 mg PO Q3H PRN (Reason: Pain, Moderate (4-6)) Qty: 30 0RF Continued sertraline 25 mg tablet 25 mg PO DAILY Qty: 90 3RF Rx Instructions: take with 100mg tab (125mg total) levothyroxine 88 mcg tablet 88 mcg PO DAILY Qty: 90 1RF mirtazapine 7.5 mg tablet See Rx Instructions .ROUTE .COMPLEX Qty: 30 2RF Rx Instructions: 1/2 to 1 tab PO QHS estradiol 0.01 % (0.1 mg/gram) cream 0.5 g vaginal 3XW Qty: 42.5 3RF Rx Instructions: M/W/F lisinopril 40 mg tablet 40 mg PO DAILY Qty: 90 1RF sertraline 100 mg tablet 100 mg PO DAILY Qty: 90 3RF Rx Instructions: take with 25mg tab (125 total) amlodipine 2.5 mg tablet 2.5 mg PO BEDTIME Rx Instructions: continue to take lisinopril in am also baclofen 10 mg tablet 10 mg PO 4XD PRN (Reason: Spasms) gabapentin 300 mg capsule 300 mg PO BID Rx Instructions: ok to take BID or TID (takes BID) famotidine [Pepcid] 20 mg tablet 20 mg PO BID Qty: 1 0RF ondansetron HCl 8 mg tablet 8 mg PO DAILY Qty: 30 3RF Rx Instructions: 10 tabs/month Follow up/Referrals: Allison Triana MD [Primary Care Provider] - Skin/Wound/Dressing Care Other wound treatment: Follow up with Orthopedics in 2 weeks Visit Report/Discharge Packet Stand Alone Forms: Patient Portal/API Discharge Data Primary Care Provider: Allison Triana VTE Deep Vein Thrombosis/Pulmonary Embolism Present on Admission: No MIPS - Admit I confirm the patient?s Advance Care Plan is present, Code status is documented, Surrogate decision maker is in patient?s record [If Yes, STOP here]: Yes MIPS - Meds 'Current medications' to include all prescriptions, [id number] products, herbals, cannabis/cannabidiol products, and vitamin/mineral/dietary (nutritional) supplements. I have utilized all available resources to obtain, update, or review the patient?s current medications. [If Yes, STOP here]: Yes MIPS - DC The patient has a history of heart transplant or Left Ventricular Assist Device (LVAD). If yes, STOP here.: No The patient has current or prior documentation of left ventricular ejection fraction (LVEF) less than or equal to 40%, or moderate or severely depressed left ventricular systolic function.: No A. The patient was prescribed or already taking an Angiotensin-Converting Enzyme (PENNY) Inhibitor, or Angiotensin Receptor Ubaldo (ARB).: No B. The patient was prescribed or already taking a beta-ubaldo. [If Yes to Both A & B, STOP here]: No Patient not prescribed/taking PENNY or ARB, no reason given.: No Patient not prescribed/taking beta-ubaldo, no reason given.: No IH PROFEE Charge Codes Discharge inpatient/observation: [id number]
--- NOTE | 2023-12-03 13:41 | PC.NURSE ---
Pt discharged to [facility] at 1335, escorted off floor in wheelchair. IV removed, discharge teaching included in packet, report called to Elana at [facility] ([phone]) at 1345. Patient left the floor with all belongings.
--- NOTE | 2023-12-08 10:51 | PC.WOUNDPHOT ---
Late Entry; Wound photos taken 12/03/23 at 0520.
== END 2023-12-03 13:50 | DRG 493 ==
LOC: ED 12:08 → AC 14:11
PROVIDERS: Internal Medicine; Orthopaedic Surgery; Admitting Provider Internal Medicine; Emergency Provider Emergency Medicine; Family Provider Family Medicine; PCP Family Medicine; Referring Provider Emergency Medicine; Visit Provider Internal Medicine
PROC: 0SSF04Z Reposition Right Ankle Joint with Internal Fixation Device, Open Approach (ICD-10-PCS; principal; 2023-12-01 17:45)
DX: T79.6XXA Traumatic ischemia of muscle, initial encounter (principal); K50.90 Crohn's disease, unspecified, without complications; M80.071A Age-related osteoporosis with current pathological fracture, right ankle and foot, initial encounter for fracture; N17.9 Acute kidney failure, unspecified; N30.00 Acute cystitis without hematuria; I10 Essential (primary) hypertension; E03.9 Hypothyroidism, unspecified; R53.1 Weakness; B96.89 Other specified bacterial agents as the cause of diseases classified elsewhere; F32.A Depression, unspecified; K21.9 Gastro-esophageal reflux disease without esophagitis; G47.30 Sleep apnea, unspecified; W06.XXXA Fall from bed, initial encounter; Z87.891 Personal history of nicotine dependence
CPT/HCPCS: 36415; 70450; 71045; 72125; 73590; 73610; 73630; 80048; 80053; 81003; 81015; 82550; 83605; 83735; 84443; 84484; 85025; 85610; 85730; 87040; 87077; 87086; 87186; 87633; 93005; 97161; 97166; 97530; 97535; 99284; 99285; A9270; J0136; J0690; J0696; J1170; J1200; J2405; J2704

== ENCOUNTER 2023-12-14 02:00 | Emergency (ER) | payer MEDICARE, SELFPAY ==
[2023-11-30 15:58] VITALS: BMI 31.2
[2023-12-14] VITALS (18 sets, daily range): BP systolic 91–168; BP diastolic 50–72; PULSE 56–102; RESP 14–30; TEMP 37.1; O2SAT 86–96; BMI 30.2
--- NOTE | 2023-12-14 02:13 | ED.GENADULT ---
HPI - General Adult <Ligia Melgar MD - Last Filed: 12/14/23 18:01> General Chief complaint: Allergic Reaction Stated complaint: Allergic reaction Time Seen by Provider: 12/14/23 02:04 History of Present Illness HPI narrative: 83-year-old woman with a history of osteoporosis, Crohn's disease, hypertension, hypothyroidism, post breast cancer with lumpectomy and chemotherapy was hospitalized from November 29 to with right ankle trimalleolar fracture and fall, acute kidney injury and mild [facility]habdomy[facility] with apparent acute angioedema. Nursing staff initially noted that her upper lip was seeming to swell they observed for a couple of hours eventually called medics on their arrival they found her with the upper lip and tongue swollen more swelling to the right side of her mouth in the left side and a sensation that she was having difficulty breathing with diffuse wheeze. Prior to arrival she was given an albuterol neb, 2 doses of 0.3 mg of subQ epi and 50 mg of IV Benadryl. On arrival in the emergency department she is awake, alert able to speak in complete sentences medics note that her lip swelling seems to be improving and her wheezing has almost entirely resolved. She states she has never had acute swelling like this. There has been no obvious changes to medications nothing new for dinner. She states that she had a sensation that her throat was closing up and she was having trouble breathing years ago after an allergy shot. Current medications do include lisinopril. She notes she has not had a bowel movement for a day or 2 and was given a stool softener earlier today. Melatonin reportedly was increased fairly recently and med list indicates she is supposed to be getting 10 mg nightly. Related Data Home Medications Medication Instructions Recorded Confirmed amlodipine 2.5 mg tablet 2.5 mg PO BEDTIME for blood 11/30/23 11/30/23 pressure. take every day even if normal. baclofen 10 mg tablet 10 mg PO 4XD PRN Spasms 11/30/23 11/30/23 gabapentin 300 mg capsule 300 mg PO BID 11/30/23 11/30/23 Previous Rx's Medication Instructions Recorded famotidine 20 mg tablet (Pepcid) 20 mg PO BID #1 tab 07/09/22 sertraline 25 mg tablet 25 mg PO DAILY #90 tabs 08/25/23 ondansetron HCl 8 mg tablet 8 mg PO DAILY #30 tabs 10/07/23 levothyroxine 88 mcg tablet 88 mcg PO DAILY #90 tabs 10/18/23 mirtazapine 7.5 mg tablet See Rx Instructions .Route 11/04/23 .COMPLEX for sleep #30 tabs estradiol 0.01% (0.1 mg/gram) 0.5 g vaginal 3XW #42.5 grams 11/15/23 vaginal cream lisinopril 40 mg tablet 40 mg PO DAILY for blood pressure. 11/16/23 take every day even if normal #90 tabs sertraline 100 mg tablet 100 mg PO DAILY #90 tabs 11/16/23 acetaminophen 325 mg tablet 650 mg (2 x 325 mg) PO Q6H PRN 12/03/23 Fever/Mild Pain (1-3) #30 tabs docusate sodium 100 mg capsule 100 mg PO BID #30 caps 12/03/23 oxycodone 5 mg tablet 5 mg PO Q3H PRN Pain, Moderate 12/03/23 (4-6) #30 tabs polyethylene glycol 3350 17 gram 17 g PO DAILY #30 ea 12/03/23 oral powder packet Allergies Allergy/AdvReac Type Severity Reaction Status Date / Time lisinopril Allergy Severe Anaphylaxis Verified 12/14/23 04:28 iodine [IODINE] Allergy Intermediate RASH Verified 10/07/23 15:22 adhesive [ADHESIVE] Allergy Mild TAPE, RASH Verified 10/07/23 15:22 nickel Allergy Mild Rash Verified 10/07/23 15:22 Review of Systems <Ligia Melgar MD - Last Filed: 12/14/23 18:01> Review of Systems Narrative: Pertinent positive and negative findings as per HPI Patient History <Ligia Melgar MD - Last Filed: 12/14/23 18:01> Medical History Lumbar spinal stenosis Post laminectomy syndrome Lumbar radiculopathy Lumbar spondylosis Low back pain Thoracic back pain Myofascial pain Cervical spondylosis Balance problem History of colon polyps History of breast cancer Acute low back pain Ingrown right big toenail Diverticulosis GERD (gastroesophageal reflux disease) Recurrent UTI Atrophic vulvovaginitis Psoriasis (~2010) Actinic keratosis (~2017) Allergies Shoulder pain Scoliosis Osteoporosis Foot pain Chronic back pain (~1989) Tuberculosis Rubella (~1943) Positive PPD (~1980) Measles (~1943) Chicken pox (~1946) Anemia (~1960) Hearing loss Ovarian cyst Irregular menstrual cycle Infertility Heavy menstrual period Fibroids (~1977) Endometriosis (~1959) History of urinary incontinence (~1999) Fecal incontinence Irritable bowel syndrome (~1979) Colon polyps (~2017) Right shoulder pain Chronic diarrhea Postoperative anemia Sleep apnea (~1989) C. difficile enteritis Macular degeneration Incontinence Depression (~1979) Hypothyroidism (~1962) Asthma HTN (hypertension) Hyperlipidemia Cystocele Osteoarthritis Chronic constipation Insomnia Anxiety (~1979) Femur fracture, right Breast cancer (~2010) Surgical History History of hysterectomy for benign disease Hx of foot surgery (~1988) History of reverse total replacement of right shoulder joint (04/08/20) History of cataract removal with insertion of prosthetic lens History of arthroplasty of left knee (03/13/19) S/P lumbar fusion (01/05/18) Status post Mohs surgery for squamous cell carcinoma of skin History of total hysterectomy with bilateral salpingo-oophorectomy (BSO) (~1977) Hx of appendectomy History of bladder surgery History of arthroplasty of right knee Hx of arthroscopy of right knee History of lumpectomy of left breast (2000) History of lumbar fusion Social History household members: spouse Smoking Status: Former smoker alcohol intake: current Smoking Status: Former smoker alcohol intake frequency: holidays/special occasions only Substance Use Type: does not use Exam <Ligia Melgar MD - Last Filed: 12/14/23 18:01> Narrative Exam Narrative: General: Older appearing, pale, significant upper lip angioedema right lower lip swelling normal voice able to speak in complete sentences but does describe some tongue swelling. Unable to see the posterior palate HEENT: Moist mucous membranes, normal sclera with reactive pupils, Respiratory: Lungs with minor scattered wheeze only. Otherwise full and symmetrical air movement and is able to speak in full sentences Cardiac: Tachycardic after the epinephrine but otherwise Regular rate and rhythm no murmurs no bruits Abdomen: Soft, nontender, good bowel tones, no flank pain Skin: Warm and dry, no rashes Neurologic: Grossly neurologically intact with no obvious asymmetries or abnormalities Extremities: No trauma, well perfused Psych: Cooperative, appropriate insight and affect Initial Vital Signs Initial Vital Signs: Vital Signs Pulse Rate 102 H 12/14/23 02:05 Pulse Oximetry 92 12/14/23 02:05 <Jaja Barone DO - Last Filed: 12/14/23 13:21> Initial Vital Signs Initial Vital Signs: Vital Signs Pulse Rate 102 H 12/14/23 02:05 Pulse Oximetry 92 12/14/23 02:05 Course <Ligia Melgar MD - Last Filed: 12/14/23 18:01> Orders Ordered: Discontinued Medications Tranexamic Acid 1,000 mg/ (Sodium Chloride) 100 mls @ 200 mls/hr IV NOW ONE Stop: 12/14/23 02:37 Last Infusion: 12/14/23 03:07 Dose: Infused Documented By: Admin: 12/14/23 02:25 Dose: 200 mls/hr Documented By: GEETHA Sodium Chloride (Normal Saline 0.9%) 1,000 mls @ 1,000 mls/hr IV BOLUS ONE Stop: 12/14/23 04:02 Last Infusion: 12/14/23 04:19 Dose: Infused Documented By: Admin: 12/14/23 03:19 Dose: 1,000 mls/hr Documented By: GEETHA Methylprednisolone (Methylprednisolone 125 Mg/2 Ml Vial) 125 mg IV NOW ONE Stop: 12/14/23 02:09 Last Admin: 12/14/23 02:26 Dose: 125 mg Documented By: GEETHA Vital Signs Vital signs: Vital Signs - 8 hr 12/14/23 05:30 12/14/23 05:30 12/14/23 06:00 Pulse Rate 58 L 56 L Respiratory Rate 30 H 27 H Blood Pressure 93/54 L Pulse Oximetry 93 94 12/14/23 06:00 12/14/23 07:00 12/14/23 07:00 Pulse Rate 65 Respiratory Rate 24 Blood Pressure 96/50 L 147/63 H Pulse Oximetry 96 12/14/23 07:30 12/14/23 07:30 12/14/23 08:00 Pulse Rate 64 85 Respiratory Rate 16 22 Blood Pressure 130/58 L Pulse Oximetry 94 92 12/14/23 08:30 12/14/23 08:30 Pulse Rate 74 Respiratory Rate 18 Blood Pressure 134/62 Pulse Oximetry 93 <Jaja Barone DO - Last Filed: 12/14/23 13:21> Orders Ordered: Discontinued Medications Tranexamic Acid 1,000 mg/ (Sodium Chloride) 100 mls @ 200 mls/hr IV NOW ONE Stop: 12/14/23 02:37 Last Infusion: 12/14/23 03:07 Dose: Infused Documented By: Admin: 12/14/23 02:25 Dose: 200 mls/hr Documented By: GEETHA Sodium Chloride (Normal Saline 0.9%) 1,000 mls @ 1,000 mls/hr IV BOLUS ONE Stop: 12/14/23 04:02 Last Infusion: 12/14/23 04:19 Dose: Infused Documented By: Admin: 12/14/23 03:19 Dose: 1,000 mls/hr Documented By: GEETHA Methylprednisolone (Methylprednisolone 125 Mg/2 Ml Vial) 125 mg IV NOW ONE Stop: 12/14/23 02:09 Last Admin: 12/14/23 02:26 Dose: 125 mg Documented By: GEETHA Vital Signs Vital signs: Vital Signs - 8 hr 12/14/23 05:30 12/14/23 05:30 12/14/23 06:00 Pulse Rate 58 L 56 L Respiratory Rate 30 H 27 H Blood Pressure 93/54 L Pulse Oximetry 93 94 12/14/23 06:00 12/14/23 07:00 12/14/23 07:00 Pulse Rate 65 Respiratory Rate 24 Blood Pressure 96/50 L 147/63 H Pulse Oximetry 96 12/14/23 07:30 12/14/23 07:30 12/14/23 08:00 Pulse Rate 64 85 Respiratory Rate 16 22 Blood Pressure 130/58 L Pulse Oximetry 94 92 12/14/23 08:30 12/14/23 08:30 Pulse Rate 74 Respiratory Rate 18 Blood Pressure 134/62 Pulse Oximetry 93 Medical Decision Making <Ligia Melgar MD - Last Filed: 12/14/23 18:01> Lab Data 12/14/23 02:00 12/14/23 02:00 Labs: Lab Results 12/14/23 Range/Units 02:00 WBC 12.0 H (4.5-11.0) X10^3/uL RBC 3.10 L (4.0-5.2) X10^6/uL Hgb 9.4 L (12.0-16.0) g/dL Hct 28.7 L (36-46) % MCV 92.8 (80-100) fL MCH 30.3 (26-34) PG MCHC 32.7 (30-36) % RDW 14.1 (11.6-14.8) % Plt Count 462 H (150-400) X10^3/uL Neut % (Auto) 55.8 (50-75) % Lymph % (Auto) 25.5 (25-40) % Monona % (Auto) 14.9 H (3-14) % Eos % (Auto) 2.7 (2-4) % Baso % (Auto) 1.1 (0-2) % Neut # (Auto) 6700 (1143-7454) /uL Lymph # (Auto) 3000 (3345-0678) /uL Monona # (Auto) 1800 H (0-900) /uL Eos # (Auto) 300 (0-450) /uL Baso # (Auto) 100 (0-100) /uL Sodium 134 L (137-145) mmol/L Potassium 4.8 (3.4-5.1) mmol/L Chloride 102 (98-107) mmol/L Carbon Dioxide 22 (22-32) mmol/L BUN 24 H (7-17) mg/dL Creatinine 1.01 (0.52-1.04) mg/dL Estimated GFR 55 L (>60) mL/min BUN/Creatinine Ratio 23.8 H (6-22) Glucose 135 H (80-110) mg/dL Calcium 9.1 (8.4-10.2) mg/dL Total Bilirubin 0.7 (0.2-1.3) mg/dL AST 38 H (14-36) IU/L ALT 23 (<35) IU/L Alkaline Phosphatase 119 (38-126) U/L Total Protein 8.3 H (6.3-8.2) g/dL Albumin 4.3 (3.5-5.0) g/dL Globulin 4.0 (1.7-4.1) g/dL Albumin/Globulin Ratio 1.1 (1.0-2.8) MDM Narrative Medical decision making narrative: CC: Acute angioedema beginning approximately 9:00 p.m. this evening. Complicating co-morbidities: Hypertension and she has on an PENNY inhibitor with no prior episodes of angioedema, recent bimalleolar ankle fracture with hospitalization November 29 to Data collected from: patient Social determinants of health that may influence the patients condition: Currently in [facility] after ORIF of the right ankle Medical records reviewed: November 29 hospitalization with ankle injury and acute kidney injury reviewed Differential considered: Angioedema, anaphylaxis Exam documented above, pertinent findings include: Medics note that the upper lip swelling and tongue swelling has diminished with the addition of 2 doses of epinephrine and IV Benadryl. Wheezing has almost entirely resolved with albuterol treatment Lab Test results independently reviewed as above. Pertinent findings: CBC shows mild leukocytosis with chronic stable anemia. No significant left shift Metabolic panel has a slight bump in creatinine with GFR at 55. It may be that this slight decrease in renal function has caused lisinopril levels to be higher which exacerbated symptoms today Treatments: Prior to arrival 50 mg of Benadryl 0.3 mg of IM epi x2, albuterol inhaler. After arrival Solu-Medrol, 1 g of tranexamic acid and a L of fluid Re-evaluations: 3am continued improvement with lip edema and tongue swelling. No recurrent dyspnea/wheeze 4am stable, no continued improvement but not worsening either. Patient is sleeping comfortably Discussion: 83-year-old woman with developing angioedema that is evening. She has on an PENNY-inhibitor and has been so for a number of years. Renal function shows slight drop in GFR down to 55 and that may have been enough to increase lisinopril levels to the point that she had a reaction or it may simply have been idiosyncratic. A no changes to food or other exposures that might explain symptoms. She was given 2 doses of subcutaneous epinephrine, Solu-Medrol, TXA, fluids and Benadryl. She does shows significant improvement from time of arrival however swollen upper lip and tongue are still notable. There is no wheezing or respiratory distress and she is sleeping comfortably. 420am Care is discussed with hospitalist, Dr Dueñas. We both agreed that further observation prior to returning to [facility] is reasonable. We chose to have her stay as an ER patient for the next few hours, have breakfast and continue observation. If at any time she seems to be worsening, will discuss further and anticipate admit. <Jaja Barone, DO - Last Filed: 12/14/23 13:21> Lab Data Labs: Lab Results 12/14/23 Range/Units 02:00 WBC 12.0 H (4.5-11.0) X10^3/uL RBC 3.10 L (4.0-5.2) X10^6/uL Hgb 9.4 L (12.0-16.0) g/dL Hct 28.7 L (36-46) % MCV 92.8 (80-100) fL MCH 30.3 (26-34) PG MCHC 32.7 (30-36) % RDW 14.1 (11.6-14.8) % Plt Count 462 H (150-400) X10^3/uL Neut % (Auto) 55.8 (50-75) % Lymph % (Auto) 25.5 (25-40) % Monona % (Auto) 14.9 H (3-14) % Eos % (Auto) 2.7 (2-4) % Baso % (Auto) 1.1 (0-2) % Neut # (Auto) 6700 (6795-2836) /uL Lymph # (Auto) 3000 (4934-3062) /uL Monona # (Auto) 1800 H (0-900) /uL Eos # (Auto) 300 (0-450) /uL Baso # (Auto) 100 (0-100) /uL Sodium 134 L (137-145) mmol/L Potassium 4.8 (3.4-5.1) mmol/L Chloride 102 (98-107) mmol/L Carbon Dioxide 22 (22-32) mmol/L BUN 24 H (7-17) mg/dL Creatinine 1.01 (0.52-1.04) mg/dL Estimated GFR 55 L (>60) mL/min BUN/Creatinine Ratio 23.8 H (6-22) Glucose 135 H (80-110) mg/dL Calcium 9.1 (8.4-10.2) mg/dL Total Bilirubin 0.7 (0.2-1.3) mg/dL AST 38 H (14-36) IU/L ALT 23 (<35) IU/L Alkaline Phosphatase 119 (38-126) U/L Total Protein 8.3 H (6.3-8.2) g/dL Albumin 4.3 (3.5-5.0) g/dL Globulin 4.0 (1.7-4.1) g/dL Albumin/Globulin Ratio 1.1 (1.0-2.8) MDM Narrative Medical decision making narrative: CC: Acute angioedema beginning approximately 9:00 p.m. this evening. Complicating co-morbidities: Hypertension and she has on an PENNY inhibitor with no prior episodes of angioedema, recent bimalleolar ankle fracture with hospitalization November 29 to Data collected from: patient Social determinants of health that may influence the patients condition: [facility] after ORIF of the right ankle Medical records reviewed: November 29 hospitalization with ankle injury and acute kidney injury reviewed Differential considered: Angioedema, anaphylaxis Exam documented above, pertinent findings include: Medics note that the upper lip swelling and tongue swelling has diminished with the addition of 2 doses of epinephrine and IV Benadryl. Wheezing has almost entirely resolved with albuterol treatment Lab Test results independently reviewed as above. Pertinent findings: CBC shows mild leukocytosis with chronic stable anemia. No significant left shift Metabolic panel has a slight bump in creatinine with GFR at 55. It may be that this slight decrease in renal function has caused lisinopril levels to be higher which exacerbated symptoms today Treatments: Prior to arrival 50 mg of Benadryl 0.3 mg of IM epi x2, albuterol inhaler. After arrival Solu-Medrol, 1 g of tranexamic acid and a L of fluid Re-evaluations: 3am continued improvement with lip edema and tongue swelling. No recurrent dyspnea/wheeze 4am stable, no continued improvement but not worsening either. Patient is sleeping comfortably Discussion: 83-year-old woman with developing angioedema that is evening. She has on an PENNY-inhibitor and has been so for a number of years. Renal function shows slight drop in GFR down to 55 and that may have been enough to increase lisinopril levels to the point that she had a reaction or it may simply have been idiosyncratic. A no changes to food or other exposures that might explain symptoms. She was given 2 doses of subcutaneous epinephrine, Solu-Medrol, TXA, fluids and Benadryl. She does shows significant improvement from time of arrival however swollen upper lip and tongue are still notable. There is no wheezing or respiratory distress and she is sleeping comfortably. 420am Care is discussed with hospitalist, Dr Dueñas. We both agreed that further observation prior to returning to SNF is reasonable. We chose to have her stay as an ER patient for the next few hours, have breakfast and continue observation. If at any time she seems to be worsening, will discuss further and anticipate admit. Dr. Barone 12/14/23: Patient signed out to myself by Dr. Melgar. patient seen and evaluated by myself patient's swelling has improved. Evaluated with Dr. Davalos we will continue to observe for another hour to and if continued to be improved plan for discharge back to patient's SNF. if any worsening plan for admission. patient is alert, has swelling of the upper lift some mild generalized edema, tongue has some mild swelling but per patient and provider appears improved. Patient received 2 doses of epinephrine, Solu-Medrol, TXA, Benadryl. Has been on PENNY inhibitor for several years Seems likely source For her angioedema. Labs were reviewed. 0830am: Patient seen and evaluated, she is having breakfast drinking her coffee. States she does not appreciate any worsening. Still has some upper lip swelling but appears slightly improved to myself and does not appear to be having any worsening. She states her tongue also feels improved. Discussed the likely source of her symptoms. Patient is alert, appropriate and able to ask for assistance or notify anyone if she has worsening symptoms and felt appropriate for discharge back to her rehab facility. Patient feels comfortable with this plan as well. All questions answered, return precautions reviewed. Discharge Plan Departure Patient Disposition: Home Clinical Impression: Angio-edema Qualifiers: Encounter type: initial encounter Qualified Code(s): T78.3XXA - Angioneurotic edema, initial encounter Instructions: DI for Angioedema Activity Restrictions/Additional Instructions: Thank you for coming in today I am concerned that the swelling that you are experienced is angioedema rather than a simple acute allergic reaction. You responded well to the medications you were given including epinephrine, Benadryl and albuterol by the medics, TXA and steroid in the emergency department as well as a L of fluid. One of the medications that can cause this reaction, even if you been on it for a number of years is lisinopril and all of the members in that PENNY inhibitor category of blood pressure medications. Please stop your lisinopril. Please consider this severe allergy to all PENNY inhibitors To treat your blood pressure I am going to suggest that you increase your amlodipine from 2.5 mg to a total of 5 mg. Please ask nursing staff to check your blood pressure daily to make sure that it is appropriately controlled with this medication change. Please return to the ER if you are having any increasing swelling of your lip, tongue, involvement of your airway any shortness of breath or tightness in your chest, persistent vomiting or other new or concerning changes. Prescriptions: No Action sertraline 25 mg tablet 25 mg PO DAILY Qty: 90 3RF Rx Instructions: take with 100mg tab (125mg total) levothyroxine 88 mcg tablet 88 mcg PO DAILY Qty: 90 1RF mirtazapine 7.5 mg tablet See Rx Instructions .ROUTE .COMPLEX Qty: 30 2RF Rx Instructions: 1/2 to 1 tab PO QHS estradiol 0.01 % (0.1 mg/gram) cream 0.5 g vaginal 3XW Qty: 42.5 3RF Rx Instructions: M/W/F lisinopril 40 mg tablet 40 mg PO DAILY Qty: 90 1RF sertraline 100 mg tablet 100 mg PO DAILY Qty: 90 3RF Rx Instructions: take with 25mg tab (125 total) amlodipine 2.5 mg tablet 2.5 mg PO BEDTIME Rx Instructions: continue to take lisinopril in am also baclofen 10 mg tablet 10 mg PO 4XD PRN (Reason: Spasms) gabapentin 300 mg capsule 300 mg PO BID Rx Instructions: ok to take BID or TID (takes BID) acetaminophen 325 mg Tablet 650 mg PO Q6H PRN (Reason: Fever/Mild Pain (1-3)) Qty: 30 0RF docusate sodium 100 mg Capsule 100 mg PO BID Qty: 30 0RF polyethylene glycol 3350 17 gram Powder In Packet 17 g PO DAILY Qty: 30 0RF oxycodone 5 mg Tablet 5 mg PO Q3H PRN (Reason: Pain, Moderate (4-6)) Qty: 30 0RF famotidine [Pepcid] 20 mg tablet 20 mg PO BID Qty: 1 0RF ondansetron HCl 8 mg tablet 8 mg PO DAILY Qty: 30 3RF Rx Instructions: 10 tabs/month Referrals: Allison Triana MD [Primary Care Provider] - Stand Alone Forms: Patient Portal/API
[2023-12-14] MEDS: TRANEXAMIC ACID 1,000 MG in SODIUM CHLORIDE 0.9% 100 ML 200 MG IV (02:25)
[2023-12-14] MEDS: methylPREDNISolone 125 MG/2 ML VIAL IV (02:26)
[2023-12-14 02:30] LABS: Add Manual Diff / Slide Review NO; Basophils Absolute Auto 100 /uL (0-100); Basophils Percent Auto 1.1 % (0-2); Eosinophils Absolute Auto 300 /uL (0-450); Eosinophils Percent Auto 2.7 % (2-4); Hematocrit 28.7 % (36-46); Hemoglobin 9.4 g/dL (12.0-16.0); Lymphocytes Absolute Auto 3000 /uL (1100-4500); Lymphocytes Percent Auto 25.5 % (25-40); Mean Corpuscular HGB Conc 32.7 % (30-36); Mean Corpuscular Hemoglobin 30.3 PG (26-34); Mean Corpuscular Volume 92.8 fL (80-100); Monocytes Absolute Auto 1800 /uL (0-900); Monocytes Percent Auto 14.9 % (3-14); Neutrophils Absolute Auto 6700 /uL (1500-7000); Neutrophils Percent Auto 55.8 % (50-75); Platelet Count 462 X10^3/uL (150-400); Red Cell Distribution Width 14.1 % (11.6-14.8)
[2023-12-14 02:31] LABS: Alanine Aminotransferase 23 IU/L (<35); Albumin 4.3 g/dL (3.5-5.0); Albumin Globulin Ratio 1.1 (1.0-2.8); Alkaline Phosphatase 119 U/L (38-126); Aspartate Aminotransferase 38 IU/L (14-36); BUN Creatinine Ratio 23.8 (6-22); Bilirubin Total 0.7 mg/dL (0.2-1.3); Blood Urea Nitrogen 24 mg/dL (7-17); Calcium 9.1 mg/dL (8.4-10.2); Carbon Dioxide 22 mmol/L (22-32); Chloride 102 mmol/L (98-107); Estimated Glomerular Filt Rate 55 mL/min (>60); Glucose 135 mg/dL (80-110); Potassium 4.8 mmol/L (3.4-5.1); Sodium 134 mmol/L (137-145); Total Protein 8.3 g/dL (6.3-8.2)
[2023-12-14 02:32] LABS: HEMOLYSIS 63 (0-50)
[2023-12-14] MEDS: SODIUM CHLORIDE 0.9% 1,000 ML 1000 ML IV (03:19)
== END 2023-12-14 08:54 | disposition home or self-care (01) ==
PROVIDERS: Emergency Medicine; Emergency Provider Emergency Medicine; Family Provider Family Medicine; PCP Family Medicine
DX: T78.3XXA Angioneurotic edema, initial encounter (principal)
CPT/HCPCS: 80053; 85025; 96361; 96374; 99284; J2919

== ENCOUNTER → 2023-12-16 11:08 | Outpatient (CLI) | payer MEDICARE, SELFPAY ==
[2023-11-30 15:58] VITALS: BMI 31.2
== END ==
PROVIDERS: Family Provider Family Medicine; PCP Family Medicine; Referring Provider Family Medicine; Visit Provider Surgery
DX: L98.492 Non-pressure chronic ulcer of skin of other sites with fat layer exposed (principal); L59.8 Other specified disorders of the skin and subcutaneous tissue related to radiation; Z87.891 Personal history of nicotine dependence
CPT/HCPCS: 11042; 87070; 87075; 87077; 87147; 87186; 87205; 99212; 99213

== ENCOUNTER → 2023-12-30 10:33 | Outpatient (CLI) | payer MEDICARE, SELFPAY ==
[2023-11-30 15:58] VITALS: BMI 31.2
== END ==
LOC: WC 10:34
PROVIDERS: Family Provider Family Medicine; PCP Family Medicine; Referring Provider Family Medicine; Visit Provider Nurse Practitioner Family
DX: L59.8 Other specified disorders of the skin and subcutaneous tissue related to radiation (principal); L98.492 Non-pressure chronic ulcer of skin of other sites with fat layer exposed; L08.89 Other specified local infections of the skin and subcutaneous tissue; Z79.2 Long term (current) use of antibiotics
CPT/HCPCS: 11042; 99213

== ENCOUNTER → 2024-01-06 14:29 | Outpatient (CLI) | payer MEDICARE, SELFPAY ==
[2023-11-30 15:58] VITALS: BMI 31.2
== END ==
LOC: WC 14:30
PROVIDERS: Family Provider Family Medicine; PCP Family Medicine; Referring Provider Family Medicine; Visit Provider Surgery
DX: L59.8 Other specified disorders of the skin and subcutaneous tissue related to radiation (principal); L08.89 Other specified local infections of the skin and subcutaneous tissue
CPT/HCPCS: 11042; 99213

== ENCOUNTER → 2024-01-07 10:03 | Outpatient (CLI) | payer MEDICARE, SELFPAY ==
[2023-11-30 15:58] VITALS: BMI 31.2
--- NOTE | 2024-01-07 10:30 | DI.US.S_ITS ---
LIMITED ULTRASOUND OF LEFT BREAST: 01/07/2024 CLINICAL: Wound with drainage inferior to left breast. Comparison is made to exams dated: 09/07/2023 breast MRI, 01/05/2023 mammogram, 01/27/2022 ultrasound, and 12/10/2021 mammogram - [facility]. Color flow and real-time ultrasound of the left breast lower inner quadrant were performed. Pagan scale images of the real-time examination were reviewed. Skin wound is seen at the clinical area of concern in the lower inner quadrant of the left breast. A fluid-filled tract is seen extending into the deeper tissues. There is surrounding heterogeneous echogenicity with increased vascularity and overlying skin thickening. Deeper structures are poorly evaluated due to shadowing and posterior acoustic attenuation. A poorly defined hypoechoic area is seen posteriorly that could represent shadowing or possibly trace fluid. However, no drainable abscess is seen. Findings are similar when compared to the MRI from 09/07/2023. IMPRESSION: PROBABLY BENIGN Probable mastitis is seen at the area of interest in the left breast lower inner quadrant. There is a skin wound and small fluid-filled tract without a drainable abscess seen. Recommend follow up left breast ultrasound in 3 months to re-evaluate after antibiotic therapy. A follow-up left ultrasound in 3 months is recommended. This exam was interpreted at Station ID: [id number]. Electronically Signed By: Milton [email or web address]/[email or web address]:01/07/2024 16:16:31 letter sent: Followup Recommended Ultrasound BI-RADS: 3 Probably benign
== END ==
PROVIDERS: Family Provider Family Medicine; PCP Family Medicine; Referring Provider Surgery; Visit Provider Surgery
DX: N64.89 Other specified disorders of breast (principal); L08.9 Local infection of the skin and subcutaneous tissue, unspecified
CPT/HCPCS: 76642

== ENCOUNTER → 2024-01-11 13:09 | Outpatient (CLI) | payer MEDICARE, SELFPAY ==
[2023-11-30 15:58] VITALS: BMI 31.2
== END ==
LOC: WC 13:10
PROVIDERS: Family Provider Family Medicine; PCP Family Medicine; Referring Provider Family Medicine; Visit Provider Surgery
DX: L98.492 Non-pressure chronic ulcer of skin of other sites with fat layer exposed (principal); L59.8 Other specified disorders of the skin and subcutaneous tissue related to radiation; L08.89 Other specified local infections of the skin and subcutaneous tissue
CPT/HCPCS: 11042

== ENCOUNTER → 2024-01-18 10:09 | Outpatient (CLI) | payer MEDICARE, SELFPAY ==
[2023-11-30 15:58] VITALS: BMI 31.2
[2024-01-18 10:21] LABS: Appearance Urine UA CLEAR; Bilirubin Urine UA NEGATIVE (NEGATIVE); Color Urine UA YELLOW; Glucose Urine UA NEGATIVE (Negative); Ketones Urine UA NEGATIVE (NEGATIVE); Leukocyte Esterase Urine UA NEGATIVE (NEGATIVE); Nitrite Urine UA NEGATIVE (Negative); Occult Blood Urine UA NEGATIVE (Negative); Protein Urine UA NEGATIVE (Negative); Urobilinogen Urine UA 0.2 E.U./dL (0.2)
[2024-01-18 10:37] LABS: Bacteria Urine None Seen; Culture Indicated Urine Cult Not Indicated; RBC Urine 0-1/HPF (0-5/HPF); Squamous Epithelial Cell Urine None Seen (0-5/HPF); Urine Volume 10mL (spun); WBC Urine None Seen (0-5/HPF)
== END ==
PROVIDERS: Family Provider Family Medicine; PCP Family Medicine; Visit Provider Registered Nurse
DX: N39.0 Urinary tract infection, site not specified (principal)
CPT/HCPCS: 81001

== ENCOUNTER → 2024-01-18 10:14 | Outpatient (CLI) | payer MEDICARE, SELFPAY ==
[2023-11-30 15:58] VITALS: BMI 31.2
== END ==
PROVIDERS: Family Provider Family Medicine; PCP Family Medicine; Referring Provider Family Medicine; Visit Provider Surgery
DX: L59.8 Other specified disorders of the skin and subcutaneous tissue related to radiation (principal); S21.002A Unspecified open wound of left breast, initial encounter
CPT/HCPCS: 11042; 99212; 99213

== ENCOUNTER → 2024-02-01 13:14 | Outpatient (CLI) | payer MEDICARE, SELFPAY ==
[2023-11-30 15:58] VITALS: BMI 31.2
== END ==
PROVIDERS: Family Provider Family Medicine; PCP Family Medicine; Referring Provider Family Medicine; Visit Provider Surgery
DX: L98.492 Non-pressure chronic ulcer of skin of other sites with fat layer exposed (principal); L59.8 Other specified disorders of the skin and subcutaneous tissue related to radiation
CPT/HCPCS: 11042

== ENCOUNTER → 2024-03-06 10:55 | Outpatient (CLI) | payer MEDICARE, SELFPAY ==
[2023-11-30 15:58] VITALS: BMI 31.2
[2024-03-06 20:33] LABS: Add Manual Diff / Slide Review NO; Basophils Absolute Auto 100 /uL (0-100); Basophils Percent Auto 1.1 % (0-2); Eosinophils Absolute Auto 300 /uL (0-450); Eosinophils Percent Auto 3.6 % (2-4); Hematocrit 34.7 % (36-46); Hemoglobin 11.4 g/dL (12.0-16.0); Lymphocytes Absolute Auto 1700 /uL (1100-4500); Lymphocytes Percent Auto 20.1 % (25-40); Mean Corpuscular HGB Conc 32.9 % (30-36); Mean Corpuscular Hemoglobin 29.7 PG (26-34); Mean Corpuscular Volume 90.3 fL (80-100); Monocytes Absolute Auto 1000 /uL (0-900); Monocytes Percent Auto 11.4 % (3-14); Neutrophils Absolute Auto 5400 /uL (1500-7000); Neutrophils Percent Auto 63.8 % (50-75); Platelet Count 379 X10^3/uL (150-400); Red Blood Cell Count 3.84 X10^6/uL (4.0-5.2); Red Cell Distribution Width 16.1 % (11.6-14.8); White Blood Cell Count 8.5 X10^3/uL (4.5-11.0)
[2024-03-06 20:50] LABS: Alanine Aminotransferase 17 IU/L (<35); Albumin 4.5 g/dL (3.5-5.0); Albumin Globulin Ratio 1.2 (1.0-2.8); Alkaline Phosphatase 115 U/L (38-126); Aspartate Aminotransferase 32 IU/L (14-36); BUN Creatinine Ratio 31.4 (6-22); Bilirubin Total 0.4 mg/dL (0.2-1.3); Blood Urea Nitrogen 33 mg/dL (7-17); Carbon Dioxide 24 mmol/L (22-32); Chloride 101 mmol/L (98-107); Estimated Glomerular Filt Rate 52 mL/min (>60); Globulin 3.9 g/dL (1.7-4.1); Glucose 116 mg/dL (80-110); HEMOLYSIS < 15 (0-50); Potassium 4.8 mmol/L (3.4-5.1); Sodium 138 mmol/L (137-145); Total Protein 8.4 g/dL (6.3-8.2)
[2024-03-06 21:03] LABS: Vitamin D 25 Hydroxy (D3) 42.2 ng/mL (30.0-100.0)
[2024-03-06 21:40] LABS: Thyroid Stimulating Hormone 2.11 uIU/mL (0.47-4.68)
== END ==
PROVIDERS: Family Provider Family Medicine; PCP Family Medicine; Visit Provider Family Medicine
DX: E03.9 Hypothyroidism, unspecified (principal); M81.0 Age-related osteoporosis without current pathological fracture; R94.4 Abnormal results of kidney function studies; Z65.8 Other specified problems related to psychosocial circumstances; Z85.3 Personal history of malignant neoplasm of breast; I10 Essential (primary) hypertension
CPT/HCPCS: 80053; 82306; 84443; 85025

== ENCOUNTER 2024-03-07 10:44 | Day surgery (SDC) | payer MEDICARE, SELFPAY ==
[2023-11-30 15:58] VITALS: BMI 31.2
[2024-03-06 07:51] VITALS: BMI 68.0
[2024-03-07] VITALS (11 sets, daily range): BP systolic 114–172; BP diastolic 58–91; PULSE 67–96; RESP 10–16; TEMP 36.1–36.7; O2SAT 87–97; BMI 29.7
--- NOTE | 2024-03-07 | PATH_ITS ---
[facility] Accession Number: [id number] No. of containers..02 Tissue . 01 Material submitted: . PART A: chest - LEFT CHEST WALL NODULE PART B: breast - LEFT BREAST . 01 Diagnosis: A. LEFT CHEST WALL NODULE, BIOPSY: Amorphous calcified and mineralized nodule (nonspecific). . B. LEFT BREAST, MASTECTOMY: Pending expert consultation. See comment. [facility] 03/17/2024 1152 Local . 01 Comment: B. The patient's materials will be sent for expert consultation and the results will be reported in an addendum. . Findings were discussed with Dr. Cancino on 03/16/2024 at around [address] García via telephone. . . * This test was developed and the performance characteristics were validated by [facility]. It has not been cleared or approved by the U.S. Food and Drug Administration. . 01 Electronically signed: . Annamaria García MD, Pathologist NPI- [id number] . 01 Gross description: . A. Received in formalin with two patient identifiers and left chest wall nodule, is a fragment of hutton, hard calcified tissue, 0.6 x 0.5 x 0.3 cm. Inked blue and bisected to reveal a hutton, friable cut surface. Submitted entirely in A1 following decalcification. B. Received: In formalin with two patient identifiers and left breast. Specimen: An oriented mastectomy. Weight: 895 grams. Measurement: 15.4 cm superior to inferior, 22.6 cm medial to lateral, 7.1 cm anterior to posterior. Skin ellipse: Present, 22.5 x 13.9 cm with an ulcerated lesion (2.7 x 2.0 cm) with adjacent violaceous, thickened skin (6.4 x 4.1 cm). The ulcerated area is in the lower inner quadrant, 1.0 cm from the nearest inferior skin margin while the violaceous thickened skin grossly approaches the inferior skin margin and the thickened skin is also located 1.4 cm from the superior medial skin margin. A second skin lesion located at 3 o'clock is brown, slightly raised, roughened, and 0.7 x 0.6 cm, widely free from any margin. Nipple/areola: An erythematous everted nipple is 1.2 x 1.1 cm within a 4.4 x 3.1 cm areola. The thickened violaceous skin approaches the areola and is located 0.8 cm from the nipple. Axillary tail: Not identified. Margins: The skin ellipse is oriented with a short suture superior and a long suture lateral per the requisition. The posteroinferior margin of the lower inner quadrant associated with the ulcerated skin lesion is a large firm fibrous area, 6.2 x 4.6 cm. A fragment of presumed bone is identified within this dense fibrous tissue measuring 1.7 x 1.2 x 0.9 cm. No additional lesions are identified at the margin. The anterior superior margin is inked blue, the anterior inferior margin is inked green, and the posterior margin is inked black. Slices: Sliced from medial to lateral into 19 slices. Lesion: Two lesions are identified. Lesion #1: A dense fibrous area with calcifications (up to 0.5 cm in greatest dimension) extends from the ulcerated skin lesion to the fibrous/bony area on the posteroinferior margin. Size: 7.4 x 6.2 x 4.4 cm. Slices involved: Slice 4-10 in the lower inner quadrant. Distance to margins: The fibrous and calcified tissue grossly involves the green and black-inked margins. Two U-shaped clips are identified, one within slice 7 and one within slice 9, and are consistent with hemostatic clips. Lesion #2 Description: A well-defined pink-hutton nodule. Size: 1.2 x 1.0 x 1.0 cm. Slices involved: 16 and 17. Distance to margins: The lesion is 0.6 cm from the blue-inked margin in the upper outer quadrant and 0.9 cm from the black-inked posterior margin. No biopsy clip is identified. Other: The remaining cut surfaces are yellow to white fibroadipose tissue with fibrous tissue occupying approximately 20% of the cut surface with no additional lesions identified. Fixation: The specimen was removed on 03/07/2024, time not provided; cold ischemic time cannot be calculated; and total fixation time is approximately 44 hours following additional fixation. Casting Room Operator sections are submitted as follows: B1: Entire bisected roughened skin lesion at 3 o'clock and entire bisected nipple. B2: Fibrous area to green-inked margin slice 6. B3: Fibrous area and ulcerated skin lesion from slice 7. B4: Fibrous area and thickened skin slice 9. B5: Calcified friable area previously described as possible bone from slice 9, briefly decalcified. B6: Lesion #2 to black margin from slice 16. B7: Lesion #2 to blue margin slice 17. B8: Casting Room Operator upper inner quadrant. B9: Casting Room Operator lower outer quadrant. B10: Casting Room Operator upper outer quadrant. ([id number]) . Additional sections of fibrous lesion to skin and margins are submitted in B11-B15. ([id number]) /MRV 03/16/2024 [facility] Local . 01 Pathologist provided ICD-10: Z85.3, S21.009D . 01 CPT . 315668, 952841, [id number], [id number] Specimen Comment: A courtesy copy of this report has been sent to [phone] Performed at: [address] [id number], [place], [place] [id number] MD Adryan Villavicencio MD Phone: [phone]
--- NOTE | 2024-03-07 11:19 | PM.PREOP ---
Pre-operative Note COVID-19 COVID-19 status: Not tested Interval Note History & Physical reviewed/Exam performed by Physician: Yes Changes to H&P: No ASA Class (for procedural sedation): III
[2024-03-07] MEDS: LACTATED RINGERS 1,000 ML 42 ML IV ×2 (11:34→13:32)
[2024-03-07] MEDS: CEFAZOLIN 2 GM/100 ML PREMIX 100 ML IV (12:03)
--- NOTE | 2024-03-07 12:12 | SUR.OPER ---
Supine on padded OR bed, head on pillow, left arm secured on padded arm board at <90 degrees abduction, right arm padded and tucked at side, legs uncrossed, safety belt at thigh, tape over blanket over lower legs.
[2024-03-07] MEDS: BUPIVACAINE 0.5% (PF) 30 ML VIAL INJ (12:34)
--- NOTE | 2024-03-07 13:59 | P.OP_ITS ---
Operative Date/Time/Diagnoses Date of procedure: 03/07/24 Time of procedure: 13:59 Pre-op diagnosis: Nonhealing wound of the left breast Post-op diagnosis: same Procedure & Clinicians Procedure: Nonhealing wound of the left breast Same procedure as scheduled: Yes Surgeon: Tomas Cancino Dog Or Animal Sitter: Carloz Hooker Anesthesia Type: General Operative Notes Procedure in detail: Preoperative antibiotics were given. The patient was brought to the operating room, placed on the table in the supine position and general anesthesia was induced via LMA. The left arm was abducted on an arm board. The left breast was prepped and draped in the usual fashion. A time-out was performed. We made a 15 cm elliptical skin incision encompassing the medial wound and the left areola and curving towards the axilla laterally. We used cautery to enter the plane between the breast tissue in the subcutaneous adipose tissue. We developed the superior flap first. We carried the dissection to the superior aspect of the breast tissue and when we saw pectoralis muscle we started to turn and lift the breast off the pectoral fascia. Her breast tissue did not extend to the clavicle due to her age in laxity. We then created an inferior flap inferior to inframammary fold and dissected down to the muscle fascia. We carried the dissection laterally to the edge of the latissimus muscle. The pathological tissue extended to chest wall seemed to invade into the chest wall suggesting malignancy. We resected some of the chest wall with the breast tissue including some necrotic appearing bony tissue. We resected a small nodule of calcified tissue from the chest wall. We placed a short silk stitch along the superior aspect of the specimen and a long stitch along the lateral aspect. We irrigated left mastectomy wound with sterile water. A few bleeders were cauterized. Additional local was injected into the chest wall. Finally, we irrigated the wound cavity with 2 L of saline. We checked for hemostasis and addressed a few small bleeders with cautery. We injected additional local into the muscle and fascia. We then placed one 19 Greenlandic round Otoniel drain into the field and brought it out through a lateral stab incision. The drain was secured to the skin with a 2-0 nylon stitch. We then closed the incision in layers using interrupted 3-0 Vicryl dermal sutures followed by running 4-0 Monocryl subcuticular stitch. Dressings were applied and the patient was brought to recovery room. EBL: 40 mL Specimen: Left breast, left chest wall nodule Post-operative Condition: stable Disposition: PACU
[2024-03-07] MEDS: ONDANSETRON 4 MG/2 ML INJ IV (14:29)
[2024-03-07] MEDS: METOCLOPRAMIDE 10 MG/2 ML INJ IV (14:52)
[2024-03-07] MEDS: hydrOXYzine 50 MG/ML INJ 25 MG IM (14:52)
--- NOTE | 2024-03-07 14:53 | SUR.PHASEI ---
Patient reported nausea improved but has not resolved. Dr. Sinha notified. VVO for Reglan. Patient medicated.
--- NOTE | 2024-03-07 15:15 | SUR.PHASEI ---
O2 sats dropped to 80s. Deep breaths encouraged. IS provided, Patient able to reach 1500mls. Exp wheeze in left lung.
--- NOTE | 2024-03-07 15:24 | DI.RAD.S_ITS ---
PROCEDURE: XR CHEST 1V INDICATIONS: post op de sat TECHNIQUE: One view of the chest was acquired. COMPARISON: [facility], , XR CHEST 1V, 11/30/2023, 10:27. FINDINGS: Surgical changes and devices: Left thoracostomy tubes. Partially evaluated right shoulder arthroplasty. Lungs and pleura: Lungs are clear. No pleural effusions or pneumothorax. Mediastinum: Mediastinal contours appear normal. Heart size is normal. Bones and chest wall: No suspicious bony lesions. Overlying soft tissues appear unremarkable. IMPRESSION: No focal dense airspace consolidation. Approved by: Adina Ma M.D.,Ph.D. on 03/07/2024 at 17:29
[2024-03-07] MEDS: ALBUTEROL 2.5 MG/3 ML NEB (ADULT) INH (15:31)
--- NOTE | 2024-03-07 15:33 | SUR.PHASEI ---
Chest x-ray ordered by Dr. Cancino and performed. Albuterol neb infusing. Patient reported nausea resolved.
--- NOTE | 2024-03-07 15:37 | SUR.PHASEI ---
neb complete. Lungs clear.
--- NOTE | 2024-03-07 15:47 | SUR.PHASEI ---
Chest x-ray evaluated by Dr. Cancino. Discussed patient on 2L NC and maintaining sats in mid to upper 90s. Patient may discharge to the floor per MD. Report called to Constantine.
[2024-03-07] MEDS: MIRTAZAPINE 15 MG TABLET PO (20:47)
[2024-03-07] MEDS: GABAPENTIN 300 MG CAPSULE PO (20:47)
[2024-03-07] MEDS: AMLODIPINE 5 MG TABLET 2.5 MG PO (20:47)
[2024-03-07] MEDS: FAMOTIDINE 20 MG TABLET PO (20:47)
[2024-03-08] VITALS: BP 107/55; PULSE 75; RESP 18; TEMP 35.8; O2SAT 96
[2024-03-08] MEDS: ONDANSETRON 4 MG/2 ML INJ IV (00:45)
[2024-03-08 06:00] VITALS: BP 113/84; PULSE 84; RESP 18; TEMP 36.6; O2SAT 96
[2024-03-08 07:42] VITALS: O2SAT 92
[2024-03-08 08:20] VITALS: BP 104/40; PULSE 63; RESP 18; TEMP 36.1; O2SAT 96
[2024-03-08] MEDS: SERTRALINE 50 MG TABLET 125 MG PO (09:33)
[2024-03-08] MEDS: GABAPENTIN 300 MG CAPSULE PO (09:33)
[2024-03-08] MEDS: FAMOTIDINE 20 MG TABLET PO (09:34)
[2024-03-08] MEDS: ACETAMINOPHEN 325 MG TABLET 650 MG PO (09:34)
[2024-03-08] MEDS: LEVOTHYROXINE 88 MCG TABLET PO (09:34)
--- NOTE | 2024-03-08 11:21 | CM.DANOTE ---
Addendum entered by Ya Walters 03/08/24 12:41: Spoke with Jamaal at [facility] and patient will need new order and face to face form. Orders confirmed, entered, and face to face completed. Notified [facility] that patient will d/c home today. Original Note: DPA Note: Chart reviewed, reviewed patient in rounds, spoke with patient at bedside with spouse present. Patient admitted for non healing wound to left breast, POD 1 mastectomy. Patient states she is current with [facility] on [address] for dressing changes and plans to continue at d/c with wound care, per surgeons orders. Patient states she lives w/ her spouse and was prev ind with her ADLs, but her spouse drives as needed. They utilize Meals on Wheels and are established with the social worker health services through the [facility] on [address], Irais Jiménez. Patient states they do not need more assistance with food, and can notify Irais for additional needs if they arise. Patient also already has priority medical boarding pass through the wound care clinic and will not need one at d/c. PT eval pending, will f/u to review. Patient plans to return home with [facility] at d/c, possible today if surgery clears. ARNEL Quiroga Discharge Planning/Care Management CM Discharge Assessment Start: 03/08/24 11:19 Freq: Status: Active Protocol: Document 03/08/24 11:19 KG (Rec: 03/08/24 11:21 KG [id number]) Discharge Planning Assessment Assigned Teletypesetter Operator Ya Walters DPOA/Assigned Designee Name Catalina Thomas Advance Directives? Yes: Healthcare Directive/ Supplement & DPOA Advance Directives on File No History Provided By Patient,Medical Record Has Patient been admitted in last 30 No days? Prior Living Arrangements House Household Members spouse Type of transporation used prior to Relies on Others admit Independent with ADL's Yes Is patient alert and oriented? Yes Caregiver for Another No Community Services used prior to Home Health Nurse,Wound Care admission: DME Already Rented / Owned Wheelchair,FWW / Walker,Cane Patient/Family Preference Alf Facility,Home with Home Health Comment Home when medically stable. Comment Priority boarding pass needed for 12:05pm return to [facility] today. RN updated. Discharge Plan Home Transportation Arrangement home vs SNF Additional Comment Home versus skilled, pending P .T/O.T. If patient plan is SNF: Has PASSR been No completed? Medicare Choice List Provided Yes Medicare choice list reviewed on patient,family electronic tablet with Pre-Anesthesia Assessment Start: 03/06/24 07:51 Freq: Status: Active Protocol: Document 03/06/24 07:51 LB (Rec: 03/06/24 08:04 LB [id number]) Pre-Anesthesia Assessment PAC Comment 03/06/24 Chart review. Patient Information Reviewed Via Chart Review Diagnostic Results BMP/CMP,CBC,PT/INR,Urinalysis Comment 12/14/23 at . UA at . (H&H 9.4 / 28.7) Specialist Seen Emergency,General surgeon, Other Primary Language Latvian Preferred Language Latvian Sammying Machine Operator Required No Height 152.4 cm Weight 158 kg Body Mass Index (BMI) 68.0 Other Aids Yes: CPAP Hx Anesthesia Reactions No Hx Family Anesthesia Reaction No Hx Malignant Hyperthermia No Hx Blood Transfusions Yes: w/Femur fracture'13 Hx Blood Transfusion Reaction No Anesthesia Review Requested No Selling Manager No alcohol intake current alcohol intake frequency holidays/special occasions only Smoking Status Former smoker Tobacco type cigarettes how long ago did patient quit smoking Quit 1975 x 15 years - 7.5 pk- year history Substance Use Type does not use History of Falling (Recent or History of Yes ) Patient is completely paralyzed or No completely immobile Prosthesis or Orthotic Device Cane Does patient have RECINOS/SOB No: Asthma controlled per pt Hx Sleep Apnea Yes CPAP/BIPAP use prescribed and used routinely Currently Taking a Beta Ubaldo No Can You Climb a Flight of Stairs Without No SOB Anti-Coagulant Therapy No Hx Pacemaker/ICD No Cardiac Clearance Received Not Applicable Gastrointestinal Symptoms Reflux Hx Urinary Self Catheterization No Diabetes No Patient No Lactating No Hx Drug Resistant Organism Yes: C-Diff 2017 Presence of External or Internal Medical Yes: Back hardware; Rt thigh, Devices Rt knee, left knee prosthesis; 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 Yes Marital Status Lives With spouse Patient Discharge Plan Description Return Home Emergency Contact Name Kvng (), Luiz (son), Catherine (daughter), Crystal ( daughter) Emergency Contact Phone Number Kvng:[phone], Luiz:, Catherine & Crystal: [phone] Advance Directives? Yes: Healthcare Directive/ Supplement & DPOA Advance Directives on File No Power of Escapement Matcher Yes Stop Bang Assessment Do you snore loudly (louder than talking No or loud enough to be heard through closed doors) Do you often feel tired, fatigued or Yes sleepy during the daytime Has anyone ever observed you stop No breathing while sleeping? Do you have, or are you being treated No for, high blood pressure Is your BMI more than 35 kg/m2 No Age over 50 Yes Estimated neck circumference greater No than 40cm or 16in Gender male No Result Negative
== END 2024-03-08 12:34 | disposition home or self-care (01) ==
LOC: OR 10:45 → AC 10:50
PROVIDERS: Family Provider Family Medicine; PCP Family Medicine; Referring Provider Surgery; Visit Provider Surgery
PROC: 0HTU0ZZ Resection of Left Breast, Open Approach (ICD-10-PCS; CPT 19303; principal; 2024-03-07 11:15)
DX: S21.002A Unspecified open wound of left breast, initial encounter (principal); Z85.3 Personal history of malignant neoplasm of breast
CPT/HCPCS: 19303; 71045; 94762; A9270; J0690; J1100; J1885; J2405; J2704; J2765; J3010; J3410; J3490; J7613

== ENCOUNTER 2024-03-16 14:01 | Emergency (ER) | payer MEDICARE, SELFPAY ==
[2024-03-13 09:22] VITALS: BMI 29.7
[2024-03-16 14:13] VITALS: BP 132/75; PULSE 86; RESP 18; TEMP 36.9; O2SAT 97; BMI 29.7
[2024-03-16 17:17] VITALS: BP 141/74; PULSE 71; RESP 18; O2SAT 93
--- NOTE | 2024-03-16 17:20 | ED.SKABFB ---
HPI - Skin/Abscess/Foreign Bdy <Suresh Hernandez PA-C - Last Filed: 03/16/24 20:02> General Chief complaint: Skin/Abscess/Foreign Body Stated complaint: had surgery 03/07 poss infection, sent by pcp Time Seen by Provider: 03/16/24 17:20 Source: patient Mode of arrival: Ambulatory History of Present Illness HPI narrative: This is a 83 year old female presents emergency department due to concerns for infected surgical incision after left mastectomy with Dr. Cancino 9 days ago. Patient was seen primary care provider for drain removal today but was noted have some purulent drainage coming from the incision as well as some purulent drainage in the tubing and bulb. Patient denies any fevers, nausea, vomiting, or any other concerning signs or symptoms. Related Data Home Medications Medication Instructions Recorded Confirmed amlodipine 2.5 mg tablet 2.5 mg PO BEDTIME for blood 11/30/23 03/16/24 pressure. take every day even if normal. vitamins A,C,T-bwtl-ijqrbj 2,148 1 tab PO DAILY 03/07/24 03/16/24 mcg-113 mg-45 mg-17.4 mg tablet (PreserVision AREDS) Previous Rx's Medication Instructions Recorded sertraline 25 mg tablet 25 mg PO DAILY #90 tabs 08/25/23 ondansetron HCl 8 mg tablet 8 mg PO DAILY #30 tabs 10/07/23 estradiol 0.01% (0.1 mg/gram) 0.5 g vaginal 3XW #42.5 grams 11/15/23 vaginal cream sertraline 100 mg tablet 100 mg PO DAILY #90 tabs 11/16/23 acetaminophen 325 mg tablet 650 mg (2 x 325 mg) PO Q6H PRN 12/03/23 Fever/Mild Pain (1-3) #30 tabs docusate sodium 100 mg capsule 100 mg PO BID #30 caps 12/03/23 polyethylene glycol 3350 17 gram 17 g PO DAILY #30 ea 12/03/23 oral powder packet famotidine 20 mg tablet (Pepcid) 20 mg PO BID reflux #180 tabs 02/08/24 mirtazapine 15 mg tablet 15 mg PO BEDTIME sleep #90 tabs 02/08/24 gabapentin 300 mg capsule 300 mg PO BID pain #180 caps 02/15/24 oxycodone 5 mg tablet See Rx Instructions PO BID PRN 02/17/24 Pain, Moderate (4-6) #14 tabs levothyroxine 88 mcg tablet 88 mcg PO DAILY #90 tabs 03/07/24 hydrocodone 5 mg-acetaminophen 325 1 tab PO Q8H PRN pain #10 tabs 03/13/24 mg tablet sulfamethoxazole 800 1 tab PO Q12H #14 tabs 03/16/24 mg-trimethoprim 160 mg tablet (Bactrim DS) Allergies Allergy/AdvReac Type Severity Reaction Status Date / Time lisinopril Allergy Severe Anaphylaxis Verified 03/16/24 08:20 iodine [IODINE] Allergy Intermediate RASH Verified 03/16/24 08:20 adhesive [ADHESIVE] Allergy Mild TAPE, RASH Verified 03/16/24 08:20 nickel Allergy Mild Rash Verified 03/16/24 08:20 Review of Systems <Suresh Hernandez PA-C - Last Filed: 03/16/24 20:02> Review of Systems Narrative: GENERAL: Denies chills, fatigue, malaise, fever, sweats. HEENT: Denies sinus pain, ear pain, sore throat, difficulty swallowing, dizziness. RESPIRATORY: Denies dyspnea, cough, wheezing, hemoptysis, sputum. CARDIOVASCULAR: Denies chest pain, palpitations, orthopnea, edema, GASTROINTESTINAL: Denies nausea, vomiting, abdominal pain, diarrhea, constipation, melena. : Denies dysuria, frequency, incontinence, hematuria, urinary retention. MUSCULOSKELETAL: denies weakness, joint pain, or bony pain SKIN: Reports purulent drainage coming from the left thoracic drain site NEUROLOGIC: Denies weakness, headache, numbness, change in speech, confusion, seizures, incoordination. PSYCHIATRIC: No concerning psychosocial issues. 12 point review of systems is negative except for those stated above Patient History <Suresh Hernandez PA-C - Last Filed: 03/16/24 20:02> Medical History (Updated 03/16/24 @ 19:58 by Suresh Hernandez PA-C) Lumbar spinal stenosis Post laminectomy syndrome Lumbar radiculopathy Lumbar spondylosis Low back pain Thoracic back pain Myofascial pain Cervical spondylosis Balance problem History of colon polyps History of breast cancer Acute low back pain Ingrown right big toenail Diverticulosis GERD (gastroesophageal reflux disease) Recurrent UTI Atrophic vulvovaginitis Psoriasis (~2010) Actinic keratosis (~2017) Allergies Shoulder pain Scoliosis Osteoporosis Foot pain Chronic back pain (~1989) Tuberculosis Rubella (~1943) Positive PPD (~1980) Measles (~1943) Chicken pox (~1946) Anemia (~1960) Hearing loss Ovarian cyst Irregular menstrual cycle Infertility Heavy menstrual period Fibroids (~1977) Endometriosis (~1959) History of urinary incontinence (~1999) Fecal incontinence Irritable bowel syndrome (~1979) Colon polyps (~2017) Right shoulder pain Chronic diarrhea Postoperative anemia Sleep apnea (~1989) C. difficile enteritis Macular degeneration Incontinence Depression (~1979) Hypothyroidism (~1962) Asthma HTN (hypertension) Hyperlipidemia Cystocele Osteoarthritis Chronic constipation Insomnia Anxiety (~1979) Femur fracture, right Breast cancer (~2010) Surgical History (Updated 03/13/24 @ 09:22 by Allison Triana MD) History of hysterectomy for benign disease Hx of foot surgery (~1988) History of reverse total replacement of right shoulder joint (04/08/20) History of cataract removal with insertion of prosthetic lens History of arthroplasty of left knee (03/13/19) S/P lumbar fusion (01/05/18) Status post Mohs surgery for squamous cell carcinoma of skin History of total hysterectomy with bilateral salpingo-oophorectomy (BSO) (~1977) Hx of appendectomy History of bladder surgery History of arthroplasty of right knee Hx of arthroscopy of right knee History of lumpectomy of left breast (2000) History of lumbar fusion Social History household members: spouse Smoking Status: Former smoker alcohol intake: current Smoking Status: Former smoker alcohol intake frequency: holidays/special occasions only Substance Use Type: does not use Exam <Suresh Hernandez PA-C - Last Filed: 03/16/24 20:02> Narrative Exam Narrative: GENERAL: Well-developed patient, in mild distress. HEAD: Atraumatic. Normocephalic. EYES: Pupils equal round and reactive. Extraocular motions intact. No scleral icterus. No injection or drainage. ENT: Nose without bleeding, purulent drainage. Throat without erythema, tonsillar hypertrophy or exudate. Airway patent. NECK: Trachea midline. Non tender EXTREMITIES: No edema or joint tenderness. NEURO: AOx3. SKIN: There was some erythema surrounding the area where the drain enters the left ribs as well as a small amount purulent drainage. There also appears to be some purulent drainage in the bulb itself. Initial Vital Signs Initial Vital Signs: Vital Signs Temperature 98.5 F 03/16/24 14:13 Pulse Rate 86 03/16/24 14:13 Respiratory Rate 18 03/16/24 14:13 Blood Pressure 132/75 03/16/24 14:13 Pulse Oximetry 97 03/16/24 14:13 Oxygen Delivery Method Room Air 03/16/24 14:13 <Jaja Barone DO - Last Filed: 03/17/24 05:37> Initial Vital Signs Initial Vital Signs: Vital Signs Temperature 98.5 F 03/16/24 14:13 Pulse Rate 86 03/16/24 14:13 Respiratory Rate 18 03/16/24 14:13 Blood Pressure 132/75 03/16/24 14:13 Pulse Oximetry 97 03/16/24 14:13 Oxygen Delivery Method Room Air 03/16/24 14:13 Course <Suresh Hernandez PA-C - Last Filed: 03/16/24 20:02> Orders Ordered: Discontinued Medications Diphenhydramine HCl (Diphenhydramine 50 Mg/Ml Vial) 50 mg IV NOW ONE Stop: 03/16/24 17:38 Last Admin: 03/16/24 17:41 Dose: 50 mg Documented By: NELLA Trimethoprim/Sulfamethoxazole (Trimeth/Sulfa 160/800 (Ds) Tablet) 1 tab PO NOW ONE Stop: 03/16/24 20:02 Last Admin: 03/16/24 20:05 Dose: 1 tab Documented By: NELLA Consultations Consultation #1: [id number]: Discussed case on-call general surgeon, Dr. Ozuna, who agree with the plan for discharge with oral antibiotics and to follow up in Dr. Cancino's office. Vital Signs Vital signs: Vital Signs - 8 hr 03/16/24 14:13 03/16/24 17:17 03/16/24 18:57 Temperature 98.5 F 97.4 F L Pulse Rate 86 71 78 Respiratory Rate 18 18 19 Blood Pressure 132/75 141/74 H 173/84 H Pulse Oximetry 97 93 94 Oxygen Delivery Method Room Air Room Air <DO Devan Nina Last Filed: 03/17/24 05:37> Orders Ordered: Discontinued Medications Diphenhydramine HCl (Diphenhydramine 50 Mg/Ml Vial) 50 mg IV NOW ONE Stop: 03/16/24 17:38 Last Admin: 03/16/24 17:41 Dose: 50 mg Documented By: NELLA Trimethoprim/Sulfamethoxazole (Trimeth/Sulfa 160/800 (Ds) Tablet) 1 tab PO NOW ONE Stop: 03/16/24 20:02 Last Admin: 03/16/24 20:05 Dose: 1 tab Documented By: NELLA Vital Signs Vital signs: Vital Signs - 8 hr 03/16/24 14:13 03/16/24 17:17 03/16/24 18:57 Temperature 98.5 F 97.4 F L Pulse Rate 86 71 78 Respiratory Rate 18 18 19 Blood Pressure 132/75 141/74 H 173/84 H Pulse Oximetry 97 93 94 Oxygen Delivery Method Room Air Room Air MDM - Skin/Abscess/Foreign Bdy <Suresh Hernandez PA-C - Last Filed: 03/16/24 20:02> Lab Data 03/16/24 17:11 03/16/24 17:11 Labs: Lab Results 03/16/24 Range/Units 17:11 WBC 8.2 (4.5-11.0) X10^3/uL RBC 3.42 L (4.0-5.2) X10^6/uL Hgb 9.9 L (12.0-16.0) g/dL Hct 30.6 L (36-46) % MCV 89.6 (80-100) fL MCH 28.9 (26-34) PG MCHC 32.3 (30-36) % RDW 15.9 H (11.6-14.8) % Plt Count 373 (150-400) X10^3/uL Neut % (Auto) 60.9 (50-75) % Lymph % (Auto) 18.6 L (25-40) % [place] % (Auto) 14.7 H (3-14) % Eos % (Auto) 4.8 H (2-4) % Baso % (Auto) 1.0 (0-2) % Neut # (Auto) 5000 (0080-8739) /uL Lymph # (Auto) 1500 (8517-8095) /uL [place] # (Auto) 1200 H (0-900) /uL Eos # (Auto) 400 (0-450) /uL Baso # (Auto) 100 (0-100) /uL ESR > 140 H (0-20) MM/HR Sodium 132 L (137-145) mmol/L Potassium 4.3 (3.4-5.1) mmol/L Chloride 99 (98-107) mmol/L Carbon Dioxide 22 (22-32) mmol/L BUN 30 H (7-17) mg/dL Creatinine 1.00 (0.52-1.04) mg/dL Estimated GFR 56 L (>60) mL/min BUN/Creatinine Ratio 30.0 H (6-22) Glucose 108 (80-110) mg/dL Calcium 9.1 (8.4-10.2) mg/dL Total Bilirubin 0.4 (0.2-1.3) mg/dL AST 30 (14-36) IU/L ALT 16 (<35) IU/L Alkaline Phosphatase 112 (38-126) U/L C-Reactive Protein 4.9 H (<1.0) mg/dL Total Protein 8.4 H (6.3-8.2) g/dL Albumin 4.6 (3.5-5.0) g/dL Globulin 3.8 (1.7-4.1) g/dL Albumin/Globulin Ratio 1.2 (1.0-2.8) Imaging Data CT chest/abdomen : Radiologist's Impression: [place] [address] CT Scan Report Signed Patient: Catalina Thomas MR#: [id number] : 1940 Acct:[id number] Age/Sex: 83 / F Date of Service: 03/16/24 Loc: ED Accession Number: [id number] Procedure: CT chest abdomen w con Ordering Provider: Suresh Hernandez PA-C PROCEDURE: CT CHEST ABDOMEN W CON INDICATIONS: f/u post op infection s/p left mastectomy TECHNIQUE: After the administration of intravenous contrast, 5 mm thick sections acquired from the lung apices to the iliac crests. 5 mm coronal and sagittal reformats were performed, with additional 7 mm coronal MIP reformats through the lungs. For radiation dose reduction, the following was used: automated exposure control, adjustment of mA and/or kV according to patient size. COMPARISON: None. FINDINGS: Image quality: Diagnostic. CHEST: Lower Neck: No enlarged lymph nodes. Thyroid: No thyroid nodules which require sonographic follow up, per consensus guidelines. Axillae: No enlarged lymph nodes. Chest Wall: Left mastectomy. Subcutaneous drain in place. Associated skin thickening and edema. No soft tissue gas. No abscess cavity. Seroma present on image 54 of series 2 measuring approximately 3.6 x 2.1 cm. Bones: There are old left-sided rib fractures. There is a destructive sclerotic appearance of the anterior lateral left 6th rib which may represent a destructive metastatic focus. Reference image 68 of series 2. Lungs and Pleura: No pneumothorax or pleural effusions. No consolidation or suspicious nodules. Heart: Heart size is normal. No pericardial effusion. Thoracic Vessels: The aorta and pulmonary arteries demonstrate normal size. Mediastinum and Monica: No enlarged lymph nodes. Esophagus: No wall thickening. No hiatal hernia. ABDOMEN: Liver: No solid mass. Gallbladder: No radiopaque gallstones or wall thickening. Biliary ducts: No biliary dilation. Pancreas: No ductal dilation. Spleen: Size is within normal limits. Adrenal Glands: No adrenal nodules. Kidneys and Ureters: No hydronephrosis. No solid mass. No complex renal cystic lesion which requires follow up. Stomach and Bowel: Normal colonic caliber, without significant wall thickening. Peritoneum: No abnormal intraperitoneal fluid. No free air. Ventral Wall: No significant ventral hernia. Abdominal Nodes: No retroperitoneal or mesenteric adenopathy by size criteria. Vessels: Aorta and inferior vena cava are normal in size. PELVIS: Pelvic Organs: Unremarkable. Bladder: No bladder wall thickening, accounting for underdistention. Pelvic Nodes: No enlarged lymph nodes. Miscellaneous: No inguinal hernias are seen. Bones: No aggressive osseous abnormality. Advanced lumbar degenerative change with lower lumbar decompression and posterior lateral epi and pedicle screw fixation. Old benign appearing thoracic compressions. No acute compressions. No lytic or blastic bony lesions. IMPRESSION: Recent left mastectomy with skin thickening present. Postoperative seroma. Drain in place. No abscess. No soft tissue gas. No acute pulmonary process. There is a destructive sclerotic appearance of the anterior lateral left 6th rib which may represent a metastatic lesion. Dictated by: Iker Oconnor M.D. on 03/16/2024 at 19:31 Approved by: Iker Oconnor M.D. on 03/16/2024 at 19:38 [facility] Narrative Medical decision making narrative: ED course: This is a 83-year-old female presents to the emergency department due to a possible postop infection. Patient had a left side simple mastectomy with Dr. Cancino 9 days ago. She was seen at primary care provider's office earlier today for routine postop visit with the primary provider begins becoming concerned due to the purulent drainage as well as erythema around the drain site. Patient was seen here in the emergency department or lab work was ordered which showed no white count but did show elevated ESR and CRP. Blood wound cultures ordered as well. CT chest and abdomen with contrast was ordered which showed no abscess but did show postoperative seroma as well as a destructive sclerotic appearance in the anterior lateral left 6th rib possibly representing metastatic lesion. These findings were discussed with the on-call general surgeon, Dr. Ozuna, who agreed with the plan for p.o. antibiotics and to follow up in Dr. Cancino's clinic outpatient. CC: Postop incision drainage Complicating co-morbidities: History of osteoporosis, Crohn's disease, hypertension, hypothyroidism Data collected from: Previous notes Medical records reviewed: Patient was seen by Dr. Cancino a month ago for preop visit due to a nonhealing wound of the left breast post radiation therapy in 2010. The wound was not healing and simple mastectomy was discussed. Surgery was performed 03/07/2024. Patient also has a history of osteoporosis, Crohn's disease, hypertension, hypothyroidism,. Differential considered, but not limited to: Postop infection, routine wound tingling, abscess Exam documented above, pertinent findings include: Erythema around the drain site with a small amount of purulent drainage noticed in the bulb and the incision. Lab Test results independently reviewed as above. Pertinent findings: ESR and CRP are elevated, WBC within normal limits Imaging studies independently reviewed: As above Scores Used: None MIPS Elements: None Consultations: None Treatments: None Re-evaluations: None Discussion: Discussed plan with the patient was comfortable with the plan Diagnosis: Postop infection Disposition: see below, along with detailed discharge instructions that have been reviewed with patient as well as indications for ED re-evaluation and additional outpatient follow up <Jaja Barone, DO - Last Filed: 03/17/24 05:37> Lab Data Labs: Lab Results 03/16/24 Range/Units 17:11 WBC 8.2 (4.5-11.0) X10^3/uL RBC 3.42 L (4.0-5.2) X10^6/uL Hgb 9.9 L (12.0-16.0) g/dL Hct 30.6 L (36-46) % MCV 89.6 (80-100) fL MCH 28.9 (26-34) PG MCHC 32.3 (30-36) % RDW 15.9 H (11.6-14.8) % Plt Count 373 (150-400) X10^3/uL Neut % (Auto) 60.9 (50-75) % Lymph % (Auto) 18.6 L (25-40) % [place] % (Auto) 14.7 H (3-14) % Eos % (Auto) 4.8 H (2-4) % Baso % (Auto) 1.0 (0-2) % Neut # (Auto) 5000 (5611-3568) /uL Lymph # (Auto) 1500 (4821-4786) /uL [place] # (Auto) 1200 H (0-900) /uL Eos # (Auto) 400 (0-450) /uL Baso # (Auto) 100 (0-100) /uL ESR > 140 H (0-20) MM/HR Sodium 132 L (137-145) mmol/L Potassium 4.3 (3.4-5.1) mmol/L Chloride 99 (98-107) mmol/L Carbon Dioxide 22 (22-32) mmol/L BUN 30 H (7-17) mg/dL Creatinine 1.00 (0.52-1.04) mg/dL Estimated GFR 56 L (>60) mL/min BUN/Creatinine Ratio 30.0 H (6-22) Glucose 108 (80-110) mg/dL Calcium 9.1 (8.4-10.2) mg/dL Total Bilirubin 0.4 (0.2-1.3) mg/dL AST 30 (14-36) IU/L ALT 16 (<35) IU/L Alkaline Phosphatase 112 (38-126) U/L C-Reactive Protein 4.9 H (<1.0) mg/dL Total Protein 8.4 H (6.3-8.2) g/dL Albumin 4.6 (3.5-5.0) g/dL Globulin 3.8 (1.7-4.1) g/dL Albumin/Globulin Ratio 1.2 (1.0-2.8) Discharge Plan Departure Patient Disposition: Home Clinical Impression: Post op infection Activity Restrictions/Additional Instructions: Thank you for coming to the [facility] Emergency Department today. As we discussed I spoke with 1 of the surgeons in Dr. Cancino's group who agree with the plan for oral antibiotics and to follow up with Dr. Cancino on Wednesday. The CT scan today showed no evidence of abscess or worsening infection. Please take the antibiotics as prescribed. Please return to the emergency department if you develop any fevers, worsening drainage from the wound, or any other concerning signs or symptoms. I hope you feel better soon. Please follow up with your primary care provider within a week if your symptoms continue. If you do not have a primary care provider please contact the [facility] Resource line at [phone]. They will ask some questions about your medical history and help you get set up with a provider in the community. Prescriptions: New sulfamethoxazole-trimethoprim [Bactrim DS] 800-160 mg tablet 1 tab PO Q12H Qty: 14 0RF No Action sertraline 25 mg tablet 25 mg PO DAILY Qty: 90 3RF Rx Instructions: take with 100mg tab (125mg total) estradiol 0.01 % (0.1 mg/gram) cream 0.5 g vaginal 3XW Qty: 42.5 3RF Rx Instructions: M/W/F sertraline 100 mg tablet 100 mg PO DAILY Qty: 90 3RF Rx Instructions: take with 25mg tab (125 total) gabapentin 300 mg capsule 300 mg PO BID Qty: 180 6RF Rx Instructions: ok to take BID or TID (takes BID) levothyroxine 88 mcg tablet 88 mcg PO DAILY Qty: 90 1RF amlodipine 2.5 mg tablet 2.5 mg PO BEDTIME Rx Instructions: continue to take lisinopril in am also acetaminophen 325 mg Tablet 650 mg PO Q6H PRN (Reason: Fever/Mild Pain (1-3)) Qty: 30 0RF docusate sodium 100 mg Capsule 100 mg PO BID Qty: 30 0RF polyethylene glycol 3350 17 gram Powder In Packet 17 g PO DAILY Qty: 30 0RF PreserVision AREDS 2,148 mcg-113 mg-45 mg-17.4mg Tablet 1 tab PO DAILY famotidine [Pepcid] 20 mg tablet 20 mg PO BID Qty: 180 3RF mirtazapine 15 mg tablet 15 mg PO BEDTIME Qty: 90 1RF oxycodone 5 mg tablet See Rx Instructions PO BID PRN (Reason: Pain, Moderate (4-6)) Qty: 14 0RF Rx Instructions: 1/2 or 1 tab orally twice a day PRN severe pain. use sparingly. ok to skip doses hydrocodone-acetaminophen 5-325 mg tablet 1 tab PO Q8H PRN (Reason: pain) Qty: 10 0RF ondansetron HCl 8 mg tablet 8 mg PO DAILY Qty: 30 3RF Rx Instructions: 10 tabs/month Referrals: Allison Triana MD [Primary Care Provider] - Stand Alone Forms: Patient Portal/API ED Sign-out <Jaja Barone DO - Last Filed: 03/17/24 05:37> Cosign ED Attending Prince Attestation: I was immediately available in the department for consultation. Case was discussed with myself, labs, imaging vitals were reviewed. Reviewed recommendations from General surgery.
[2024-03-16 17:25] LABS: Add Manual Diff / Slide Review NO; Basophils Absolute Auto 100 /uL (0-100); Eosinophils Absolute Auto 400 /uL (0-450); Eosinophils Percent Auto 4.8 % (2-4); Hematocrit 30.6 % (36-46); Hemoglobin 9.9 g/dL (12.0-16.0); Lymphocytes Absolute Auto 1500 /uL (1100-4500); Lymphocytes Percent Auto 18.6 % (25-40); Mean Corpuscular HGB Conc 32.3 % (30-36); Mean Corpuscular Hemoglobin 28.9 PG (26-34); Mean Corpuscular Volume 89.6 fL (80-100); Monocytes Absolute Auto 1200 /uL (0-900); Monocytes Percent Auto 14.7 % (3-14); Neutrophils Absolute Auto 5000 /uL (1500-7000); Neutrophils Percent Auto 60.9 % (50-75); Platelet Count 373 X10^3/uL (150-400); Red Blood Cell Count 3.42 X10^6/uL (4.0-5.2); Red Cell Distribution Width 15.9 % (11.6-14.8); White Blood Cell Count 8.2 X10^3/uL (4.5-11.0)
--- NOTE | 2024-03-16 17:29 | DI.CT.S_ITS ---
PROCEDURE: CT CHEST ABDOMEN W CON INDICATIONS: f/u post op infection s/p left mastectomy TECHNIQUE: After the administration of intravenous contrast, 5 mm thick sections acquired from the lung apices to the iliac crests. 5 mm coronal and sagittal reformats were performed, with additional 7 mm coronal MIP reformats through the lungs. For radiation dose reduction, the following was used: automated exposure control, adjustment of mA and/or kV according to patient size. COMPARISON: None. FINDINGS: Image quality: Diagnostic. CHEST: Lower Neck: No enlarged lymph nodes. Thyroid: No thyroid nodules which require sonographic follow up, per consensus guidelines. Axillae: No enlarged lymph nodes. Chest Wall: Left mastectomy. Subcutaneous drain in place. Associated skin thickening and edema. No soft tissue gas. No abscess cavity. Seroma present on image 54 of series 2 measuring approximately 3.6 x 2.1 cm. Bones: There are old left-sided rib fractures. There is a destructive sclerotic appearance of the anterior lateral left 6th rib which may represent a destructive metastatic focus. Reference image 68 of series 2. Lungs and Pleura: No pneumothorax or pleural effusions. No consolidation or suspicious nodules. Heart: Heart size is normal. No pericardial effusion. Thoracic Vessels: The aorta and pulmonary arteries demonstrate normal size. Mediastinum and Monica: No enlarged lymph nodes. Esophagus: No wall thickening. No hiatal hernia. ABDOMEN: Liver: No solid mass. Gallbladder: No radiopaque gallstones or wall thickening. Biliary ducts: No biliary dilation. Pancreas: No ductal dilation. Spleen: Size is within normal limits. Adrenal Glands: No adrenal nodules. Kidneys and Ureters: No hydronephrosis. No solid mass. No complex renal cystic lesion which requires follow up. Stomach and Bowel: Normal colonic caliber, without significant wall thickening. Peritoneum: No abnormal intraperitoneal fluid. No free air. Ventral Wall: No significant ventral hernia. Abdominal Nodes: No retroperitoneal or mesenteric adenopathy by size criteria. Vessels: Aorta and inferior vena cava are normal in size. PELVIS: Pelvic Organs: Unremarkable. Bladder: No bladder wall thickening, accounting for underdistention. Pelvic Nodes: No enlarged lymph nodes. Miscellaneous: No inguinal hernias are seen. Bones: No aggressive osseous abnormality. Advanced lumbar degenerative change with lower lumbar decompression and posterior lateral epi and pedicle screw fixation. Old benign appearing thoracic compressions. No acute compressions. No lytic or blastic bony lesions. IMPRESSION: Recent left mastectomy with skin thickening present. Postoperative seroma. Drain in place. No abscess. No soft tissue gas. No acute pulmonary process. There is a destructive sclerotic appearance of the anterior lateral left 6th rib which may represent a metastatic lesion. Dictated by: Iker Oconnor M.D. on 03/16/2024 at 19:31 Approved by: Iker Oconnor M.D. on 03/16/2024 at 19:38
[2024-03-16 17:39] LABS: Alanine Aminotransferase 16 IU/L (<35); Albumin 4.6 g/dL (3.5-5.0); Albumin Globulin Ratio 1.2 (1.0-2.8); Alkaline Phosphatase 112 U/L (38-126); Aspartate Aminotransferase 30 IU/L (14-36); Bilirubin Total 0.4 mg/dL (0.2-1.3); Blood Urea Nitrogen 30 mg/dL (7-17); Calcium 9.1 mg/dL (8.4-10.2); Carbon Dioxide 22 mmol/L (22-32); Chloride 99 mmol/L (98-107); Estimated Glomerular Filt Rate 56 mL/min (>60); Globulin 3.8 g/dL (1.7-4.1); Glucose 108 mg/dL (80-110); HEMOLYSIS < 15 (0-50); Potassium 4.3 mmol/L (3.4-5.1); Sodium 132 mmol/L (137-145); Total Protein 8.4 g/dL (6.3-8.2)
[2024-03-16] MEDS: diphenhydrAMINE 50 MG/ML VIAL IV (17:41)
[2024-03-16 17:53] LABS: C-Reactive Protein Quant 4.9 mg/dL (<1.0)
[2024-03-16 17:58] LABS: Erythrocyte Sedimentation Rate > 140 MM/HR (0-20)
[2024-03-16 18:57] VITALS: BP 173/84; PULSE 78; RESP 19; TEMP 36.3; O2SAT 94
[2024-03-16] MEDS: TRIMETH/SULFA 160/800 (DS) TABLET 1 TAB PO (20:05)
[2024-03-16 20:15] VITALS: BP 169/83; PULSE 75; RESP 18; O2SAT 95
== END 2024-03-16 20:19 | disposition home or self-care (01) ==
PROVIDERS: Emergency Provider Physician Assistant Medical; Family Provider Family Medicine; PCP Family Medicine
DX: T81.40XA Infection following a procedure, unspecified, initial encounter (principal)
CPT/HCPCS: 36415; 71260; 74160; 80053; 85025; 85651; 86140; 87040; 87070; 87075; 87077; 87147; 87186; 87205; 96374; 99284; J1200; Q9967

== ENCOUNTER → 2024-04-06 13:03 | Outpatient (CLI) | payer MEDICARE, SELFPAY ==
[2024-03-13 09:22] VITALS: BMI 29.7
--- NOTE | 2024-04-06 14:00 | DI.CT.S_ITS ---
PROCEDURE: CT ANGIO CHEST PE PROTOCOL INDICATIONS: dyspnea,s/p mastectomy, CXR ng, Left axilla SOFT TISSU MASS? TECHNIQUE: After the administration of intravenous contrast, 2 mm thick sections acquired from the pulmonary apices to the posterior costophrenic angles. 3-dimensional maximum intensity projection (MIP) coronal and sagittal reformats were then acquired through the thorax. For radiation dose reduction, the following was used: automated exposure control, adjustment of mA and/or kV according to patient size. COMPARISON: [facility], CT, CT CHEST ABDOMEN W CON, 03/16/2024, 17:51. FINDINGS: Image quality: Diagnostic. Pulmonary arteries: Pulmonary arteries are normal in size, and demonstrate no intraluminal filling defects to suggest central pulmonary embolism. Lower Neck: No enlarged lymph nodes. Thyroid: No thyroid nodules which require sonographic follow up, per consensus guidelines. Axillae: Small left axillary lymph nodes are nonspecific and may be reactive, not significantly changed. Chest Wall: Stable postsurgical changes and scarring involving the left breast. Previously seen seroma has significantly decreased in size. Prior percutaneous drain is been removed. Bones: Postsurgical changes from right shoulder reverse total arthroplasty. Severe left shoulder degenerative changes with remodeling of the articular surfaces. Irregular appearance of the left 6th rib again seen. Old healed left-sided rib fractures again noted. Lungs and Pleura: No pneumothorax or pleural effusions. No consolidation or suspicious nodules. Heart: Heart size is enlarged. No pericardial effusion. Thoracic Vessels: No aortic aneurysm. Mediastinum and Monica: No enlarged lymph nodes. Esophagus: No wall thickening. No hiatal hernia. Upper Abdomen: Visualized upper abdomen solid organs and bowel loops appear normal. IMPRESSION: 1. No acute pulmonary embolus. No acute cardiopulmonary abnormality. 2. Postsurgical changes again seen from left mastectomy. Postoperative seroma has significantly decreased in size. 3. Stable irregular appearance of the anterior left 6th rib. Approved by: Milton Tracey M.D. on 04/06/2024 at 14:28
== END ==
PROVIDERS: Family Provider Family Medicine; PCP Family Medicine; Referring Provider Family Medicine; Visit Provider Family Medicine
DX: M96.843 Postprocedural seroma of a musculoskeletal structure following other procedure (principal); I51.7 Cardiomegaly; R06.00 Dyspnea, unspecified; R91.8 Other nonspecific abnormal finding of lung field; R22.32 Localized swelling, mass and lump, left upper limb; Z90.12 Acquired absence of left breast and nipple
CPT/HCPCS: 71275; Q9967

== ENCOUNTER → 2024-05-10 10:53 | Outpatient (CLI) | payer MEDICARE, SELFPAY ==
[2024-03-13 09:22] VITALS: BMI 29.7
== END ==
PROVIDERS: Family Provider Family Medicine; PCP Family Medicine; Visit Provider Family Medicine
DX: L02.91 Cutaneous abscess, unspecified (principal)
CPT/HCPCS: 87070; 87075; 87077; 87147; 87186; 87205

== ENCOUNTER → 2024-06-07 09:23 | Outpatient (CLI) | payer MEDICARE, SELFPAY ==
[2024-03-13 09:22] VITALS: BMI 29.7
== END ==
PROVIDERS: Family Provider Family Medicine; PCP Family Medicine; Referring Provider Family Medicine; Visit Provider Surgery
DX: T81.89XA Other complications of procedures, not elsewhere classified, initial encounter (principal); L98.8 Other specified disorders of the skin and subcutaneous tissue; S21.102A Unspecified open wound of left front wall of thorax without penetration into thoracic cavity, initial encounter; L53.9 Erythematous condition, unspecified; R60.0 Localized edema; L59.8 Other specified disorders of the skin and subcutaneous tissue related to radiation; M86.68 Other chronic osteomyelitis, other site
CPT/HCPCS: 11042; 87070; 87075; 87077; 87186; 87205; 99213; 99214

== ENCOUNTER → 2024-06-16 09:57 | Outpatient (CLI) | payer MEDICARE, SELFPAY ==
[2024-03-13 09:22] VITALS: BMI 29.7
== END ==
PROVIDERS: Family Provider Family Medicine; PCP Family Medicine; Referring Provider Family Medicine; Visit Provider Physician Assistant
DX: T81.89XA Other complications of procedures, not elsewhere classified, initial encounter (principal); L98.8 Other specified disorders of the skin and subcutaneous tissue; S21.102A Unspecified open wound of left front wall of thorax without penetration into thoracic cavity, initial encounter; L53.9 Erythematous condition, unspecified; R60.0 Localized edema
CPT/HCPCS: 97597; 99214

== ENCOUNTER → 2024-06-30 09:00 | Outpatient (CLI) | payer MEDICARE, SELFPAY ==
[2024-03-13 09:22] VITALS: BMI 29.7
== END ==
PROVIDERS: Family Provider Family Medicine; PCP Family Medicine; Referring Provider Family Medicine; Visit Provider Physician Assistant
DX: T81.89XA Other complications of procedures, not elsewhere classified, initial encounter (principal); S21.002A Unspecified open wound of left breast, initial encounter; L59.8 Other specified disorders of the skin and subcutaneous tissue related to radiation; M86.68 Other chronic osteomyelitis, other site; L53.8 Other specified erythematous conditions; R60.0 Localized edema
CPT/HCPCS: 11042; 99213

== ENCOUNTER → 2024-07-14 13:10 | Outpatient (CLI) | payer MEDICARE, SELFPAY ==
[2024-03-13 09:22] VITALS: BMI 29.7
== END ==
LOC: WC 13:12
PROVIDERS: Family Provider Family Medicine; PCP Family Medicine; Referring Provider Family Medicine; Visit Provider Physician Assistant
DX: S21.102D Unspecified open wound of left front wall of thorax without penetration into thoracic cavity, subsequent encounter (principal); L59.8 Other specified disorders of the skin and subcutaneous tissue related to radiation
CPT/HCPCS: 99213

== ENCOUNTER → 2024-08-21 11:27 | Outpatient (CLI) | payer MEDICARE, SELFPAY ==
[2024-03-13 09:22] VITALS: BMI 29.7
[2024-08-21 18:46] LABS: Alanine Aminotransferase 22 IU/L (<35); Albumin 4.6 g/dL (3.5-5.0); Albumin Globulin Ratio 1.2 (1.0-2.8); Alkaline Phosphatase 99 U/L (38-126); Aspartate Aminotransferase 62 IU/L (14-36); Bilirubin Total 0.5 mg/dL (0.2-1.3); Blood Urea Nitrogen 19 mg/dL (7-17); Calcium 9.9 mg/dL (8.4-10.2); Carbon Dioxide 26 mmol/L (22-32); Chloride 101 mmol/L (98-107); Estimated Glomerular Filt Rate 48 mL/min (>60); Globulin 3.8 g/dL (1.7-4.1); Glucose 105 mg/dL (80-110); HEMOLYSIS 31 (0-50); Potassium 4.7 mmol/L (3.4-5.1); Sodium 139 mmol/L (137-145); Total Protein 8.4 g/dL (6.3-8.2)
[2024-08-21 18:49] LABS: HEMOLYSIS < 15 (0-50); Iron 77 ug/dL (37-170)
[2024-08-21 19:03] LABS: Percent Iron Saturation 28 % (15-50); Total Iron Binding Capacity 271 ug/dL (265-497); Transferrin 239 mg/dL (206-381)
[2024-08-21 19:08] LABS: Vitamin D 25 Hydroxy (D3) 29.1 ng/mL (30.0-100.0)
[2024-08-21 19:20] LABS: TSH w/ Reflex to FT4 3.78 uIU/mL (0.47-4.68)
[2024-08-21 19:21] LABS: Ferritin 38 ng/mL (11-264)
[2024-08-21 19:28] LABS: Add Manual Diff / Slide Review NO; Basophils Absolute Auto 0 /uL (0-100); Basophils Percent Auto 0.7 % (0-2); Eosinophils Absolute Auto 300 /uL (0-450); Eosinophils Percent Auto 4.2 % (2-4); Hemoglobin 11.9 g/dL (12.0-16.0); Lymphocytes Absolute Auto 1200 /uL (1100-4500); Lymphocytes Percent Auto 19.3 % (25-40); Mean Corpuscular Hemoglobin 29.5 PG (26-34); Mean Corpuscular Volume 89.5 fL (80-100); Monocytes Absolute Auto 800 /uL (0-900); Monocytes Percent Auto 13.6 % (3-14); Neutrophils Absolute Auto 3700 /uL (1500-7000); Neutrophils Percent Auto 62.2 % (50-75); Platelet Count 217 X10^3/uL (150-400); Red Blood Cell Count 4.02 X10^6/uL (4.0-5.2); Red Cell Distribution Width 16.1 % (11.6-14.8)
[2024-08-21 19:39] LABS: Vitamin B12 512 pg/mL (239-931)
[2024-08-23 09:09] LABS: Calcium 9.6 mg/dL (8.7-10.3); Parathyroid Hormone, Intact 49 pg/mL (15-65)
== END ==
PROVIDERS: Student in an Organized Health Care Education/Training Program; Family Provider Family Medicine; PCP Family Medicine; Visit Provider Family Medicine
DX: D64.9 Anemia, unspecified (principal); M81.0 Age-related osteoporosis without current pathological fracture; N18.30 Chronic kidney disease, stage 3 unspecified; E53.8 Deficiency of other specified B group vitamins; E87.1 Hypo-osmolality and hyponatremia; E03.9 Hypothyroidism, unspecified; E83.52 Hypercalcemia; I12.9 Hypertensive chronic kidney disease with stage 1 through stage 4 chronic kidney disease, or unspecified chronic kidney disease
CPT/HCPCS: 80053; 82306; 82310; 82607; 82728; 83540; 83550; 83970; 84443; 85025

== ENCOUNTER → 2024-09-25 10:06 | Outpatient (CLI) | payer MEDICARE, SELFPAY ==
[2024-03-13 09:22] VITALS: BMI 29.7
== END ==
PROVIDERS: Family Provider Family Medicine; PCP Family Medicine; Visit Provider Family Medicine
DX: J30.9 Allergic rhinitis, unspecified (principal); J30.2 Other seasonal allergic rhinitis; R05.1 Acute cough; R39.11 Hesitancy of micturition; R39.89 Other symptoms and signs involving the genitourinary system; B37.2 Candidiasis of skin and nail
CPT/HCPCS: 71046; 81002; 87086

== ENCOUNTER → 2024-10-02 09:53 | Outpatient (CLI) | payer MEDICARE, SELFPAY ==
[2024-03-13 09:22] VITALS: BMI 29.7
== END ==
PROVIDERS: Family Provider Family Medicine; PCP Family Medicine; Visit Provider Family Medicine
DX: B36.9 Superficial mycosis, unspecified (principal)
CPT/HCPCS: 87102

== ENCOUNTER → 2024-10-09 09:34 | Outpatient (CLI) | payer MEDICARE, SELFPAY ==
[2024-03-13 09:22] VITALS: BMI 29.7
== END ==
PROVIDERS: Family Provider Family Medicine; PCP Family Medicine; Referring Provider Family Medicine; Visit Provider Family Medicine
DX: R21 Rash and other nonspecific skin eruption (principal); B37.2 Candidiasis of skin and nail
CPT/HCPCS: 87070; 87075; 87077; 87102; 87147; 87186; 87205

== ENCOUNTER → 2024-10-11 10:43 | Outpatient (CLI) | payer MEDICARE, SELFPAY ==
[2024-03-13 09:22] VITALS: BMI 29.7
[2024-10-11 18:56] LABS: Add Manual Diff / Slide Review NO; Basophils Absolute Auto 0 /uL (0-100); Basophils Percent Auto 0.6 % (0-2); Eosinophils Absolute Auto 300 /uL (0-450); Eosinophils Percent Auto 4.3 % (2-4); Hematocrit 35.2 % (36-46); Hemoglobin 11.9 g/dL (12.0-16.0); Lymphocytes Absolute Auto 1100 /uL (1100-4500); Lymphocytes Percent Auto 17.8 % (25-40); Mean Corpuscular HGB Conc 33.8 % (30-36); Mean Corpuscular Hemoglobin 30.2 PG (26-34); Mean Corpuscular Volume 89.5 fL (80-100); Monocytes Absolute Auto 800 /uL (0-900); Neutrophils Absolute Auto 3900 /uL (1500-7000); Neutrophils Percent Auto 64.3 % (50-75); Platelet Count 219 X10^3/uL (150-400); Red Blood Cell Count 3.93 X10^6/uL (4.0-5.2); Red Cell Distribution Width 16.2 % (11.6-14.8); White Blood Cell Count 6.1 X10^3/uL (4.5-11.0)
[2024-10-11 19:08] LABS: Alanine Aminotransferase 20 IU/L (<35); Albumin 5.1 g/dL (3.5-5.0); Albumin Globulin Ratio 1.5 (1.0-2.8); Alkaline Phosphatase 96 U/L (38-126); Aspartate Aminotransferase 42 IU/L (14-36); BUN Creatinine Ratio 20.2 (6-22); Bilirubin Total 0.6 mg/dL (0.2-1.3); Blood Urea Nitrogen 20 mg/dL (7-17); C-Reactive Protein Quant < 0.5 mg/dL (<1.0); Calcium 9.8 mg/dL (8.4-10.2); Carbon Dioxide 23 mmol/L (22-32); Chloride 99 mmol/L (98-107); Estimated Glomerular Filt Rate 56 mL/min (>60); Globulin 3.5 g/dL (1.7-4.1); Glucose 84 mg/dL (70-99); HEMOLYSIS 38 (0-50); Potassium 4.8 mmol/L (3.4-5.1); Sodium 136 mmol/L (137-145); Total Protein 8.6 g/dL (6.3-8.2)
[2024-10-11 19:34] LABS: Erythrocyte Sedimentation Rate 64 MM/HR (0-20)
== END ==
PROVIDERS: Family Provider Family Medicine; PCP Family Medicine; Visit Provider Family Medicine
DX: R93.89 Abnormal findings on diagnostic imaging of other specified body structures (principal); R06.00 Dyspnea, unspecified; R79.89 Other specified abnormal findings of blood chemistry; R94.4 Abnormal results of kidney function studies
CPT/HCPCS: 80053; 85025; 85651; 86140

== ENCOUNTER → 2024-10-20 15:30 | Outpatient (CLI) | payer MEDICARE, SELFPAY ==
[2024-03-13 09:22] VITALS: BMI 29.7
--- NOTE | 2024-10-20 15:33 | DI.CT.S_ITS ---
PROCEDURE: CT CHEST WO CON INDICATIONS: SOB, abnl CXR, post op infection s/p mastectomy 2023 TECHNIQUE: Noncontrast 2.0-2.5 mm thick sections acquired from the pulmonary apices to the posterior costophrenic angles. 7 mm thick axial MIP and 5 mm coronal and sagittal reformats were then acquired. For radiation dose reduction, the following was used: automated exposure control, adjustment of mA and/or kV according to patient size. COMPARISON: [facility], CT, CT CHEST WITHOUT CONTRAST, 05/19/2024, 15:53. [facility] ([facility], CR, XR CHEST 2V, 09/25/2024, 9:50. FINDINGS: Image quality: Diagnostic. Lower Neck: No enlarged lymph nodes. Thyroid: No thyroid nodules which require sonographic follow up, per consensus guidelines. Axillae: No enlarged lymph nodes. Chest Wall: Status post left mastectomy. Bones: Again seen fragmented expansile appearance of the left anterolateral 6th rib. Mild superior endplate compression deformities of T7 and T8 are stable. Mild degenerative changes of the spine. Severe left glenohumeral joint degeneration. Lungs and Pleura: No pneumothorax or pleural effusions. No consolidation or suspicious nodules. Mild scarring within the lingula. No suspicious pulmonary nodules or consolidations. Heart: Heart size mildly enlarged. No pericardial effusion. Thoracic Vessels: The aorta demonstrate normal size. Dilatation of the main pulmonary artery trunks. Atherosclerotic vascular calcifications. Mediastinum and Monica: No enlarged lymph nodes. Esophagus: No wall thickening. No hiatal hernia. Upper Abdomen: Visualized upper abdomen solid organs and bowel loops appear normal. IMPRESSION: The abnormality seen on x-ray may correspond to an area of scarring within the lingula versus the fragmented left anterolateral 6th rib superimposed on the lung field. No suspicious pulmonary consolidations are seen. Again seen fragmented appearance of the 6 left anterolateral rib which is stable in appearance compared to prior. Differential again includes chronic osteomyelitis, radiation necrosis versus metastases. Additional findings are stable compared to prior exam, as described above. Dictated by: Ede Agrawal M.D. on 10/21/2024 at 15:29 Approved by: Ede Agrawal M.D. on 10/21/2024 at 15:49
== END ==
PROVIDERS: Family Provider Family Medicine; PCP Family Medicine; Referring Provider Family Medicine; Visit Provider Family Medicine
DX: R93.89 Abnormal findings on diagnostic imaging of other specified body structures (principal); R06.00 Dyspnea, unspecified; R79.89 Other specified abnormal findings of blood chemistry; R94.4 Abnormal results of kidney function studies
CPT/HCPCS: 71250

== ENCOUNTER → 2024-11-22 14:07 | Outpatient (CLI) | payer MEDICARE, SELFPAY ==
[2024-03-13 09:22] VITALS: BMI 29.7
[2024-11-22 20:01] LABS: Albumin 4.7 g/dL (3.5-5.0); BUN Creatinine Ratio 24.2 (6-22); Blood Urea Nitrogen 22 mg/dL (7-17); Calcium 9.9 mg/dL (8.4-10.2); Carbon Dioxide 23 mmol/L (22-32); Chloride 102 mmol/L (98-107); Estimated Glomerular Filt Rate > 60 mL/min (>60); Glucose 132 mg/dL (70-99); HEMOLYSIS < 15 (0-50); Phosphorous 3.8 mg/dL (2.8-4.1); Potassium 4.4 mmol/L (3.4-5.1); Sodium 138 mmol/L (137-145)
[2024-11-22 20:21] LABS: Free T4, Direct Thyroxine 1.56 ng/dL (0.78-2.19)
[2024-11-22 20:35] LABS: Thyroid Stimulating Hormone 0.751 uIU/mL (0.47-4.68)
[2024-11-22 21:26] LABS: Vitamin D 25 Hydroxy (D3) 40.5 ng/mL (30.0-100.0)
[2024-11-25 09:09] LABS: Calcium 9.6 mg/dL (8.7-10.3); Parathyroid Hormone, Intact 27 pg/mL (15-65)
== END ==
PROVIDERS: PCP Family Medicine; Visit Provider Student in an Organized Health Care Education/Training Program
DX: M81.0 Age-related osteoporosis without current pathological fracture (principal); M81.8 Other osteoporosis without current pathological fracture
CPT/HCPCS: 80069; 82306; 82310; 83970; 84439; 84443

== ENCOUNTER → 2025-02-27 10:32 | Outpatient (CLI) | payer MEDICARE, SELFPAY ==
[2025-01-22 14:29] VITALS: BMI 29.7
== END ==
PROVIDERS: PCP Family Medicine; Visit Provider Physician Assistant
DX: K13.79 Other lesions of oral mucosa (principal)
CPT/HCPCS: 81002; 87070; 87252

== ENCOUNTER → 2025-03-01 12:25 | Outpatient (CLI) | payer MEDICARE, SELFPAY ==
[2025-01-22 14:29] VITALS: BMI 29.7
--- NOTE | 2025-03-01 12:26 | DI.US.S_ITS ---
PROCEDURE: US SOFT TISSUE HEAD AND NECK INDICATIONS: ENLARGING LEFT NECK LUMP TECHNIQUE: Real-time scanning was performed of the neck region of interest, with image documentation. COMPARISON: None. FINDINGS: At the area of palpable concern, there is an ill-defined heterogenous isoechoic nodule with internal vascularity. In the region could possibly be associated with the submandibular gland. Overall, the region measures 2.2 x 1.9 x 1.3 cm, although, no distinct capsule present. IMPRESSION: Nonspecific ill-defined heterogenous nodule with internal vascularity in the left superior lateral neck. Advise follow-up CT neck with contrast Approved by: Torey Lion M.D. on 03/01/2025 at 12:41
--- NOTE | 2025-03-01 12:26 | DI.CT.S_ITS ---
PROCEDURE: CT SINUS SCREEN WO CON INDICATIONS: ongoing sinus issues now with cervical lymphadenopathy TECHNIQUE: Noncontrast 3.0 mm axial images acquired from the frontal sinuses to the mid- sella, with coronal and sagittal reformats. For radiation dose reduction, the following was used: automated exposure control, adjustment of mA and/or kV according to patient size. COMPARISON: [facility], CT, CT CERVICAL SPINE WO CON, 11/30/2023, 13:13. [facility], US, US SOFT TISSUE HEAD AND NECK, 03/01/2025, 13:16. [facility], CT, CT HEAD/BRAIN WO CON, 11/30/2023, 12:19. FINDINGS: Image quality: Excellent. Maxillary Sinuses: No bony remodeling or destruction. Sinuses are clear. Ethmoid Air Cells: No bony remodeling or destruction. Sinuses are clear. Sphenoid Sinuses: No bony remodeling or destruction. Sinuses are clear. Frontal Sinuses: No bony remodeling or destruction. Sinuses are clear. Ostiomeatal Complexes: Ostiomeatal complexes are patent, yet they are constitutionally narrowed. Miscellaneous: Visualized intra-orbital contents are normal. No acacia bullosa or paradoxical turbinate curvature. There is minimal rightward nasal septal deviation. 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 Cervical spine degenerative change is partially seen. IMPRESSION: No active paranasal sinus disease is seen. Chronic discontinuities can be seen involving the C1 arch. Please correlate with known patient history. Dictated by: Yuval Bhat M.D. on 03/01/2025 at 12:35 Approved by: Yuval Bhat M.D. on 03/01/2025 at 12:39
== END ==
PROVIDERS: PCP Family Medicine; Referring Provider Physician Assistant; Visit Provider Physician Assistant
DX: J32.2 Chronic ethmoidal sinusitis (principal); R59.0 Localized enlarged lymph nodes; R22.1 Localized swelling, mass and lump, neck
CPT/HCPCS: 70486; 76536

== ENCOUNTER → 2025-03-09 10:56 | Outpatient (CLI) | payer MEDICARE, SELFPAY ==
[2025-01-22 14:29] VITALS: BMI 29.7
--- NOTE | 2025-03-09 10:57 | DI.CT.S_ITS ---
PROCEDURE: CT SOFT TISSUE NECK W CON INDICATIONS: abnormal US. Left neck mass TECHNIQUE: After the administration of intravenous contrast, 3.0 mm axial sections acquired from the sella to the aortic arch. Additional oblique axial 3.0 mm sections acquired through the pharynx. 3 mm thick coronal and sagittal reformats were generated. For radiation dose reduction, the following was used: automated exposure control. COMPARISON: None. FINDINGS: Image quality: Excellent. Lymph nodes: No enlarged lymph nodes seen throughout the neck. No pathologic nodes corresponding to the patient's palpable abnormality. Vessels: Visualized vasculature appears patent. Tortuous common carotid arteries with marked bilateral medial deviation. Mild atherosclerotic calcification. Incidental note of mildly enlarged pulmonary arteries. Neck spaces: The oropharynx, nasopharynx, and pharynx demonstrate no mucosal lesions. The vocal cords, false vocal cords, pyriform sinuses, epiglottis, vallecula, and tongue base all appear normal. Extramucosal spaces appear unremarkable. Glands: The parotid and submandibular glands appear normal. Thyroid gland is normal. Miscellaneous: A BB indicates the left neck area abnormal mass which overlies the distal in inferior portion of the normal appearing left parotid gland, and normal- appearing sternocleidomastoid muscle. No suspicious skin thickening or soft tissue masses. Visualized brain and orbits appear normal. Lung apices demonstrate mosaic attenuation suggesting air trapping. Superficial soft tissues appear normal. Bones: Right shoulder arthroplasty. Severe left shoulder arthritic change. Grade 2 anterolisthesis C3-4. C4-5 vertebral body ankylosis and acute kyphosis. Severe C5-6 disc height loss and anterior endplate spurring. Severe disc height loss C6-7. No suspicious bone lesions. IMPRESSION: No abnormalities corresponding to the patient's area of left neck mass. Prominent C3-4 spondylolisthesis and spondylitic changes in the cervical spine. Dictated by: Leeanna Burgos M.D. on 03/10/2025 at 20:21 Approved by: Leeanna Burgos M.D. on 03/10/2025 at 20:29
[2025-03-09 12:15] LABS: Alanine Aminotransferase 19 IU/L (<35); Albumin 4.6 g/dL (3.5-5.0); Albumin Globulin Ratio 1.2 (1.0-2.8); Alkaline Phosphatase 121 U/L (38-126); Blood Urea Nitrogen 16 mg/dL (7-17); Calcium 9.3 mg/dL (8.4-10.2); Carbon Dioxide 24 mmol/L (22-32); Chloride 102 mmol/L (98-107); Estimated Glomerular Filt Rate > 60 mL/min (>60); Globulin 3.8 g/dL (1.7-4.1); Glucose 108 mg/dL (70-99); HEMOLYSIS < 15 (0-50); Potassium 4.4 mmol/L (3.4-5.1); Sodium 136 mmol/L (137-145); Total Protein 8.4 g/dL (6.3-8.2)
== END ==
LOC: CT 10:57
PROVIDERS: PCP Family Medicine; Referring Provider Physician Assistant; Visit Provider Physician Assistant
DX: Z01.812 Encounter for preprocedural laboratory examination (principal); R22.1 Localized swelling, mass and lump, neck; M43.12 Spondylolisthesis, cervical region; M40.292 Other kyphosis, cervical region; M43.22 Fusion of spine, cervical region; Z96.611 Presence of right artificial shoulder joint
CPT/HCPCS: 36415; 70491; 80053; Q9967

== ENCOUNTER → 2025-03-21 12:03 | Outpatient (CLI) | payer MEDICARE, SELFPAY ==
[2025-01-22 14:29] VITALS: BMI 29.7
== END ==
PROVIDERS: PCP Family Medicine; Visit Provider Physician Assistant
DX: J86.9 Pyothorax without fistula (principal); Z86.14 Personal history of Methicillin resistant Staphylococcus aureus infection; T81.40XA Infection following a procedure, unspecified, initial encounter
CPT/HCPCS: 87070; 87075; 87077; 87147; 87205

== ENCOUNTER → 2025-05-21 11:25 | Outpatient (CLI) | payer MEDICARE, SELFPAY ==
[2025-05-10 12:34] VITALS: BMI 29.7
[2025-05-21 19:27] LABS: Hematocrit 32.7 % (36-46); Hemoglobin 10.8 g/dL (12.0-16.0); Mean Corpuscular HGB Conc 33.1 % (30-36); Mean Corpuscular Hemoglobin 28.9 PG (26-34); Mean Corpuscular Volume 87.5 fL (80-100); Platelet Count 235 X10^3/uL (150-400)
[2025-05-21 19:36] LABS: Blood Urea Nitrogen 22 mg/dL (7-17); Calcium 9.6 mg/dL (8.4-10.2); Carbon Dioxide 24 mmol/L (22-32); Chloride 104 mmol/L (98-107); Estimated Glomerular Filt Rate 50 mL/min (>60); Glucose 106 mg/dL (70-99); HEMOLYSIS 37 (0-50); Potassium 4.5 mmol/L (3.4-5.1); Sodium 140 mmol/L (137-145)
[2025-05-21 20:10] LABS: Ferritin 65 ng/mL (11-264)
[2025-05-21 21:09] LABS: Band Neutrophils Percent 2.0 % (3-7); Basophils Percent Manual 1.0 % (0-1); Eosinophils Percent Manual 5.0 % (2-4); Lymphocytes Percent Manual 15.0 % (25-45); Monocytes Percent Manual 19.0 % (2-11); Neutrophils Absolute Manual 3720 /uL (3000-5900); RBC Morphology Normal Morphology; Segmented Neutrophils Percent 58.0 % (38-70); Total Cells Counted 100
== END ==
PROVIDERS: PCP Family Medicine; Visit Provider Family Medicine
DX: I12.9 Hypertensive chronic kidney disease with stage 1 through stage 4 chronic kidney disease, or unspecified chronic kidney disease (principal); N18.31 Chronic kidney disease, stage 3a
CPT/HCPCS: 80048; 82728; 85025